=== PATIENT | male | born 1965 | race Caucasian/White ===

== ENCOUNTER 2020-03-22 02:24 | Inpatient (IN) | payer BC ==
[~2020-03-22] VITALS: Ht 177.8 cm; Wt 79.9 kg
[2020-03-22 03:08] LABS: BASO # 0.1 x10^3/uL (0.0-0.2); BASO % 1 % (0-3); EOS # 0.1 x10^3/uL (0.0-0.7); EOS % 1 % (0-3); HEMATOCRIT 46.3 % (39.0-53.0); HEMOGLOBIN 15.7 g/dL (13.0-17.5); LYMPH # 2.1 x10^3/uL (1.0-4.8); LYMPH % 20 % (24-48); MEAN CORPUSCULAR HEMOGLOBIN 28 pg (25-35); MEAN CORPUSCULAR HGB CONC 34 g/dL (31-37); MEAN CORPUSCULAR VOLUME 82 fL (79-100); MONO # 0.6 x10^3/uL (0.0-1.1); MONO % 6 % (0-9); NEUT # 7.3 x10^3/uL (1.8-7.7); NEUT % 71 % (31-73); PLATELET COUNT 269 x10^3/uL (140-400); RED BLOOD COUNT 5.65 x10^6/uL (4.30-5.70); RED CELL DISTRIBUTION WIDTH 14.9 % (11.5-14.5); WHITE BLOOD COUNT 10.3 x10^3/uL (4.0-11.0)
--- NOTE | 2020-03-22 03:13 | PHYS DOC ---
General Adult EDM: Chief Complaint: SHORTNESS OF BREATH HPI: HPI: Patient is a 54 year old male presenting to the ED with a chief complaint of cough and shortness of breath. Patient states that the symptoms have been going on for the last 5 days. Patient states that when he lays down he feels like he is having an anxiety attack. Patient does not use oxygen at home. Patient does admit to being an active smoker. Patient complains of subjective fevers at home but in the ER is afebrile. Patient denies being exposed to anyone having COVID. 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 Review of Systems: Review of Systems: Constitutional: Complains of subjective fever. [] Eyes: Denies change in visual acuity. [] HENT: Denies nasal congestion or sore throat. [] Respiratory: Complains of cough and shortness of breath [] Cardiovascular: Denies chest pain or edema. [] GI: Denies abdominal pain, nausea, vomiting, bloody stools or diarrhea. [] : Denies dysuria. [] Musculoskeletal: Denies back pain or joint pain. [] Integument: Denies rash. [] Neurologic: Denies headache, focal weakness or sensory changes. [] Heart Score: Risk Factors: Risk Factors: DM, Current or recent (<one month) smoker, HTN, HLP, family history of CAD, obesity. Risk Scores: Score 0 - 3: 2.5% MACE over next 6 weeks - Discharge Home Score 4 - 6: 20.3% MACE over next 6 weeks - Admit for Clinical Observation Score 7 - 10: 72.7% MACE over next 6 weeks - Early Invasive Strategies Physical Exam: PE: Constitutional: Well developed, well nourished, no acute distress, non-toxic appearance. [] HENT: Normocephalic, atraumatic Eyes: EOMI Neck: Normal range of motion, Supple Cardiovascular: Heart rate regular rhythm Lungs & Thorax: Bilateral breath sounds clear to auscultation [] Abdomen: Bowel sounds normal, soft, no tenderness Extremities: No tenderness, ROM intact Neurologic: Alert and oriented X 3, no focal neuro deficits on exam EKG: EKG: [EKG interpretation: 2: 45 AM on 03/22/2020 HR: 100 Sinus rhythm with PVCs Regular intervals Normal axis Nonspecific ST changes ] Radiology/Procedures: Radiology/Procedures: [] Course & Med Decision Making: Course & Med Decision Making Pertinent Labs and Imaging studies reviewed. (See chart for details) Ordered labs, chest x-ray, EKG, troponin EKG does not show STEMI. Troponin is negative. BNP is elevated to 3940 Labs otherwise within normal limits. Chest x-ray shows patchy bilateral infiltrates Patient is given IV Rocephin and Zithromax in the ER. Nurse informs me that patient's oxygenation has dropped to 86% on room air. Patient is now placed on 3 L oxygen by nasal cannula. COVID testing done Patient will be admitted for further evaluation and treatment. Discussed results and plan of care with patient. Will discuss with hospitalist service for admission. Dragon Disclaimer: Paktor Disclaimer: This electronic medical record was generated, in whole or in part, using a voice recognition dictation system. Departure Departure Impression: Primary Impression: Atypical pneumonia Additional Impressions: Suspected COVID-19 virus infection Frequent PVCs Disposition: ADMITTED INPATIENT Condition: GOOD Referrals: VLADIMIR CULVER (PCP) Justicifation of Admission Dx: Justifications for Admission: Justification of Admission Dx: Yes Comminuty Aquired Pneumonia: Hypoxemia FABIÁN LAWSON DO Mar 22, 2020 03:13
[2020-03-22 03:17] LABS: CALCIUM 9.1 mg/dL (8.5-10.1); GFR 78.2; POTASSIUM 3.5 mmol/L (3.5-5.1)
[2020-03-22 03:22] LABS: ALBUMIN 3.6 g/dL (3.4-5.0); ALBUMIN/GLOBULIN RATIO 1.2 (1.0-1.7); TOTAL BILIRUBIN 0.7 mg/dL (0.2-1.0); TOTAL PROTEIN 6.7 g/dL (6.4-8.2)
[2020-03-22] MEDS ORDERED: cefTRIAXone IV Push 1 GM VIAL. IVP ONE (04:30)
[2020-03-22] MEDS ORDERED: AZITHROMYCIN 250 MG TABLET. PO ONE (04:30)
[2020-03-22 06:10] VITALS: BP 116/69
--- NOTE | 2020-03-22 06:10 | RAD ---
INDICATION: Reason: SOB / Spl. Instructions: / History: COMPARISON: January 2010 FINDINGS: Single view of chest obtained. Cardiac silhouette is enlarged. Interstitial and groundglass opacities bilaterally. Hypoexpanded exam IMPRESSION: * Interstitial and groundglass opacities bilaterally which are moderate in severity. Can be from pulmonary edema or multifocal infiltrate. Electronically signed by: Vinicius Yung MD (03/22/2020 6:07 AM) [id number]
[2020-03-22] MEDS ORDERED: DEXTROSE 50% 25 GM / 50ML DISP.SYRIN. IV PRN (09:45)
[2020-03-22] MEDS ORDERED: POTASSIUM CHLORIDE 20 MEQ TABLET.ER. PO ONE (09:45)
[2020-03-22] MEDS: NICOTINE 21MG PATCH. TD PRN (10:15)
[2020-03-22] MEDS ORDERED: OMEP20TA8 PO (11:27)
[2020-03-22] MEDS ORDERED: ATOR40TA59 PO (11:27)
[2020-03-22] MEDS ORDERED: GLIM4TAB8 PO (11:27)
[2020-03-22] MEDS ORDERED: DAPA10TA PO (11:27)
[2020-03-22] MEDS ORDERED: AMLO10TA8 PO (11:27)
[2020-03-22] MEDS ORDERED: SIMV40TA18 PO (11:27)
[2020-03-22] MEDS ORDERED: METO-247 PO (11:27)
[2020-03-22] MEDS ORDERED: ICOS0.5C PO (11:27)
[2020-03-22 11:28] VITALS: BP 121/77
[2020-03-22] MEDS ORDERED: ALBUTEROL SULFATE 2.5 MG/3 ML NEBU. NEB PRN (11:30)
[2020-03-22] MEDS ORDERED: diphenhydrAMINE 50 MG/ML VIAL IVP PRN (11:30)
[2020-03-22] MEDS ORDERED: guaiFENesin ORAL 200 MG/10 ML LIQUID. PO PRN (11:30)
[2020-03-22] MEDS ORDERED: LORazepam 0.5 MG TABLET PO PRN (11:30)
[2020-03-22] MEDS ORDERED: ACETAMINOPHEN 325 MG TABLET. PO PRN (11:30)
[2020-03-22] MEDS ORDERED: ONDANSETRON PF 4 MG/2 ML VIAL. IV PRN (11:30)
[2020-03-22] MEDS ORDERED: ZOLPIDEM 5 MG TABLET. PO PRN (11:30)
--- NOTE | 2020-03-22 12:01 | PDOC ---
Infectious Disease Note Vital Signs: Vital Signs Vital Signs Date Time Temp Pulse Resp B/P (MAP) Pulse Ox O2 Delivery O2 Flow Rate FiO2 03/22/20 11:28 94.4 96 26 121/77 (92) 98 Nasal Cannula 2.0 94.4 Medications: Inpatient Meds: Current Medications Medications (Trade) Dose Ordered Sig/Gus Start Time Stop Time Status Last Admin Dose Admin Acetaminophen (Tylenol) 650 mg PRN Q4HRS PRN 03/22/20 11:30 Albuterol Sulfate (Ventolin Neb Soln) 2.5 mg PRN Q4HRS PRN 03/22/20 11:30 Albuterol/ Ipratropium (Duoneb) 3 ml Q4HRS W/A 03/22/20 14:00 Azithromycin (Zithromax) 500 mg 1X ONCE 03/22/20 04:30 03/22/20 04:31 DC 03/22/20 04:28 500 MG Ceftriaxone Sodium (Rocephin) 1 gm 1X ONCE 03/22/20 04:30 03/22/20 04:31 DC 03/22/20 04:28 1 GM Dextrose (Dextrose 50%-Water Syringe) 12.5 gm PRN Q15MIN PRN 03/22/20 09:45 Diphenhydramine HCl (Benadryl) 25 mg PRN Q4HRS PRN 03/22/20 11:30 Guaifenesin (Robitussin) 200 mg PRN Q4HRS PRN 03/22/20 11:30 Insulin Human Lispro (HumaLOG) 0-5 UNITS TIDWMEALS 03/22/20 12:00 Lorazepam (Ativan) 0.5 mg PRN Q4HRS PRN 03/22/20 11:30 Nicotine (Nicoderm Cq 21mg) 1 patch PRN DAILY PRN 03/22/20 09:45 03/22/20 10:15 1 PATCH Ondansetron HCl (Zofran) 4 mg PRN Q4HRS PRN 03/22/20 11:30 Potassium Chloride (Klor-Con) 20 meq 1X ONCE 03/22/20 09:45 03/22/20 09:46 DC 03/22/20 10:15 20 MEQ Zolpidem Tartrate (Ambien) 5 mg PRN QHS PRN 03/22/20 11:30 Labs: Lab Laboratory Tests Test 03/22/20 02:52 03/22/20 06:16 03/22/20 11:53 White Blood Count 10.3 x10^3/uL (4.0-11.0) Red Blood Count 5.65 x10^6/uL (4.30-5.70) Hemoglobin 15.7 g/dL (13.0-17.5) Hematocrit 46.3 % (39.0-53.0) Mean Corpuscular Volume 82 fL (79-100) Mean Corpuscular Hemoglobin 28 pg (25-35) Mean Corpuscular Hemoglobin Concent 34 g/dL (31-37) Red Cell Distribution Width 14.9 % (11.5-14.5) Platelet Count 269 x10^3/uL (140-400) Neutrophils (%) (Auto) 71 % (31-73) Lymphocytes (%) (Auto) 20 % (24-48) Monocytes (%) (Auto) 6 % (0-9) Eosinophils (%) (Auto) 1 % (0-3) Basophils (%) (Auto) 1 % (0-3) Neutrophils # (Auto) 7.3 x10^3/uL (1.8-7.7) Lymphocytes # (Auto) 2.1 x10^3/uL (1.0-4.8) Monocytes # (Auto) 0.6 x10^3/uL (0.0-1.1) Eosinophils # (Auto) 0.1 x10^3/uL (0.0-0.7) Basophils # (Auto) 0.1 x10^3/uL (0.0-0.2) Sodium Level 138 mmol/L (136-145) Potassium Level 3.5 mmol/L (3.5-5.1) Chloride Level 103 mmol/L (98-107) Carbon Dioxide Level 22 mmol/L (21-32) Anion Gap 13 (6-14) Blood Urea Nitrogen 14 mg/dL (8-26) Creatinine 1.0 mg/dL (0.7-1.3) Estimated GFR (Cockcroft-Gault) 78.2 BUN/Creatinine Ratio 14 (6-20) Glucose Level 214 mg/dL (70-99) Lactic Acid Level 1.5 mmol/L (0.4-2.0) Calcium Level 9.1 mg/dL (8.5-10.1) Magnesium Level 2.0 mg/dL (1.8-2.4) Total Bilirubin 0.7 mg/dL (0.2-1.0) Aspartate Amino Transf (AST/SGOT) 16 U/L (15-37) Alanine Aminotransferase (ALT/SGPT) 26 U/L (16-63) Alkaline Phosphatase 84 U/L (46-116) RQ-Thi-Y-Type Natriuretic Peptide 3490 pg/mL (0-124) Total Protein 6.7 g/dL (6.4-8.2) Albumin 3.6 g/dL (3.4-5.0) Albumin/Globulin Ratio 1.2 (1.0-1.7) Thyroid Stimulating Hormone (TSH) 2.367 uIU/mL (0.358-3.74) Glucose (Fingerstick) 174 mg/dL (70-99) 154 mg/dL (70-99) Objective: Assessment: Patient seen and examined Plan: Plan of Care ID consult dictated Thank you [id number] HELIO MALLORY MD Mar 22, 2020 12:01
[2020-03-22] MEDS: PIPERACILLIN/TAZOBACTAM 3.375 GM in IV NORMAL SALINE 50ML 50 ML IV SCH ×3 (13:01→23:33)
[2020-03-22] MEDS ORDERED: IPRATRPIUM/ALBUTEROL 0.5/2.5MG 3 ML NEBU. NEB PRN (14:00)
[2020-03-22] MEDS ORDERED: IPRATRPIUM/ALBUTEROL 0.5/2.5MG 3 ML NEBU. NEB SCH (14:00)
--- NOTE | 2020-03-22 14:43 | PDOC1 ---
History and Physical Date of Admission Date of Admission 03/22/2020 Identification/Chief Complaint Chief Complaint Coughing and shortness of breath Source Source: Chart review, Patient History of Present Illness History of Present Illness Patient is a 54-year-old gentleman with past medical history of hypertension and tobacco abuse who was in his usual state of health until approximately 3 to 5 days prior to his admission when he started complaining of cough with no sputum production sometimes he brings up some clear sputum. He denies any sick contacts no fever or chills but he reports feeling diaphoretic at some point over the last 24 hours. Patient denies any pleurisy no sick contacts have been reported. 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 Patient denies being in contact with anyone positive for coronavirus. He decided to come to the emergency department due to the shortness of breath. Patient is x-ray showed patchy bilateral infiltrates reason why she is being admitted to the hospital after presenting also an oxygenation level dropped into the 86% in the emergency department. Patient does not utilize oxygen at home, he has not been intubated. The patient denies any symptoms compatible with congestive heart failure like paroxysmal nocturnal dyspnea orthopnea no chest pain palpitations no headache and no generalized malaise no postnasal drip has been reported The patient denies abdominal pain no nausea vomiting no urinary symptoms and no lower extremity edema has been reported either. Plan of care has been explained in detail all of his concerns were addressed to the best of my abilities Past Medical History Cardiovascular: HTN Family History Family History: Other (Pertinent as per HPI otherwise 14 point review of system is negative) Social History Smoke: # pack years (30) ALCOHOL: rare Drugs: None Current Problem List Problem List Problems Medical Problems: (1) Atypical pneumonia Status: Acute (2) Frequent PVCs Status: Acute (3) Suspected COVID-19 virus infection Status: Acute Current Medications Current Medications Current Medications Medications (Trade) Dose Ordered Sig/Gus Start Time Stop Time Status Last Admin Dose Admin Acetaminophen (Tylenol) 650 mg PRN Q4HRS PRN 03/22/20 11:30 Albuterol Sulfate (Ventolin Neb Soln) 2.5 mg PRN Q4HRS PRN 03/22/20 11:30 Albuterol/ Ipratropium (Duoneb) 3 ml PRN Q4HRS PRN 03/22/20 14:00 Azithromycin (Zithromax) 500 mg 1X ONCE 03/22/20 04:30 03/22/20 04:31 DC 03/22/20 04:28 500 MG Ceftriaxone Sodium (Rocephin) 1 gm 1X ONCE 03/22/20 04:30 03/22/20 04:31 DC 03/22/20 04:28 1 GM Dextrose (Dextrose 50%-Water Syringe) 12.5 gm PRN Q15MIN PRN 03/22/20 09:45 Diphenhydramine HCl (Benadryl) 25 mg PRN Q4HRS PRN 03/22/20 11:30 Doxycycline Hyclate (Vibra-Tab) 100 mg BID 03/22/20 21:00 Guaifenesin (Robitussin) 200 mg PRN Q4HRS PRN 03/22/20 11:30 Insulin Human Lispro (HumaLOG) 0-5 UNITS TIDWMEALS 03/22/20 12:00 Lactobacillus Rhamnosus (Culturelle) 1 cap BID 03/22/20 21:00 Lorazepam (Ativan) 0.5 mg PRN Q4HRS PRN 03/22/20 11:30 Nicotine (Nicoderm Cq 21mg) 1 patch PRN DAILY PRN 03/22/20 09:45 03/22/20 10:15 1 PATCH Ondansetron HCl (Zofran) 4 mg PRN Q4HRS PRN 03/22/20 11:30 Piperacillin Sod/ Tazobactam Sod 3.375 gm/Sodium Chloride 50 ml @ 100 mls/hr Q6HRS 03/22/20 12:00 03/22/20 13:01 100 MLS/HR Potassium Chloride (Klor-Con) 20 meq 1X ONCE 03/22/20 09:45 03/22/20 09:46 DC 03/22/20 10:15 20 MEQ Zolpidem Tartrate (Ambien) 5 mg PRN QHS PRN 03/22/20 11:30 Allergies Allergies Allergies Coded Allergies Type Severity Reaction Last Updated Verified No Known Drug Allergies 03/22/20 No ROS Review of System CONSTITUTIONAL: No fever or chills EYES: No recent changes SKIN: No rash or itching CARDIOVASCULAR: No chest pain, syncope, palpitations, or edema RESPIRATORY: No SOB or cough GASTROINTESTINAL: No nausea, vomiting or abdominal pain NEUROLOGICAL: No headaches or weakness ENDOCRINE: No cold or heat intolerance GENITOURINARY: No urgency or frequency of urination MUSCULOSKELETAL: No back pain or joint pain LYMPHATICS: No enlarged lymph nodes PSYCHIATRIC: No anxiety or depression Physical Exam Physical Exam Gen.: well-developed well-nourished in no apparent distress Head: Normal shape atraumatic Eyes: Pupils equal reactive to light and accommodation, normal conjunctivae and lids Ears: Normal shape Nose: Normal shape no trauma Mouth: No exudates of the back of throat no thrush no lesions Neck: Supple no JVD no carotid bruit or lymphadenopathy no thyromegaly Chest: Lungs coarse to auscultation with good inspiratory effort no crackles rales no rhonchi, faint Rales bilaterally Cardiovascular: S1-S2 regular rhythm no murmurs gallops or rubs Abdomen: Bowel sounds present soft nontender no hepatosplenomegaly appreciated sign Extremities: No clubbing no cyanosis no edema peripheral pulses palpated bilaterally Neurological: Alert awake oriented in person time place and situation, cranial nerves II through XII intact, no motor or sensory deficits appreciated Psych: Appropriate mood, cooperative Vitals Vitals Vital Signs Date Time Temp Pulse Resp B/P (MAP) Pulse Ox O2 Delivery O2 Flow Rate FiO2 03/22/20 11:28 94.4 96 26 121/77 (92) 94 Nasal Cannula 2.0 94.4 Labs Labs Laboratory Tests Test 03/22/20 02:52 03/22/20 06:16 03/22/20 11:53 White Blood Count 10.3 x10^3/uL (4.0-11.0) Red Blood Count 5.65 x10^6/uL (4.30-5.70) Hemoglobin 15.7 g/dL (13.0-17.5) Hematocrit 46.3 % (39.0-53.0) Mean Corpuscular Volume 82 fL (79-100) Mean Corpuscular Hemoglobin 28 pg (25-35) Mean Corpuscular Hemoglobin Concent 34 g/dL (31-37) Red Cell Distribution Width 14.9 % (11.5-14.5) Platelet Count 269 x10^3/uL (140-400) Neutrophils (%) (Auto) 71 % (31-73) Lymphocytes (%) (Auto) 20 % (24-48) Monocytes (%) (Auto) 6 % (0-9) Eosinophils (%) (Auto) 1 % (0-3) Basophils (%) (Auto) 1 % (0-3) Neutrophils # (Auto) 7.3 x10^3/uL (1.8-7.7) Lymphocytes # (Auto) 2.1 x10^3/uL (1.0-4.8) Monocytes # (Auto) 0.6 x10^3/uL (0.0-1.1) Eosinophils # (Auto) 0.1 x10^3/uL (0.0-0.7) Basophils # (Auto) 0.1 x10^3/uL (0.0-0.2) Sodium Level 138 mmol/L (136-145) Potassium Level 3.5 mmol/L (3.5-5.1) Chloride Level 103 mmol/L (98-107) Carbon Dioxide Level 22 mmol/L (21-32) Anion Gap 13 (6-14) Blood Urea Nitrogen 14 mg/dL (8-26) Creatinine 1.0 mg/dL (0.7-1.3) Estimated GFR (Cockcroft-Gault) 78.2 BUN/Creatinine Ratio 14 (6-20) Glucose Level 214 mg/dL (70-99) Lactic Acid Level 1.5 mmol/L (0.4-2.0) Calcium Level 9.1 mg/dL (8.5-10.1) Magnesium Level 2.0 mg/dL (1.8-2.4) Total Bilirubin 0.7 mg/dL (0.2-1.0) Aspartate Amino Transf (AST/SGOT) 16 U/L (15-37) Alanine Aminotransferase (ALT/SGPT) 26 U/L (16-63) Alkaline Phosphatase 84 U/L (46-116) IV-Irc-E-Type Natriuretic Peptide 3490 pg/mL (0-124) Total Protein 6.7 g/dL (6.4-8.2) Albumin 3.6 g/dL (3.4-5.0) Albumin/Globulin Ratio 1.2 (1.0-1.7) Thyroid Stimulating Hormone (TSH) 2.367 uIU/mL (0.358-3.74) Glucose (Fingerstick) 174 mg/dL (70-99) 154 mg/dL (70-99) Laboratory Tests Test 03/22/20 02:52 03/22/20 06:16 03/22/20 11:53 White Blood Count 10.3 x10^3/uL (4.0-11.0) Red Blood Count 5.65 x10^6/uL (4.30-5.70) Hemoglobin 15.7 g/dL (13.0-17.5) Hematocrit 46.3 % (39.0-53.0) Mean Corpuscular Volume 82 fL (79-100) Mean Corpuscular Hemoglobin 28 pg (25-35) Mean Corpuscular Hemoglobin Concent 34 g/dL (31-37) Red Cell Distribution Width 14.9 % (11.5-14.5) Platelet Count 269 x10^3/uL (140-400) Neutrophils (%) (Auto) 71 % (31-73) Lymphocytes (%) (Auto) 20 % (24-48) Monocytes (%) (Auto) 6 % (0-9) Eosinophils (%) (Auto) 1 % (0-3) Basophils (%) (Auto) 1 % (0-3) Neutrophils # (Auto) 7.3 x10^3/uL (1.8-7.7) Lymphocytes # (Auto) 2.1 x10^3/uL (1.0-4.8) Monocytes # (Auto) 0.6 x10^3/uL (0.0-1.1) Eosinophils # (Auto) 0.1 x10^3/uL (0.0-0.7) Basophils # (Auto) 0.1 x10^3/uL (0.0-0.2) Sodium Level 138 mmol/L (136-145) Potassium Level 3.5 mmol/L (3.5-5.1) Chloride Level 103 mmol/L (98-107) Carbon Dioxide Level 22 mmol/L (21-32) Anion Gap 13 (6-14) Blood Urea Nitrogen 14 mg/dL (8-26) Creatinine 1.0 mg/dL (0.7-1.3) Estimated GFR (Cockcroft-Gault) 78.2 BUN/Creatinine Ratio 14 (6-20) Glucose Level 214 mg/dL (70-99) Lactic Acid Level 1.5 mmol/L (0.4-2.0) Calcium Level 9.1 mg/dL (8.5-10.1) Magnesium Level 2.0 mg/dL (1.8-2.4) Total Bilirubin 0.7 mg/dL (0.2-1.0) Aspartate Amino Transf (AST/SGOT) 16 U/L (15-37) Alanine Aminotransferase (ALT/SGPT) 26 U/L (16-63) Alkaline Phosphatase 84 U/L (46-116) FA-Xed-E-Type Natriuretic Peptide 3490 pg/mL (0-124) Total Protein 6.7 g/dL (6.4-8.2) Albumin 3.6 g/dL (3.4-5.0) Albumin/Globulin Ratio 1.2 (1.0-1.7) Thyroid Stimulating Hormone (TSH) 2.367 uIU/mL (0.358-3.74) Glucose (Fingerstick) 174 mg/dL (70-99) 154 mg/dL (70-99) VTE Prophylaxis Ordered VTE Prophylaxis Devices: No VTE Pharmacological Prophylaxi: Yes Assessment/Plan Assessment/Plan Atypical pneumonia Suspected COVID 19 virus Acute hypoxemic respiratory failure currently on 3 L nasal cannula History of hypertension Diabetes mellitus type 2 insulin requiring History of dyslipidemia Plan Continue antibiotics initiated in the emergency department Requested coronavirus testing ID apprenticeship consultant recommendations greatly appreciate Supportive measures Further recommendations based on clinical DVT prophylaxis Lovenox Justicifation of Admission Dx: Justifications for Admission: Justification of Admission Dx: Yes Respiratory Failure: Severe Resp Distress YENY MENDOZA MD Mar 22, 2020 14:43
[2020-03-22] MEDS: INSULIN LISPRO 300 UNITS/3 ML VIAL. SQ SCH ×2 (15:25→16:59)
[2020-03-22] MEDS: ENOXAPARIN 40 MG/0.4 ML SYRINGE. SQ SCH (15:44)
[2020-03-22 15:49] VITALS: BP 115/86
[2020-03-22] MEDS ORDERED: chlordiazePOXIDE HCL 25 MG CAPSULE PO PRN (16:00)
--- NOTE | 2020-03-22 17:03 | NUR ---
SW following for discharge planning. SW spoke with RN and reviewed chart. Pt from home. Pt works for [employer]. Pt on 2l 02. COVID test pending. Pt on IV abx. SW to continue following.
[2020-03-22 19:00] VITALS: BP 139/90
[2020-03-22] MEDS ORDERED: SIMVASTATIN 40 MG TABLET. PO SCH (21:00)
[2020-03-22] MEDS: ICOSAPENT ETHYL PO SCH (21:00)
[2020-03-22] MEDS ORDERED: ATORVASTATIN CALCIUM 40 MG TABLET. PO SCH (21:00)
[2020-03-22] MEDS: NON FORMULARY ITEM (Dapagliflozin Propanediol (Farxiga) 10 MG) PO SCH (21:00)
[2020-03-22] MEDS: LACTOBACILLUS RHAMNOSUS GG 1 CAPSULE. PO SCH (21:13)
[2020-03-22] MEDS: DOXYCYCLINE HYCLATE 100 MG TABLET PO SCH (21:13)
[2020-03-22 23:00] VITALS: BP 130/95
--- NOTE | 2020-03-23 00:38 | CONS ---
DATE OF CONSULTATION: 03/22/2020 REFERRING PHYSICIAN: Otto Wolf MD REASON FOR CONSULTATION: Ground-glass pulmonary opacities on chest x-ray. HISTORY OF PRESENT ILLNESS: A 54-year-old male presented to the ER with complaints of cough and shortness of breath, which started couple of days prior to admission. 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 He is an active smoker, did have cough with clear to white sputum, no blood, had subjective fevers at home. Denies any headache, sore throat, nausea, vomiting, diarrhea, abdominal pain, symptoms, rash, sick contact, recent procedure. PAST MEDICAL HISTORY: Smoking, diabetes, hypertension, hyperlipidemia. ALLERGIES: There are no known drug allergies. REVIEW OF SYSTEMS: Negative except for above in HPI. CURRENT MEDICATIONS: One-time dose of azithromycin and ceftriaxone, acetaminophen, albuterol, diphenhydramine, guaifenesin, insulin, lorazepam, nicotine, Zofran, potassium, Ambien. REVIEW OF SYSTEMS: Negative except for above in HPI. PHYSICAL EXAMINATION: VITAL SIGNS: Temperature 94.4, pulse 96, respiratory rate 26, blood pressure 121/77, oxygen saturation 98% on 2 liters by nasal cannula. T-max 97.7. GENERAL: Alert and oriented x 3 male, in no acute distress, lying comfortably in bed, says feels better, nontoxic appearing. HEENT: Normocephalic, atraumatic. Anicteric. No thrush. NECK: Supple, no JVD. LUNGS: Clear bilaterally. No wheezing. HEART: S1, S2. No gallops, murmurs, or rubs. ABDOMEN: Soft, nontender, nondistended. No rebound, no guarding. EXTREMITIES: No edema, no cyanosis, no clubbing. DERMATOLOGIC: Warm and dry. No generalized rash. NEUROLOGIC: Alert and oriented x 3, grossly nonfocal. PSYCHIATRIC: Cooperative, appropriate mood and affect. MUSCULOSKELETAL: No joint swelling. LABORATORY DATA: WBC 10.3, hemoglobin 15.7, hematocrit 46.3, platelets 269, lymphocytes 20. Sodium 138, potassium 3.5, chloride 103, bicarbonate 22, BUN 14, creatinine 1.0, glucose 214. BNP 3490. Lactate 1.5. TSH 2.35. Magnesium 2.0. IMAGING: Chest x-ray shows interstitial and ground-glass opacities bilaterally, which are moderate in severity, could be pulmonary edema or multifocal infiltrate. IMPRESSION: 1. Febrile illness. Likely viral 2. COVID-19 patient under investigation. 3. Hypothermia. 4. Acute hypoxic respiratory failure. 5. Tobaccoism. 6. Diabetes. 7. Hypertension. 8. Hyperlipidemia. 9. High BNP. RECOMMENDATIONS: 1. Status post 1 dose of ceftriaxone and azithromycin. 2. Start empiric Zosyn and doxycycline for now due to hypothermia. De-escalate soon 3. Follow-up COVID-19 4. Follow up labs and cultures. 5. Continue supportive care. 6. Maintain droplet precaution until COVID-19 results. 7. Maintain aspiration precaution. 8. Discussed with nursing staff. Thank you, Dr. Wolf, for consulting Infectious Disease to participate in this patient's care. If you have any questions, do not hesitate to contact me. HELIO MALLORY MD DR: SHEEBA/gianluca JOB#: [id number] / [id number] MERLIN
[2020-03-23 03:00] VITALS: BP 134/94
[2020-03-23] MEDS: PIPERACILLIN/TAZOBACTAM 3.375 GM in IV NORMAL SALINE 50ML 50 ML IV SCH (04:49)
[2020-03-23 07:00] VITALS: BP 125/90
[2020-03-23] MEDS ORDERED: PANTOPRAZOLE 40 MG TABLET.DR. PO SCH (07:30)
--- NOTE | 2020-03-23 07:34 | EKG ---
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
[2020-03-23] MEDS: INSULIN LISPRO 300 UNITS/3 ML VIAL. SQ SCH ×2 (08:00→12:51)
[2020-03-23] MEDS: DOXYCYCLINE HYCLATE 100 MG TABLET PO SCH (08:27)
[2020-03-23] MEDS: LACTOBACILLUS RHAMNOSUS GG 1 CAPSULE. PO SCH (08:27)
[2020-03-23 08:30] VITALS: BP 125/90
[2020-03-23] MEDS: NICOTINE 21MG PATCH. TD PRN (08:37)
[2020-03-23] MEDS ORDERED: METOPROLOL SUCC 24HR ER 100 MG TAB.ER.24H. PO SCH (09:00)
[2020-03-23] MEDS ORDERED: amLODIPine BESYLATE 10 MG TABLET PO SCH (09:00)
[2020-03-23] MEDS ORDERED: GLIMEPIRIDE 2 MG TABLET. PO SCH (09:00)
[2020-03-23] MEDS: NON FORMULARY ITEM (Dapagliflozin Propanediol (Farxiga) 10 MG) PO SCH (09:00)
[2020-03-23] MEDS: ICOSAPENT ETHYL PO SCH (09:00)
--- NOTE | 2020-03-23 09:33 | PDOC ---
Infectious Disease Note Subjective: Subjective Patient feels better this a.m. Still complains of shortness of breath and cough On 2 L O2 by nasal cannula Denies fever, nausea, vomiting, diarrhea, abdominal pain, rash Otherwise as above Vital Signs: Vital Signs Vital Signs Date Time Temp Pulse Resp B/P (MAP) Pulse Ox O2 Delivery O2 Flow Rate FiO2 03/23/20 08:30 96.0 95 22 125/90 (102) Room Air 96.0 03/23/20 07:00 99 03/23/20 03:00 2.0 Physical Exam: PHYSICAL EXAM GENERAL: Alert and oriented x 3 male, in no acute distress, lying comfortably in bed, says feels better, nontoxic appearing. HEENT: Normocephalic, atraumatic. Anicteric. No thrush. NECK: Supple, no JVD. LUNGS: Clear bilaterally. No wheezing. HEART: S1, S2. No gallops, murmurs, or rubs. ABDOMEN: Soft, nontender, nondistended. No rebound, no guarding. EXTREMITIES: No edema, no cyanosis, no clubbing. DERMATOLOGIC: Warm and dry. No generalized rash. NEUROLOGIC: Alert and oriented x 3, grossly nonfocal. PSYCHIATRIC: Cooperative, appropriate mood and affect. MUSCULOSKELETAL: No joint swelling. Medications: Inpatient Meds: Current Medications Medications (Trade) Dose Ordered Sig/Gus Start Time Stop Time Status Last Admin Dose Admin Acetaminophen (Tylenol) 650 mg PRN Q4HRS PRN 03/22/20 11:30 Albuterol Sulfate (Ventolin Neb Soln) 2.5 mg PRN Q4HRS PRN 03/22/20 11:30 Albuterol/ Ipratropium (Duoneb) 3 ml PRN Q4HRS PRN 03/22/20 14:00 Amlodipine Besylate (Norvasc) 10 mg DAILY 03/23/20 09:00 03/23/20 08:28 10 MG Atorvastatin Calcium (Lipitor) 40 mg QHS 03/22/20 21:00 03/22/20 21:13 40 MG Azithromycin (Zithromax) 500 mg 1X ONCE 03/22/20 04:30 03/22/20 04:31 DC 03/22/20 04:28 500 MG Ceftriaxone Sodium (Rocephin) 1 gm 1X ONCE 03/22/20 04:30 03/22/20 04:31 DC 03/22/20 04:28 1 GM Chlordiazepoxide (Librium) 25 mg PRN Q6HRS PRN 03/22/20 16:00 Dextrose (Dextrose 50%-Water Syringe) 12.5 gm PRN Q15MIN PRN 03/22/20 09:45 Diphenhydramine HCl (Benadryl) 25 mg PRN Q4HRS PRN 03/22/20 11:30 Doxycycline Hyclate (Vibra-Tab) 100 mg BID 03/22/20 21:00 03/23/20 08:27 100 MG Enoxaparin Sodium (Lovenox 40mg Syringe) 40 mg Q24H 03/22/20 16:00 03/22/20 15:44 40 MG Glimepiride (Amaryl) 4 mg DAILY 03/23/20 09:00 03/23/20 08:27 4 MG Guaifenesin (Robitussin) 200 mg PRN Q4HRS PRN 03/22/20 11:30 03/22/20 15:23 200 MG Insulin Human Lispro (HumaLOG) 0-5 UNITS TIDWMEALS 03/22/20 12:00 03/22/20 15:25 2 UNITS Lactobacillus Rhamnosus (Culturelle) 1 cap BID 03/22/20 21:00 03/23/20 08:27 1 CAP Lorazepam (Ativan) 0.5 mg PRN Q4HRS PRN 03/22/20 11:30 03/22/20 15:23 0.5 MG Metoprolol Succinate (Toprol Xl) 100 mg DAILY 03/23/20 09:00 03/23/20 08:28 100 MG Nicotine (Nicoderm Cq 21mg) 1 patch PRN DAILY PRN 03/22/20 09:45 03/23/20 08:37 1 PATCH Non-Formulary Medication (Dapagliflozin Propanediol (Farxiga)) 10 mg BID 03/22/20 21:00 UNV Non-Formulary Medication (Icosapent Ethyl (Vascepa)) 1 cap BID 03/22/20 21:00 UNV Ondansetron HCl (Zofran) 4 mg PRN Q4HRS PRN 03/22/20 11:30 Pantoprazole Sodium (Protonix) 40 mg DAILYAC 03/23/20 07:30 03/23/20 08:29 40 MG Piperacillin Sod/ Tazobactam Sod 3.375 gm/Sodium Chloride 50 ml @ 100 mls/hr Q6HRS 03/22/20 12:00 03/23/20 04:49 100 MLS/HR Potassium Chloride (Klor-Con) 20 meq 1X ONCE 03/22/20 09:45 03/22/20 09:46 DC 03/22/20 10:15 20 MEQ Simvastatin (Zocor) 40 mg QHS 03/22/20 21:00 UNV Zolpidem Tartrate (Ambien) 5 mg PRN QHS PRN 03/22/20 11:30 03/23/20 00:24 5 MG Labs: Lab Laboratory Tests Test 03/22/20 11:53 03/22/20 16:52 03/23/20 08:14 Glucose (Fingerstick) 154 mg/dL (70-99) 147 mg/dL (70-99) 162 mg/dL (70-99) Objective: Assessment: 1. Febrile illness prior to admission 2. COVID-19 patient under investigation. 3. Hypothermia. Improving 4. Acute hypoxic respiratory failure. 5. Tobaccoism. 6. Diabetes. 7. Hypertension. 8. Hyperlipidemia. 9. High BNP. Plan: Plan of Care DC Zosyn and doxycycline Restart azithromycin COVID-19 negative Follow up labs and cultures. Continue supportive care. Maintain aspiration precaution. Discussed with nursing staff. HELIO MALLORY MD Mar 23, 2020 09:33
[2020-03-23 11:00] VITALS: BP 126/88
[2020-03-23] MEDS ORDERED: AZITHROMYCIN 250 MG TABLET. PO SCH (12:00)
--- NOTE | 2020-03-23 12:12 | NUR ---
SW following for discharge planning. SW reviewed chart and spoke with RN. Pt on 2l 02. Pt on IV Azithromycin. Pt's COVID test results were negative. SW to continue following. Addendum: 03/23/20 at 1646 by FLORINDA LAM RN notified CAROLE that pt does not require 02 per RT and that pt placed on oral abx. No further SW needs at this time.
[2020-03-23 15:00] VITALS: BP 125/89
[2020-03-23] MEDS: ENOXAPARIN 40 MG/0.4 ML SYRINGE. SQ SCH (15:05)
--- NOTE | 2020-03-23 15:24 | NUR ---
Patient completed the six-minute walk with RT. Stable vitals and non-labored respirations. Patient was placed on oral antibiotics (Azithromycin). Awaiting discharge instructions.
[2020-03-23] MEDS ORDERED: ALBU2.5V8 NEB (15:34)
[2020-03-23] MEDS ORDERED: AZIT250T6 PO (15:34)
--- NOTE | 2020-03-23 15:50 | NUR ---
Discharge Note: EVER MCCRACKEN [facility] Discharge instructions and discharge home medications reviewed with Patient and a copy given. All questions have been answered and understanding verbalized. The following instructions and handouts were given: discharge instructions given. Discontinued lines and drains: catheter tip intact. Patient tolerated well. Patient discharged to home with self care via personal vehicle. Patient completed six minute walk without the need for oxygen.
--- NOTE | 2020-03-23 21:57 | PDOC3 ---
Discharge Summary Visit Information Date of Admission: Mar 22, 2020 Date of Discharge: Mar 23, 2020 Admitting Diagnosis Comment: Atypical pneumonia Suspected COVID 19 virus Acute hypoxemic respiratory failure currently on 3 L nasal cannula History of hypertension Diabetes mellitus type 2 insulin requiring History of dyslipidemia Final Diagnosis Problems Medical Problems: (1) Atypical pneumonia Status: Acute (2) Atypical pneumonia Suspected COVID 19 virus Acute hypoxemic respiratory failure resolved History of hypertension Diabetes mellitus type 2 insulin requiring History of dyslipidemia Status: Acute (3) ruled out COVID-19 virus infection Status: Acute Brief Hospital Course Allergies Allergies Coded Allergies Type Severity Reaction Last Updated Verified No Known Drug Allergies 03/22/20 No Vital Signs Vital Signs Date Time Temp Pulse Resp B/P (MAP) Pulse Ox O2 Delivery O2 Flow Rate FiO2 03/23/20 15:00 92.9 104 20 125/89 (101) 92 Room Air 92.9 03/23/20 11:00 2.0 Lab Results Laboratory Tests Test 03/22/20 02:52 03/22/20 03:10 03/22/20 06:16 03/22/20 11:53 White Blood Count 10.3 x10^3/uL (4.0-11.0) Red Blood Count 5.65 x10^6/uL (4.30-5.70) Hemoglobin 15.7 g/dL (13.0-17.5) Hematocrit 46.3 % (39.0-53.0) Mean Corpuscular Volume 82 fL (79-100) Mean Corpuscular Hemoglobin 28 pg (25-35) Mean Corpuscular Hemoglobin Concent 34 g/dL (31-37) Red Cell Distribution Width 14.9 % (11.5-14.5) Platelet Count 269 x10^3/uL (140-400) Neutrophils (%) (Auto) 71 % (31-73) Lymphocytes (%) (Auto) 20 % (24-48) Monocytes (%) (Auto) 6 % (0-9) Eosinophils (%) (Auto) 1 % (0-3) Basophils (%) (Auto) 1 % (0-3) Neutrophils # (Auto) 7.3 x10^3/uL (1.8-7.7) Lymphocytes # (Auto) 2.1 x10^3/uL (1.0-4.8) Monocytes # (Auto) 0.6 x10^3/uL (0.0-1.1) Eosinophils # (Auto) 0.1 x10^3/uL (0.0-0.7) Basophils # (Auto) 0.1 x10^3/uL (0.0-0.2) Sodium Level 138 mmol/L (136-145) Potassium Level 3.5 mmol/L (3.5-5.1) Chloride Level 103 mmol/L (98-107) Carbon Dioxide Level 22 mmol/L (21-32) Anion Gap 13 (6-14) Blood Urea Nitrogen 14 mg/dL (8-26) Creatinine 1.0 mg/dL (0.7-1.3) Estimated GFR (Cockcroft-Gault) 78.2 BUN/Creatinine Ratio 14 (6-20) Glucose Level 214 mg/dL (70-99) Lactic Acid Level 1.5 mmol/L (0.4-2.0) Calcium Level 9.1 mg/dL (8.5-10.1) Magnesium Level 2.0 mg/dL (1.8-2.4) Total Bilirubin 0.7 mg/dL (0.2-1.0) Aspartate Amino Transf (AST/SGOT) 16 U/L (15-37) Alanine Aminotransferase (ALT/SGPT) 26 U/L (16-63) Alkaline Phosphatase 84 U/L (46-116) HU-Ebn-V-Type Natriuretic Peptide 3490 pg/mL (0-124) Total Protein 6.7 g/dL (6.4-8.2) Albumin 3.6 g/dL (3.4-5.0) Albumin/Globulin Ratio 1.2 (1.0-1.7) Thyroid Stimulating Hormone (TSH) 2.367 uIU/mL (0.358-3.74) Coronavirus (COVID-19)(PCR) Not detected (NOT DETECT.) Glucose (Fingerstick) 174 mg/dL (70-99) 154 mg/dL (70-99) Test 03/22/20 16:52 03/23/20 08:14 03/23/20 11:20 Glucose (Fingerstick) 147 mg/dL (70-99) 162 mg/dL (70-99) 192 mg/dL (70-99) Laboratory Tests Test 03/23/20 08:14 03/23/20 11:20 Glucose (Fingerstick) 162 mg/dL (70-99) 192 mg/dL (70-99) Brief Hospital Course Mr. Mccracken is a 54 old male who presented with the above mentioned atypical pneumonia, he was tested for COVID 19 and hsi results were negative He was transitioned to Azythromycin once his results were available. ID helped with antibiotic therapy and the patient was given recommendations and counseling regarding the improtance of quitting smoking. He was n good spirits to be going home signs and symptoms f alarm were discussed prior to discharge. physical exam lung clear to auscltation no increased work of breathimg cvs s1s2 rr no murmurs Assessment Assessment [facility] [address] [place] [address] IMAGING REPORT Signed PATIENT: GYU MCCRACKEN ACCOUNT: [id number] : 1965 LOCATION: [address] [place] [address] AGE: 54 SEX: M EXAM STATUS: ADM IN ORD. PHYSICIAN: FABIÁN LAWSON DO REASON: SOB PROCEDURE: CHEST AP ONLY INDICATION: Reason: SOB / Spl. Instructions: / History: COMPARISON: January 2010 FINDINGS: Single view of chest obtained. Cardiac silhouette is enlarged. Interstitial and groundglass opacities bilaterally. Hypoexpanded exam IMPRESSION: * Interstitial and groundglass opacities bilaterally which are moderate in severity. Can be from pulmonary edema or multifocal infiltrate. Discharge Information Condition at Discharge: Improved Follow Up: Weeks Disposition/Orders: D/C to Home Scheduled Amlodipine Besylate (Amlodipine Besylate) 10 Mg Tablet, 10 MG PO DAILY for HTN, (Reported) Entered as Reported by: ALAYNA GOODMAN RN on 03/22/201126 Last Taken: UNKNOWN on Unknown Date & Time Last Action: Continued on 03/22/201441 by YENY MENDOZA MD Atorvastatin Calcium (Atorvastatin Calcium) 40 Mg Tablet, 1 TAB PO QHS for HLD, #90 Ref 3 (Reported) Entered as Reported by: ALAYNA GOODMAN RN on 03/22/201126 Last Taken: UNKNOWN on Unknown Date & Time Last Action: Continued on 03/22/201441 by YENY MENDOZA MD Azithromycin (Azithromycin Tablet) 250 Mg Tablet, 500 MG PO DAILY for pneumonia for 3 Days, #6 Prescribed by: YENY MENDOZA MD on 03/23/201533 Dapagliflozin Propanediol (Farxiga) 10 Mg Tablet, 10 MG PO BID for unknown, (Reported) Entered as Reported by: ALAYNA GOODMAN RN on 03/22/201126 Last Taken: UNKNOWN on Unknown Date & Time Last Action: Converted on 03/22/201441 by YENY MENDOZA MD Glimepiride (Glimepiride) 4 Mg Tablet, 1 TAB PO DAILY for DM, #30 Ref 5 (Reported) Entered as Reported by: ALAYNA GOODMAN RN on 03/22/201126 Last Taken: UNKNOWN on Unknown Date & Time Last Action: Converted on 03/22/201441 by YENY MENDOZA MD Icosapent Ethyl (Vascepa) 0.5 Gm Capsule, 1 CAP PO BID for unknown for 30 Days, #60 Ref 0 (Reported) Entered as Reported by: ALAYNA GOODMAN RN on 03/22/201126 Last Taken: UNKNOWN on Unknown Date & Time Last Action: Converted on 03/22/201441 by YENY MENDOZA MD Metoprolol Succinate (Metoprolol Succinate ( Xl )) 100 Mg Tab.er.24h, 1 TAB PO DAILY for HTN, #30 Ref 5 (Reported) Entered as Reported by: ALAYNA GOODMAN RN on 03/22/201126 Last Taken: UNKNOWN on Unknown Date & Time Last Action: Continued on 03/22/201441 by YENY MENDOZA MD Omeprazole (Omeprazole) 20 Mg Tablet.dr, 1 TAB PO DAILY for stomach, #90 Ref 1 (Reported) Entered as Reported by: ALAYNA GOODMAN RN on 03/22/201126 Last Taken: UNKNOWN on Unknown Date & Time Last Action: Converted on 03/22/201441 by YENY MENDOZA MD Scheduled PRN Albuterol Sulfate (Proair Hfa) 8.5 Gm Hfa.aer.ad, 2.5 MG NEB PRN Q4HRS PRN for SHORTNESS OF BREATH for 30 Days, #1 Ref 1 Prescribed by: YENY MENDOZA MD on 03/23/201533 Discontinued Medications Simvastatin (Simvastatin) 40 Mg Tablet, 1 TAB PO QHS for HLD, #30 Ref 5 (Reported) Entered as Reported by: ALAYNA GOODMAN, RN on 03/22/20 1127 Last Taken: UNKNOWN on Unknown Date & Time Last Action: Continued on 03/22/20 1442 by YENY MENDOZA MD Justicifation of Admission Dx: Justifications for Admission: Justification of Admission Dx: Yes Respiratory Failure: Severe Resp Distress YENY MENDOZA MD Mar 23, 2020 21:57
== END 2020-03-23 16:18 | disposition home or self-care (01) | DRG 193 ==
LOC: ER 02:24 → 6 SOUTH 05:20
PROVIDERS: ADMIT Family Medicine; ATTEND Family Medicine
DX: J18.9 Pneumonia, unspecified organism (principal); J96.01 Acute respiratory failure with hypoxia; E11.9 Type 2 diabetes mellitus without complications; E78.5 Hyperlipidemia, unspecified; Z20.828 Contact with and (suspected) exposure to other viral communicable diseases; F17.200 Nicotine dependence, unspecified, uncomplicated; I10 Essential (primary) hypertension; I49.3 Ventricular premature depolarization; Z79.4 Long term (current) use of insulin
CPT/HCPCS: 36415; 71045; 80053; 82962; 83605; 83735; 83880; 84443; 85025; 87040; 93005; 94618; 96374; 99285; 99406; J0696; J1650; J1815; J2543; G0378; U0003-CS

== ENCOUNTER 2020-04-12 05:26 | Emergency (ER) | payer BC ==
[~2020-04-12] VITALS: Ht 177.8 cm; Wt 79.5 kg
[~2020-04-12 05:26] MED LIST: ALBU2.5V8 NEB; AMLO10TA8 PO; ATOR40TA59 PO; AZIT250T6 PO; DAPA10TA PO; GLIM4TAB8 PO; ICOS0.5C PO; METO-247 PO; OMEP20TA8 PO; SIMV40TA18 PO
--- NOTE | 2020-04-12 06:02 | PHYS DOC ---
Past Medical History Past Medical History: COPD, Diabetes-Type II, High Cholesterol, Hypertension (FRANDY MULTANI DO) Past Surgical History: Tonsillectomy (FRANDY MULTANI DO) Smoking Status: Current Every Day Smoker Alcohol Use: Occasionally (FRANDY MULTANI DO) General Adult EDM: Chief Complaint: LOWER EXTREMITY SWELLING HPI: HPI: [age]-year-old male past medical history of hyperlipidemia COPD current smoker presents with a chief complaint of shortness of breath. Patient states shortness of breath is been ongoing for 3 weeks. Patient states he has had associated cough without sputum production he denies any fevers. Patient states over the weekend he noticed swelling in the bilateral lower extremities. Patient states he has shortness of breath with exertion. Patient denies any chest pain. Tested negative for covid March 22. (FRANDY MULTANI DO) Review of Systems: Review of Systems: Constitutional: Denies fever or chills. [] Eyes: Denies change in visual acuity. [] HENT: Denies nasal congestion or sore throat. [] Respiratory: Onset of cough positive shortness of breath Cardiovascular: Denies chest pain positive edema GI: Denies abdominal pain, nausea, vomiting, bloody stools or diarrhea. [] : Denies dysuria. [] Musculoskeletal: Denies back pain or joint pain. [] Integument: Denies rash. [] Neurologic: Denies headache, focal weakness or sensory changes. [] Endocrine: Denies polyuria or polydipsia. [] Lymphatic: Denies swollen glands. [] Psychiatric: Denies depression or anxiety. [] (FRANDY MULTANI DO) Heart Score: Risk Factors: Risk Factors: DM, Current or recent (<one month) smoker, HTN, HLP, family history of CAD, obesity. Risk Scores: Score 0 - 3: 2.5% MACE over next 6 weeks - Discharge Home Score 4 - 6: 20.3% MACE over next 6 weeks - Admit for Clinical Observation Score 7 - 10: 72.7% MACE over next 6 weeks - Early Invasive Strategies (FRANDY MULTANI DO) Allergies: Allergies: Allergies Coded Allergies Type Severity Reaction Last Updated Verified No Known Drug Allergies 03/22/20 No (FRANDY MULTANI DO) Physical Exam: PE: Constitutional: Well developed, well nourished, no acute distress, non-toxic appearance. [] HENT: Normocephalic, atraumatic, bilateral external ears normal, oropharynx moist, no oral exudates, nose normal. [] Eyes:, EOMI, conjunctiva normal, no discharge. [] Neck: Normal range of motion, no tenderness, supple, no stridor. [] Cardiovascular:Heart rate regular rhythm, no murmur [] Lungs & Thorax: Diffuse rhonchi Abdomen: Bowel sounds normal, soft, no tenderness, no masses, no pulsatile masses. [] Skin: Warm, dry, no erythema, no rash. [] Back: No tenderness, no CVA tenderness. [] Extremities: No tenderness, no cyanosis, no clubbing, ROM intact, bilateral lower extremity pitting edema Neurologic: Alert and oriented X 3, normal motor function, normal sensory function, no focal deficits noted. [] Psychologic: Affect normal, judgement normal, mood normal. [] (FRANDY MULTANI DO) Current Patient Data: Vital Signs: Vital Signs Date Time Temp Pulse Resp B/P (MAP) Pulse Ox O2 Delivery O2 Flow Rate FiO2 04/12/20 05:46 97.5 115 28 121/85 (97) 98 Room Air 97.5 (FRANDY MULTANI DO) EKG: EKG: EKG at 0556 heart rate [address] elevation no ST depression no acute DE [] (FRANDY MULTANI DO) EKG: EKG interpretation: 6: 13 AM on 04/12/2020 HR: 111 Sinus tachycardia Regular normals Normal axis Nonspecific ST changes (FABIÁN LAWSON DO) Radiology/Procedures: Radiology/Procedures: [] (FRANDY MULTANI DO) Impression: CXR IMPRESSION: 1. Mild peribronchial thickening and interstitial changes with interval improvement compared to the study from March 22. 2. Small left effusion. (FABIÁN LAWSON DO) Course & Med Decision Making: Course & Med Decision Making Pertinent Labs and Imaging studies reviewed. (See chart for details) [] (FRANDY MULTANI DO) Course & Med Decision Making Patient CARE turned over to me by Dr. Luevano at shift change. Chest x-ray does not show any acute disease. Chest x-ray compared to the one when patient was recently admitted is better today. BNP level is also similar to the one from previous visit to the hospital. Patient's oxygenation is 95 to 96% on room air. Patient states that when he sitting down he is not short of breath. Only mildly short of breath when he lays down. 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 Patient does not have any criteria for hospital admission. Discussed results and plan of care with patient. Patient is instructed to follow up with PCP in one to 2 days. Appropriate discharge instructions given to patient to return to the ED or to seek immediate medical evaluation. Patient is instructed to return to the ED if symptoms worsen or if any concerns. (FABIÁN LAWSON DO) Dragon Disclaimer: Dragon Disclaimer: This electronic medical record was generated, in whole or in part, using a voice recognition dictation system. (FRANDY MULTANI DO) Departure Departure Impression: Primary Impression: Dyspnea Additional Impression: Lower extremity edema Disposition: HOME, SELF-CARE Condition: IMPROVED Referrals: VLADIMIR CULVER (PCP) Patient Instructions: Heart Failure, Shortness of Breath Additional Instructions: Discussed results and plan of care with patient. Patient is instructed to follow up with PCP in one to 2 days. Appropriate discharge instructions given to patient to return to the ED or to seek immediate medical evaluation. Patient is instructed to return to the ED if symptoms worsen or if any concerns. Please follow-up with your acrobatic dancer as soon as possible. Justicifation of Admission Dx: Justifications for Admission: Justification of Admission Dx: Yes Respiratory Failure: Severe Resp Distress (FRANDY MULTANI DO) Justification of Admission Dx: No (FABIÁN LAWSON DO) FRANDY MULTANI DO Apr 12, 2020 06:02 FABIÁN LAWSON DO Apr 12, 2020 07:04
[2020-04-12 06:15] LABS: BASO # 0.1 x10^3/uL (0.0-0.2); BASO % 1 % (0-3); EOS # 0.1 x10^3/uL (0.0-0.7); EOS % 1 % (0-3); HEMATOCRIT 44.6 % (39.0-53.0); HEMOGLOBIN 15.2 g/dL (13.0-17.5); LYMPH # 2.2 x10^3/uL (1.0-4.8); LYMPH % 25 % (24-48); MEAN CORPUSCULAR HEMOGLOBIN 28 pg (25-35); MEAN CORPUSCULAR HGB CONC 34 g/dL (31-37); MEAN CORPUSCULAR VOLUME 81 fL (79-100); MONO # 0.6 x10^3/uL (0.0-1.1); MONO % 7 % (0-9); NEUT # 5.8 x10^3/uL (1.8-7.7); NEUT % 66 % (31-73); PLATELET COUNT 241 x10^3/uL (140-400); RED BLOOD COUNT 5.52 x10^6/uL (4.30-5.70); RED CELL DISTRIBUTION WIDTH 15.7 % (11.5-14.5); WHITE BLOOD COUNT 8.8 x10^3/uL (4.0-11.0)
[2020-04-12 06:29] LABS: CALCIUM 8.9 mg/dL (8.5-10.1); CREATININE 1.1 mg/dL (0.7-1.3); POTASSIUM 3.6 mmol/L (3.5-5.1)
[2020-04-12 06:35] LABS: ALBUMIN 3.8 g/dL (3.4-5.0); ALBUMIN/GLOBULIN RATIO 1.4 (1.0-1.7); TOTAL BILIRUBIN 1.3 mg/dL (0.2-1.0); TOTAL PROTEIN 6.6 g/dL (6.4-8.2)
--- NOTE | 2020-04-12 06:59 | RAD ---
AP chest. HISTORY: Short of breath, cough AP view was taken of the chest. Comparison is made with a study from March 22. There is a small left pleural effusion. Heart is upper normal in size. There is peribronchial thickening and mild interstitial lung disease. The pattern has mildly improved compared to the prior study. IMPRESSION: 1. Mild peribronchial thickening and interstitial changes with interval improvement compared to the study from March 22. 2. Small left effusion. Electronically signed by: Ciro Jiang MD (04/12/2020 6:57 AM) [facility]
[2020-04-12 08:42] VITALS: BP 104/69
--- NOTE | 2020-04-12 12:12 | EKG ---
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
== END 2020-04-12 08:45 | disposition home or self-care (01) ==
LOC: ER 05:26
DX: R06.00 Dyspnea, unspecified (principal); Z20.828 Contact with and (suspected) exposure to other viral communicable diseases; R06.02 Shortness of breath; R05 Cough; R60.0 Localized edema; J44.9 Chronic obstructive pulmonary disease, unspecified; E11.9 Type 2 diabetes mellitus without complications; E78.00 Pure hypercholesterolemia, unspecified; I10 Essential (primary) hypertension; F17.200 Nicotine dependence, unspecified, uncomplicated; Z90.89 Acquired absence of other organs
CPT/HCPCS: 36415; 71045; 80053; 83605; 83880; 84484; 85025; 87040; 93005; 99285; C9803; U0003

== ENCOUNTER 2020-10-11 11:07 | Inpatient (IN) | payer BC ==
[~2020-10-11] VITALS: Ht 177.8 cm; Wt 84.8 kg
[~2020-10-11 11:07] MED LIST changes: +AMLO-187 PO; -AMLO10TA8 PO
[2020-10-11] MEDS ORDERED: IV NORMAL SALINE 1000ML BAG 1,000 ML IV ONE ×2 (11:45)
[2020-10-11] MEDS ORDERED: cefTRIAXone IV Push 1 GM VIAL. IVP ONE (11:45)
[2020-10-11] MEDS ORDERED: AZITHRMYCN 500MG IVPB FOR OMNI 250 ML IV ONE (11:45)
--- NOTE | 2020-10-11 11:47 | PHYS DOC ---
Past Medical History Past Medical History: COPD, Diabetes-Type II, High Cholesterol, Hypertension Past Surgical History: Tonsillectomy Smoking Status: Current Every Day Smoker Alcohol Use: Occasionally General Adult EDM: Chief Complaint: SHORTNESS OF BREATH HPI: HPI: 55-year-old male past medical history significant for diabetes, hypertension, hyperlipidemia and tobacco dependence, presents to the ED with complaints of worsening exertional shortness of breath and orthopnea for the past 2 weeks, stating he swollen from his waist down. Also reports associated tiredness and fatigue. 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 No history of ACS, CVA, DVT or PEs. Denies any daily alcohol, IV drug use or illicit drug use. States his leg swelling has progressively gotten worse. Review of Systems: Review of Systems: Constitutional: Denies fever or chills. [] Eyes: Denies change in visual acuity. [] HENT: Denies nasal congestion or sore throat. [] Respiratory: Denies cough or hemoptysis Cardiovascular: Denies chest pain or edema. [] GI: Denies abdominal pain, nausea, vomiting, bloody stools or diarrhea. [] : Denies dysuria or hematuria (urine is dark in color) Musculoskeletal: Denies back pain or joint pain. [] Integument: Denies rash or diaphoresis Neurologic: Denies headache, focal weakness or sensory changes. [] Endocrine: Denies polyuria or polydipsia. [] Lymphatic: Denies swollen glands. [] Psychiatric: Denies depression or anxiety. [] Heart Score: Risk Factors: Risk Factors: DM, Current or recent (<one month) smoker, HTN, HLP, family history of CAD, obesity. Risk Scores: Score 0 - 3: 2.5% MACE over next 6 weeks - Discharge Home Score 4 - 6: 20.3% MACE over next 6 weeks - Admit for Clinical Observation Score 7 - 10: 72.7% MACE over next 6 weeks - Early Invasive Strategies Allergies: Allergies: Allergies Coded Allergies Type Severity Reaction Last Updated Verified No Known Drug Allergies 03/22/20 No Physical Exam: PE: Constitutional: Well developed, well nourished, no acute distress, non-toxic appearance. HENT: Normocephalic, atraumatic, Eyes: EOMI, conjunctiva normal, no discharge. Neck: Normal range of motion, supple, Cardiovascular: S1/2 present, tachycardic rhythm, Lungs & Thorax: Speaking in full sentences, bilateral equal chest rise, mild/moderate tachypnea with increased work of breathing Abdomen: soft, no tenderness, Skin: Warm, dry, no erythema, no rash. [] Back: No tenderness, no CVA tenderness. [] Extremities: No tenderness, no cyanosis, +2/4 bl pitting edema with bl anterior walls erythema Neurologic: Alert and oriented X 3, normal motor function, normal sensory function, no focal deficits noted. [] Psychologic: Affect normal, judgement normal, mood normal. [] EKG: EKG: Low voltage EKG with frequent PVCs/bigeminy, cannot appreciate a clear distinct P wave, QTC 515, no obvious ST elevations or ST depressions, considering atrial fibrillation w/rvr vs mat Repeat EKG is sinus tachycardia at 134 bpm, no axis deviation, normal intervals, PVCs present, T wave inversions V5 and V6, no ST elevations or ST depressions Radiology/Procedures: Radiology/Procedures: IMAGING REPORT Signed PATIENT: GUY MCCRACKEN ACCOUNT: [id number] : 1965 LOCATION: ER AGE: 55 SEX: M EXAM STATUS: REG ER ORD. PHYSICIAN: KEAGAN POTTER DO REASON: bl leg swelling PROCEDURE: VENOUS LOWER EXT BILATERAL US BILATERAL LOWEREXTREMITY VENOUS DOPPLER History: Reason: bl leg swelling / Spl. Instructions: / History: Comparison: None. Discussion: Multiple longitudinal and transverse high resolution real-time images of the venous system of bilateral lower extremity were obtained with color and Doppler sampling. The common femoral, superficial femoral, popliteal and proximal calf veins are all patent and demonstrate normal flow and compressibility. Normal respiratory phasicity and augmentation is present. Bilateral lower extremity subcutaneous edema. Impression: 1. No evidence of deep vein thrombosis. 2. Bilateral lower extremity subcutaneous edema. Electronically signed by: Iam Gaona DO (10/11/2020 12:43 PM) [id number] DICTATED and SIGNED BY: IAM GAONA DO DATE: 10/11/20 [id number] IMAGING REPORT Signed PATIENT: GUY MCCRACKEN ACCOUNT: [id number] : 1965 LOCATION: ER AGE: 55 SEX: M EXAM STATUS: REG ER ORD. PHYSICIAN: KEAGAN POTTER DO REASON: anasarca PROCEDURE: PORTABLE CHEST 1V Examination: XR CHEST 1V History: anasarca Comparison/Correlation: 03/31/2020 Findings: Portable upright frontal view chest was obtained. Heart size is within upper limits of normal. No pneumothorax. Small left pleural effusion is present. A smaller right pleural effusion is present. The pulmonary vasculature is congested. Deformity of the right glenoid contour is noted unchanged compared to prior exam. Impression: Pulmonary vasculature congestion and bilateral pleural effusions greater on the left. Findings are of greater severity than prior exam. Electronically signed by: Charles Cardoso MD (10/11/2020 11:55 AM) [id number] DICTATED and SIGNED BY: CHARLES CARDOSO MD DATE: 10/11/20 [id number] IMAGING REPORT Signed PATIENT: GUY MCCRACKEN ACCOUNT: [id number] : 1965 LOCATION: ER AGE: 55 SEX: M EXAM STATUS: REG ER ORD. PHYSICIAN: KEAGAN POTTER DO REASON: dyspnea, r/o pe PROCEDURE: CT ANGIOGRAPHY CHEST EXAM: CT Pulmonary Angiogram INDICATION: Reason: dyspnea, r/o pe / Spl. Instructions: OMNI 350 INJ 100 MLS / History: TECHNIQUE: Multi-detector row images were acquired from the thoracic inlet through the upper abdomen with the use of IV contrast. Sagittal and coronal images were acquired from the transaxial data. MIP images of the pulmonary arteries were obtained. All CT scans performed at this facility utilize dose optimization techniques as appropriate to the exam, including the following: Automated exposure control and adjustment of the mA and/or KV according to pa tient size (this includes techniques or standardized protocols for targeted exams where dose is indication/reason for exam). IV CONTRAST: Administered COMPARISON: None FINDINGS: PULMONARY ARTERIES: No pulmonary emboli are identified. There is suboptimal contrast bolus opacification of the pulmonary arterial vessels in the left lower lobe. CARDIOVASCULAR: Mild cardiac enlargement. Reflux of IV contrast into dilated hepatic veins and intrahepatic IVC is noted. Aorta is normal caliber. MEDIASTINUM & DELMI: Mediastinal adenopathy is present. Calcified right hilar, mediastinal interlobar lymph nodes. LUNGS: Interstitial thickening with interlobular septal prominence most conspicuous in the lower lobes is present. There is moderate bilateral lower lobe atelectasis, left greater than right. PLEURAL SPACE: Moderate bilateral pleural effusions. No pneumothorax. OSSEOUS & SOFT TISSUE: Unremarkable ABDOMEN: The visualized portions of the upper abdomen are unremarkable. IMPRESSION: 1. No evidence for acute pulmonary embolus. Suboptimal contrast bolus opacification of the pulmonary arterial vessels in the left lower lobe limits evaluation in this area. 2. Moderate bilateral pleural effusions with moderate bilateral lower lobe atelectasis, left greater than right. 3. Interstitial thickening with interlobular septal prominence most conspicuous in the lower lobes. Findings may represent pulmonary edema. 4. Mediastinal adenopathy, likely reactive. 5. Cardiomegaly with reflux of IV contrast into dilated hepatic veins and intrahepatic IVC. Electronically signed by: Keagan De Jesus MD (10/11/2020 3:10 PM) [id number] DICTATED and SIGNED BY: KEAGAN DE JESUS MD DATE: 10/11/20 [id number] 0 Course & Med Decision Making: Course & Med Decision Making Pertinent Labs and Imaging studies reviewed. (See chart for details) Concern for acute congestive heart failure exacerbation in the setting of bilateral pitting edema, sepsis w/le cellulitis. Antibiotics and Lasix started in ED. EMR reviewed-echo 2017 w/55-60% EF. D-dimer elevated. CTA chest with no evidence for PE, these are bl effusions, mediastinal adenopathy and cardiomegaly. Will admit for further medical management. Given pts' tachypnea, I do see pt benefitting in the near future from bipap to alleviate pulm edema (if does not improve with lasix). Patient stable at time of admission and agrees with this plan. I have spoken with the patient and/or caregivers. I have explained the patien t's condition, diagnosis and treatment plan based on the information available to me at this time. I have answered the patient's and/or caregivers questions and answered any concerns. The patient and/or caregivers have as good an understanding of the patient's diagnosis, condition and treatment plan as can be expected at this point. The patient has been stabilized within the capability of the emergency department. The patient will be transported for further care and management or will be moved to an observation or inpatient service. I have communicated with the staff or medical practitioner taking over this patient's care. Thomas Disclaimer: Dragon Disclaimer: This electronic medical record was generated, in whole or in part, using a voice recognition dictation system. Departure Departure Impression: Primary Impression: Acute CHF (congestive heart failure) Additional Impressions: Lower extremity edema Bilateral lower leg cellulitis Sepsis Disposition: 09 ADMITTED INPT THIS HOSP Admitting Physician: JOSE RAFAEL (Dr. Shah) Condition: STABLE Referrals: UNKNOWN PCP NAME (PCP) KEAGAN POTTER DO Oct 11, 2020 11:47
--- NOTE | 2020-10-11 11:58 | RAD ---
Examination: XR CHEST 1V History: anasarca Comparison/Correlation: 03/31/2020 Findings: Portable upright frontal view chest was obtained. Heart size is within upper limits of normal. No pneumothorax. Small left pleural effusion is present. A smaller right pleural effusion is present. The pulmonary vasculature is congested. Deformity of th e right glenoid contour is noted unchanged compared to prior exam. Impression: Pulmonary vasculature congestion and bilateral pleural effusions greater on the left. Findings are of greater severity than prior exam. Electronically signed by: Charles Faulkner MD (10/11/2020 11:55 AM) [id number]
[2020-10-11 12:24] LABS: BASO # 0.1 x10^3/uL (0.0-0.2); BASO % 1 % (0-3); EOS % 0 % (0-3); HEMATOCRIT 51.9 % (39.0-53.0); HEMOGLOBIN 16.7 g/dL (13.0-17.5); LYMPH % 8 % (24-48); MEAN CORPUSCULAR HEMOGLOBIN 27 pg (25-35); MEAN CORPUSCULAR HGB CONC 32 g/dL (31-37); MEAN CORPUSCULAR VOLUME 83 fL (79-100); MONO # 0.9 x10^3/uL (0.0-1.1); MONO % 7 % (0-9); NEUT # 11.2 x10^3/uL (1.8-7.7); NEUT % 85 % (31-73); PLATELET COUNT 306 x10^3/uL (140-400); RED BLOOD COUNT 6.24 x10^6/uL (4.30-5.70); RED CELL DISTRIBUTION WIDTH 17.9 % (11.5-14.5); WHITE BLOOD COUNT 13.3 x10^3/uL (4.0-11.0)
[2020-10-11 12:33] LABS: BILIRUBIN,URINE SMALL (NEG); CLARITY,URINE CLEAR; COLOR,URINE AMBER; NITRITE,URINE NEGATIVE (NEG); PROTEIN,URINE 100 mg/dL (NEG-TRACE)
[2020-10-11 12:41] LABS: CALCIUM 9.6 mg/dL (8.5-10.1); CREATININE 1.1 mg/dL (0.7-1.3); GFR 69.8; POTASSIUM 3.8 mmol/L (3.5-5.1)
[2020-10-11 12:43] LABS: BACTERIA,URINE 0 /HPF (0-FEW); RBC,URINE 0 /HPF (0-2); WBC,URINE 0 /HPF (0-4)
--- NOTE | 2020-10-11 12:46 | RAD ---
US BILATERAL LOWEREXTREMITY VENOUS DOPPLER History: Reason: bl leg swelling / Spl. Instructions: / History: Comparison: None. Discussion: Multiple longitudinal and transverse high resolution real-time images of the venous system of bilater al lower extremity were obtained with color and Doppler sampling. The common femoral, superficial fem oral, popliteal and proximal calf veins are all patent and demonstrate normal flow and compressibilit y. Normal respiratory phasicity and augmentation is present. Bilateral lower extremity subcutaneous edema. Impression: 1. No evidence of deep vein thrombosis. 2. Bilateral lower extremity subcutaneous edema. Electronically signed by: Iam Gaona DO (10/11/2020 12:43 PM) [id number]
[2020-10-11 12:48] LABS: ALBUMIN 3.5 g/dL (3.4-5.0); ALBUMIN/GLOBULIN RATIO 0.9 (1.0-1.7); TOTAL BILIRUBIN 2.6 mg/dL (0.2-1.0); TOTAL PROTEIN 7.4 g/dL (6.4-8.2)
[2020-10-11 12:53] LABS: INFLUENZA A PATIENT NEGATIVE (NEGATIVE)
[2020-10-11 12:54] LABS: INFLUENZA B PATIENT NEGATIVE (NEGATIVE)
[2020-10-11] MEDS ORDERED: FUROSEMIDE 40 MG/4 ML VIAL. IVP ONE (13:15)
[2020-10-11] MEDS ORDERED: IOHEXOL 350 MG/ML 100 ML VIAL. IV ONE (14:45)
[2020-10-11] MEDS ORDERED: CONTRAST GIVEN. MC PRN (14:45)
--- NOTE | 2020-10-11 15:12 | RAD ---
EXAM: CT Pulmonary Angiogram INDICATION: Reason: dyspnea, r/o pe / Spl. Instructions: OMNI 350 INJ 100 MLS / History: TECHNIQUE: Multi-detector row images were acquired from the thoracic inlet through the upper abdomen with the use of IV contrast. Sagittal and coronal images were acquired from the transaxial data. ID P images of the pulmonary arteries were obtained. All CT scans performed at this facility utilize dos e optimization techniques as appropriate to the exam, including the following: Automated exposure con trol and adjustment of the mA and/or KV according to patient size (this includes techniques or standa rdized protocols for targeted exams where dose is indication/reason for exam). IV CONTRAST: Administered COMPARISON: None FINDINGS: PULMONARY ARTERIES: No pulmonary emboli are identified. There is suboptimal contrast bolus opacifica tion of the pulmonary arterial vessels in the left lower lobe. CARDIOVASCULAR: Mild cardiac enlargement. Reflux of IV contrast into dilated hepatic veins and intra hepatic IVC is noted. Aorta is normal caliber. MEDIASTINUM & DELMI: Mediastinal adenopathy is present. Calcified right hilar, mediastinal interlobar lymph nodes. LUNGS: Interstitial thickening with interlobular septal prominence most conspicuous in the lower lobe s is present. There is moderate bilateral lower lobe atelectasis, left greater than right. PLEURAL SPACE: Moderate bilateral pleural effusions. No pneumothorax. OSSEOUS & SOFT TISSUE: Unremarkable ABDOMEN: The visualized portions of the upper abdomen are unremarkable. IMPRESSION: 1. No evidence for acute pulmonary embolus. Suboptimal contrast bolus opacification of the pulmonary arterial vessels in the left lower lobe limits evaluation in this area. 2. Moderate bilateral pleural effusions with moderate bilateral lower lobe atelectasis, left greater than right. 3. Interstitial thickening with interlobular septal prominence most conspicuous in the lower lobes. Findings may represent pulmonary edema. 4. Mediastinal adenopathy, likely reactive. 5. Cardiomegaly with reflux of IV contrast into dilated hepatic veins and intrahepatic IVC. Electronically signed by: Ashok De Jesus MD (10/11/2020 3:10 PM) [id number]
[2020-10-11 18:37] VITALS: BP 97/77
--- NOTE | 2020-10-11 18:40 | NUR ---
Pt arrived on unit at approx 1625 via bed. Orders reviewed, tele monitor applied. Call light placed within reach, fresh water given. Pt's cardiac rhythm sinus tachycardia with PVC's on the monitor. Upon admission, pt states he is missing glasses that he had in the ED. This RN called the ED and they stated they will go look for them. Will pass along to night RN. Addendum: 10/11/20 at 1920 by LESLYE YAO RN Glasses brought up from ED and given to magen Tam RN.
--- NOTE | 2020-10-11 19:16 | HP ---
ADMIT DATE: 10/11/2020 CHIEF COMPLAINT: Shortness of breath. HISTORY OF PRESENT ILLNESS: The patient is a pleasant 55-year-old male who has COPD, but has never had heart failure that I am aware of, basically, today presents with shortness of breath and has 3+ edema. His troponin is slightly high. His BNP is greater than 10,000. He also has effusions on his chest x-ray. He is orthopneic, tachycardic at 120 beats per minute. I discussed the case with ER physician. We are going to admit the patient for evaluation and treatment of acute on chronic heart failure. We are going to be consulting Cardiology. PAST MEDICAL HISTORY: Tobacco abuse, COPD, diabetes, hypertension, hyperlipidemia, tonsillectomy, noncompliance. ALLERGIES: None. FAMILY HISTORY: Diabetes. 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 No drink or drugs. MEDICATIONS: Reviewed, please refer to the MRAD. REVIEW OF SYSTEMS: GENERAL: No history of weight change, weakness or fevers. SKIN: No bruising, hair changes or rashes. EYES: No blurred, double or loss of vision. NOSE AND THROAT: No history of nosebleeds, hoarseness or sore throat. HEART: No history of palpitations, chest pain or shortness of breath on exertion. LUNGS: He complains of shortness of breath. GASTROINTESTINAL: Denies changes in appetite, nausea, vomiting, diarrhea or constipation. GENITOURINARY: No history of frequency, urgency, hesitancy or nocturia. NEUROLOGIC: Denies history of numbness, tingling, tremor or weakness. PSYCHIATRIC: No history of panic, anxiety or depression. ENDOCRINE: No history of heat or cold intolerance, polyuria or polydipsia. EXTREMITIES: Denies muscle weakness, joint pain, pain on walking or stiffness. PHYSICAL EXAMINATION: VITALS: Within normal limits and are stable. GENERAL: No apparent distress. Alert and oriented. HEENT: Normal cephalic atraumatic, external auditory canals are patent EYES: Extraocular muscles are intact, pupils are equally round and reactive to light and accommodation MUSCULOSKELETAL: Well developed, well nourished, good range of motion ENDOCRINE: No thyromegaly was palpated LYMPHATICS: No cervical chain or axillary nodes were noted HEMATOPOIETIC: No bruising NECK: Supple, no JVD, no thyromegaly was noted. LUNGS: He has bibasilar crackles. HEART: RRR, S1, S2 present. Peripheral pulses intact, no obvious murmurs were noted. ABDOMEN: Soft, nontender. Positive bowel sounds no organomegaly, normal bowel sounds. EXTREMITIES: Without any cyanosis, clubbing, or edema. Pedal pulses intact, Homans sign is negative. NEUROLOGIC: Normal speech, normal tone. A & O x3, moves all extremities, no obvious focal deficits. PSYCHIATRIC: Normal affect, normal mood. Stable. SKIN: No ulcerations or rashes, good skin turgor, no jaundice. VASCULAR: Good capillary refill, neurovascular bundle appears to be intact. LABORATORY DATA: Troponin is 0.03. BNP 11,235. White count is 13. Chest x-ray shows vascular congestion with pleural effusion. ASSESSMENT AND PLAN: Acute on chronic systolic and diastolic heart failure. The patient will be admitted. We will start IV Lasix. Consult Cardiology, cardiac monitoring, home meds, deep venous thrombosis prophylaxis. Full code. Serial enzymes, serial EKGs, swab him for COVID-19. Respiratory isolation. TANYA LLOYD DO DR: RALPH/gianluca JOB#: [id number] / [id number]
[2020-10-11 23:00] VITALS: BP 124/91
[2020-10-12 03:00] VITALS: BP 118/81
[2020-10-12] MEDS ORDERED: MORPHINE SULFATE 4 MG/ML VIAL. IV PRN (04:00)
[2020-10-12 07:14] VITALS: BP 117/88
--- NOTE | 2020-10-12 10:36 | NUR ---
This RN notified [facility], ICU charge operator of positive sepsis screening at [address] Tejeda at 0920.
[2020-10-12] MEDS: NICOTINE 21MG PATCH. TD SCH (10:51)
[2020-10-12 11:07] VITALS: BP 120/91
[2020-10-12] MEDS ORDERED: DOCUSATE SODIUM 100 MG CAPSULE. PO PRN (12:30)
[2020-10-12] MEDS ORDERED: SENNOSIDES 8.6 MG TABLET PO PRN (12:30)
[2020-10-12] MEDS ORDERED: ONDANSETRON PF 4 MG/2 ML VIAL. IVP PRN (12:30)
[2020-10-12] MEDS ORDERED: ACETAMINOPHEN 325 MG TABLET. PO PRN (12:30)
[2020-10-12] MEDS ORDERED: DEXTROSE 50% 25 GM / 50ML DISP.SYRIN. IV PRN ×2 (12:30→12:45)
--- NOTE | 2020-10-12 12:40 | PDOC ---
[facility] PROGRESS NOTE Date of Service DOS: DATE: 10/12/20 TIME: 12:31 Chief Complaint Chief Complaint Acute hypoxic respiratory distress due to acute CHF versus COPD exacerbation Last echocardiogram done 2018 shows EF of 55 to 60% Bilateral lower extremity edema Elevated BNP concerning for volume overload Investigation for Covid Admit to medicine for further management Lasix x1 today Pending echocardiogram Pending Covid test Pending cardiology evaluation Lovenox for DVT prophylaxis Protonix GI prophylaxis Cardiac/ADA diet Full code Discussed with RN and SW Disposition inpatient management as above Surrogate decision maker is undesignated History of Present Illness History of Present Illness 10/12/2020 No acute events overnight. Patient states that his lower extremity edema has improved with his Lasix dose. Will attempt to give another Lasix dose today. Pending cardiology evaluation. Nicotine patch administered. Patient's chart, labs, images were reviewed and discussed with RN. 55-year-old male who has COPD, but has never had heart failure that I am aware of, basically, today presents with shortness of breath and has 3+ edema. His troponin is slightly high. His BNP is greater than 10,000. He also has effusions on his chest x-ray. He is orthopneic, tachycardic at 120 beats per minute. I discussed the case with ER physician. We are going to admit the patient for evaluation and treatment of acute on chronic heart failure. We are going to be consulting Cardiology. Vitals/I&O Vitals/I&O: Vital Signs Date Time Temp Pulse Resp B/P (MAP) Pulse Ox O2 Delivery O2 Flow Rate FiO2 10/12/20 11:07 97.3 114 18 120/91 (101) 94 Room Air 97.3 10/11/20 23:35 4.0 I & O 10/11/20 10/11/20 10/12/20 15:00 23:00 07:00 Intake Total 250 ml 800 ml Output Total 1125 ml Balance -875 ml 800 ml Labs Labs: Laboratory Tests Test 10/11/20 15:57 10/12/20 11:58 Lactic Acid Level 2.0 mmol/L (0.4-2.0) Glucose (Fingerstick) 160 mg/dL (70-99) Assessment and Plan Assessmemt and Plan Problems Medical Problems: (1) Acute CHF (congestive heart failure) Status: Acute (2) Bilateral lower leg cellulitis Status: Acute (3) Lower extremity edema Status: Acute (4) Sepsis Status: Acute Comment Review of Relevant I have reviewed the following items gorge (where applicable) has been applied. Medications: Current Medications Medications (Trade) Dose Ordered Sig/Gus Route PRN Reason Start Time Stop Time Status Last Admin Dose Admin Furosemide (Lasix) 40 mg 1X ONCE IVP 10/11/20 13:15 10/11/20 13:16 DC 10/11/20 13:50 Iohexol (Omnipaque 350 Mg/ml) 100 ml 1X ONCE IV 10/11/20 14:45 10/11/20 14:46 DC 10/11/20 14:44 Nicotine (Nicoderm Cq 21mg) 1 patch DAILY TD 10/12/20 11:00 10/12/20 10:51 Justifications for Admission Other Justification CHF exacerbation ASTER PACHECO MD Oct 12, 2020 12:40
[2020-10-12] MEDS ORDERED: FUROSEMIDE 40 MG/4 ML VIAL. IVP ONE (13:00)
--- NOTE | 2020-10-12 13:23 | PDOC2 ---
K[employer]H L[employer]NE [employer] 10/12/20 1323: CARDIAC CONSULT DATE OF CONSULT Date of Consult DATE: 10/12/20 TIME: 13:19 REASON FOR CONSULT Reason for Consult: CHF REFERRING PHYSICIAN Referring Physician: Dr. Win SOURCE Source: Chart review, Patient HISTORY OF PRESENT ILLNESS HISTORY OF PRESENT ILLNESS This is a 55 yo male who presented secondary to progressive shortness of breath over the last couple of weeks and bilateral LE edema. Patient reports bilateral LE edema began about 2 weeks ago as well. Has progressively worsened. No chest pain, dizziness, diaphoresis, palpitations, or nausea/vomiting. Reports stress test about 2 years ago that was "normal". No recent cardiac workup. PAST MEDICAL HISTORY Cardiovascular: HTN, Hyperlipidemia Pulmonary: COPD Endocrine: Diabetes PAST SURGICAL HISTORY Past Surgical History: No pertinent history FAMILY HISTORY Family History: Heart Disease (father from [place] at age 57 ) SOCIAL HISTORY Smoke: 2 packs per day ALCOHOL: none Drugs: None Lives: Alone CURRENT MEDICATIONS CURRENT MEDICATIONS Current Medications Medications (Trade) Dose Ordered Sig/Gus Route PRN Reason Start Time Stop Time Status Last Admin Dose Admin Iohexol (Omnipaque 350 Mg/ml) 100 ml 1X ONCE IV 10/11/20 14:45 10/11/20 14:46 DC 10/11/20 14:44 Nicotine (Nicoderm Cq 21mg) 1 patch DAILY TD 10/12/20 11:00 10/12/20 10:51 ALLERGIES ALLERGIES: Coded Allergies: No Known Drug Allergies (Unverified , 03/22/20) ROS Review of System 14 point ROS conducted with pertinent positives noted above in hPI PHYSICAL EXAM General: Alert, Oriented X3, Cooperative, No acute distress HEENT: Atraumatic Lungs: Other (crackles ) Heart: Regular rate Abdomen: Soft, No hepatosplenomegaly Extremities: Normal pulses, Other (2-3+ bilateral LE edema ) Skin: No significant lesion Neuro: Normal speech, Sensation intact Psych/Mental Status: Mental status NL, Mood NL MUSCULOSKELETAL: No deformity VITALS/I&O VITALS/I&O: Vital Signs Date Time Temp Pulse Resp B/P (MAP) Pulse Ox O2 Delivery O2 Flow Rate FiO2 10/12/20 11:07 97.3 114 18 120/91 (101) 94 Room Air 97.3 10/11/20 23:35 4.0 I & O 10/11/20 10/11/2010/12/20 15:00 23:00 07:00 Intake Total 250 ml 800 ml Output Total 1125 ml Balance -875 ml 800 ml LABS Lab: Laboratory Tests Test 10/11/20 15:57 10/12/20 11:58 Lactic Acid Level 2.0 mmol/L (0.4-2.0) Glucose (Fingerstick) 160 mg/dL (70-99) H ECHOCARDIOGRAM ECHOCARDIOGRAM <Conclusion> Left ventricle systolic function is normal. The Ejection Fraction is 55-60%. There is normal LV segmental wall motion. Doppler and Color Flow revealed trace tricuspid regurgitation. The PA pressure was estimated at 19 mmHg. There is no evidence of significant pericardial effusion. DATE: 08/24/17 1433 STRESS TEST STRESS TEST Stress echo <Conclusion> The left ventricle is normal in size and wall thickness in both the rest and stress images. EF 55% at rest, > 70% with stress. Normal exercise capacity with 10.1 Mets on a Luis protocol No significant EKG changes Low risk study DATE: 08/24/17 1552 ASSESSMENT/PLAN ASSESSMENT/PLAN 1. Acute respiratory secondary to CHF 2. Acute on chronic CHF with possible diastolic/systolic dysfunction 3. Hypertension; controlled 4. Hyperlipidemia; statin 5. Diabetes, II; as per IM 6. COPD with continued tobaccoism; discussed/encouraged cessation 7. PUI; suspicion low Recommendations Diuresis with monitoring of labs ASA Lipids Echo to assess LV systolic function if COVID negative Given risk factors, will need further ischemic evaluation Further pending above MINO MELVIN MD 10/12/20 1603: CARDIAC CONSULT ASSESSMENT/PLAN ASSESSMENT/PLAN Patient seen and examined. Agree with CREDIT COLLECTOR's assessment and plan. Continue diuresis for acute on chronic diastolic heart failure. Plan for 2D echo if Covid test comes back negative. We will consider ischemic evaluation as an outpatient. Thank you for your consultation KALPESH LAYNE APRN Oct 12, 2020 13:23 MINO MELVIN MD Oct 12, 2020 16:03
[2020-10-12] MEDS: ENOXAPARIN 40 MG/0.4 ML SYRINGE. SQ SCH (13:27)
--- NOTE | 2020-10-12 13:35 | NUR ---
Unable to complete med rec at this time as pt is unable to recall home medications. Addendum: 10/12/20 at 1353 by LESLYE YAO RN Dr. Tejeda notified. Will review home medications.
[2020-10-12] MEDS: amLODIPine BESYLATE 10 MG TABLET PO SCH (14:42)
[2020-10-12 15:20] VITALS: BP 117/91
[2020-10-12] MEDS: METOPROLOL SUCC 24HR ER 100 MG TAB.ER.24H. PO SCH (15:38)
[2020-10-12] MEDS: PANTOPRAZOLE 40 MG TABLET.DR. PO SCH (15:38)
[2020-10-12] MEDS: INSULIN LISPRO 300 UNITS/3 ML VIAL. SQ SCH (17:00)
--- NOTE | 2020-10-12 17:15 | NUR ---
SW following for discharge planning. Spoke with RN and reviewed chart. Pt from home. Pt COVID pending, room air, cardiac diet, IV pain medications. SW called into pt's room, no answer. Discharge plan is home, self-care. SW following.
[2020-10-12] MEDS: ASPIRIN ENTERIC COATED 81 MG TABLET.DR. PO SCH (17:17)
[2020-10-12 19:00] VITALS: BP 115/87
[2020-10-12] MEDS: ATORVASTATIN CALCIUM 40 MG TABLET. PO SCH (21:44)
--- NOTE | 2020-10-12 22:56 | EKG ---
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
--- NOTE | 2020-10-12 22:57 | EKG ---
[facility] [address] [place] [address] Test Date: 2020-10-11 Test Time: 13:14:57 Pat Name: GUY MCCRACKEN Department: Room: Gender: M [employer]: : 1965 Requested By: KEAGAN POTTER Order Number: [id number] Reading MD: Measurements Intervals [place] Rate: 134 P: AR: QRS: 66 QRSD: 80 T: 4 QT: 276 QTc: 418 Interpretive Statements SUPRAVENTRICULAR TACHYCARDIA LOW LIMB LEAD VOLTAGE ST & T ABNORMALITY, CONSIDER RECENT HIGH LATERAL MYOCARDIAL OR PERICARDIAL DAMAGE ABNORMAL ECG RI6.01 Compared to ECG 10/11/2020 11:38:58 T-wave abnormality now present
[2020-10-12 23:00] VITALS: BP 104/78
[2020-10-13] VITALS (7 sets, daily range): BP systolic 95–120; BP diastolic 71–88
[2020-10-13] MEDS: PANTOPRAZOLE 40 MG TABLET.DR. PO SCH (07:36)
[2020-10-13] MEDS: ASPIRIN ENTERIC COATED 81 MG TABLET.DR. PO SCH (07:36)
[2020-10-13] MEDS: INSULIN LISPRO 300 UNITS/3 ML VIAL. SQ SCH ×3 (08:00→18:16)
[2020-10-13] MEDS: AZITHROMYCIN 250 MG TABLET. PO SCH (09:11)
[2020-10-13] MEDS: NICOTINE 21MG PATCH. TD SCH (09:12)
[2020-10-13] MEDS: LOSARTAN POTASSIUM 50 MG TABLET. PO SCH (09:41)
[2020-10-13] MEDS: amLODIPine BESYLATE 10 MG TABLET PO SCH (09:42)
[2020-10-13] MEDS: METOPROLOL SUCC 24HR ER 100 MG TAB.ER.24H. PO SCH (09:42)
[2020-10-13] MEDS ORDERED: FUROSEMIDE 40 MG/4 ML VIAL. IVP ONE ×2 (10:00→14:00)
--- NOTE | 2020-10-13 10:10 | PDOC ---
KALPESH LAYNE ACCOUNT SERVICES SPECIALIST 10/13/20 1010: CARDIO Progress Notes Date and Time Date of Service 10/13/20 Time of Evaluation 1000 Subjective Subjective: No Chest Pain, No Palpitations, Other (SOA better ) Vitals Vitals Vital Signs Date Time Temp Pulse Resp B/P (MAP) Pulse Ox O2 Delivery O2 Flow Rate FiO2 10/13/20 09:42 98 115/85 10/13/20 07:47 Room Air 10/13/20 07:00 95.6 20 91 95.6 10/12/20 20:20 4.0 Weight Weight [ ] Input and Output Intake and Output Intake and Output 10/13/20 07:00 Intake Total 240 ml Output Total 1200 ml Balance -960 ml Intake Oral 240 ml Output Urine Total 1200 ml Laboratory Labs Laboratory Tests Test 10/12/20 11:58 10/12/20 17:02 10/12/20 19:39 10/13/20 08:02 Glucose (Fingerstick) 160 mg/dL (70-99) 139 mg/dL (70-99) 172 mg/dL (70-99) 141 mg/dL (70-99) Microbiology Micro Microbiology 10/11/20 Blood Culture - Preliminary, Resulted NO GROWTH AFTER 1 DAY Physical Exam HEENT: Neck Supple W Full Motion Chest: Symmetric LUNGS: Other (crackles ) Heart: RRR (SR/ST) Abdomen: Soft N/T Extremities: Other (2+ bilateral LE edema ) Neurology: alert, oriented, follow commands Assessment Assessment 1. Acute respiratory secondary to CHF 2. Acute on chronic CHF with possible diastolic/systolic dysfunction 3. Hypertension; controlled 4. Hyperlipidemia; statin. LDL 91 5. Diabetes, II; as per IM 6. COPD with continued tobaccoism; discussed/encouraged cessation 7. PUI; COVID negative Recommendations Diuresis with monitoring of labs. Will give additional dose of IV Lasix this afternoon Echo to assess LV systolic function Continue ASA, BB, statin, ARB Given risk factors, will need further ischemic evaluation. Probable on an outpatient basis Further pending echo Follow up in our office with Dr. Esteves has been arranged. Justicifation of Admission Dx: Justifications for Admission: Justification of Admission Dx: No Respiratory Failure: Severe Resp Distress MINO ESTEVES MD 10/13/20 1646: CARDIO Progress Notes Assessment Assessment Patient seen and examined. Agree with BAGGAGE SMASHER's assessment and plan. 2D echo showed LVEF 15%, significantly diminished from prior 2D echo from 2017 that showed normal LVEF. Continue diuresis for acute on chronic systolic heart failure. Covid test negative. Patient will benefit from cardiac catheterization to rule out significant CAD as a cause of diminished LVEF. We will consider this once he is better compensated, possibly as an outpatient. We will optimize medical therapy. Continue metoprolol. Will consider changing losartan to Entresto as an outpatient. Start spironolactone. KALPESH LAYNE APRN Oct 13, 2020 10:10 MINO ESTEVES MD Oct 13, 2020 16:46
[2020-10-13 11:18] LABS: BASO # 0.1 x10^3/uL (0.0-0.2); BASO % 1 % (0-3); EOS % 1 % (0-3); HEMATOCRIT 49.7 % (39.0-53.0); HEMOGLOBIN 16.1 g/dL (13.0-17.5); LYMPH # 1.3 x10^3/uL (1.0-4.8); LYMPH % 13 % (24-48); MEAN CORPUSCULAR HEMOGLOBIN 27 pg (25-35); MEAN CORPUSCULAR HGB CONC 32 g/dL (31-37); MEAN CORPUSCULAR VOLUME 83 fL (79-100); MONO # 0.8 x10^3/uL (0.0-1.1); MONO % 7 % (0-9); NEUT # 8.1 x10^3/uL (1.8-7.7); NEUT % 79 % (31-73); PLATELET COUNT 260 x10^3/uL (140-400); RED BLOOD COUNT 6.03 x10^6/uL (4.30-5.70); RED CELL DISTRIBUTION WIDTH 17.8 % (11.5-14.5); WHITE BLOOD COUNT 10.4 x10^3/uL (4.0-11.0)
[2020-10-13 11:47] LABS: CALCIUM 9.1 mg/dL (8.5-10.1); GFR 77.9; MAGNESIUM 2.2 mg/dL (1.8-2.4); PHOSPHORUS 3.7 mg/dL (2.6-4.7); POTASSIUM 4.1 mmol/L (3.5-5.1)
[2020-10-13 11:53] LABS: CHOLESTEROL/HDL RATIO 6.9
[2020-10-13] MEDS ORDERED: POTASSIUM CHLORIDE 20 MEQ TABLET.ER. PO ONE (13:00)
--- NOTE | 2020-10-13 13:38 | PDOC ---
[facility] PROGRESS NOTE Date of Service DOS: DATE: 10/13/20 TIME: 13:37 Chief Complaint Chief Complaint Acute hypoxic respiratory distress due to acute CHF versus COPD exacerbation Last echocardiogram done 2018 shows EF of 55 to 60% Bilateral lower extremity edema Elevated BNP concerning for volume overload Investigation for Covid Admit to medicine for further management Lasix x1 today Pending echocardiogram Pending Covid test Pending cardiology evaluation Lovenox for DVT prophylaxis Protonix GI prophylaxis Cardiac/ADA diet Full code Discussed with RN and SW Disposition inpatient management as above Surrogate decision maker is undesignated History of Present Illness History of Present Illness 10/13/2020 No acute events overnight. Patient with almost a liter of urine output negative fluid balance during his stay. Currently 95% on room air with no shortness of breath. Follow-up with cardiology in clinic has been arranged. Will probably need 1 more IV Lasix dose today before going home. Patient's chart, labs, images were reviewed and discussed with RN 10/12/2020 No acute events overnight. Patient states that his lower extremity edema has im proved with his Lasix dose. Will attempt to give another Lasix dose today. Pending cardiology evaluation. Nicotine patch administered. Patient's chart, labs, images were reviewed and discussed with RN. 55-year-old male who has COPD, but has never had heart failure that I am aware of, basically, today presents with shortness of breath and has 3+ edema. His troponin is slightly high. His BNP is greater than 10,000. He also has effusions on his chest x-ray. He is orthopneic, tachycardic at 120 beats per minute. I discussed the case with ER physician. We are going to admit the patient for evaluation and treatment of acute on chronic heart failure. We are going to be consulting Cardiology. Vitals/I&O Vitals/I&O: Vital Signs Date Time Temp Pulse Resp B/P (MAP) Pulse Ox O2 Delivery O2 Flow Rate FiO2 10/13/20 11:00 95.7 111 20 120/87 (98) 97 Room Air 95.7 10/12/20 20:20 4.0 I & O 10/12/20 10/12/20 10/13/20 15:00 23:00 07:00 Intake Total 240 ml Output Total 450 ml 500 ml 250 ml Balance -450 ml -260 ml -250 ml Physical Exam General: Alert, Oriented X3, Cooperative, No acute distress Heart: Regular rate Abdomen: Soft, No hepatosplenomegaly Extremities: Normal pulses, Other (2-3+ bilateral LE edema ) Skin: No significant lesion Labs Labs: Laboratory Tests Test 10/12/20 17:02 10/12/20 19:39 10/13/20 08:02 10/13/20 10:54 Glucose (Fingerstick) 139 mg/dL (70-99) 172 mg/dL (70-99) 141 mg/dL (70-99) White Blood Count 10.4 x10^3/uL (4.0-11.0) Red Blood Count 6.03 x10^6/uL (4.30-5.70) Hemoglobin 16.1 g/dL (13.0-17.5) Hematocrit 49.7 % (39.0-53.0) Mean Corpuscular Volume 83 fL (79-100) Mean Corpuscular Hemoglobin 27 pg (25-35) Mean Corpuscular Hemoglobin Concent 32 g/dL (31-37) Red Cell Distribution Width 17.8 % (11.5-14.5) Platelet Count 260 x10^3/uL (140-400) Neutrophils (%) (Auto) 79 % (31-73) Lymphocytes (%) (Auto) 13 % (24-48) Monocytes (%) (Auto) 7 % (0-9) Eosinophils (%) (Auto) 1 % (0-3) Basophils (%) (Auto) 1 % (0-3) Neutrophils # (Auto) 8.1 x10^3/uL (1.8-7.7) Lymphocytes # (Auto) 1.3 x10^3/uL (1.0-4.8) Monocytes # (Auto) 0.8 x10^3/uL (0.0-1.1) Eosinophils # (Auto) 0.0 x10^3/uL (0.0-0.7) Basophils # (Auto) 0.1 x10^3/uL (0.0-0.2) Sodium Level 133 mmol/L (136-145) Potassium Level 4.1 mmol/L (3.5-5.1) Chloride Level 99 mmol/L (98-107) Carbon Dioxide Level 27 mmol/L (21-32) Anion Gap 7 (6-14) Blood Urea Nitrogen 18 mg/dL (8-26) Creatinine 1.0 mg/dL (0.7-1.3) Estimated GFR (Cockcroft-Gault) 77.9 Glucose Level 179 mg/dL (70-99) Calcium Level 9.1 mg/dL (8.5-10.1) Phosphorus Level 3.7 mg/dL (2.6-4.7) Magnesium Level 2.2 mg/dL (1.8-2.4) Triglycerides Level 73 mg/dL (0-150) Cholesterol Level 124 mg/dL (0-200) LDL Cholesterol, Calculated 91 mg/dL (0-100) VLDL Cholesterol, Calculated 15 mg/dL (0-40) Non-HDL Cholesterol Calculated 106 mg/dL (0-129) HDL Cholesterol 18 mg/dL (40-60) Cholesterol/HDL Ratio 6.9 Test 10/13/20 11:51 Glucose (Fingerstick) 179 mg/dL (70-99) Assessment and Plan Assessmemt and Plan Problems Medical Problems: (1) Acute CHF (congestive heart failure) Status: Acute (2) Bilateral lower leg cellulitis Status: Acute (3) Lower extremity edema Status: Acute (4) Sepsis Status: Acute Comment Review of Relevant I have reviewed the following items gorge (where applicable) has been applied. Medications: Current Medications Medications (Trade) Dose Ordered Sig/Gus Route PRN Reason Start Time Stop Time Status Last Admin Dose Admin Enoxaparin Sodium (Lovenox 40mg Syringe) 40 mg Q24H SQ 10/12/20 14:00 10/12/20 13:27 Insulin Human Lispro (HumaLOG) 0-7 UNITS TIDWMEALS SQ 10/12/20 17:00 10/13/20 12:06 Amlodipine Besylate (Norvasc) 10 mg DAILY PO 10/12/20 14:00 10/13/20 09:42 Atorvastatin Calcium (Lipitor) 40 mg QHS PO 10/12/20 21:00 10/12/20 21:44 Azithromycin (Zithromax) 500 mg DAILY PO 10/13/20 09:00 10/13/20 09:11 Metoprolol Succinate (Toprol Xl) 100 mg DAILY PO 10/12/20 15:15 10/13/20 09:42 Pantoprazole Sodium (Protonix) 40 mg DAILYAC PO 10/12/20 16:30 10/13/20 07:36 Losartan Potassium (Cozaar) 50 mg DAILY PO 10/13/20 09:00 10/13/20 09:41 Aspirin (Ecotrin) 81 mg DAILYWBKFT PO 10/12/20 17:00 10/13/20 07:36 Furosemide (Lasix) 40 mg 1X ONCE IVP 10/13/20 10:00 10/13/20 10:01 DC 10/13/20 10:13 Potassium Chloride (Klor-Con) 20 meq 1X ONCE PO 10/13/20 13:00 10/13/20 13:01 DC 10/13/20 13:24 Justifications for Admission Other Justification CHF exacerbation ASTER PACHECO MD Oct 13, 2020 13:37
[2020-10-13] MEDS: ENOXAPARIN 40 MG/0.4 ML SYRINGE. SQ SCH (14:50)
--- NOTE | 2020-10-13 16:08 | CARD ---
MR#: [id number] Date of Study: 10/13/2020 Ordering Physician: KALPESH LAYNE, Referring Physician: KALPESH LAYNE, Tech: Hannah Bliss APPROVED REPORT EXAM: Two-dimensional and M-mode echocardiogram with Doppler and color Doppler. Other Information Quality : GoodHR: 100bpm INDICATION Congestive Heart Failure RISK FACTORS Hypertension Hyperlipidemia Diabetes 2D DIMENSIONS RVDd3.6 (2.9-3.5cm)Left Atrium(2D)4.1 (1.6-4.0cm) IVSd0.9 (0.7-1.1cm)Aortic Root(2D)3.4 (2.0-3.7cm) LVDd5.8 (3.9-5.9cm)LVOT Diameter2.1 (1.8-2.4cm) PWd1.0 (0.7-1.1cm)LVDs5.3 (2.5-4.0cm) FS (%) 7.9 %SV28.6 ml LVEF(%)17.2 (>50%) Aortic Valve AoV Peak Agusto.92.1cm/sAoV VTI14.4cm AO Peak GR.3.4mmHgLVOT Peak Agusto.68.4cm/s LVOT VTI 8.90cmAO Mean GR.2mmHg ROXY (VMAX)1.46by1ZNT (VTI)2.12cm2 Mitral Valve MV E Ldvrzcuk50.1cm/sMV DECEL QGRW013id MV A Lwuajdpo42.5cm/sMV E Mean Gr.2mmHg MV WZW21obK/A Ratio2.7 MVA (PHT)6.09cm2 TDI E/Lateral E'7.9E/Medial E'22.9 Pulmonary Valve PV Peak Dlxeqsrz76.8cm/sPV Peak Grad.2mmHg Tricuspid Valve TR P. Pqkbyano899ou/sRAP KNCUAQCL5zjPl TR Peak Gr.82ejFaWJCV07krTs LEFT VENTRICLE The left ventricle is normal size. There is normal left ventricular wall thickness. The left ventricu lar systolic function is severely impaired. The Ejection Fraction is 15%. There is severe global hypo kinesis of the left ventricle. Tissue Doppler imaging reveals moderate left ventricular diastolic dys function. RIGHT VENTRICLE The right ventricle is borderline dilated. There is normal right ventricular wall thickness. Systolic function is mildly reduced. ATRIA The left atrium size is normal. The right atrium is mildly dilated. The interatrial septum is intact with no evidence for an atrial septal defect or patent foramen ovale as noted on 2-D or Doppler imagi ng. AORTIC VALVE The aortic valve is normal in structure and function. Doppler and Color Flow revealed no significant aortic regurgitation. There is no significant aortic valvular stenosis. MITRAL VALVE The mitral valve is thickened but opens well. There is no evidence of mitral valve prolapse. There is no mitral valve stenosis. Doppler and Color-flow revealed trace mitral regurgitation. TRICUSPID VALVE The tricuspid valve is normal in structure and function. Doppler and Color Flow revealed moderate tri cuspid regurgitation with an estimated PAP of 44 mmHg. There is no tricuspid valve stenosis. PULMONIC VALVE The pulmonary valve is normal in structure and function. Doppler and Color Flow revealed trace pulmon ic valvular regurgitation. GREAT VESSELS The aortic root is normal in size. The IVC is dilated and collapses <50% with inspiration. PERICARDIAL EFFUSION There is small left pleural effusion. There is no evidence of significant pericardial effusion. Critical Notification Critical Value: No <Conclusion> The left ventricular systolic function is severely impaired. The Ejection Fraction is 15%. Trace mitral regurgitation. Moderate tricuspid regurgitation with an estimated PAP of 44 mmHg. There is no evidence of significant pericardial effusion. Signed by : Mendez Esteves, Electronically Approved : 10/13/2020 16:07:48
--- NOTE | 2020-10-13 16:30 | NUR ---
Pt transferred from room 670 to room 208 by wheelchair. Belongings sent with pt at time of transfer. Addendum: 10/13/20 at 1641 by LESLYE YAO RN US Andra on 2N called 6S and notified jude Patterson RN that pt would be moving to room 209 instead of 208.
--- NOTE | 2020-10-13 16:36 | NUR ---
SW following for discharge planning. Spoke with RN and reviewed chart. Coordinated care with Dr. Tejeda. Pt COVID result negative. Pt to transfer to . Pt will likely discharge tomorrow, 10/14. Pt remains on room air and discharge plan is home, self-care. manju Dinero to follow.
[2020-10-13] MEDS: ATORVASTATIN CALCIUM 40 MG TABLET. PO SCH (21:15)
[2020-10-14 03:03] VITALS: BP 89/63
[2020-10-14 07:00] VITALS: BP 107/79
--- NOTE | 2020-10-14 08:18 | PDOC ---
PROGRESS NOTES Date of Service: DATE: 10/14/20 TIME: 08:18 Chief Complaint Chief Complaint discharge dx Acute hypoxic respiratory distress due to acute CHF versus COPD exacerbation Last echocardiogram done 2018 shows EF of 55 to 60% Bilateral lower extremity edema Elevated BNP concerning for volume overload Investigation for Covid NEG PLAN Admit to medicine CVC BED Lasix PRN REVIEWED echocardiogram NEG Covid test cardiology evaluation Lovenox for DVT prophylaxis Protonix GI prophylaxis Cardiac/ADA diet Full code 2D echo showed LVEF 15%, significantly diminished from prior 2D echo from 2017 that showed normal LVEF. Continue diuresis for acute on chronic systolic heart failure. Covid test negative. Patient will benefit from cardiac catheterization to rule out significant CAD as a cause of diminished LVEF. Discussed with RN and CAROLE po lasix Disposition inpatient management as above Surrogate decision maker is undesignated \ ON RA SINCE 10-13 History of Present Illness History of Present Illness 10/13/2020 No acute events overnight. Patient with almost a liter of urine output negative fluid balance during his stay. Currently 95% on room air with no shortness of breath. Follow-up with cardiology in clinic has been arranged. Will probably need 1 more IV Lasix dose today before going home. Patient's chart, labs, images were reviewed and discussed with RN 10/12/2020 No acute events overnight. Patient states that his lower extremity edema has improved with his Lasix dose. Will attempt to give another Lasix dose today. Pending cardiology evaluation. Nicotine patch administered. Patient's chart, labs, images were reviewed and discussed with RN. 55-year-old male who has COPD, but has never had heart failure that I am aware of, basically, today presents with shortness of breath and has 3+ edema. His troponin is slightly high. His BNP is greater than 10,000. He also has effusions on his chest x-ray. He is orthopneic, tachycardic at 120 beats per minute. I discussed the case with ER physician. We are going to admit the patient for evaluation and treatment of acute on chronic heart failure. We are going to be consulting Cardiology. Vitals Vitals Vital Signs Date Time Temp Pulse Resp B/P (MAP) Pulse Ox O2 Delivery O2 Flow Rate FiO2 10/14/20 07:00 97.5 93 19 107/79 (88) 98 Room Air 97.5 Physical Exam General: Alert, Oriented X3, Cooperative, No acute distress Heart: Regular rate, Normal S1 Lungs: Clear Abdomen: Soft, No hepatosplenomegaly Extremities: Normal pulses, Other (2-3+ bilateral LE edema ) Skin: No significant lesion Labs LABS EXAM: CT Pulmonary Angiogram INDICATION: Reason: dyspnea, r/o pe / Spl. Instructions: OMNI 350 INJ 100 MLS / History: TECHNIQUE: Multi-detector row images were acquired from the thoracic inlet through the upper abdomen with the use of IV contrast. Sagittal and coronal images were acquired from the transaxial data. MIP images of the pulmonary arteries were obtained. All CT scans performed at this facility utilize dose optimization techniques as appropriate to the exam, including the following: Automated exposure control and adjustment of the mA and/or KV according to patient size (this includes techniques or standardized protocols for targeted exams where dose is indication/reason for exam). IV CONTRAST: Administered COMPARISON: None FINDINGS: PULMONARY ARTERIES: No pulmonary emboli are identified. There is suboptimal contrast bolus opacification of the pulmonary arterial vessels in the left lower lobe. CARDIOVASCULAR: Mild cardiac enlargement. Reflux of IV contrast into dilated hepatic veins and intrahepatic IVC is noted. Aorta is normal caliber. MEDIASTINUM & DELMI: Mediastinal adenopathy is present. Calcified right hilar, mediastinal interlobar lymph nodes. LUNGS: Interstitial thickening with interlobular septal prominence most conspicuous in the lower lobes is present. There is moderate bilateral lower lobe atelectasis, left greater than right. PLEURAL SPACE: Moderate bilateral pleural effusions. No pneumothorax. OSSEOUS & SOFT TISSUE: Unremarkable ABDOMEN: The visualized portions of the upper abdomen are unremarkable. IMPRESSION: 1. No evidence for acute pulmonary embolus. Suboptimal contrast bolus opacification of the pulmonary arterial vessels in the left lower lobe limits evaluation in this area. 2. Moderate bilateral pleural effusions with moderate bilateral lower lobe atelectasis, left greater than right. 3. Interstitial thickening with interlobular septal prominence most conspicuous in the lower lobes. Findings may represent pulmonary edema. 4. Mediastinal adenopathy, likely reactive. 5. Cardiomegaly with reflux of IV contrast into dilated hepatic veins and intrahepatic IVC. Electronically signed by: Keagan De Jesus MD (10/11/2020 3:10 PM) [id number] DICTATED and SIGNED BY: KEAGAN DE JESUS MD DATE: 10/11/20 [id number] Laboratory Tests Test 10/13/20 10:54 10/13/20 11:51 10/13/20 17:10 10/13/20 20:16 White Blood Count 10.4 x10^3/uL (4.0-11.0) Red Blood Count 6.03 x10^6/uL (4.30-5.70) Hemoglobin 16.1 g/dL (13.0-17.5) Hematocrit 49.7 % (39.0-53.0) Mean Corpuscular Volume 83 fL (79-100) Mean Corpuscular Hemoglobin 27 pg (25-35) Mean Corpuscular Hemoglobin Concent 32 g/dL (31-37) Red Cell Distribution Width 17.8 % (11.5-14.5) Platelet Count 260 x10^3/uL (140-400) Neutrophils (%) (Auto) 79 % (31-73) Lymphocytes (%) (Auto) 13 % (24-48) Monocytes (%) (Auto) 7 % (0-9) Eosinophils (%) (Auto) 1 % (0-3) Basophils (%) (Auto) 1 % (0-3) Neutrophils # (Auto) 8.1 x10^3/uL (1.8-7.7) Lymphocytes # (Auto) 1.3 x10^3/uL (1.0-4.8) Monocytes # (Auto) 0.8 x10^3/uL (0.0-1.1) Eosinophils # (Auto) 0.0 x10^3/uL (0.0-0.7) Basophils # (Auto) 0.1 x10^3/uL (0.0-0.2) Sodium Level 133 mmol/L (136-145) Potassium Level 4.1 mmol/L (3.5-5.1) Chloride Level 99 mmol/L (98-107) Carbon Dioxide Level 27 mmol/L (21-32) Anion Gap 7 (6-14) Blood Urea Nitrogen 18 mg/dL (8-26) Creatinine 1.0 mg/dL (0.7-1.3) Estimated GFR (Cockcroft-Gault) 77.9 Glucose Level 179 mg/dL (70-99) Calcium Level 9.1 mg/dL (8.5-10.1) Phosphorus Level 3.7 mg/dL (2.6-4.7) Magnesium Level 2.2 mg/dL (1.8-2.4) Triglycerides Level 73 mg/dL (0-150) Cholesterol Level 124 mg/dL (0-200) LDL Cholesterol, Calculated 91 mg/dL (0-100) VLDL Cholesterol, Calculated 15 mg/dL (0-40) Non-HDL Cholesterol Calculated 106 mg/dL (0-129) HDL Cholesterol 18 mg/dL (40-60) Cholesterol/HDL Ratio 6.9 Glucose (Fingerstick) 179 mg/dL (70-99) 165 mg/dL (70-99) 124 mg/dL (70-99) Assessment and Plan Assessmemt and Plan Problems Medical Problems: (1) Acute CHF (congestive heart failure) Status: Acute (2) Bilateral lower leg cellulitis Status: Acute (3) Lower extremity edema Status: Acute (4) Sepsis Status: Acute Comment Review of Relevant I have reviewed the following items gorge (where applicable) has been applied. Labs Laboratory Tests Test 10/12/20 11:58 10/12/20 17:02 10/12/20 19:39 10/13/20 08:02 Glucose (Fingerstick) 160 mg/dL (70-99) 139 mg/dL (70-99) 172 mg/dL (70-99) 141 mg/dL (70-99) Test 10/13/20 10:54 10/13/20 11:51 10/13/20 17:10 10/13/20 20:16 White Blood Count 10.4 x10^3/uL (4.0-11.0) Red Blood Count 6.03 x10^6/uL (4.30-5.70) Hemoglobin 16.1 g/dL (13.0-17.5) Hematocrit 49.7 % (39.0-53.0) Mean Corpuscular Volume 83 fL (79-100) Mean Corpuscular Hemoglobin 27 pg (25-35) Mean Corpuscular Hemoglobin Concent 32 g/dL (31-37) Red Cell Distribution Width 17.8 % (11.5-14.5) Platelet Count 260 x10^3/uL (140-400) Neutrophils (%) (Auto) 79 % (31-73) Lymphocytes (%) (Auto) 13 % (24-48) Monocytes (%) (Auto) 7 % (0-9) Eosinophils (%) (Auto) 1 % (0-3) Basophils (%) (Auto) 1 % (0-3) Neutrophils # (Auto) 8.1 x10^3/uL (1.8-7.7) Lymphocytes # (Auto) 1.3 x10^3/uL (1.0-4.8) Monocytes # (Auto) 0.8 x10^3/uL (0.0-1.1) Eosinophils # (Auto) 0.0 x10^3/uL (0.0-0.7) Basophils # (Auto) 0.1 x10^3/uL (0.0-0.2) Sodium Level 133 mmol/L (136-145) Potassium Level 4.1 mmol/L (3.5-5.1) Chloride Level 99 mmol/L (98-107) Carbon Dioxide Level 27 mmol/L (21-32) Anion Gap 7 (6-14) Blood Urea Nitrogen 18 mg/dL (8-26) Creatinine 1.0 mg/dL (0.7-1.3) Estimated GFR (Cockcroft-Gault) 77.9 Glucose Level 179 mg/dL (70-99) Calcium Level 9.1 mg/dL (8.5-10.1) Phosphorus Level 3.7 mg/dL (2.6-4.7) Magnesium Level 2.2 mg/dL (1.8-2.4) Triglycerides Level 73 mg/dL (0-150) Cholesterol Level 124 mg/dL (0-200) LDL Cholesterol, Calculated 91 mg/dL (0-100) VLDL Cholesterol, Calculated 15 mg/dL (0-40) Non-HDL Cholesterol Calculated 106 mg/dL (0-129) HDL Cholesterol 18 mg/dL (40-60) Cholesterol/HDL Ratio 6.9 Glucose (Fingerstick) 179 mg/dL (70-99) 165 mg/dL (70-99) 124 mg/dL (70-99) Laboratory Tests Test 10/13/20 10:54 10/13/20 11:51 10/13/20 17:10 10/13/20 20:16 White Blood Count 10.4 x10^3/uL (4.0-11.0) Red Blood Count 6.03 x10^6/uL (4.30-5.70) Hemoglobin 16.1 g/dL (13.0-17.5) Hematocrit 49.7 % (39.0-53.0) Mean Corpuscular Volume 83 fL (79-100) Mean Corpuscular Hemoglobin 27 pg (25-35) Mean Corpuscular Hemoglobin Concent 32 g/dL (31-37) Red Cell Distribution Width 17.8 % (11.5-14.5) Platelet Count 260 x10^3/uL (140-400) Neutrophils (%) (Auto) 79 % (31-73) Lymphocytes (%) (Auto) 13 % (24-48) Monocytes (%) (Auto) 7 % (0-9) Eosinophils (%) (Auto) 1 % (0-3) Basophils (%) (Auto) 1 % (0-3) Neutrophils # (Auto) 8.1 x10^3/uL (1.8-7.7) Lymphocytes # (Auto) 1.3 x10^3/uL (1.0-4.8) Monocytes # (Auto) 0.8 x10^3/uL (0.0-1.1) Eosinophils # (Auto) 0.0 x10^3/uL (0.0-0.7) Basophils # (Auto) 0.1 x10^3/uL (0.0-0.2) Sodium Level 133 mmol/L (136-145) Potassium Level 4.1 mmol/L (3.5-5.1) Chloride Level 99 mmol/L (98-107) Carbon Dioxide Level 27 mmol/L (21-32) Anion Gap 7 (6-14) Blood Urea Nitrogen 18 mg/dL (8-26) Creatinine 1.0 mg/dL (0.7-1.3) Estimated GFR (Cockcroft-Gault) 77.9 Glucose Level 179 mg/dL (70-99) Calcium Level 9.1 mg/dL (8.5-10.1) Phosphorus Level 3.7 mg/dL (2.6-4.7) Magnesium Level 2.2 mg/dL (1.8-2.4) Triglycerides Level 73 mg/dL (0-150) Cholesterol Level 124 mg/dL (0-200) LDL Cholesterol, Calculated 91 mg/dL (0-100) VLDL Cholesterol, Calculated 15 mg/dL (0-40) Non-HDL Cholesterol Calculated 106 mg/dL (0-129) HDL Cholesterol 18 mg/dL (40-60) Cholesterol/HDL Ratio 6.9 Glucose (Fingerstick) 179 mg/dL (70-99) 165 mg/dL (70-99) 124 mg/dL (70-99) Microbiology 10/11/20 Blood Culture - Preliminary, Resulted NO GROWTH AFTER 2 DAYS Medications Current Medications Ceftriaxone Sodium (Rocephin) 1 gm 1X ONCE IVP Last administered on 10/11/20at 12:30; Start 10/11/20 at 11:45; Stop 10/11/20 at 11:47; Status DC Azithromycin 250 ml @ 250 mls/hr 1X ONCE IV Last administered on 10/11/20at 12:30; Start 10/11/20 at 11:45; Stop 10/11/20 at 12:44; Status DC Sodium Chloride 1,000 ml @ 1,000 mls/hr 1X ONCE IV ; Start 10/11/20 at 11:45; Stop 10/11/20 at 13:07; Status DC Sodium Chloride 1,000 ml @ 1,000 mls/hr 1X ONCE IV ; Start 10/11/20 at 11:45; Stop 10/11/20 at 13:07; Status DC Furosemide (Lasix) 40 mg 1X ONCE IVP Last administered on 10/11/20at 13:50; Start 10/11/20 at 13:15; Stop 10/11/20 at 13:16; Status DC Iohexol (Omnipaque 350 Mg/ml) 100 ml 1X ONCE IV Last administered on 10/11/20at 14:44; Start 10/11/20 at 14:45; Stop 10/11/20 at 14:46; Status DC Info (CONTRAST GIVEN -- Rx MONITORING) 1 each PRN DAILY PRN MC SEE COMMENTS; Start 10/11/20 at 14:45; Stop 10/13/20 at 14:44; Status DC Nicotine (Nicoderm Cq 21mg) 1 patch DAILY TD Last administered on 10/13/20at 09:12; Start 10/12/20 at 11:00 Sennosides (Senna) 17.2 mg PRN BID PRN PO CONSTIPATION; Start 10/12/20 at 12:30 Docusate Sodium (Colace) 100 mg PRN DAILY PRN PO HARD STOOLS; Start 10/12/20 at 12:30 Ondansetron HCl (Zofran) 4 mg PRN Q6HRS PRN IVP NAUSEA/VOMITING; Start 10/12/20 at 12:30 Dextrose (Dextrose 50%-Water Syringe) 12.5 gm PRN Q15MIN PRN IV SEE COMMENTS; Start 10/12/20 at 12:30; Stop 10/12/20 at 14:01; Status DC Acetaminophen (Tylenol) 650 mg PRN Q4HRS PRN PO TEMP OVER 100.4F OR MILD PAIN; Start 10/12/20 at 12:30 Enoxaparin Sodium (Lovenox 40mg Syringe) 40 mg Q24H SQ Last administered on 10/13/20at 14:50; Start 10/12/20 at 14:00 Morphine Sulfate (Morphine Sulfate) 2 mg PRN Q2HR PRN IV SEVERE PAIN 7-10; Start 10/12/20 at 04:00; Stop 10/13/20 at 03:59; Status DC Furosemide (Lasix) 40 mg 1X ONCE IVP Last administered on 10/12/20at 13:27; Start 10/12/20 at 13:00; Stop 10/12/20 at 13:01; Status DC Insulin Human Lispro (HumaLOG) 0-7 UNITS TIDWMEALS SQ Last administered on 10/13/20at 18:16; Start 10/12/20 at 17:00 Dextrose (Dextrose 50%-Water Syringe) 12.5 gm PRN Q15MIN PRN IV SEE COMMENTS; Start 10/12/20 at 12:45 Amlodipine Besylate (Norvasc) 10 mg DAILY PO Last administered on 10/13/20at 09:42; Start 10/12/20 at 14:00 Atorvastatin Calcium (Lipitor) 40 mg QHS PO Last administered on 10/13/20at 21:15; Start 10/12/20 at 21:00 Azithromycin (Zithromax) 500 mg DAILY PO Last administered on 10/13/20at 09:11; Start 10/13/20 at 09:00 Metoprolol Succinate (Toprol Xl) 100 mg DAILY PO Last administered on 10/13/20at 09:42; Start 10/12/20 at 15:15 Pantoprazole Sodium (Protonix) 40 mg DAILYAC PO Last administered on 10/13/20at 07:36; Start 10/12/20 at 16:30 Losartan Potassium (Cozaar) 50 mg DAILY PO Last administered on 10/13/20at 09:41; Start 10/13/20 at 09:00 Aspirin (Ecotrin) 81 mg DAILYWBKFT PO Last administered on 10/13/20at 07:36; Start 10/12/20 at 17:00 Furosemide (Lasix) 40 mg 1X ONCE IVP Last administered on 10/13/20at 10:13; Start 10/13/20 at 10:00; Stop 10/13/20 at 10:01; Status DC Furosemide (Lasix) 40 mg 1X ONCE IVP Last administered on 10/13/20at 14:50; Start 10/13/20 at 14:00; Stop 10/13/20 at 14:01; Status DC Potassium Chloride (Klor-Con) 20 meq 1X ONCE PO Last administered on 10/13/20at 13:24; Start 10/13/20 at 13:00; Stop 10/13/20 at 13:01; Status DC Furosemide (Lasix) 40 mg 1X ONCE IVP ; Start 10/14/20 at 09:00; Stop 10/14/20 at 09:01 Spironolactone (Aldactone) 25 mg DAILY PO ; Start 10/14/20 at 09:00 Active Scripts Active Proair Hfa (Albuterol Sulfate) 8.5 Gm Hfa.aer.ad 2.5 Mg NEB PRN Q4HRS PRN 30 Days Azithromycin Tablet (Azithromycin) 250 Mg Tablet 500 Mg PO DAILY 3 Days Reported Vascepa (Icosapent Ethyl) 0.5 Gm Capsule 1 Cap PO BID 30 Days Farxiga (Dapagliflozin Propanediol) 10 Mg Tablet 10 Mg PO BID Omeprazole 20 Mg Tablet.dr 1 Tab PO DAILY Amlodipine Besylate 10 Mg Tablet 10 Mg PO DAILY Metoprolol Succinate ( Xl ) (Metoprolol Succinate) 100 Mg Tab.er.24h 1 Tab PO DAILY Atorvastatin Calcium 40 Mg Tablet 1 Tab PO QHS Glimepiride 4 Mg Tablet 1 Tab PO DAILY Vitals/I & O Vital Sign - Last 24 Hours 10/13/20 10/13/20 10/13/20 10/13/20 09:41 09:42 09:42 11:00 Temp 95.7 95.7 Pulse 98 98 98 111 Resp 20 B/P (MAP) 115/85 115/85 115/85 120/87 (98) Pulse Ox 97 O2 Delivery Room Air 10/13/20 10/13/20 10/13/20 10/13/20 15:00 16:39 19:00 20:00 Temp 96.3 97.7 97.5 96.3 97.7 97.5 Pulse 98 103 104 Resp 20 18 23 B/P (MAP) 97/75 (82) 95/71 (79) 98/76 (83) Pulse Ox 96 98 94 O2 Delivery Room Air Room Air Room Air Room Air 10/13/20 10/14/20 10/14/20 23:00 03:03 07:00 Temp 97.7 98.0 97.5 97.7 98.0 97.5 Pulse 94 74 93 Resp 22 19 19 B/P (MAP) 101/76 (84) 89/63 (72) 107/79 (88) Pulse Ox 94 96 98 O2 Delivery Room Air Room Air Room Air Intake and Output 10/13/20 10/13/20 10/14/20 15:00 23:00 07:00 Intake Total 120 ml 0 ml 450 ml Output Total 450 ml Balance -330 ml 0 ml 450 ml Justicifation of Admission Dx: Justifications for Admission: Justification of Admission Dx: No Respiratory Failure: Severe Resp Distress TRACY WATERMAN MD Oct 14, 2020 08:18
[2020-10-14] MEDS ORDERED: FUROSEMIDE 40 MG/4 ML VIAL. IVP ONE (09:00)
[2020-10-14] MEDS ORDERED: SPIRONOLACTONE 25 MG TABLET PO SCH (09:00)
[2020-10-14] MEDS: AZITHROMYCIN 250 MG TABLET. PO SCH (09:08)
[2020-10-14] MEDS: ASPIRIN ENTERIC COATED 81 MG TABLET.DR. PO SCH (09:08)
[2020-10-14 09:09] VITALS: BP 107/79
[2020-10-14] MEDS: PANTOPRAZOLE 40 MG TABLET.DR. PO SCH (09:09)
[2020-10-14] MEDS: METOPROLOL SUCC 24HR ER 100 MG TAB.ER.24H. PO SCH (09:09)
[2020-10-14] MEDS: LOSARTAN POTASSIUM 50 MG TABLET. PO SCH (09:09)
[2020-10-14] MEDS: amLODIPine BESYLATE 10 MG TABLET PO SCH (09:09)
[2020-10-14] MEDS: NICOTINE 21MG PATCH. TD SCH (09:10)
[2020-10-14] MEDS: INSULIN LISPRO 300 UNITS/3 ML VIAL. SQ SCH (09:16)
--- NOTE | 2020-10-14 09:48 | PDOC3 ---
Discharge Summary Date of Admission: Oct 11, 2020 Date of Discharge: Oct 14, 2020 Follow-Up: 3-5 days Admitting Diagnosis comment: discharge dx Acute hypoxic respiratory distress due to acute CHF with COPD exacerbation Last echocardiogram done 2018 shows EF of 55 to 60% LVEF 15%, significantly diminished from prior 2D echo from 2017 Bilateral lower extremity edema Elevated BNP concerning for volume overload Investigation for Covid NEG PLAN Admit to medicine CVC BED Lasix PRN REVIEWED echocardiogram NEG Covid test cardiology evaluation Lovenox for DVT prophylaxis Protonix GI prophylaxis Cardiac/ADA diet Full code 2D echo showed LVEF 15%, significantly diminished from prior 2D echo from 2017 that showed normal LVEF. Continue diuresis for acute on chronic systolic heart failure. Covid test negative. Patient will benefit from cardiac catheterization to rule out significant CAD as a cause of diminished LVEF. Discussed with RN and CAROLE po lasix Disposition inpatient management as above Surrogate decision maker is undesignated \ ON RA SINCE 10-13 d/c planning 34 min History of Present Illness History of Present Illness 10/13/2020 No acute events overnight. Patient with almost a liter of urine output negative fluid balance during his stay. Currently 95% on room air with no shortness of breath. Follow-up with cardiology in clinic has been arranged. Will probably need 1 more IV Lasix dose today before going home. Patient's chart, labs, images were reviewed and discussed with RN 10/12/2020 No acute events overnight. Patient states that his lower extremity edema has improved with his Lasix dose. Will attempt to give another Lasix dose today. Pending cardiology evaluation. Nicotine patch administered. Patient's chart, labs, images were reviewed and discussed with RN. 55-year-old male who has COPD, but has never had heart failure that I am aware of, basically, presents with shortness of breath and has 2+ edema. His troponin is slightly high. His BNP is greater than 10,000. He also has effusions on his chest x-ray. He is orthopneic, tachycardic at 120 beats per minute. I discussed the case with ER physician. We are going to admit the patient for evaluation and treatment of acute on chronic heart failure. We are going to be consulting Cardiology. Vitals Vitals Vital Signs Date Time Temp Pulse Resp B/P (MAP) Pulse Ox O2 Delivery O2 Flow Rate FiO2 10/14/20 07:00 97.5 93 19 107/79 (88) 98 Room Air 97.5 Physical Exam General: Alert, Oriented X3, Cooperative, No acute distress Heart: Regular rate, Normal S1 Lungs: Clear Abdomen: Soft, No hepatosplenomegaly Extremities: Normal pulses, Other (2-3+ bilateral LE edema ) Skin: No significant lesion Labs LABS EXAM: CT Pulmonary Angiogram INDICATION: Reason: dyspnea, r/o pe / Spl. Instructions: OMNI 350 INJ 100 MLS / History: TECHNIQUE: Multi-detector row images were acquired from the thoracic inlet through the upper abdomen with the use of IV contrast. Sagittal and coronal images were acquired from the transaxial data. MIP images of the pulmonary arteries were obtained. All CT scans performed at this facility utilize dose optimization techniques as appropriate to the exam, including the following: Automated exposure control and adjustment of the mA and/or KV according to patient size (this includes techniques or standardized protocols for targeted exams where dose is indication/reason for exam). IV CONTRAST: Administered COMPARISON: None FINDINGS: PULMONARY ARTERIES: No pulmonary emboli are identified. There is suboptimal contrast bolus opacification of the pulmonary arterial vessels in the left lower lobe. CARDIOVASCULAR: Mild cardiac enlargement. Reflux of IV contrast into dilated hepatic veins and intrahepatic IVC is noted. Aorta is normal caliber. MEDIASTINUM & DELMI: Mediastinal adenopathy is present. Calcified right hilar, mediastinal interlobar lymph nodes. LUNGS: Interstitial thickening with interlobular septal prominence most conspicuous in the lower lobes is present. There is moderate bilateral lower lobe atelectasis, left greater than right. PLEURAL SPACE: Moderate bilateral pleural effusions. No pneumothorax. OSSEOUS & SOFT TISSUE: Unremarkable ABDOMEN: The visualized portions of the upper abdomen are unremarkable. IMPRESSION: 1. No evidence for acute pulmonary embolus. Suboptimal contrast bolus opacification of the pulmonary arterial vessels in the left lower lobe limits evaluation in this area. 2. Moderate bilateral pleural effusions with moderate bilateral lower lobe atelectasis, left greater than right. 3. Interstitial thickening with interlobular septal prominence most conspicuous in the lower lobes. Findings may represent pulmonary edema. 4. Mediastinal adenopathy, likely reactive. 5. Cardiomegaly with reflux of IV contrast into dilated hepatic veins and intrahepatic IVC. FINAL DIAGNOSIS Problems Medical Problems: (1) Acute CHF (congestive heart failure) Status: Acute (2) Bilateral lower leg cellulitis Status: Acute (3) Lower extremity edema Status: Acute (4) Sepsis Status: Acute Brief Hospital Course Mr. Glass is a 55 old [sex] who presented with [ ] CONDITION AT DISCHARGE: Improved Discharge Medications Current Medications Ceftriaxone Sodium (Rocephin) 1 gm 1X ONCE IVP Last administered on 10/11/20at 12:30; Start 10/11/20 at 11:45; Stop 10/11/20 at 11:47; Status DC Azithromycin 250 ml @ 250 mls/hr 1X ONCE IV Last administered on 10/11/20at 12:30; Start 10/11/20 at 11:45; Stop 10/11/20 at 12:44; Status DC Sodium Chloride 1,000 ml @ 1,000 mls/hr 1X ONCE IV ; Start 10/11/20 at 11:45; Stop 10/11/20 at 13:07; Status DC Sodium Chloride 1,000 ml @ 1,000 mls/hr 1X ONCE IV ; Start 10/11/20 at 11:45; Stop 10/11/20 at 13:07; Status DC Furosemide (Lasix) 40 mg 1X ONCE IVP Last administered on 10/11/20at 13:50; Start 10/11/20 at 13:15; Stop 10/11/20 at 13:16; Status DC Iohexol (Omnipaque 350 Mg/ml) 100 ml 1X ONCE IV Last administered on 10/11/20at 14:44; Start 10/11/20 at 14:45; Stop 10/11/20 at 14:46; Status DC Info (CONTRAST GIVEN -- Rx MONITORING) 1 each PRN DAILY PRN MC SEE COMMENTS; Start 10/11/20 at 14:45; Stop 10/13/20 at 14:44; Status DC Nicotine (Nicoderm Cq 21mg) 1 patch DAILY TD Last administered on 10/14/20at 09:10; Start 10/12/20 at 11:00 Sennosides (Senna) 17.2 mg PRN BID PRN PO CONSTIPATION; Start 10/12/20 at 12:30 Docusate Sodium (Colace) 100 mg PRN DAILY PRN PO HARD STOOLS; Start 10/12/20 at 12:30 Ondansetron HCl (Zofran) 4 mg PRN Q6HRS PRN IVP NAUSEA/VOMITING; Start 10/12/20 at 12:30 Dextrose (Dextrose 50%-Water Syringe) 12.5 gm PRN Q15MIN PRN IV SEE COMMENTS; Start 10/12/20 at 12:30; Stop 10/12/20 at 14:01; Status DC Acetaminophen (Tylenol) 650 mg PRN Q4HRS PRN PO TEMP OVER 100.4F OR MILD PAIN; Start 10/12/20 at 12:30 Enoxaparin Sodium (Lovenox 40mg Syringe) 40 mg Q24H SQ Last administered on 10/13/20at 14:50; Start 10/12/20 at 14:00 Morphine Sulfate (Morphine Sulfate) 2 mg PRN Q2HR PRN IV SEVERE PAIN 7-10; Start 10/12/20 at 04:00; Stop 10/13/20 at 03:59; Status DC Furosemide (Lasix) 40 mg 1X ONCE IVP Last administered on 10/12/20at 13:27; Start 10/12/20 at 13:00; Stop 10/12/20 at 13:01; Status DC Insulin Human Lispro (HumaLOG) 0-7 UNITS TIDWMEALS SQ Last administered on 10/14/20at 09:16; Start 10/12/20 at 17:00 Dextrose (Dextrose 50%-Water Syringe) 12.5 gm PRN Q15MIN PRN IV SEE COMMENTS; Start 10/12/20 at 12:45 Amlodipine Besylate (Norvasc) 10 mg DAILY PO Last administered on 10/14/20at 09:09; Start 10/12/20 at 14:00 Atorvastatin Calcium (Lipitor) 40 mg QHS PO Last administered on 10/13/20at 21:15; Start 10/12/20 at 21:00 Azithromycin (Zithromax) 500 mg DAILY PO Last administered on 10/14/20at 09:08; Start 10/13/20 at 09:00 Metoprolol Succinate (Toprol Xl) 100 mg DAILY PO Last administered on 10/14/20at 09:09; Start 10/12/20 at 15:15 Pantoprazole Sodium (Protonix) 40 mg DAILYAC PO Last administered on 10/14/20at 09:09; Start 10/12/20 at 16:30 Losartan Potassium (Cozaar) 50 mg DAILY PO Last administered on 10/14/20at 09:09; Start 10/13/20 at 09:00 Aspirin (Ecotrin) 81 mg DAILYWBKFT PO Last administered on 10/14/20at 09:08; Start 10/12/20 at 17:00 Furosemide (Lasix) 40 mg 1X ONCE IVP Last administered on 10/13/20at 10:13; Start 10/13/20 at 10:00; Stop 10/13/20 at 10:01; Status DC Furosemide (Lasix) 40 mg 1X ONCE IVP Last administered on 10/13/20at 14:50; Start 10/13/20 at 14:00; Stop 10/13/20 at 14:01; Status DC Potassium Chloride (Klor-Con) 20 meq 1X ONCE PO Last administered on 10/13/20at 13:24; Start 10/13/20 at 13:00; Stop 10/13/20 at 13:01; Status DC Furosemide (Lasix) 40 mg 1X ONCE IVP Last administered on 10/14/20at 09:10; Start 10/14/20 at 09:00; Stop 10/14/20 at 09:01; Status DC Spironolactone (Aldactone) 25 mg DAILY PO Last administered on 10/14/20at 0 9:09; Start 10/14/20 at 09:00 Active Scripts Active Proair Hfa (Albuterol Sulfate) 8.5 Gm Hfa.aer.ad 2.5 Mg NEB PRN Q4HRS PRN 30 Days Azithromycin Tablet (Azithromycin) 250 Mg Tablet 500 Mg PO DAILY 3 Days Reported Vascepa (Icosapent Ethyl) 0.5 Gm Capsule 1 Cap PO BID 30 Days Farxiga (Dapagliflozin Propanediol) 10 Mg Tablet 10 Mg PO BID Omeprazole 20 Mg Tablet.dr 1 Tab PO DAILY Amlodipine Besylate 10 Mg Tablet 10 Mg PO DAILY Metoprolol Succinate ( Xl ) (Metoprolol Succinate) 100 Mg Tab.er.24h 1 Tab PO DAILY Atorvastatin Calcium 40 Mg Tablet 1 Tab PO QHS Glimepiride 4 Mg Tablet 1 Tab PO DAILY Vital Signs Vital Signs Date Time Temp Pulse Resp B/P (MAP) Pulse Ox O2 Delivery O2 Flow Rate FiO2 10/14/20 09:09 93 107/79 10/14/20 08:00 Room Air 10/14/20 07:00 97.5 19 98 97.5 Labs Laboratory Tests Test 10/12/20 11:58 10/12/20 17:02 10/12/20 19:39 10/13/20 08:02 Glucose (Fingerstick) 160 mg/dL (70-99) 139 mg/dL (70-99) 172 mg/dL (70-99) 141 mg/dL (70-99) Test 10/13/20 10:54 10/13/20 11:51 10/13/20 17:10 10/13/20 20:16 White Blood Count 10.4 x10^3/uL (4.0-11.0) Red Blood Count 6.03 x10^6/uL (4.30-5.70) Hemoglobin 16.1 g/dL (13.0-17.5) Hematocrit 49.7 % (39.0-53.0) Mean Corpuscular Volume 83 fL (79-100) Mean Corpuscular Hemoglobin 27 pg (25-35) Mean Corpuscular Hemoglobin Concent 32 g/dL (31-37) Red Cell Distribution Width 17.8 % (11.5-14.5) Platelet Count 260 x10^3/uL (140-400) Neutrophils (%) (Auto) 79 % (31-73) Lymphocytes (%) (Auto) 13 % (24-48) Monocytes (%) (Auto) 7 % (0-9) Eosinophils (%) (Auto) 1 % (0-3) Basophils (%) (Auto) 1 % (0-3) Neutrophils # (Auto) 8.1 x10^3/uL (1.8-7.7) Lymphocytes # (Auto) 1.3 x10^3/uL (1.0-4.8) Monocytes # (Auto) 0.8 x10^3/uL (0.0-1.1) Eosinophils # (Auto) 0.0 x10^3/uL (0.0-0.7) Basophils # (Auto) 0.1 x10^3/uL (0.0-0.2) Sodium Level 133 mmol/L (136-145) Potassium Level 4.1 mmol/L (3.5-5.1) Chloride Level 99 mmol/L (98-107) Carbon Dioxide Level 27 mmol/L (21-32) Anion Gap 7 (6-14) Blood Urea Nitrogen 18 mg/dL (8-26) Creatinine 1.0 mg/dL (0.7-1.3) Estimated GFR (Cockcroft-Gault) 77.9 Glucose Level 179 mg/dL (70-99) Calcium Level 9.1 mg/dL (8.5-10.1) Phosphorus Level 3.7 mg/dL (2.6-4.7) Magnesium Level 2.2 mg/dL (1.8-2.4) Triglycerides Level 73 mg/dL (0-150) Cholesterol Level 124 mg/dL (0-200) LDL Cholesterol, Calculated 91 mg/dL (0-100) VLDL Cholesterol, Calculated 15 mg/dL (0-40) Non-HDL Cholesterol Calculated 106 mg/dL (0-129) HDL Cholesterol 18 mg/dL (40-60) Cholesterol/HDL Ratio 6.9 Glucose (Fingerstick) 179 mg/dL (70-99) 165 mg/dL (70-99) 124 mg/dL (70-99) Test 10/14/20 07:17 Glucose (Fingerstick) 162 mg/dL (70-99) Laboratory Tests Test 10/13/20 10:54 10/13/20 11:51 10/13/20 17:10 10/13/20 20:16 White Blood Count 10.4 x10^3/uL (4.0-11.0) Red Blood Count 6.03 x10^6/uL (4.30-5.70) Hemoglobin 16.1 g/dL (13.0-17.5) Hematocrit 49.7 % (39.0-53.0) Mean Corpuscular Volume 83 fL (79-100) Mean Corpuscular Hemoglobin 27 pg (25-35) Mean Corpuscular Hemoglobin Concent 32 g/dL (31-37) Red Cell Distribution Width 17.8 % (11.5-14.5) Platelet Count 260 x10^3/uL (140-400) Neutrophils (%) (Auto) 79 % (31-73) Lymphocytes (%) (Auto) 13 % (24-48) Monocytes (%) (Auto) 7 % (0-9) Eosinophils (%) (Auto) 1 % (0-3) Basophils (%) (Auto) 1 % (0-3) Neutrophils # (Auto) 8.1 x10^3/uL (1.8-7.7) Lymphocytes # (Auto) 1.3 x10^3/uL (1.0-4.8) Monocytes # (Auto) 0.8 x10^3/uL (0.0-1.1) Eosinophils # (Auto) 0.0 x10^3/uL (0.0-0.7) Basophils # (Auto) 0.1 x10^3/uL (0.0-0.2) Sodium Level 133 mmol/L (136-145) Potassium Level 4.1 mmol/L (3.5-5.1) Chloride Level 99 mmol/L (98-107) Carbon Dioxide Level 27 mmol/L (21-32) Anion Gap 7 (6-14) Blood Urea Nitrogen 18 mg/dL (8-26) Creatinine 1.0 mg/dL (0.7-1.3) Estimated GFR (Cockcroft-Gault) 77.9 Glucose Level 179 mg/dL (70-99) Calcium Level 9.1 mg/dL (8.5-10.1) Phosphorus Level 3.7 mg/dL (2.6-4.7) Magnesium Level 2.2 mg/dL (1.8-2.4) Triglycerides Level 73 mg/dL (0-150) Cholesterol Level 124 mg/dL (0-200) LDL Cholesterol, Calculated 91 mg/dL (0-100) VLDL Cholesterol, Calculated 15 mg/dL (0-40) Non-HDL Cholesterol Calculated 106 mg/dL (0-129) HDL Cholesterol 18 mg/dL (40-60) Cholesterol/HDL Ratio 6.9 Glucose (Fingerstick) 179 mg/dL (70-99) 165 mg/dL (70-99) 124 mg/dL (70-99) Test 10/14/20 07:17 Glucose (Fingerstick) 162 mg/dL (70-99) Allergies Allergies Coded Allergies Type Severity Reaction Last Updated Verified No Known Drug Allergies 03/22/20 No Disposition/Orders: D/C to Home Justicifation of Admission Dx: Justifications for Admission: Justification of Admission Dx: No Respiratory Failure: Severe Resp Distress TRACY WATERMAN MD Oct 14, 2020 09:48
[2020-10-14] MEDS ORDERED: AZIT250T6 PO (09:53)
[2020-10-14] MEDS ORDERED: FURO-68 PO (09:53)
[2020-10-14] MEDS ORDERED: LOSA-73 PO (09:53)
[2020-10-14] MEDS ORDERED: ASPI-886 PO (09:53)
[2020-10-14] MEDS ORDERED: ACET325T9 PO (09:53)
[2020-10-14] MEDS ORDERED: DOCU-153 PO (09:53)
[2020-10-14] MEDS ORDERED: SPIR25TA PO (09:53)
== END 2020-10-14 10:34 | disposition home or self-care (01) | DRG 871 ==
LOC: ER 11:07 → ED HOLD 13:21 → 6 SOUTH 18:09 → 2 NORTH 10-13 16:29
PROVIDERS: ADMIT Internal Medicine; ATTEND Internal Medicine
DX: A41.9 Sepsis, unspecified organism (principal); I50.43 Acute on chronic combined systolic (congestive) and diastolic (congestive) heart failure; J96.00 Acute respiratory failure, unspecified whether with hypoxia or hypercapnia; J98.11 Atelectasis; L03.115 Cellulitis of right lower limb; L03.116 Cellulitis of left lower limb; J44.1 Chronic obstructive pulmonary disease with (acute) exacerbation; E11.9 Type 2 diabetes mellitus without complications; E78.00 Pure hypercholesterolemia, unspecified; E78.5 Hyperlipidemia, unspecified; F17.210 Nicotine dependence, cigarettes, uncomplicated; I11.0 Hypertensive heart disease with heart failure; J44.9 Chronic obstructive pulmonary disease, unspecified; K21.9 Gastro-esophageal reflux disease without esophagitis; Z20.828 Contact with and (suspected) exposure to other viral communicable diseases; Z82.49 Family history of ischemic heart disease and other diseases of the circulatory system; Z83.3 Family history of diabetes mellitus; Z91.19 Patient's noncompliance with other medical treatment and regimen
CPT/HCPCS: 36415; 71045; 71275; 80048; 80053; 80061; 81001; 82550; 82962; 83605; 83735; 83880; 84100; 84484; 85025; 85379; 87040; 87804; 93005; 93306; 93970; 96365; 96366; 96375; 99285; J0456; J0696; J1650; J1815; J1940; Q9967; U0003; G0378

== ENCOUNTER → 2020-10-22 | Outpatient (CLI) | payer BC ==
[2020-10-14 09:09] VITALS: BP 107/79
[~2020-10-22] MED LIST changes: +ACET325T9 PO; +ASPI-886 PO; +BUME1TAB3 PO; +DOCU-153 PO; +FURO-68 PO; +LOSA-73 PO; +PARO20TA3 PO; +POTA20TA4 PO; +SACU1TAB PO; +SPIR25TA PO
== END ==
LOC: LAB 11:52
PROVIDERS: ATTEND Internal Medicine Cardiovascular Disease
DX: Z01.812 Encounter for preprocedural laboratory examination (principal); R06.02 Shortness of breath; I42.9 Cardiomyopathy, unspecified; Z20.822 Contact with and (suspected) exposure to COVID-19
CPT/HCPCS: U0003

== ENCOUNTER 2020-10-25 08:28 | Outpatient (CLI) | payer BC ==
[2020-10-25] VITALS (10 sets, daily range): BP systolic 94–131; BP diastolic 71–93
[~2020-10-25] VITALS: Ht 177.8 cm; Wt 78.9 kg
[~2020-10-25 08:28] MED LIST changes: -BUME1TAB3 PO; -PARO20TA3 PO; -POTA20TA4 PO; -SACU1TAB PO
[2020-10-25 09:07] LABS: HEMATOCRIT 47.8 % (39.0-53.0); HEMOGLOBIN 15.8 g/dL (13.0-17.5); RED BLOOD COUNT 5.86 x10^6/uL (4.30-5.70); RED CELL DISTRIBUTION WIDTH 17.7 % (11.5-14.5); WHITE BLOOD COUNT 9.4 x10^3/uL (4.0-11.0)
[2020-10-25 09:17] LABS: PROTHROMBIN TIME PATIENT 14.1 SEC (11.7-14.0)
[2020-10-25 09:26] LABS: CALCIUM 9.3 mg/dL (8.5-10.1); GFR 77.9; POTASSIUM 3.5 mmol/L (3.5-5.1)
[2020-10-25] MEDS ORDERED: IOHEXOL 300 MG/ML 100ML VIAL. ONE (10:35)
[2020-10-25] MEDS ORDERED: LIDOCAINE 1% PF 2 ML VIAL. ONE (10:35)
[2020-10-25] MEDS ORDERED: NITROGLYCERIN 200 MCG/2 ML SYRINGE FOR CATH/VASC LAB. ONE (10:53)
[2020-10-25] MEDS ORDERED: VERAPAMIL 5 MG/2 ML VIAL. ONE (10:53)
[2020-10-25] MEDS ORDERED: fentaNYL PF VIAL 100 MCG/2 ML VIAL ONE (10:53)
[2020-10-25] MEDS ORDERED: MIDAZOLAM HCL/PF 5 MG/5 ML VIAL. ONE (10:53)
[2020-10-25] MEDS ORDERED: HEPARIN for IV BOLUS 10,000 UNIT/10 ML VIAL. ONE (10:53)
[2020-10-25] MEDS ORDERED: METOPROLOL IV PUSH 5 MG/5 ML VIAL. IVP ONE ×2 (11:10→11:15)
[2020-10-25] MEDS ORDERED: DIGOXIN IV 500 MCG/2 ML AMPUL. ONE (11:14)
[2020-10-25] MEDS ORDERED: MIDAZOLAM HCL/PF 5 MG/5 ML VIAL. IV ONE (11:15)
[2020-10-25] MEDS ORDERED: VERAPAMIL 5 MG/2 ML VIAL. IART ONE (11:15)
[2020-10-25] MEDS ORDERED: FUROSEMIDE 100 MG/10 ML VIAL. IVP ONE (11:15)
[2020-10-25] MEDS ORDERED: fentaNYL PF VIAL 100 MCG/2 ML VIAL IV ONE (11:15)
[2020-10-25] MEDS ORDERED: DIGOXIN IV 500 MCG/2 ML AMPUL. IV ONE (11:15)
[2020-10-25] MEDS ORDERED: LIDOCAINE 1% PF 2 ML VIAL. INJ ONE (11:15)
[2020-10-25] MEDS ORDERED: NITROGLYCERIN 200 MCG/2 ML SYRINGE FOR CATH/VASC LAB. IART ONE (11:15)
[2020-10-25] MEDS ORDERED: HEPARIN for IV BOLUS 10,000 UNIT/10 ML VIAL. IART ONE (11:15)
[2020-10-25] MEDS ORDERED: IOHEXOL 350 MG/ML 100 ML VIAL. IART ONE (11:15)
[2020-10-25] MEDS ORDERED: CONTRAST GIVEN. MC PRN (11:45)
--- NOTE | 2020-10-25 13:06 | PDOC4 ---
BRIEF OPERATIVE NOTE Pre-Op Diagnosis cardiomyopathy Post-Op Diagnosis non ischemic cardiomyopathy Procedure Performed Cardiac cath and coronary angiography Surgeon Dr. Esteves EBL 5 ml Anesthesia Type: Local, Conscious Sedation Specimens Obtained None Findings No lesions needing intervention Complications none MINO ESTEVES MD Oct 25, 2020 13:06
--- NOTE | 2020-10-25 13:07 | PDOC ---
MODERATE SEDATION ASSESSMENT RISKS/ALTERNATIVES Risks/Alternatives Risks and alternatives of this type of sedation and procedure discussed with: RISK/ALTERNATIVES: Patient H & P ON CHART H & P H & P on chart and reviewed for co-morbid conditions and appropriate labs. H&P ON CHART: Yes STATUS PREG STATUS ASSESSED: N/A MEDS/ALLERGIES REVIEWED Meds/Allergies Reviewed Medications and Allergies including time and route of recently administered narcotics and sedatives. MEDS/ALLERGIES REVIEWED: Yes ASA RATING ASA RATING: III AIRWAY ASSESSMENT Airway Assessment Airway patency, oral function limitations, presence of caps, crowns, dentures, partials, and ability to extend neck assessed. AIRWAY ASSESSMENT: Yes MALLAMPATI SCORE MALLAMPATI SCORE: II PRE-SEDATION ASSESSMENT PRE-SEDATION ASSESSMENT: Yes MINO MELVIN MD Oct 25, 2020 13:07
[2020-10-25] MEDS ORDERED: NITROGLYCERIN SUBLINGUAL 0.4 MG BOTTLE OF 25. SL PRN (13:15)
--- NOTE | 2020-10-25 13:30 | NUR ---
discharge instructions reviewed with pt and family. Pt stated understanding. Pt ambulated and tolerated PO. TR band dc'd. Armboard reapplied. PIV dc'd. Pt home with family
--- NOTE | 2020-10-25 17:18 | CARD ---
MR#: [id number] Date of Study: 10/25/2020 Ordering Physician: MINO MELVIN, Referring Physician: MINO MELVIN, Tech: JUAN SIMMS RTR APPROVED REPORT Technologist: JUAN SIMMS RTR Nurse: Clementina BAGLEY RN Procedure(s) performed: Left heart catheterization and selective coronary angiography via right trans radial approach MODERATE SEDATION TIME: 30 MINUTES FLUORO TIME: 2.4 MIN DOSE: 50.3 GYCM2 CONTRAST: 91CC OMNI 300 BLOOD LOSS: 5 ML INDICATION The indication(s) include : Cardiomyopathy, chronic systolic heart failure with LVEF 15%. [facility] Clinical Frailty Scale [facility] Clinical Frailty Scale: Mildly Frail Heart Failure Heart Failure: Yes If Yes, Newly Diagnosed: No If Yes, HF Type: Systolic If Yes, NYHA Class: Class II PROCEDURE NARRATIVE After explaining the risks, benefits and alternative options, informed consent was obtained from teo ent. Patient was brought to the cardiac Strategic Planning Director and right wrist was prepped and draped in the usual fashion after confirming a positive modified Semaj's test. Arterial access was obtained in the righ t radial artery and a 6 Croatian sheath was inserted. 6 Croatian Jorje catheter was used to perform romel ective angiography of the left and right coronary arteries. LVEDP and transaortic gradients were aissatou sured. Left ventriculography was not performed due to elevated EDP and availability of recent 2D ech o that showed EF 15%. Patient tolerated the procedure well. Hemostasis was achieved using TR band. There were no immediate complications. The following findings were noted. FINDINGS 1. Hemodynamics: Significantly elevated left ventricular end-diastolic pressure of 47 mmHg consisten t with acute on chronic systolic heart failure. No pullback gradient across the aortic valve. 2. Coronary angiography: a. The left main coronary artery arose from the left sinus of Valsalva, gave rise to the left anteri or descending and left circumflex arteries and did not show any significant stenosis. b. The left anterior descending artery showed 50% stenosis in the mid to distal segment. The diagon al branch is a small to medium caliber vessel showed 70% long stenosis involving the proximal to mid segment. c. The left circumflex artery showed 30% stenosis involving a large caliber obtuse marginal branch. d. The right coronary artery was a large and dominant vessel arising from the right sinus of Valsalv a that showed 40% stenosis involving the distal segment. Conclusion 1. 70% long stenosis involving the proximal to mid segment of a small to medium caliber diagonal bra nc. No significant lesions needing intervention were noted. 2. Acute on chronic systolic heart failure as evidenced by elevated LVEDP of 47 mmHg. Recommendations Optimization of medical therapy for nonischemic cardiomyopathy and repeat 2D echo in 3 months to eval uate the need for AICD implantation. Signed by : Mino Melvin, Electronically Approved : 10/25/2020 17:18:05
== END 2020-10-25 13:44 | disposition home or self-care (01) ==
LOC: CCL 08:28
PROVIDERS: ATTEND Internal Medicine Cardiovascular Disease
DX: I42.8 Other cardiomyopathies (principal); I11.0 Hypertensive heart disease with heart failure; I50.22 Chronic systolic (congestive) heart failure; I25.10 Atherosclerotic heart disease of native coronary artery without angina pectoris; E78.00 Pure hypercholesterolemia, unspecified; J44.9 Chronic obstructive pulmonary disease, unspecified; E11.9 Type 2 diabetes mellitus without complications; F17.210 Nicotine dependence, cigarettes, uncomplicated; Z79.82 Long term (current) use of aspirin; Z79.84 Long term (current) use of oral hypoglycemic drugs; Z79.899 Other long term (current) drug therapy; Z98.890 Other specified postprocedural states; Z72.89 Other problems related to lifestyle
CPT/HCPCS: 36415; 80048; 85027; 85610; 93458; 99152; 99153; C1769; C1892; J1160; J1644; J1940; J2250; J3010; J3490; Q9967

== ENCOUNTER 2020-12-01 02:51 | Inpatient (IN) | payer BC ==
[~2020-12-01] VITALS: Ht 177.8 cm; Wt 80.9 kg
[2020-12-01] MEDS ORDERED: VANCOMYCIN PER PHARMACY MC PRN (03:00)
--- NOTE | 2020-12-01 03:08 | PHYS DOC ---
Past Medical History Past Medical History: COPD, Diabetes-Type II, High Cholesterol, Hypertension Past Surgical History: Tonsillectomy Smoking Status: Current Every Day Smoker Alcohol Use: Occasionally Adult General Chief Complaint Chief Complaint: TESTICULAR PAIN OR INJURY HPI HPI Patient is a 55 year old male with no past medical history of hypertension, hyperlipidemia and diabetes presents emergency department for new onset of scrotal pain is on. Patient states that over the last 4 to 5 days has noted increased in size and swelling of the area around the scrotum. Over the last 24 hours states this is severely increased in severity and also notes new onset of pain and erythema in the area. Denies any injury to the area. Denies any fever, chills, nausea, vomiting, dizziness or lightheadedness. Review of Systems Review of Systems Constitutional: Denies fever or chills [] Eyes: Denies change in visual acuity, redness, or eye pain [] HENT: Denies nasal congestion or sore throat [] Respiratory: Denies cough or shortness of breath [] Cardiovascular: No additional information not addressed in HPI [] GI: Denies abdominal pain, nausea, vomiting, bloody stools or diarrhea [] : Denies dysuria or hematuria [] Musculoskeletal: Denies back pain or joint pain [] Integument: Denies rash or skin lesions [] Neurologic: Denies headache, focal weakness or sensory changes [] Endocrine: Denies polyuria or polydipsia [] All other systems were reviewed and found to be within normal limits, except as documented in this note. Current Medications Current Medications Current Medications Medications (Trade) Dose Ordered Sig/Gus Start Time Stop Time Status Last Admin Dose Admin Furosemide (Lasix) 40 mg 1X ONCE 12/01/20 05:30 12/01/20 05:31 Info (CONTRAST GIVEN -- Rx MONITORING) 1 each PRN DAILY PRN 12/01/20 04:15 12/03/20 04:14 Iohexol (Omnipaque 300 Mg/ml) 75 ml 1X ONCE 12/01/20 04:30 12/01/20 04:31 DC 12/01/20 04:13 75 ML Piperacillin Sod/ Tazobactam Sod 4.5 gm/Sodium Chloride 100 ml @ 200 mls/hr 1X ONCE 12/01/20 03:30 12/01/20 03:59 DC 12/01/20 04:37 200 MLS/HR Sodium Chloride 1,000 ml @ 1,000 mls/hr 1X ONCE 12/01/20 04:00 12/01/20 04:59 DC 12/01/20 04:36 1,000 MLS/HR Vancomycin HCl (Vanco Per Pharmacy) 1 each PRN DAILY PRN 12/01/20 03:00 Vancomycin HCl 2 gm/Sodium Chloride 500 ml @ 250 mls/hr 1X ONCE 12/01/20 04:30 12/01/20 06:29 Allergies Allergies Allergies Coded Allergies Type Severity Reaction Last Updated Verified No Known Drug Allergies 03/22/20 No Physical Exam Physical Exam Constitutional: Well developed, well nourished, no acute distress, non-toxic appearance. [] HENT: Normocephalic, atraumatic, bilateral external ears normal, oropharynx moist, no oral exudates, nose normal. [] Eyes: PERRLA, EOMI, conjunctiva normal, no discharge. [] Neck: Normal range of motion, no tenderness, supple, no stridor. [] Cardiovascular:Heart rate regular rhythm, no murmur [] Lungs & Thorax: Bilateral breath sounds clear to auscultation [] Abdomen: Bowel sounds normal, soft, no tenderness, no masses, no pulsatile masses. [] : Severe scrotal edema as well as marked erythema in the left groin region evaluated irritated and tender rash Skin: Warm, dry, no erythema, no rash. [] Back: No tenderness, no CVA tenderness. [] Extremities: No tenderness, no cyanosis, no clubbing, ROM intact, no edema. [] Neurologic: Alert and oriented X 3, normal motor function, normal sensory function, no focal deficits noted. [] Psychologic: Affect normal, judgement normal, mood normal. [] Current Patient Data Vital Signs Vital Signs Date Time Temp Pulse Resp B/P (MAP) Pulse Ox O2 Delivery O2 Flow Rate FiO2 12/01/20 03:20 99.2 109 20 124/90 (101) 96 Room Air 99.2 Lab Values Laboratory Tests Test 12/01/20 03:25 12/01/20 03:58 12/01/20 04:00 12/01/20 04:05 White Blood Count 8.3 x10^3/uL (4.0-11.0) Red Blood Count 5.70 x10^6/uL (4.30-5.70) Hemoglobin 15.5 g/dL (13.0-17.5) Hematocrit 47.1 % (39.0-53.0) Mean Corpuscular Volume 83 fL (79-100) Mean Corpuscular Hemoglobin 27 pg (25-35) Mean Corpuscular Hemoglobin Concent 33 g/dL (31-37) Red Cell Distribution Width 18.8 % (11.5-14.5) H Platelet Count 283 x10^3/uL (140-400) Neutrophils (%) (Auto) 75 % (31-73) H Lymphocytes (%) (Auto) 16 % (24-48) L Monocytes (%) (Auto) 8 % (0-9) Eosinophils (%) (Auto) 1 % (0-3) Basophils (%) (Auto) 1 % (0-3) Neutrophils # (Auto) 6.2 x10^3/uL (1.8-7.7) Lymphocytes # (Auto) 1.3 x10^3/uL (1.0-4.8) Monocytes # (Auto) 0.7 x10^3/uL (0.0-1.1) Eosinophils # (Auto) 0.1 x10^3/uL (0.0-0.7) Basophils # (Auto) 0.1 x10^3/uL (0.0-0.2) Prothrombin Time 14.6 SEC (11.7-14.0) H Prothrombin Time INR 1.2 (0.8-1.1) H Activated Partial Thromboplast Time 34 SEC (24-38) Fibrinogen 408 mg/dL (200-440) Sodium Level 137 mmol/L (136-145) Potassium Level 3.1 mmol/L (3.5-5.1) L Chloride Level 100 mmol/L (98-107) Carbon Dioxide Level 28 mmol/L (21-32) Anion Gap 9 (6-14) Blood Urea Nitrogen 12 mg/dL (8-26) Creatinine 1.0 mg/dL (0.7-1.3) Estimated GFR (Cockcroft-Gault) 77.9 BUN/Creatinine Ratio 12 (6-20) Glucose Level 170 mg/dL (70-99) H Lactic Acid Level 2.6 mmol/L (0.4-2.0) H Calcium Level 9.1 mg/dL (8.5-10.1) Total Bilirubin 1.6 mg/dL (0.2-1.0) H Aspartate Amino Transferase (AST) 18 U/L (15-37) Alanine Aminotransferase (ALT) 23 U/L (16-63) Alkaline Phosphatase 151 U/L (46-116) H Ammonia 32 mcmol/L (11-34) Creatine Kinase 50 U/L (39-308) Total Protein 6.6 g/dL (6.4-8.2) Albumin 2.8 g/dL (3.4-5.0) L Albumin/Globulin Ratio 0.7 (1.0-1.7) L Amylase Level 23 U/L (25-115) L Lipase 47 U/L (73-393) L Procalcitonin < 0.10 ng/mL (0.00-0.10) POC Venous pH 7.41 (7.32-7.42) POC Venous pCO2 44 mmHg (41-51) POC Venous pO2 49 mmHg (20-40) H Venous Blood HCO3 28 mmol/L (24-28) POC Venous O2 Saturation (Anastasia) 84 % POC FiO2 21.0 Influenza Type A Antigen Negative (NEGATIVE) Influenza Type B Antigen Negative (NEGATIVE) SARS-CoV-2 Antigen (Rapid) Negative (NEGATIVE) Urine Collection Type Unknown Urine Color Emma Urine Clarity Clear Urine pH 6.0 (<5.0-8.0) Urine Specific [place] 1.015 (1.000-1.030) Urine Protein 100 mg/dL (NEG-TRACE) Urine Glucose (UA) Negative mg/dL (NEG) Urine Ketones (Stick) Negative mg/dL (NEG) Urine Blood Negative (NEG) Urine Nitrite Negative (NEG) Urine Bilirubin Small (NEG) Urine Urobilinogen Dipstick 1.0 mg/dL (0.2 mg/dL) Urine Leukocyte Esterase Negative (NEG) Urine RBC 1-2 /HPF (0-2) Urine WBC 1-4 /HPF (0-4) Urine Bacteria Mod /HPF (0-FEW) Urine Hyaline Casts Occasional /HPF Laboratory Tests 12/01/20 03:25 Laboratory Tests 12/01/20 03:25 EKG EKG [] Radiology/Procedures Radiology/Procedures [] Course & Med Decision Making Course & Med Decision Making Pertinent Labs and Imaging studies reviewed. (See chart for details) 55-year-old male now presenting with new onset of severe scrotal edema. Patient states he has no history of this nursing concerned that this is development of 40s gangrene. At this time will obtain a full sepsis work-up and will obtain a CT scan of the pelvis to evaluate for any subcu emphysema. Patient initial work-up remarkable only for significantly exacerbated and severe congestive heart failure demonstrated on CT scan with significant pulmonary edema and scrotal edema. Patient given 40 of IV Lasix will plan to admit the patient Dragon Disclaimer Dragon Disclaimer This electronic medical record was generated, in whole or in part, using a voice recognition dictation system. Departure Departure Impression: Primary Impression: Acute CHF Disposition: ADMITTED INPT THIS HOSP Condition: GUARDED Referrals: BRITNEY MERINO MD (PCP) PAULY BOSCH MD Dec 01, 2020 03:08
[2020-12-01] MEDS ORDERED: PIPERACILLIN/TAZOBACTAM 4.5 GM in IV NORMAL SALINE 100ML 100 ML IV ONE (03:30)
[2020-12-01 03:42] LABS: BASO # 0.1 x10^3/uL (0.0-0.2); BASO % 1 % (0-3); EOS # 0.1 x10^3/uL (0.0-0.7); EOS % 1 % (0-3); HEMATOCRIT 47.1 % (39.0-53.0); HEMOGLOBIN 15.5 g/dL (13.0-17.5); LYMPH # 1.3 x10^3/uL (1.0-4.8); LYMPH % 16 % (24-48); MEAN CORPUSCULAR HEMOGLOBIN 27 pg (25-35); MEAN CORPUSCULAR HGB CONC 33 g/dL (31-37); MEAN CORPUSCULAR VOLUME 83 fL (79-100); MONO # 0.7 x10^3/uL (0.0-1.1); MONO % 8 % (0-9); NEUT # 6.2 x10^3/uL (1.8-7.7); NEUT % 75 % (31-73); PLATELET COUNT 283 x10^3/uL (140-400); RED CELL DISTRIBUTION WIDTH 18.8 % (11.5-14.5); WHITE BLOOD COUNT 8.3 x10^3/uL (4.0-11.0)
[2020-12-01 03:46] LABS: CALCIUM 9.1 mg/dL (8.5-10.1); GFR 77.9; POTASSIUM 3.1 mmol/L (3.5-5.1)
[2020-12-01 03:52] LABS: ALBUMIN 2.8 g/dL (3.4-5.0); ALBUMIN/GLOBULIN RATIO 0.7 (1.0-1.7); TOTAL BILIRUBIN 1.6 mg/dL (0.2-1.0); TOTAL PROTEIN 6.6 g/dL (6.4-8.2)
[2020-12-01 03:53] LABS: PROTHROMBIN TIME PATIENT 14.6 SEC (11.7-14.0)
--- NOTE | 2020-12-01 03:54 | RAD ---
AP portable chest radiograph 12/01/2020 Clinical History: Cough. An AP erect portable digital radiograph of the chest was obtained. Comparison study is dated 10/11/2020. The cardiac silhouette is mildly enlarged. The thoracic aorta is mildly tortuous. There are small rosie ateral pleural effusions. Perihilar infiltrates are seen involving both lungs which likely reflect pu lmonary edema from CHF. No pneumothorax is noted. The osseous structures are unchanged. Impression: Bilateral perihilar infiltrates are seen which likely reflect pulmonary edema from CHF. T here are small bilateral pleural effusions. Electronically signed by: Leonides Mckinney MD (12/01/2020 3:52 AM) [id number]
[2020-12-01] MEDS ORDERED: IV NORMAL SALINE 1000ML BAG 1,000 ML IV ONE ×2 (04:00)
[2020-12-01 04:01] LABS: ISTAT BE VENOUS 3 mmol/L (0-3); ISTAT HCO3 VEN 28 mmol/L (24-28); ISTAT PCO2 VEN 44 mmHg (41-51); ISTAT PH VEN 7.41 (7.32-7.42); ISTAT PO2 VEN 49 mmHg (20-40); ISTAT SAT O2 VEN 84 %; ISTAT TCO2 VEN 29 mmol/L (21-32)
[2020-12-01] MEDS ORDERED: CONTRAST GIVEN. MC PRN (04:15)
[2020-12-01 04:24] LABS: BILIRUBIN,URINE SMALL (NEG); CLARITY,URINE CLEAR; COLOR,URINE AMBER; NITRITE,URINE NEGATIVE (NEG); PROTEIN,URINE 100 mg/dL (NEG-TRACE)
[2020-12-01] MEDS ORDERED: IOHEXOL 300 MG/ML 100ML VIAL. IV ONE (04:30)
[2020-12-01] MEDS ORDERED: VANCOMYCIN 2 GM in IV NORMAL SALINE 500ML BAG 500 ML IV ONE (04:30)
--- NOTE | 2020-12-01 04:38 | RAD ---
CT scan of the chest without contrast . CT scan of the abdomen and pelvis with contrast 12/01/2020 CLINICAL HISTORY: Cough. Abdominal and pelvic pain. TECHNIQUE: Unenhanced, contiguous, 5 mm axial sections were obtained through the chest. After the int ravenous administration 75 cc of Omnipaque 300, contiguous, 5 mm axial sections were obtained through the abdomen and pelvis. One or more of the following individualized dose reduction techniques were utilized for this study: 1. Automated exposure control. 2. Adjustment of the mA and/or kV according to patient size. 3. Use of iterative reconstruction technique. FINDINGS: Atherosclerotic calcification of the thoracic aorta and its branches is noted. There is mil d cardiomegaly. The thoracic aorta tapers normally. Scattered coronary artery calcifications are seen . Enlarged mediastinal lymph nodes are seen which measure 1 to 2.3 cm in size. There are moderate to large sized bilateral pleural effusions. Perihilar infiltrates are seen involvi ng both lungs which likely reflect pulmonary edema from CHF. No pneumothorax is noted. The liver is mildly enlarged measuring 21 cm in length. Decreased attenuation of the liver parenchyma is seen consistent with fatty infiltration. Calcified granulomas are seen scattered throughout the s pleen, the pancreas, adrenal glands and kidneys are within normal limits. Moderate to severe atheromatous/atherosclerotic plaque formation is seen involving the abdominal aort a and its branches. The abdominal aorta tapers normally. Small amount of ascites surrounds the liver. The gallbladder is contracted. There is no evidence of bowel obstruction. No free air is seen. Images through the pelvis demonstrate a Viramontes catheter within urinary bladder. A moderate amount of a scites is seen within the pelvis. Edema is seen throughout the subcutaneous fat of the abdominal wall throughout the abdomen and pelvis. Large bilateral hydroceles are noted. Minimal S-shaped curvature of the thoracic lumbar spine is seen. Degenerative changes are seen involving thoracic and throughout the lumbar spine along with both hips. IMPRESSION: 1. Cardiomegaly. Moderate to large sized bilateral pleural effusions. Perihilar infiltrates are seen involving both lungs which likely reflect pulmonary edema from CHF. 2. Small to moderate amount of ascites is seen involving the abdomen/pelvis. 3. Large bilateral hydroceles. Electronically signed by: Leonides Mckinney MD (12/01/2020 4:36 AM) [id number]
[2020-12-01 04:39] LABS: INFLUENZA A PATIENT NEGATIVE (NEGATIVE); INFLUENZA B PATIENT NEGATIVE (NEGATIVE)
[2020-12-01 05:06] LABS: BACTERIA,URINE MOD /HPF (0-FEW); HYALINE CASTS, URINE OCCASIONAL /HPF
[2020-12-01] MEDS ORDERED: FUROSEMIDE 40 MG TABLET. PO ONE (05:30)
[2020-12-01] MEDS ORDERED: MORPHINE SULFATE 4 MG/ML VIAL. IV PRN (05:30)
[2020-12-01] MEDS ORDERED: ONDANSETRON PF 4 MG/2 ML VIAL. IV PRN (05:30)
--- NOTE | 2020-12-01 06:20 | NUR ---
Pharmacy Vancomycin Dosing Note S:Consulted to monitor and dose vancomycin started 12/01/20. O:GUY MCCRACKEN is a 55 year old M with Sepsis . Height: 5 feet, 10 inches Weight: 80.0 kg [place] Body Weight: 73.00 Adjusted Body Weight: 75.80 Dosing Weight: Actual Other Antibiotics: LABS: Last BUN: 12 Last Creatinine: 1 Creatinine Clearance: 90 mL/min Last WBC: 8.3 Last Procalcitonin: <0.1 Tmax (past 24 hours): Microbiology: I/O: Drug Levels: Last level: on at Last dose given 12/01/20 at 0600 Vancomycin Dosing: Loading Dose: 2000 mg x1 Dosing Weight: Actual Target Trough: 15-20 A: Based on: WT AND CRCL P: 1. Begin Vancomycin 1250 mg IV q12h 2. Follow up Trough level on 12/02/20 at 1730 3. Pharmacy will continue to monitor, follow and adjust therapy as needed. SABRINA BRITO RPH, [id number] Signed: 12/01/20 at 0620 by SABRINA BRITO RPH PHA
[2020-12-01] MEDS ORDERED: ALBUTEROL SULFATE 2.5 MG/3 ML NEBU. NEB PRN (07:00)
[2020-12-01] MEDS ORDERED: ACETAMINOPHEN 325 MG TABLET. PO PRN ×2 (07:00→07:30)
--- NOTE | 2020-12-01 07:01 | PDOC1 ---
History and Physical Date of Admission Date of Admission DATE: 12/01/20 TIME: 06:38 Identification/Chief Complaint Chief Complaint Scrotal swelling Source Source: Chart review, Patient History of Present Illness History of Present Illness Patient is a 55-year-old male past medical history hypertension and diabetes, who presents to the ER with complaint of worsening scrotal swelling and pain over the past 5 days. Symptoms acutely worsened over the past 24 hours, with associated erythema. He describes his pain as throbbing. Denies any injury or history of similar symptoms. Labs on admission showed WBC 8.3, lactic acid 2.6, BNP 799, potassium 3.1, procalcitonin <0.10. Chest x-ray shows bilateral pulmonary edema and CT abdomen/pelvis shows small abdominal ascites with bilateral hydroceles. He does report medication compliance but is a poor historian and cannot verify many of his medications. Broad-spectrum antibiotics and fluid bolus received in ED, and patient notes shortness of breath and "wheezing"after receiving fluids. Will admit patient for further medical management. Past Medical History Cardiovascular: HTN, Hyperlipidemia Pulmonary: COPD Endocrine: Diabetes Past Surgical History Past Surgical History: No pertinent history Family History Family History: Heart Disease Social History Smoke: 1 pack per day ALCOHOL: none Drugs: None Current Problem List Problem List Problems Medical Problems: (1) Acute CHF Status: Acute Current Medications Current Medications Current Medications Piperacillin Sod/ Tazobactam Sod 4.5 gm/Sodium Chloride 100 ml @ 200 mls/hr 1X ONCE IV Last administered on 12/01/20at 04:37; Start 12/01/20 at 03:30; Stop 12/01/20 at 03:59; Status DC Vancomycin HCl (Vanco Per Pharmacy) 1 each PRN DAILY PRN MC SEE COMMENTS Last administered on 12/01/20at 06:20; Start 12/01/20 at 03:00 Vancomycin HCl 2 gm/Sodium Chloride 500 ml @ 250 mls/hr 1X ONCE IV Last administered on 12/01/20at 06:06; Start 12/01/20 at 04:30; Stop 12/01/20 at 06:29; Status DC Sodium Chloride 1,000 ml @ 1,000 mls/hr 1X ONCE IV Last administered on 12/01/20at 04:36; Start 12/01/20 at 04:00; Stop 12/01/20 at 04:59; Status DC Sodium Chloride 1,000 ml @ 1,000 mls/hr 1X ONCE IV Last administered on 12/01/20at 04:36; Start 12/01/20 at 04:00; Stop 12/01/20 at 04:59; Status DC Iohexol (Omnipaque 300 Mg/ml) 75 ml 1X ONCE IV Last administered on 12/01/20at 04:13; Start 12/01/20 at 04:30; Stop 12/01/20 at 04:31; Status DC Info (CONTRAST GIVEN -- Rx MONITORING) 1 each PRN DAILY PRN MC SEE COMMENTS; Start 12/01/20 at 04:15; Stop 12/03/20 at 04:14 Furosemide (Lasix) 40 mg 1X ONCE PO ; Start 12/01/20 at 05:30; Stop 12/01/20 at 05:31; Status DC Ondansetron HCl (Zofran) 4 mg PRN Q8HRS PRN IV NAUSEA/VOMITING 1ST CHOICE; Start 12/01/20 at 05:30; Stop 12/02/20 at 05:29 Morphine Sulfate (Morphine Sulfate) 4 mg PRN Q2HR PRN IV SEVERE PAIN 7-10; Start 12/01/20 at 05:30; Stop 12/02/20 at 05:29 Vancomycin HCl 1.25 gm/Sodium Chloride 250 ml @ 167 mls/hr Q12H IV ; Start 12/01/20 at 18:00 Vancomycin HCl (Vancomycin Trough Level) 1 each 1X ONCE MC ; Start 12/02/20 at 17:30; Stop 12/02/20 at 17:31 Active Scripts Active Lasix (Furosemide) 40 Mg Tablet 1 Tab PO DAILY 30 Days Dok (Docusate Sodium) 100 Mg Capsule 100 Mg PO PRN DAILY PRN 30 Days Tylenol (Acetaminophen) 325 Mg Tablet 650 Mg PO PRN Q4HRS PRN 30 Days Aspirin Ec (Aspirin) 81 Mg Tablet.dr 81 Mg PO DAILYWBKFT 30 Days Aldactone (Spironolactone) 25 Mg Tablet 25 Mg PO DAILY 30 Days Cozaar (Losartan Potassium) 50 Mg Tablet 50 Mg PO DAILY 30 Days Azithromycin Tablet (Azithromycin) 250 Mg Tablet 500 Mg PO DAILY 7 Days Proair Hfa (Albuterol Sulfate) 8.5 Gm Hfa.aer.ad 2.5 Mg NEB PRN Q4HRS PRN 30 Days Reported Vascepa (Icosapent Ethyl) 0.5 Gm Capsule 1 Cap PO BID 30 Days Farxiga (Dapagliflozin Propanediol) 10 Mg Tablet 10 Mg PO BID Omeprazole 20 Mg Tablet.dr 1 Tab PO DAILY Amlodipine Besylate 10 Mg Tablet 10 Mg PO DAILY Metoprolol Succinate ( Xl ) (Metoprolol Succinate) 100 Mg Tab.er.24h 1 Tab PO DAILY Atorvastatin Calcium 40 Mg Tablet 1 Tab PO QHS Glimepiride 4 Mg Tablet 1 Tab PO DAILY Allergies Allergies: Coded Allergies: No Known Drug Allergies (Unverified , 03/22/20) ROS Review of System General: Alert, Oriented X3, Cooperative, mild distress HEENT: PERRLA, EOMI Lungs: Clear to auscultation, Normal air movement Heart: RRR, no murmurs Cardiovascular: S1, S2 Abdomen: Scrotal edema. Normal bowel sounds, Soft, No tenderness Extremities: No clubbing, No cyanosis Skin: No rashes, No significant lesion Neuro: Normal speech, Normal tone, Sensation intact Psych/Mental Status: Mental status NL, Mood NL Physical Exam Physical Exam General: Alert, Oriented X3, Cooperative, mild distress HEENT: Atraumatic, EOMI Lungs: Lung sounds congested, bibasilar rales Heart: RRR, no rubs Cardiovascular: S1, S2 Abdomen: Severe scrotal edema with marked erythema in the left groin region with tender rash. Normal bowel sounds, Soft, No abdominal tenderness Extremities: +3 Bilateral leg edema Skin: No breakdown, No significant lesion Neuro: Normal speech, Sensation intact Psych/Mental Status: Mental status NL, Mood NL Vitals Vitals Vital Signs Date Time Temp Pulse Resp B/P (MAP) Pulse Ox O2 Delivery O2 Flow Rate FiO2 12/01/20 03:20 99.2 109 20 124/90 (101) 96 Room Air 99.2 Labs Labs Laboratory Tests Test 12/01/20 03:25 12/01/20 03:58 12/01/20 04:00 12/01/20 04:05 White Blood Count 8.3 x10^3/uL (4.0-11.0) Red Blood Count 5.70 x10^6/uL (4.30-5.70) Hemoglobin 15.5 g/dL (13.0-17.5) Hematocrit 47.1 % (39.0-53.0) Mean Corpuscular Volume 83 fL (79-100) Mean Corpuscular Hemoglobin 27 pg (25-35) Mean Corpuscular Hemoglobin Concent 33 g/dL (31-37) Red Cell Distribution Width 18.8 % (11.5-14.5) Platelet Count 283 x10^3/uL (140-400) Neutrophils (%) (Auto) 75 % (31-73) Lymphocytes (%) (Auto) 16 % (24-48) Monocytes (%) (Auto) 8 % (0-9) Eosinophils (%) (Auto) 1 % (0-3) Basophils (%) (Auto) 1 % (0-3) Neutrophils # (Auto) 6.2 x10^3/uL (1.8-7.7) Lymphocytes # (Auto) 1.3 x10^3/uL (1.0-4.8) Monocytes # (Auto) 0.7 x10^3/uL (0.0-1.1) Eosinophils # (Auto) 0.1 x10^3/uL (0.0-0.7) Basophils # (Auto) 0.1 x10^3/uL (0.0-0.2) Prothrombin Time 14.6 SEC (11.7-14.0) Prothromb Time International Ratio 1.2 (0.8-1.1) Activated Partial Thromboplast Time 34 SEC (24-38) Fibrinogen 408 mg/dL (200-440) Sodium Level 137 mmol/L (136-145) Potassium Level 3.1 mmol/L (3.5-5.1) Chloride Level 100 mmol/L (98-107) Carbon Dioxide Level 28 mmol/L (21-32) Anion Gap 9 (6-14) Blood Urea Nitrogen 12 mg/dL (8-26) Creatinine 1.0 mg/dL (0.7-1.3) Estimated GFR (Cockcroft-Gault) 77.9 BUN/Creatinine Ratio 12 (6-20) Glucose Level 170 mg/dL (70-99) Lactic Acid Level 2.6 mmol/L (0.4-2.0) Calcium Level 9.1 mg/dL (8.5-10.1) Total Bilirubin 1.6 mg/dL (0.2-1.0) Aspartate Amino Transf (AST/SGOT) 18 U/L (15-37) Alanine Aminotransferase (ALT/SGPT) 23 U/L (16-63) Alkaline Phosphatase 151 U/L (46-116) Ammonia 32 mcmol/L (11-34) Creatine Kinase 50 U/L (39-308) GN-Otf-Z-Type Natriuretic Peptide 7989 pg/mL (0-124) Total Protein 6.6 g/dL (6.4-8.2) Albumin 2.8 g/dL (3.4-5.0) Albumin/Globulin Ratio 0.7 (1.0-1.7) Amylase Level 23 U/L (25-115) Lipase 47 U/L (73-393) Procalcitonin < 0.10 ng/mL (0.00-0.10) Bedside Venous pH 7.41 (7.32-7.42) Bedside Venous pCO2 44 mmHg (41-51) Bedside Venous pO2 49 mmHg (20-40) Venous Blood HCO3 28 mmol/L (24-28) POC Venous O2 Saturation (Anastasia) 84 % Bedside FiO2 21.0 Influenza Type A Antigen Negative (NEGATIVE) Influenza Type B Antigen Negative (NEGATIVE) SARS-CoV-2 Antigen (Rapid) Negative (NEGATIVE) Urine Collection Type Unknown Urine Color Emma Urine Clarity Clear Urine pH 6.0 (<5.0-8.0) Urine Specific Lohn 1.015 (1.000-1.030) Urine Protein 100 mg/dL (NEG-TRACE) Urine Glucose (UA) Negative mg/dL (NEG) Urine Ketones (Stick) Negative mg/dL (NEG) Urine Blood Negative (NEG) Urine Nitrite Negative (NEG) Urine Bilirubin Small (NEG) Urine Urobilinogen Dipstick 1.0 mg/dL (0.2 mg/dL) Urine Leukocyte Esterase Negative (NEG) Urine RBC 1-2 /HPF (0-2) Urine WBC 1-4 /HPF (0-4) Urine Bacteria Mod /HPF (0-FEW) Urine Hyaline Casts Occasional /HPF Laboratory Tests Test 12/01/20 03:25 12/01/20 03:58 12/01/20 04:00 12/01/20 04:05 White Blood Count 8.3 x10^3/uL (4.0-11.0) Red Blood Count 5.70 x10^6/uL (4.30-5.70) Hemoglobin 15.5 g/dL (13.0-17.5) Hematocrit 47.1 % (39.0-53.0) Mean Corpuscular Volume 83 fL (79-100) Mean Corpuscular Hemoglobin 27 pg (25-35) Mean Corpuscular Hemoglobin Concent 33 g/dL (31-37) Red Cell Distribution Width 18.8 % (11.5-14.5) Platelet Count 283 x10^3/uL (140-400) Neutrophils (%) (Auto) 75 % (31-73) Lymphocytes (%) (Auto) 16 % (24-48) Monocytes (%) (Auto) 8 % (0-9) Eosinophils (%) (Auto) 1 % (0-3) Basophils (%) (Auto) 1 % (0-3) Neutrophils # (Auto) 6.2 x10^3/uL (1.8-7.7) Lymphocytes # (Auto) 1.3 x10^3/uL (1.0-4.8) Monocytes # (Auto) 0.7 x10^3/uL (0.0-1.1) Eosinophils # (Auto) 0.1 x10^3/uL (0.0-0.7) Basophils # (Auto) 0.1 x10^3/uL (0.0-0.2) Prothrombin Time 14.6 SEC (11.7-14.0) Prothromb Time International Ratio 1.2 (0.8-1.1) Activated Partial Thromboplast Time 34 SEC (24-38) Fibrinogen 408 mg/dL (200-440) Sodium Level 137 mmol/L (136-145) Potassium Level 3.1 mmol/L (3.5-5.1) Chloride Level 100 mmol/L (98-107) Carbon Dioxide Level 28 mmol/L (21-32) Anion Gap 9 (6-14) Blood Urea Nitrogen 12 mg/dL (8-26) Creatinine 1.0 mg/dL (0.7-1.3) Estimated GFR (Cockcroft-Gault) 77.9 BUN/Creatinine Ratio 12 (6-20) Glucose Level 170 mg/dL (70-99) Lactic Acid Level 2.6 mmol/L (0.4-2.0) Calcium Level 9.1 mg/dL (8.5-10.1) Total Bilirubin 1.6 mg/dL (0.2-1.0) Aspartate Amino Transf (AST/SGOT) 18 U/L (15-37) Alanine Aminotransferase (ALT/SGPT) 23 U/L (16-63) Alkaline Phosphatase 151 U/L (46-116) Ammonia 32 mcmol/L (11-34) Creatine Kinase 50 U/L (39-308) AU-Tsz-O-Type Natriuretic Peptide 7989 pg/mL (0-124) Total Protein 6.6 g/dL (6.4-8.2) Albumin 2.8 g/dL (3.4-5.0) Albumin/Globulin Ratio 0.7 (1.0-1.7) Amylase Level 23 U/L (25-115) Lipase 47 U/L (73-393) Procalcitonin < 0.10 ng/mL (0.00-0.10) Bedside Venous pH 7.41 (7.32-7.42) Bedside Venous pCO2 44 mmHg (41-51) Bedside Venous pO2 49 mmHg (20-40) Venous Blood HCO3 28 mmol/L (24-28) POC Venous O2 Saturation (Anastasia) 84 % Bedside FiO2 21.0 Influenza Type A Antigen Negative (NEGATIVE) Influenza Type B Antigen Negative (NEGATIVE) SARS-CoV-2 Antigen (Rapid) Negative (NEGATIVE) Urine Collection Type Unknown Urine Color Emma Urine Clarity Clear Urine pH 6.0 (<5.0-8.0) Urine Specific Lohn 1.015 (1.000-1.030) Urine Protein 100 mg/dL (NEG-TRACE) Urine Glucose (UA) Negative mg/dL (NEG) Urine Ketones (Stick) Negative mg/dL (NEG) Urine Blood Negative (NEG) Urine Nitrite Negative (NEG) Urine Bilirubin Small (NEG) Urine Urobilinogen Dipstick 1.0 mg/dL (0.2 mg/dL) Urine Leukocyte Esterase Negative (NEG) Urine RBC 1-2 /HPF (0-2) Urine WBC 1-4 /HPF (0-4) Urine Bacteria Mod /HPF (0-FEW) Urine Hyaline Casts Occasional /HPF Images Images AP portable chest radiograph 12/01/2020 Clinical History: Cough. An AP erect portable digital radiograph of the chest was obtained. Comparison study is dated 10/11/2020. The cardiac silhouette is mildly enlarged. The thoracic aorta is mildly tortuous. There are small bilateral pleural effusions. Perihilar infiltrates are seen involving both lungs which likely reflect pulmonary edema from CHF. No pneumothorax is noted. The osseous structures are unchanged. Impression: Bilateral perihilar infiltrates are seen which likely reflect pulmonary edema from CHF. There are small bilateral pleural effusions. CT scan of the chest without contrast . CT scan of the abdomen and pelvis with contrast 12/01/2020 CLINICAL HISTORY: Cough. Abdominal and pelvic pain. TECHNIQUE: Unenhanced, contiguous, 5 mm axial sections were obtained through the chest. After the intravenous administration 75 cc of Omnipaque 300, contiguous, 5 mm axial sections were obtained through the abdomen and pelvis. One or more of the following individualized dose reduction techniques were ut ilized for this study: 1. Automated exposure control. 2. Adjustment of the mA and/or kV according to patient size. 3. Use of iterative reconstruction technique. FINDINGS: Atherosclerotic calcification of the thoracic aorta and its branches is noted. There is mild cardiomegaly. The thoracic aorta tapers normally. Scattered coronary artery calcifications are seen. Enlarged mediastinal lymph nodes are seen which measure 1 to 2.3 cm in size. There are moderate to large sized bilateral pleural effusions. Perihilar infiltrates are seen involving both lungs which likely reflect pulmonary edema from CHF. No pneumothorax is noted. The liver is mildly enlarged measuring 21 cm in length. Decreased attenuation of the liver parenchyma is seen consistent with fatty infiltration. Calcified granulomas are seen scattered throughout the spleen, the pancreas, adrenal glands and kidneys are within normal limits. Moderate to severe atheromatous/atherosclerotic plaque formation is seen involving the abdominal aorta and its branches. The abdominal aorta tapers normally. Small amount of ascites surrounds the liver. The gallbladder is contracted. There is no evidence of bowel obstruction. No free air is seen. Images through the pelvis demonstrate a Viramontes catheter within urinary bladder. A moderate amount of ascites is seen within the pelvis. Edema is seen throughout the subcutaneous fat of the abdominal wall throughout the abdomen and pelvis. Large bilateral hydroceles are noted. Minimal S-shaped curvature of the thoracic lumbar spine is seen. Degenerative changes are seen involving thoracic and throughout the lumbar spine along with both hips. IMPRESSION: 1. Cardiomegaly. Moderate to large sized bilateral pleural effusions. Perihilar infiltrates are seen involving both lungs which likely reflect pulmonary edema from CHF. 2. Small to moderate amount of ascites is seen involving the abdomen/pelvis. 3. Large bilateral hydroceles. VTE Prophylaxis Ordered VTE Prophylaxis Devices: No VTE Pharmacological Prophylaxi: Yes Assessment/Plan Assessment/Plan Sepsis Acute on chronic systolic heart failure Pleural effusions Scrotal edema with bilateral hydrocele Lactic acidosis DM2 Malnutrition Plan: Consultation placed to Cardiology Echocardiogram on 10/13/2020 showed EF 15% with PAP 44 mmHg Left heart cath 10/25/2020 showed 70% long stenosis involving the proximal to mid segment of a small to medium caliber diagonal branch, no significant lesions. He was recommended optimization of medical therapy for nonischemic cardiomyopathy, repeat 2D echo in 3 months to evaluate need for AICD i mplantation. Treated with broad-spectrum antibiotics and sepsis fluid bolus with resolution of lactic acidosis. I do believe sepsis criteria was largely met due to acute systolic heart failure. Will continue diuresis with IV Lasix; discussed smoking cessation Due to concern of scrotal cellulitis with sepsis he was given vancomycin and Zosyn in the ED and fluid bolus. He is on Farxiga for history of diabetes, but low suspicion for Sara's gangrene at this time due to CT abdomen/pelvis findings and low WBC and negative procalcitonin. Will continue empiric antibiotic treatment. Resume home medications Basal/prandial insulin FEN - ADA diet PPX - Lovenox FULL CODE Dispo - inpatient for above Justifications for Admission Other Justification CHF exacerbation SERG HURST MD Dec 01, 2020 07:01
[2020-12-01] MEDS ORDERED: CALCIUM CARBONATE 500 MG TAB.CHEW PO PRN (07:30)
[2020-12-01] MEDS ORDERED: MAGNESIUM HYDROXIDE 2,400 MG/30 ML ORAL.SUSP. PO PRN (07:30)
[2020-12-01] MEDS ORDERED: HYDROcodone/APAP 5/325MG 1 TAB TABLET PO PRN ×2 (07:30)
[2020-12-01] MEDS ORDERED: ONDANSETRON PF 4 MG/2 ML VIAL. IVP PRN (07:30)
[2020-12-01] MEDS ORDERED: oxyCODONE/APAP 5/325 1 TAB TABLET PO PRN ×2 (07:30)
[2020-12-01] MEDS ORDERED: PIP/TAZO PER PHARMACY MC PRN (07:30)
[2020-12-01] MEDS ORDERED: DEXTROSE 50% 25 GM / 50ML DISP.SYRIN. IV PRN (07:30)
[2020-12-01] MEDS ORDERED: ZOLPIDEM 5 MG TABLET. PO PRN (07:30)
[2020-12-01] MEDS ORDERED: BISACODYL 10 MG SUPP.RECT. PR PRN (07:30)
[2020-12-01] MEDS ORDERED: MAG HYDROX/ALUMINUM HYD/SIMETH 30 ML ORAL.SUSP PO PRN (07:30)
[2020-12-01] MEDS: INSULIN LISPRO 300 UNITS/3 ML VIAL. SQ SCH ×3 (08:00→17:00)
[2020-12-01] MEDS: POTASSIUM CHLORIDE 20 MEQ TABLET.ER. PO SCH (08:00)
[2020-12-01 08:14] VITALS: BP 137/99
[2020-12-01] MEDS ORDERED: FUROSEMIDE 40 MG TABLET. PO SCH (09:00)
[2020-12-01] MEDS ORDERED: FUROSEMIDE 40 MG/4 ML VIAL. IVP SCH (09:00)
[2020-12-01] MEDS ORDERED: LOSARTAN POTASSIUM 50 MG TABLET. PO SCH (09:00)
[2020-12-01] MEDS ORDERED: POTASSIUM CHLORIDE 20 MEQ TABLET.ER. PO ONE (09:30)
[2020-12-01] MEDS ORDERED: BUME1TAB3 PO ×2 (09:39→10:49)
[2020-12-01] MEDS ORDERED: PARO20TA3 PO (09:39)
[2020-12-01] MEDS: PANTOPRAZOLE 40 MG TABLET.DR. PO SCH (09:42)
[2020-12-01] MEDS: ASPIRIN ENTERIC COATED 81 MG TABLET.DR. PO SCH (09:42)
[2020-12-01] MEDS: amLODIPine BESYLATE 10 MG TABLET PO SCH (09:43)
[2020-12-01] MEDS: METOPROLOL SUCC 24HR ER 100 MG TAB.ER.24H. PO SCH (09:44)
[2020-12-01 10:35] VITALS: BP 136/95
[2020-12-01] MEDS: SPIRONOLACTONE 25 MG TABLET PO SCH (10:55)
--- NOTE | 2020-12-01 11:55 | NUR ---
SS following for discharge planning. SS reviewed pt chart and discussed with pt RN. Pt is from home and is currently on room air. Pt on IV Vancomycin and IV Zosyn. COVID19 negative. Milrinone drip. Cardiology following. SS will continue to follow for discharge planning.
[2020-12-01] MEDS: PIPERACILLIN/TAZOBACTAM 3.375 GM in IV NORMAL SALINE 50ML 50 ML IV SCH ×3 (11:57→23:19)
[2020-12-01] MEDS: MILRINONE 20MG/100ML PREMIX 100 ML IV PRN ×2 (12:06→18:28)
[2020-12-01] MEDS: NICOTINE 21MG PATCH. TD SCH (12:54)
[2020-12-01] MEDS ORDERED: BUMETANIDE 1 MG/4 ML VIAL. IV ONE (13:00)
--- NOTE | 2020-12-01 13:16 | PDOC2 ---
DAKOTA PERAZA CUTTING MACHINE TENDER HELPER 12/01/20 1316: CARDIAC CONSULT DATE OF CONSULT Date of Consult DATE: 12/01/20 TIME: 1045 REASON FOR CONSULT Reason for Consult: CHF REFERRING PHYSICIAN Referring Physician: Rodrigo SOURCE Source: Chart review, Patient HISTORY OF PRESENT ILLNESS HISTORY OF PRESENT ILLNESS This is a pleasant 55 yo male admitted for complains of shortness of breath. Reports of increasing swelling to legs, decreased UOP and difficulty laying flat in bet with shortness of breath,. No chest pain or palpitations. His SOA has been increasing in the last week worse in the last 3 days. He has been taking his medications regularly. No prior covid-19 exposure. No anosmia,m ageusia. No fever or chills. His diuretic was actually changed to bumex from lasix when he was seen recently in our office but has not made any difference on his symptoms. He drinks about 3L of fluids a day and does eat some processed food but watches his salt intake. He still smoke tobacco. No hypoglycemic episodes at home but he does not check his BP at home. PAST MEDICAL HISTORY Cardiovascular: CAD, CHF, HTN, Hyperlipidemia, Other (nicm) Pulmonary: COPD CENTRAL NERVOUS SYSTEM: Other (no pertinent history) GI: GERD Heme/Onc: No pertinent hx Hepatobiliary: No pertinent hx Psych: No pertinent hx Musculoskeletal: Osteoarthritis Rheumatologic: No pertinent hx Infectious disease: No pertinent hx ENT: No pertinent hx Renal/: No pertinent hx Endocrine: Diabetes (2) PAST SURGICAL HISTORY Past Surgical History: Other ([facility]) FAMILY HISTORY Family History: Coronary Artery Disease (father) SOCIAL HISTORY Smoke: 1 pack per day ALCOHOL: none Drugs: None Lives: with Family CURRENT MEDICATIONS CURRENT MEDICATIONS Current Medications Medications (Trade) Dose Ordered Sig/Gus Route PRN Reason Start Time Stop Time Status Last Admin Dose Admin Piperacillin Sod/ Tazobactam Sod 4.5 gm/Sodium Chloride 100 ml @ 200 mls/hr 1X ONCE IV 12/01/20 03:30 12/01/20 03:59 DC 12/01/20 04:37 Vancomycin HCl (Vanco Per Pharmacy) 1 each PRN DAILY PRN MC SEE COMMENTS 12/01/20 03:00 12/01/20 06:20 Vancomycin HCl 2 gm/Sodium Chloride 500 ml @ 250 mls/hr 1X ONCE IV 12/01/20 04:30 12/01/20 06:29 DC 12/01/20 06:06 Sodium Chloride 1,000 ml @ 1,000 mls/hr 1X ONCE IV 12/01/20 04:00 12/01/20 04:59 DC 12/01/20 04:36 Sodium Chloride 1,000 ml @ 1,000 mls/hr 1X ONCE IV 12/01/20 04:00 12/01/20 04:59 DC 12/01/20 04:36 Iohexol (Omnipaque 300 Mg/ml) 75 ml 1X ONCE IV 12/01/20 04:30 12/01/20 04:31 DC 12/01/20 04:13 Furosemide (Lasix) 40 mg 1X ONCE PO 12/01/20 05:30 12/01/20 05:31 DC 12/01/20 07:44 Amlodipine Besylate (Norvasc) 10 mg DAILY PO 12/01/20 09:00 12/01/20 09:43 Aspirin (Ecotrin) 81 mg DAILYWBKFT PO 12/01/20 08:00 12/01/20 09:42 Metoprolol Succinate (Toprol Xl) 100 mg DAILY PO 12/01/20 09:00 12/01/20 09:44 Spironolactone (Aldactone) 25 mg DAILY PO 12/01/20 09:00 12/01/20 10:55 Pantoprazole Sodium (Protonix) 40 mg DAILYAC PO 12/01/20 07:30 12/01/20 09:42 Insulin Human Lispro (HumaLOG) 5 units TIDWMEALS SQ 12/01/20 08:00 12/01/20 12:14 Piperacillin Sod/ Tazobactam Sod 3.375 gm/Sodium Chloride 50 ml @ 100 mls/hr Q6HRS IV 12/01/20 12:00 12/01/20 11:57 Potassium Chloride (Klor-Con) 40 meq 1X ONCE PO 12/01/20 09:30 12/01/20 09:31 DC 12/01/20 09:46 Milrinone Lactate/ Dextrose 100 ml @ 3.435 mls/ hr CONT PRN IV SEE I/O RECORD 12/01/20 11:15 12/01/20 12:06 ALLERGIES ALLERGIES: Coded Allergies: No Known Drug Allergies (Unverified , 6/8/20) ROS Review of System 14 point ROS evaluated with pertinent positives noted per HPI PHYSICAL EXAM General: Alert, Oriented X3, Cooperative, mild distress HEENT: Atraumatic, Mucous membr. moist/pink Lungs: Other (diminished) Heart: Regular rate (Sinus tachycardia), Normal S1, Normal S2, Other (distant heart sounds) Abdomen: Soft, No tenderness Extremities: No cyanosis, Other (2+ bilateral LE pitting edema) Neuro: Normal speech, Sensation intact Psych/Mental Status: Mental status NL, Mood NL MUSCULOSKELETAL: Osteoarthritic changes both hands VITALS/I&O VITALS/I&O: Vital Signs Date Time Temp Pulse Resp B/P (MAP) Pulse Ox O2 Delivery O2 Flow Rate FiO2 12/01/20 10:35 97.5 111 18 136/95 (109) 97 Room Air 97.5 I & O 11/30/20 11/30/20 12/01/20 15:00 23:00 07:00 Intake Total 100 ml Balance 100 ml LABS Lab: Laboratory Tests Test 12/01/20 03:25 12/01/20 03:58 12/01/20 04:00 12/01/20 04:05 White Blood Count 8.3 x10^3/uL (4.0-11.0) Red Blood Count 5.70 x10^6/uL (4.30-5.70) Hemoglobin 15.5 g/dL (13.0-17.5) Hematocrit 47.1 % (39.0-53.0) Mean Corpuscular Volume 83 fL (79-100) Mean Corpuscular Hemoglobin 27 pg (25-35) Mean Corpuscular Hemoglobin Concent 33 g/dL (31-37) Red Cell Distribution Width 18.8 % (11.5-14.5) H Platelet Count 283 x10^3/uL (140-400) Neutrophils (%) (Auto) 75 % (31-73) H Lymphocytes (%) (Auto) 16 % (24-48) L Monocytes (%) (Auto) 8 % (0-9) Eosinophils (%) (Auto) 1 % (0-3) Basophils (%) (Auto) 1 % (0-3) Neutrophils # (Auto) 6.2 x10^3/uL (1.8-7.7) Lymphocytes # (Auto) 1.3 x10^3/uL (1.0-4.8) Monocytes # (Auto) 0.7 x10^3/uL (0.0-1.1) Eosinophils # (Auto) 0.1 x10^3/uL (0.0-0.7) Basophils # (Auto) 0.1 x10^3/uL (0.0-0.2) Prothrombin Time 14.6 SEC (11.7-14.0) H Prothrombin Time INR 1.2 (0.8-1.1) H Activated Partial Thromboplast Time 34 SEC (24-38) Fibrinogen 408 mg/dL (200-440) Sodium Level 137 mmol/L (136-145) Potassium Level 3.1 mmol/L (3.5-5.1) L Chloride Level 100 mmol/L (98-107) Carbon Dioxide Level 28 mmol/L (21-32) Anion Gap 9 (6-14) Blood Urea Nitrogen 12 mg/dL (8-26) Creatinine 1.0 mg/dL (0.7-1.3) Estimated GFR (Cockcroft-Gault) 77.9 BUN/Creatinine Ratio 12 (6-20) Glucose Level 170 mg/dL (70-99) H Lactic Acid Level 2.6 mmol/L (0.4-2.0) H Calcium Level 9.1 mg/dL (8.5-10.1) Magnesium Level 2.3 mg/dL (1.8-2.4) Total Bilirubin 1.6 mg/dL (0.2-1.0) H Aspartate Amino Transferase (AST) 18 U/L (15-37) Alanine Aminotransferase (ALT) 23 U/L (16-63) Alkaline Phosphatase 151 U/L (46-116) H Ammonia 32 mcmol/L (11-34) Creatine Kinase 50 U/L (39-308) IE-Tfv-[id number]-Type Natriuretic Peptide 7989 pg/mL (0-124) H Total Protein 6.6 g/dL (6.4-8.2) Albumin 2.8 g/dL (3.4-5.0) L Albumin/Globulin Ratio 0.7 (1.0-1.7) L Amylase Level 23 U/L (25-115) L Lipase 47 U/L (73-393) L Procalcitonin < 0.10 ng/mL (0.00-0.10) POC Venous pH 7.41 (7.32-7.42) POC Venous pCO2 44 mmHg (41-51) POC Venous pO2 49 mmHg (20-40) H Venous Blood HCO3 28 mmol/L (24-28) POC Venous O2 Saturation (Anastasia) 84 % POC FiO2 21.0 Influenza Type A Antigen Negative (NEGATIVE) Influenza Type B Antigen Negative (NEGATIVE) SARS-CoV-2 Antigen (Rapid) Negative (NEGATIVE) Urine Collection Type Unknown Urine Color Emma Urine Clarity Clear Urine pH 6.0 (<5.0-8.0) Urine Specific Show Low 1.015 (1.000-1.030) Urine Protein 100 mg/dL (NEG-TRACE) Urine Glucose (UA) Negative mg/dL (NEG) Urine Ketones (Stick) Negative mg/dL (NEG) Urine Blood Negative (NEG) Urine Nitrite Negative (NEG) Urine Bilirubin Small (NEG) Urine Urobilinogen Dipstick 1.0 mg/dL (0.2 mg/dL) Urine Leukocyte Esterase Negative (NEG) Urine RBC 1-2 /HPF (0-2) Urine WBC 1-4 /HPF (0-4) Urine Bacteria Mod /HPF (0-FEW) Urine Hyaline Casts Occasional /HPF Test 12/01/20 08:36 12/01/20 08:37 12/01/20 11:23 Lactic Acid Level 1.7 mmol/L (0.4-2.0) Glucose (Fingerstick) 141 mg/dL (70-99) H 170 mg/dL (70-99) H Laboratory Tests 12/01/20 03:25 Laboratory Tests 12/01/20 03:25 ECHOCARDIOGRAM ECHOCARDIOGRAM <Conclusion> The left ventricular systolic function is severely impaired. The Ejection Fraction is 15%. Trace mitral regurgitation. Moderate tricuspid regurgitation with an estimated PAP of 44 mmHg. There is no evidence of significant pericardial effusion. DATE: 10/13/20 [id number] 0 HEART CATH HEART CATH FINDINGS 1. Hemodynamics: Significantly elevated left ventricular end-diastolic pressure of 47 mmHg consistent with acute on chronic systolic heart failure. No pullback gradient across the aortic valve. 2. Coronary angiography: a. The left main coronary artery arose from the left sinus of Valsalva, gave rise to the left anterior descending and left circumflex arteries and did not show any significant stenosis. b. The left anterior descending artery showed 50% stenosis in the mid to distal segment. The diagonal branch is a small to medium caliber vessel showed 70% long stenosis involving the proximal to mid segment. c. The left circumflex artery showed 30% stenosis involving a large caliber obtuse marginal branch. d. The right coronary artery was a large and dominant vessel arising from the right sinus of Valsalva that showed 40% stenosis involving the distal segment. Conclusion 1. 70% long stenosis involving the proximal to mid segment of a small to medium caliber diagonal branch. No significant lesions needing intervention were noted. 2. Acute on chronic systolic heart failure as evidenced by elevated LVEDP of 47 mmHg. Recommendations Optimization of medical therapy for nonischemic cardiomyopathy and repeat 2D echo in 3 months to evaluate the need for AICD implantation. DATE: 10/25/20 [id number] ASSESSMENT/PLAN ASSESSMENT/PLAN 1. Acute on chronic diastolic/systolic CHF 2. Severe NICM: EF at 15% 3. CAD: small vessel disease on diagonal branch recent LHC otherwise no intervenable lesion treated medically. CP free. 4. COPD with continued tobaccoism 5. HTN: controlled 6. Reactive sinus tachycardia 7. DM2 Recommendations 1. Continue diuretic optimization. Start on milrinone 2. Continue GDMT, including MRA, ASA, statin. Will consider starting on entresto prior to DC 3. Continue toprol. Once optimized and if remains tachycardic then will consider corlanor. 4. Smoking cessation 5. Discussed miniimizing use of processed food and decreasing fluid intake to 2L daily. 6. Consider lifevest. AICD consideration in 3 months after optimization. MINO MELVIN MD 12/01/201924: CARDIAC CONSULT ASSESSMENT/PLAN ASSESSMENT/PLAN Patient seen and examined. Agree with CHILI POWDER MIXER's assessment and plan. Continue diuresis for ac on chronic systolic HF Sinus tachy physiologic Plan repeat echo after optimal medical therapy for NICMP for 3 months to evaluate need for ICD implantation Thank you for your consultation DAKOTA PERAZA APRN Dec 01, 2020 13:16 MINO MELVIN MD Dec 01, 2020 19:25
[2020-12-01 14:46] VITALS: BP 96/65
[2020-12-01] MEDS: HEPARIN for SUB-Q USE 5,000 UNIT/ML VIAL. SQ SCH ×2 (15:58→22:08)
[2020-12-01] MEDS: VANCOMYCIN 1.25 GM in IV NORMAL SALINE 250ML 250 ML IV SCH (18:26)
[2020-12-01] MEDS: BUMETANIDE 1 MG/4 ML VIAL. IV SCH (18:27)
[2020-12-01 19:58] VITALS: BP 107/70
[2020-12-01] MEDS: INSULIN GLARGINE SYRINGE. SQ SCH (20:34)
[2020-12-01] MEDS: ATORVASTATIN CALCIUM 40 MG TABLET. PO SCH (20:34)
[2020-12-01] MEDS ORDERED: DIGOXIN IV 500 MCG/2 ML AMPUL. IV ONE (20:45)
--- NOTE | 2020-12-01 22:24 | NUR ---
Pt in SVT at 2034, had patient attempt Valsalva maneuver with no success. call placed to Dr. Esteves, Orders recieved. Stat EKG obtained, confirmed SVT-placed in chart. Pt in no distress at this time. Will continue to monitor.
[2020-12-01 22:36] VITALS: BP 111/67
[2020-12-02] VITALS (9 sets, daily range): BP systolic 92–117; BP diastolic 59–80
[2020-12-02] MEDS: MILRINONE 20MG/100ML PREMIX 100 ML IV PRN ×2 (03:37→14:35)
[2020-12-02] MEDS: PIPERACILLIN/TAZOBACTAM 3.375 GM in IV NORMAL SALINE 50ML 50 ML IV SCH (05:21)
[2020-12-02] MEDS: HEPARIN for SUB-Q USE 5,000 UNIT/ML VIAL. SQ SCH ×3 (05:59→20:53)
[2020-12-02] MEDS: VANCOMYCIN 1.25 GM in IV NORMAL SALINE 250ML 250 ML IV SCH (05:59)
[2020-12-02 07:41] LABS: BASO # 0.1 x10^3/uL (0.0-0.2); BASO % 1 % (0-3); EOS # 0.1 x10^3/uL (0.0-0.7); EOS % 1 % (0-3); HEMATOCRIT 44.5 % (39.0-53.0); HEMOGLOBIN 14.1 g/dL (13.0-17.5); LYMPH # 1.1 x10^3/uL (1.0-4.8); LYMPH % 15 % (24-48); MEAN CORPUSCULAR HEMOGLOBIN 26 pg (25-35); MEAN CORPUSCULAR HGB CONC 32 g/dL (31-37); MEAN CORPUSCULAR VOLUME 82 fL (79-100); MONO # 0.7 x10^3/uL (0.0-1.1); MONO % 10 % (0-9); NEUT # 5.4 x10^3/uL (1.8-7.7); NEUT % 73 % (31-73); PLATELET COUNT 248 x10^3/uL (140-400); RED BLOOD COUNT 5.41 x10^6/uL (4.30-5.70); RED CELL DISTRIBUTION WIDTH 18.6 % (11.5-14.5); WHITE BLOOD COUNT 7.4 x10^3/uL (4.0-11.0)
--- NOTE | 2020-12-02 07:41 | NUR ---
Approximately 0730 patient monitor alarmed with heart rate at 156 and appeared to be SVT. There was also a 5 beat run of VTACH. Entered patients room to assess and found patient asleep and asymptomatic. Instructed patient on vasalva manuevers with no change. Pgd and spoke to cardiology and received orders to administer morning dose of Toprol early and give a dose of IV digoxin. Prior to giving medication, patients heart rate decreased with no intervention. Will hold digoxin dose for now
[2020-12-02] MEDS ORDERED: DIGOXIN IV 500 MCG/2 ML AMPUL. IV ONE (07:45)
[2020-12-02] MEDS: INSULIN LISPRO 300 UNITS/3 ML VIAL. SQ SCH ×3 (08:00→17:00)
[2020-12-02] MEDS: POTASSIUM CHLORIDE 20 MEQ TABLET.ER. PO SCH ×2 (08:00→08:46)
[2020-12-02] MEDS ORDERED: POTASSIUM CHLORIDE 20 MEQ TABLET.ER. PO SCH (08:00)
[2020-12-02 08:16] LABS: ALBUMIN 2.4 g/dL (3.4-5.0); ALBUMIN/GLOBULIN RATIO 0.8 (1.0-1.7); CALCIUM 8.2 mg/dL (8.5-10.1); CREATININE 0.9 mg/dL (0.7-1.3); GFR 87.9; TOTAL BILIRUBIN 1.9 mg/dL (0.2-1.0); TOTAL PROTEIN 5.6 g/dL (6.4-8.2)
[2020-12-02 08:20] LABS: POTASSIUM 2.9 mmol/L (3.5-5.1)
[2020-12-02] MEDS ORDERED: POTASSIUM BICARB 20 MEQ EFFERVESCENT TABLET. PO ONE (08:30)
[2020-12-02] MEDS: ASPIRIN ENTERIC COATED 81 MG TABLET.DR. PO SCH (08:45)
[2020-12-02] MEDS: METOPROLOL SUCC 24HR ER 100 MG TAB.ER.24H. PO SCH (08:46)
[2020-12-02] MEDS: PANTOPRAZOLE 40 MG TABLET.DR. PO SCH (08:48)
[2020-12-02] MEDS: NICOTINE 21MG PATCH. TD SCH (08:49)
[2020-12-02] MEDS: SPIRONOLACTONE 25 MG TABLET PO SCH (08:52)
[2020-12-02] MEDS: amLODIPine BESYLATE 10 MG TABLET PO SCH (08:52)
[2020-12-02] MEDS ORDERED: FUROSEMIDE 40 MG/4 ML VIAL. IVP SCH (09:00)
--- NOTE | 2020-12-02 11:30 | PDOC ---
[employer] PROGRESS NOTE Date of Service DOS: DATE: 12/02/20 TIME: 11:16 Chief Complaint Chief Complaint Sepsis Acute on chronic systolic heart failure Pleural effusions Scrotal edema with bilateral hydrocele Lactic acidosis DM2 Malnutrition Plan: Consultation placed to Cardiology Echocardiogram on 10/13/2020 showed EF 15% with PAP 44 mmHg Left heart cath 10/25/2020 showed 70% long stenosis involving the proximal to mid segment of a small to medium caliber diagonal branch, no significant lesions. He was recommended optimization of medical therapy for nonischemic cardiomyopathy, repeat 2D echo in 3 months to evaluate need for AICD implantation. Treated with broad-spectrum antibiotics and sepsis fluid bolus with resolution of lactic acidosis. I do believe sepsis criteria was largely met due to acute systolic heart failure. Will continue diuresis with IV Lasix; discussed smoking cessation Due to concern of scrotal cellulitis with sepsis he was given vancomycin and Zosyn in the ED and fluid bolus. He is on Farxiga for history of diabetes, but low suspicion for Sara's gangrene at this time due to CT abdomen/pelvis findings and low WBC and negative procalcitonin. Will continue empiric antibiotic treatment. Resume home medications Basal/prandial insulin FEN - ADA diet PPX - Lovenox FULL CODE Dispo - inpatient for above History of Present Illness History of Present Illness Patient is a 55-year-old male past medical history hypertension and diabetes, who presents to the ER with complaint of worsening scrotal swelling and pain over the past 5 days. Symptoms acutely worsened over the past 24 hours, with associated erythema. He describes his pain as throbbing. Denies any injury or history of similar symptoms. Labs on admission showed WBC 8.3, lactic acid 2.6, BNP 799, potassium 3.1, procalcitonin <0.10. Chest x-ray shows bilateral pulmonary edema and CT abdomen/pelvis shows small abdominal ascites with bilateral hydroceles. He does report medication compliance but is a poor historian and cannot verify many of his medications. Broad-spectrum antibiotics and fluid bolus received in ED, and patient notes shortness of breath and "wheezing"after receiving fluids. Will admit patient for further medical management. 12/02/2020: 3,265 mL urine output overnight. Continue diuresis with IV Bumex and milrinone drip. Potassium 2.9 today, will increase scheduled potassium chloride. Scrotal edema mildly improved. Procalcitonin <0.10, d/c Vanco and Zosyn. Per Cardiology, plan repeat echo after optimal medical therapy of nonischemic cardiomyopathy for 3 months to evaluate need for ICD implantation Vitals/I&O Vitals/I&O: Vital Signs Date Time Temp Pulse Resp B/P (MAP) Pulse Ox O2 Delivery O2 Flow Rate FiO2 12/02/20 10:33 97.6 93 18 111/75 (87) 96 Nasal Cannula 2.0 97.6 I & O 12/01/20 12/01/20 12/02/20 15:00 23:00 07:00 Intake Total 2000 ml 960 ml 460 ml Output Total 5635 ml 1050 ml Balance 2000 ml -4675 ml -590 ml Physical Exam General: Alert, Oriented X3, Cooperative, No acute distress Heart: Regular rate (Sinus tachycardia), Normal S1, Normal S2, Other (distant heart sounds) Lungs: Clear Abdomen: Soft, No tenderness Extremities: No cyanosis, Other (2+ bilateral LE pitting edema) Labs Labs: Laboratory Tests Test 12/01/20 11:23 12/01/20 16:12 12/01/20 20:30 12/02/20 07:00 Glucose (Fingerstick) 170 mg/dL (70-99) 124 mg/dL (70-99) 154 mg/dL (70-99) White Blood Count 7.4 x10^3/uL (4.0-11.0) Red Blood Count 5.41 x10^6/uL (4.30-5.70) Hemoglobin 14.1 g/dL (13.0-17.5) Hematocrit 44.5 % (39.0-53.0) Mean Corpuscular Volume 82 fL (79-100) Mean Corpuscular Hemoglobin 26 pg (25-35) Mean Corpuscular Hemoglobin Concent 32 g/dL (31-37) Red Cell Distribution Width 18.6 % (11.5-14.5) Platelet Count 248 x10^3/uL (140-400) Neutrophils (%) (Auto) 73 % (31-73) Lymphocytes (%) (Auto) 15 % (24-48) Monocytes (%) (Auto) 10 % (0-9) Eosinophils (%) (Auto) 1 % (0-3) Basophils (%) (Auto) 1 % (0-3) Neutrophils # (Auto) 5.4 x10^3/uL (1.8-7.7) Lymphocytes # (Auto) 1.1 x10^3/uL (1.0-4.8) Monocytes # (Auto) 0.7 x10^3/uL (0.0-1.1) Eosinophils # (Auto) 0.1 x10^3/uL (0.0-0.7) Basophils # (Auto) 0.1 x10^3/uL (0.0-0.2) Sodium Level 139 mmol/L (136-145) Potassium Level 2.9 mmol/L (3.5-5.1) Chloride Level 104 mmol/L (98-107) Carbon Dioxide Level 29 mmol/L (21-32) Anion Gap 6 (6-14) Blood Urea Nitrogen 9 mg/dL (8-26) Creatinine 0.9 mg/dL (0.7-1.3) Estimated GFR (Cockcroft-Gault) 87.9 BUN/Creatinine Ratio 10 (6-20) Glucose Level 92 mg/dL (70-99) Calcium Level 8.2 mg/dL (8.5-10.1) Total Bilirubin 1.9 mg/dL (0.2-1.0) Aspartate Amino Transf (AST/SGOT) 16 U/L (15-37) Alanine Aminotransferase (ALT/SGPT) 18 U/L (16-63) Alkaline Phosphatase 116 U/L (46-116) C-Reactive Protein, Quantitative 24.1 mg/L (0-3.3) Total Protein 5.6 g/dL (6.4-8.2) Albumin 2.4 g/dL (3.4-5.0) Albumin/Globulin Ratio 0.8 (1.0-1.7) Test 12/02/20 07:24 Glucose (Fingerstick) 110 mg/dL (70-99) Assessment and Plan Assessmemt and Plan Problems Medical Problems: (1) Acute CHF Status: Acute Comment Review of Relevant I have reviewed the following items gorge (where applicable) has been applied. Medications: Current Medications Medications (Trade) Dose Ordered Sig/Gus Route PRN Reason Start Time Stop Time Status Last Admin Dose Admin Vancomycin HCl 1.25 gm/Sodium Chloride 250 ml @ 167 mls/hr Q12H IV 12/01/20 18:00 12/02/20 05:59 Atorvastatin Calcium (Lipitor) 40 mg QHS PO 12/01/20 21:00 12/01/20 20:34 Insulin Glargine (Lantus Syringe) 15 unit QHS SQ 12/01/20 21:00 12/01/20 20:34 Heparin Sodium (Porcine) (Heparin Sodium) 5,000 unit Q8HRS SQ 12/01/20 14:00 12/02/20 05:59 Piperacillin Sod/ Tazobactam Sod 3.375 gm/Sodium Chloride 50 ml @ 100 mls/hr Q6HRS IV 12/01/20 12:00 12/02/20 05:21 Nicotine (Nicoderm Cq 21mg) 1 patch DAILY TD 12/01/20 12:00 12/02/20 08:49 Bumetanide (Bumex) 2 mg 1X ONCE IV 12/01/20 13:00 12/01/20 13:01 DC 12/01/20 12:55 Bumetanide (Bumex) 1 mg [id number] IV 12/01/20 18:00 12/01/20 18:27 Digoxin (Lanoxin) 500 mcg 1X ONCE IV 12/01/20 20:45 12/01/20 20:46 DC 12/01/20 20:50 Potassium Bicarbonate (Potassium Effervescent Tablet) 40 meq 1X ONCE PO 12/02/20 08:30 12/02/20 08:31 DC 12/02/20 08:45 Potassium Chloride (Klor-Con) 40 meq DAILYWBKFT PO 12/02/20 08:30 12/02/20 08:46 Justifications for Admission Other Justification Acute CHF exacerbation, scrotal edema SERG HURST MD Dec 02, 2020 11:30
[2020-12-02] MEDS: BUMETANIDE 1 MG/4 ML VIAL. IV SCH ×2 (11:57→17:46)
--- NOTE | 2020-12-02 13:54 | NUR ---
SS following up with discharge planning. SS reviewed pt chart and discussed with pt RN. Pt is currently on room air. Low potassium. Pt received replacement potassium today. COVID19 negative. Pt on IV Bumex and IV Zosyn. Milrinone drip. Pt getting blood transfusion today. EF of 15%. SS will continue to follow for discharge planning.
--- NOTE | 2020-12-02 15:36 | PDOC ---
DAKOTA PERAZA POWER MACHINE OPERATOR 12/02/20 1536: CARDIO Progress Notes Date and Time Date of Service 12/02/2020 Time of Evaluation 1515 Subjective Subjective: No Chest Pain, No shortness of breath, No Palpitations Vitals Vitals Vital Signs Date Time Temp Pulse Resp B/P (MAP) Pulse Ox O2 Delivery O2 Flow Rate FiO2 12/02/20 14:43 97.8 94 18 108/73 (85) 96 Nasal Cannula 2.0 97.8 Weight Weight [ ] Input and Output Intake and Output Intake and Output 12/02/20 07:00 Intake Total 3420 ml Output Total 6685 ml Balance -3265 ml Intake Oral 970 ml IV Total 2450 ml Output Urine Total 6685 ml # Bowel Movements 1 Laboratory Labs Laboratory Tests Test 12/01/20 16:12 12/01/20 20:30 12/02/20 07:00 12/02/20 07:24 Glucose (Fingerstick) 124 mg/dL (70-99) 154 mg/dL (70-99) 110 mg/dL (70-99) White Blood Count 7.4 x10^3/uL (4.0-11.0) Red Blood Count 5.41 x10^6/uL (4.30-5.70) Hemoglobin 14.1 g/dL (13.0-17.5) Hematocrit 44.5 % (39.0-53.0) Mean Corpuscular Volume 82 fL (79-100) Mean Corpuscular Hemoglobin 26 pg (25-35) Mean Corpuscular Hemoglobin Concent 32 g/dL (31-37) Red Cell Distribution Width 18.6 % (11.5-14.5) Platelet Count 248 x10^3/uL (140-400) Neutrophils (%) (Auto) 73 % (31-73) Lymphocytes (%) (Auto) 15 % (24-48) Monocytes (%) (Auto) 10 % (0-9) Eosinophils (%) (Auto) 1 % (0-3) Basophils (%) (Auto) 1 % (0-3) Neutrophils # (Auto) 5.4 x10^3/uL (1.8-7.7) Lymphocytes # (Auto) 1.1 x10^3/uL (1.0-4.8) Monocytes # (Auto) 0.7 x10^3/uL (0.0-1.1) Eosinophils # (Auto) 0.1 x10^3/uL (0.0-0.7) Basophils # (Auto) 0.1 x10^3/uL (0.0-0.2) Sodium Level 139 mmol/L (136-145) Potassium Level 2.9 mmol/L (3.5-5.1) Chloride Level 104 mmol/L (98-107) Carbon Dioxide Level 29 mmol/L (21-32) Anion Gap 6 (6-14) Blood Urea Nitrogen 9 mg/dL (8-26) Creatinine 0.9 mg/dL (0.7-1.3) Estimated GFR (Cockcroft-Gault) 87.9 BUN/Creatinine Ratio 10 (6-20) Glucose Level 92 mg/dL (70-99) Calcium Level 8.2 mg/dL (8.5-10.1) Magnesium Level 2.1 mg/dL (1.8-2.4) Total Bilirubin 1.9 mg/dL (0.2-1.0) Aspartate Amino Transf (AST/SGOT) 16 U/L (15-37) Alanine Aminotransferase (ALT/SGPT) 18 U/L (16-63) Alkaline Phosphatase 116 U/L (46-116) C-Reactive Protein, Quantitative 24.1 mg/L (0-3.3) Total Protein 5.6 g/dL (6.4-8.2) Albumin 2.4 g/dL (3.4-5.0) Albumin/Globulin Ratio 0.8 (1.0-1.7) Test 12/02/20 11:28 Glucose (Fingerstick) 161 mg/dL (70-99) Microbiology Micro Microbiology 12/01/20 Blood Culture - Preliminary, Resulted NO GROWTH AFTER 1 DAY Physical Exam HEENT: Neck Supple W Full Motion Chest: Symmetric LUNGS: Other (diminished bases) Heart: RRR (SR) Abdomen: Soft N/T Neurology: alert, oriented, follow commands Assessment Assessment 1. Acute on chronic diastolic/systolic CHF 2. Severe NICM: EF at 15% NYHA 3 3. CAD: small vessel disease on diagonal branch recent LHC otherwise no intervenable lesion treated medically. CP free. 4. COPD with continued tobaccoism 5. HTN: controlled 6. Arrhythmia: PAT, NSVT with associated hypokalemia 7. DM2 Recommendations 1. Excellent UOP Continue bumex and milrinone. 2. Continue GDMT, including MRA, ASA, statin. Start on low dose entresto tonight 3. Continue toprol 4. Smoking cessation 5. Discussed miniimizing use of processed food and decreasing fluid intake to 2L daily. 6. Arrange for lifevest. AICD consideration in 3 months after optimization. 7. HH for CHF. Will obtain 6 min walk tomorrow. Justicifation of Admission Dx: Justifications for Admission: Justification of Admission Dx: No Respiratory Failure: Severe Resp Distress MINO MELVIN MD 12/02/201920: CARDIO Progress Notes Assessment Assessment Patient seen and examined. Agree with HEALTH SERVICES RN's assessment and plan. Ac on chronic systolic HF improving with diuresis Tele with narrow complex tachy possibly svt vs atrial flutter noted, back in SR. Consider lifevest, plan repeat echo after optimal medical therapy for NICMP for 3 months to evaluate need for ICD implantation DAKOTA PERAZA APRN Dec 02, 2020 15:36 MINO MELVIN MD Dec 02, 2020 19:21
--- NOTE | 2020-12-02 15:56 | NUR ---
SS following up with discharge planning. Order for Life Vest received. SS phoned and faxed order for Life Vest and clinical to [facility], ; fax [phone]. SS will continue to follow for discharge planning.
[2020-12-02] MEDS: ATORVASTATIN CALCIUM 40 MG TABLET. PO SCH (20:49)
[2020-12-02] MEDS: SACUBITRIL/VALSARTAN 24/26MG TABLET. PO SCH (20:51)
[2020-12-02] MEDS: INSULIN GLARGINE SYRINGE. SQ SCH (20:51)
[2020-12-03] VITALS (9 sets, daily range): BP systolic 99–114; BP diastolic 67–78
[2020-12-03] MEDS: HEPARIN for SUB-Q USE 5,000 UNIT/ML VIAL. SQ SCH ×2 (05:59→15:24)
[2020-12-03] MEDS: PANTOPRAZOLE 40 MG TABLET.DR. PO SCH (06:00)
[2020-12-03] MEDS: INSULIN LISPRO 300 UNITS/3 ML VIAL. SQ SCH ×3 (08:00→17:00)
[2020-12-03 08:03] LABS: BASO # 0.1 x10^3/uL (0.0-0.2); BASO % 1 % (0-3); EOS # 0.1 x10^3/uL (0.0-0.7); EOS % 1 % (0-3); HEMATOCRIT 46.7 % (39.0-53.0); HEMOGLOBIN 14.8 g/dL (13.0-17.5); LYMPH % 17 % (24-48); MEAN CORPUSCULAR HEMOGLOBIN 26 pg (25-35); MEAN CORPUSCULAR HGB CONC 32 g/dL (31-37); MEAN CORPUSCULAR VOLUME 83 fL (79-100); MONO # 0.6 x10^3/uL (0.0-1.1); MONO % 10 % (0-9); NEUT # 4.3 x10^3/uL (1.8-7.7); NEUT % 71 % (31-73); PLATELET COUNT 230 x10^3/uL (140-400); RED BLOOD COUNT 5.62 x10^6/uL (4.30-5.70); RED CELL DISTRIBUTION WIDTH 19.2 % (11.5-14.5); WHITE BLOOD COUNT 6.1 x10^3/uL (4.0-11.0)
[2020-12-03 08:14] LABS: CALCIUM 8.9 mg/dL (8.5-10.1); CREATININE 0.8 mg/dL (0.7-1.3); GFR 100.7; POTASSIUM 3.9 mmol/L (3.5-5.1)
[2020-12-03] MEDS: METOPROLOL SUCC 24HR ER 100 MG TAB.ER.24H. PO SCH (08:23)
[2020-12-03] MEDS: NICOTINE 21MG PATCH. TD SCH (08:23)
[2020-12-03] MEDS: BUMETANIDE 1 MG/4 ML VIAL. IV SCH ×2 (08:23→15:18)
[2020-12-03] MEDS: ASPIRIN ENTERIC COATED 81 MG TABLET.DR. PO SCH (08:24)
[2020-12-03] MEDS: POTASSIUM CHLORIDE 20 MEQ TABLET.ER. PO SCH (08:24)
[2020-12-03] MEDS: SACUBITRIL/VALSARTAN 24/26MG TABLET. PO SCH (08:24)
[2020-12-03] MEDS: SPIRONOLACTONE 25 MG TABLET PO SCH (08:25)
[2020-12-03] MEDS: amLODIPine BESYLATE 10 MG TABLET PO SCH (08:25)
--- NOTE | 2020-12-03 11:41 | PDOC ---
[employer] PROGRESS NOTE Date of Service DOS: DATE: 12/03/20 TIME: 11:36 Chief Complaint Chief Complaint Sepsis Acute on chronic systolic heart failure Pleural effusions Scrotal edema with bilateral hydrocele Lactic acidosis DM2 Malnutrition Plan: Consultation placed to Cardiology Echocardiogram on 10/13/2020 showed EF 15% with PAP 44 mmHg Left heart cath 10/25/2020 showed 70% long stenosis involving the proximal to mid segment of a small to medium caliber diagonal branch, no significant lesions. He was recommended optimization of medical therapy for nonischemic cardiomyopathy, repeat 2D echo in 3 months to evaluate need for AICD implantation. Treated with broad-spectrum antibiotics and sepsis fluid bolus with resolution of lactic acidosis. I do believe sepsis criteria was largely met due to acute systolic heart failure. Will continue diuresis with IV Lasix; discussed smoking cessation Due to concern of scrotal cellulitis with sepsis he was given vancomycin and Zosyn in the ED and fluid bolus. He is on Farxiga for history of diabetes, but low suspicion for Sara's gangrene at this time due to CT abdomen/pelvis findings and low WBC and negative procalcitonin. Will continue empiric antibiotic treatment. Resume home medications Basal/prandial insulin FEN - ADA diet PPX - Lovenox FULL CODE Dispo - inpatient for above History of Present Illness History of Present Illness Patient is a 55-year-old male past medical history hypertension and diabetes, who presents to the ER with complaint of worsening scrotal swelling and pain over the past 5 days. Symptoms acutely worsened over the past 24 hours, with associated erythema. He describes his pain as throbbing. Denies any injury or history of similar symptoms. Labs on admission showed WBC 8.3, lactic acid 2.6, BNP 799, potassium 3.1, procalcitonin <0.10. Chest x-ray shows bilateral pulmonary edema and CT abdomen/pelvis shows small abdominal ascites with bilateral hydroceles. He does report medication compliance but is a poor historian and cannot verify many of his medications. Broad-spectrum antibiotics and fluid bolus received in ED, and patient notes shortness of breath and "wheezing"after receiving fluids. Will admit patient for further medical management. 12/02/2020: 3,265 mL urine output overnight. Continue diuresis with IV Bumex and milrinone drip. Potassium 2.9 today, will increase scheduled potassium chloride. Scrotal edema mildly improved. Procalcitonin <0.10, d/c Vanco and Zosyn. Per Cardiology, plan repeat echo after optimal medical therapy of nonischemic cardiomyopathy for 3 months to evaluate need for ICD implantation. 12/03: Patient seen and evaluated. Afebrile. Significantly improved. 4649 mL urine output overnight, 1 kg weight loss. LifeVest arrived today. Discussed hydroceles, scrotal elevation, and even Trendelenburg position if he can tolerate at home. Stable for discharge. Greater than 30 minutes was spent managing the discharge of this patient. Vitals/I&O Vitals/I&O: Vital Signs Date Time Temp Pulse Resp B/P (MAP) Pulse Ox O2 Delivery O2 Flow Rate FiO2 12/03/20 08:25 93 114/76 12/03/20 08:00 Nasal Cannula 2.0 12/03/20 07:18 91 12/03/20 07:00 97.4 19 97.4 I & O 12/02/20 12/02/20 12/03/20 15:00 23:00 07:00 Intake Total 536 ml 240 ml Output Total 4975 ml 450 ml Balance -4439 ml -210 ml Physical Exam General: Alert, Oriented X3, Cooperative, No acute distress Heart: Regular rate (Sinus tachycardia), Normal S1, Normal S2, Other (distant heart sounds) Lungs: Clear Abdomen: Soft, No tenderness Extremities: No cyanosis, Other (1+ bilateral LE pitting edema) Labs Labs: Laboratory Tests Test 12/02/20 16:17 12/02/20 20:24 12/03/20 07:39 12/03/20 08:16 Glucose (Fingerstick) 112 mg/dL (70-99) 188 mg/dL (70-99) 78 mg/dL (70-99) White Blood Count 6.1 x10^3/uL (4.0-11.0) Red Blood Count 5.62 x10^6/uL (4.30-5.70) Hemoglobin 14.8 g/dL (13.0-17.5) Hematocrit 46.7 % (39.0-53.0) Mean Corpuscular Volume 83 fL (79-100) Mean Corpuscular Hemoglobin 26 pg (25-35) Mean Corpuscular Hemoglobin Concent 32 g/dL (31-37) Red Cell Distribution Width 19.2 % (11.5-14.5) Platelet Count 230 x10^3/uL (140-400) Neutrophils (%) (Auto) 71 % (31-73) Lymphocytes (%) (Auto) 17 % (24-48) Monocytes (%) (Auto) 10 % (0-9) Eosinophils (%) (Auto) 1 % (0-3) Basophils (%) (Auto) 1 % (0-3) Neutrophils # (Auto) 4.3 x10^3/uL (1.8-7.7) Lymphocytes # (Auto) 1.0 x10^3/uL (1.0-4.8) Monocytes # (Auto) 0.6 x10^3/uL (0.0-1.1) Eosinophils # (Auto) 0.1 x10^3/uL (0.0-0.7) Basophils # (Auto) 0.1 x10^3/uL (0.0-0.2) Sodium Level 140 mmol/L (136-145) Potassium Level 3.9 mmol/L (3.5-5.1) Chloride Level 103 mmol/L (98-107) Carbon Dioxide Level 29 mmol/L (21-32) Anion Gap 8 (6-14) Blood Urea Nitrogen 13 mg/dL (8-26) Creatinine 0.8 mg/dL (0.7-1.3) Estimated GFR (Cockcroft-Gault) 100.7 Glucose Level 77 mg/dL (70-99) Calcium Level 8.9 mg/dL (8.5-10.1) Magnesium Level 2.2 mg/dL (1.8-2.4) Assessment and Plan Assessmemt and Plan Problems Medical Problems: (1) Acute CHF Status: Acute Comment Review of Relevant I have reviewed the following items gorge (where applicable) has been applied. Medications: Current Medications Medications (Trade) Dose Ordered Sig/Gus Route PRN Reason Start Time Stop Time Status Last Admin Dose Admin Sacubitril/ Valsartan (Entresto 24 Mg-26 Mg) 1 tab BID PO 12/02/20 21:00 12/03/20 08:24 Justifications for Admission Other Justification Acute CHF exacerbation, scrotal edema SERG HURST MD Dec 03, 2020 11:41
[2020-12-03] MEDS ORDERED: cefTRIAXone IV Push 1 GM VIAL. IVP SCH (12:00)
--- NOTE | 2020-12-03 12:10 | PDOC ---
DAKOTA PERAZA IT SENIOR SOFTWARE ENGINEER JAVA 12/03/20 1210: CARDIO Progress Notes Date and Time Date of Service 12/03/2020 Time of Evaluation 1130 Subjective Subjective: No Chest Pain, No shortness of breath, No Palpitations, Other (feels much better) Vitals Vitals Vital Signs Date Time Temp Pulse Resp B/P (MAP) Pulse Ox O2 Delivery O2 Flow Rate FiO2 12/03/20 08:25 93 114/76 12/03/20 08:00 Nasal Cannula 2.0 12/03/20 07:18 91 12/03/20 07:00 97.4 19 97.4 Weight Weight [ ] Input and Output Intake and Output Intake and Output 12/03/20 07:00 Intake Total 776 ml Output Total 5425 ml Balance -4649 ml Intake Oral 776 ml Output Urine Total 5425 ml # Bowel Movements 1 Laboratory Labs Laboratory Tests Test 12/02/20 16:17 12/02/20 20:24 12/03/20 07:39 12/03/20 08:16 Glucose (Fingerstick) 112 mg/dL (70-99) 188 mg/dL (70-99) 78 mg/dL (70-99) White Blood Count 6.1 x10^3/uL (4.0-11.0) Red Blood Count 5.62 x10^6/uL (4.30-5.70) Hemoglobin 14.8 g/dL (13.0-17.5) Hematocrit 46.7 % (39.0-53.0) Mean Corpuscular Volume 83 fL (79-100) Mean Corpuscular Hemoglobin 26 pg (25-35) Mean Corpuscular Hemoglobin Concent 32 g/dL (31-37) Red Cell Distribution Width 19.2 % (11.5-14.5) Platelet Count 230 x10^3/uL (140-400) Neutrophils (%) (Auto) 71 % (31-73) Lymphocytes (%) (Auto) 17 % (24-48) Monocytes (%) (Auto) 10 % (0-9) Eosinophils (%) (Auto) 1 % (0-3) Basophils (%) (Auto) 1 % (0-3) Neutrophils # (Auto) 4.3 x10^3/uL (1.8-7.7) Lymphocytes # (Auto) 1.0 x10^3/uL (1.0-4.8) Monocytes # (Auto) 0.6 x10^3/uL (0.0-1.1) Eosinophils # (Auto) 0.1 x10^3/uL (0.0-0.7) Basophils # (Auto) 0.1 x10^3/uL (0.0-0.2) Sodium Level 140 mmol/L (136-145) Potassium Level 3.9 mmol/L (3.5-5.1) Chloride Level 103 mmol/L (98-107) Carbon Dioxide Level 29 mmol/L (21-32) Anion Gap 8 (6-14) Blood Urea Nitrogen 13 mg/dL (8-26) Creatinine 0.8 mg/dL (0.7-1.3) Estimated GFR (Cockcroft-Gault) 100.7 Glucose Level 77 mg/dL (70-99) Calcium Level 8.9 mg/dL (8.5-10.1) Magnesium Level 2.2 mg/dL (1.8-2.4) Test 12/03/20 11:51 Glucose (Fingerstick) 100 mg/dL (70-99) Microbiology Micro Microbiology 12/01/20 Blood Culture - Preliminary, Resulted NO GROWTH AFTER 2 DAYS Physical Exam HEENT: Neck Supple W Full Motion Chest: Symmetric LUNGS: Other (diminished bases) Heart: RRR (SR) Abdomen: Soft N/T Extremities: Other (1+ bilateral Le pitting edema) Neurology: alert, oriented, follow commands Assessment Assessment 1. Acute on chronic diastolic/systolic CHF: compensated 2. Severe NICM: EF at 15% NYHA 3 3. CAD: small vessel disease on diagonal branch recent C otherwise no intervenable lesion treated medically. CP free. 4. COPD with continued tobaccoism 5. HTN: controlled 6. Arrhythmia: PAT, NSVT with associated hypokalemia (resolved). No further episodes 7. DM2 Recommendations 1. Excellent UOP. PCXR. Stop milrinone. Home with Bumex 1 mg bid. Potential DC this afternoon from cardiac perspective 2. Continue GDMT, including MRA, ASA, statin, entresto 3. Continue toprol 4. Smoking cessation 5. Discussed minimizing use of processed food and decreasing fluid intake to 2L daily. 6. Lifevest. AICD consideration in 3 months after optimization. 7. HH for CHF. Will obtain 6 min walk today 8. will need outpt urology referral in regards to hydrocele, will defer to PCP Justicifation of Admission Dx: Justifications for Admission: Justification of Admission Dx: No Respiratory Failure: Severe Resp Distress HAKAN GOLDMAN MD 12/03/20 1557: CARDIO Progress Notes Assessment Assessment Patient seen and evaluated. I agree with our nurse practitioners assessment and plan. Acute on chronic diastolic/systolic CHF: compensated Severe NICM: EF at 15% NYHA 3 CAD: small vessel disease on diagonal branch recent LHC otherwise no repairable lesion treated medically. CP free. COPD with continued tobaccoism HTN: controlled Arrhythmia: PAT, NSVT with associated hypokalemia (resolved). No further episodes Excellent UOP. PCXR. Stop milrinone. Home with Bumex 1 mg bid. Potential DC this afternoon from cardiac perspective Continue GDMT, including MRA, ASA, statin, entresto Lifevest. AICD consideration in 3 months after optimization. DAKOTA PERAZA APRN Dec 03, 2020 12:10 HAKAN GOLDMAN MD Dec 03, 2020 15:57
--- NOTE | 2020-12-03 13:18 | NUR ---
SS following up with discharge planning. SS reviewed pt chart and discussed with pt RN. Pt is currently requiring oxygen at two liters nasal canula. COVID19 negative. Pt still swollen. Pt started on IV Rocephin, IV Bumex, and Milrinone drip. Life Vest approved through insurance. SS will continue to follow for discharge planning.
--- NOTE | 2020-12-03 13:31 | NUR ---
SS following up with discharge planning. Pt needing home healthcare at discharge per Cardiology. SS met with pt and discussed discharge planning and home healthcare. Pt agreeable to home healthcare with no preference of company. Referral phoned and faxed to [facility], ; fax [phone]. SS will continue to follow for discharge planning.
--- NOTE | 2020-12-03 14:44 | RAD ---
Portable chest x-ray compared to similar exam dated December 01, 2020 for congestive heart failure. FINDINGS: Overall stable appearance of extensive bilateral perihilar interstitial and alveolar infilt rates likely representing pulmonary edema. Stable bilateral pleural effusions. No new lung parenchyma l abnormalities. IMPRESSION: 1. Stable chest x-ray with appearance of diffuse bilateral pulmonary edema. Electronically signed by: Jose Carlos Oviedo MD (12/03/2020 2:42 PM) [id number]
--- NOTE | 2020-12-03 16:40 | NUR ---
Have reviewed documentation completed by technical internship and made changes as needed
--- NOTE | 2020-12-03 16:51 | PDOC3 ---
Discharge Summary Visit Information Date of Admission: Dec 01, 2020 Date of Discharge: Dec 03, 2020 Final Diagnosis Problems Medical Problems: (1) Acute CHF Status: Acute Brief Hospital Course Allergies Allergies Coded Allergies Type Severity Reaction Last Updated Verified No Known Drug Allergies 03/22/20 No Vital Signs Vital Signs Date Time Temp Pulse Resp B/P (MAP) Pulse Ox O2 Delivery O2 Flow Rate FiO2 12/03/20 15:00 97.3 92 19 105/75 (85) 97 Nasal Cannula 2.0 97.3 Lab Results Laboratory Tests Test 12/01/20 20:30 12/02/20 07:00 12/02/20 07:24 12/02/20 11:28 Glucose (Fingerstick) 154 mg/dL (70-99) 110 mg/dL (70-99) 161 mg/dL (70-99) White Blood Count 7.4 x10^3/uL (4.0-11.0) Red Blood Count 5.41 x10^6/uL (4.30-5.70) Hemoglobin 14.1 g/dL (13.0-17.5) Hematocrit 44.5 % (39.0-53.0) Mean Corpuscular Volume 82 fL (79-100) Mean Corpuscular Hemoglobin 26 pg (25-35) Mean Corpuscular Hemoglobin Concent 32 g/dL (31-37) Red Cell Distribution Width 18.6 % (11.5-14.5) Platelet Count 248 x10^3/uL (140-400) Neutrophils (%) (Auto) 73 % (31-73) Lymphocytes (%) (Auto) 15 % (24-48) Monocytes (%) (Auto) 10 % (0-9) Eosinophils (%) (Auto) 1 % (0-3) Basophils (%) (Auto) 1 % (0-3) Neutrophils # (Auto) 5.4 x10^3/uL (1.8-7.7) Lymphocytes # (Auto) 1.1 x10^3/uL (1.0-4.8) Monocytes # (Auto) 0.7 x10^3/uL (0.0-1.1) Eosinophils # (Auto) 0.1 x10^3/uL (0.0-0.7) Basophils # (Auto) 0.1 x10^3/uL (0.0-0.2) Sodium Level 139 mmol/L (136-145) Potassium Level 2.9 mmol/L (3.5-5.1) Chloride Level 104 mmol/L (98-107) Carbon Dioxide Level 29 mmol/L (21-32) Anion Gap 6 (6-14) Blood Urea Nitrogen 9 mg/dL (8-26) Creatinine 0.9 mg/dL (0.7-1.3) Estimated GFR (Cockcroft-Gault) 87.9 BUN/Creatinine Ratio 10 (6-20) Glucose Level 92 mg/dL (70-99) Calcium Level 8.2 mg/dL (8.5-10.1) Magnesium Level 2.1 mg/dL (1.8-2.4) Total Bilirubin 1.9 mg/dL (0.2-1.0) Aspartate Amino Transf (AST/SGOT) 16 U/L (15-37) Alanine Aminotransferase (ALT/SGPT) 18 U/L (16-63) Alkaline Phosphatase 116 U/L (46-116) C-Reactive Protein, Quantitative 24.1 mg/L (0-3.3) Total Protein 5.6 g/dL (6.4-8.2) Albumin 2.4 g/dL (3.4-5.0) Albumin/Globulin Ratio 0.8 (1.0-1.7) Test 12/02/20 16:17 12/02/20 20:24 12/03/20 07:39 12/03/20 08:16 Glucose (Fingerstick) 112 mg/dL (70-99) 188 mg/dL (70-99) 78 mg/dL (70-99) White Blood Count 6.1 x10^3/uL (4.0-11.0) Red Blood Count 5.62 x10^6/uL (4.30-5.70) Hemoglobin 14.8 g/dL (13.0-17.5) Hematocrit 46.7 % (39.0-53.0) Mean Corpuscular Volume 83 fL (79-100) Mean Corpuscular Hemoglobin 26 pg (25-35) Mean Corpuscular Hemoglobin Concent 32 g/dL (31-37) Red Cell Distribution Width 19.2 % (11.5-14.5) Platelet Count 230 x10^3/uL (140-400) Neutrophils (%) (Auto) 71 % (31-73) Lymphocytes (%) (Auto) 17 % (24-48) Monocytes (%) (Auto) 10 % (0-9) Eosinophils (%) (Auto) 1 % (0-3) Basophils (%) (Auto) 1 % (0-3) Neutrophils # (Auto) 4.3 x10^3/uL (1.8-7.7) Lymphocytes # (Auto) 1.0 x10^3/uL (1.0-4.8) Monocytes # (Auto) 0.6 x10^3/uL (0.0-1.1) Eosinophils # (Auto) 0.1 x10^3/uL (0.0-0.7) Basophils # (Auto) 0.1 x10^3/uL (0.0-0.2) Sodium Level 140 mmol/L (136-145) Potassium Level 3.9 mmol/L (3.5-5.1) Chloride Level 103 mmol/L (98-107) Carbon Dioxide Level 29 mmol/L (21-32) Anion Gap 8 (6-14) Blood Urea Nitrogen 13 mg/dL (8-26) Creatinine 0.8 mg/dL (0.7-1.3) Estimated GFR (Cockcroft-Gault) 100.7 Glucose Level 77 mg/dL (70-99) Calcium Level 8.9 mg/dL (8.5-10.1) Magnesium Level 2.2 mg/dL (1.8-2.4) Test 12/03/20 11:51 Glucose (Fingerstick) 100 mg/dL (70-99) Laboratory Tests Test 12/02/20 20:24 12/03/20 07:39 12/03/20 08:16 12/03/20 11:51 Glucose (Fingerstick) 188 mg/dL (70-99) 78 mg/dL (70-99) 100 mg/dL (70-99) White Blood Count 6.1 x10^3/uL (4.0-11.0) Red Blood Count 5.62 x10^6/uL (4.30-5.70) Hemoglobin 14.8 g/dL (13.0-17.5) Hematocrit 46.7 % (39.0-53.0) Mean Corpuscular Volume 83 fL (79-100) Mean Corpuscular Hemoglobin 26 pg (25-35) Mean Corpuscular Hemoglobin Concent 32 g/dL (31-37) Red Cell Distribution Width 19.2 % (11.5-14.5) Platelet Count 230 x10^3/uL (140-400) Neutrophils (%) (Auto) 71 % (31-73) Lymphocytes (%) (Auto) 17 % (24-48) Monocytes (%) (Auto) 10 % (0-9) Eosinophils (%) (Auto) 1 % (0-3) Basophils (%) (Auto) 1 % (0-3) Neutrophils # (Auto) 4.3 x10^3/uL (1.8-7.7) Lymphocytes # (Auto) 1.0 x10^3/uL (1.0-4.8) Monocytes # (Auto) 0.6 x10^3/uL (0.0-1.1) Eosinophils # (Auto) 0.1 x10^3/uL (0.0-0.7) Basophils # (Auto) 0.1 x10^3/uL (0.0-0.2) Sodium Level 140 mmol/L (136-145) Potassium Level 3.9 mmol/L (3.5-5.1) Chloride Level 103 mmol/L (98-107) Carbon Dioxide Level 29 mmol/L (21-32) Anion Gap 8 (6-14) Blood Urea Nitrogen 13 mg/dL (8-26) Creatinine 0.8 mg/dL (0.7-1.3) Estimated GFR (Cockcroft-Gault) 100.7 Glucose Level 77 mg/dL (70-99) Calcium Level 8.9 mg/dL (8.5-10.1) Magnesium Level 2.2 mg/dL (1.8-2.4) Brief Hospital Course Mr. Glass is a 55 old male who presented with acute on chronic diastolic/systolic CHF with scrotal edema, and severe NICM - EF at 15%. Consult was placed to cardiology. He was placed on milrinone infusion and aggressively diuresed with noted improvement in scrotal edema. He was recommended optimal medical therapy for NICMP for 3 months to evaluate need for ICD implantation. LifeVest was ordered and arrived on the day of discharge. Stable for discharge home with home health. Discharge Information Condition at Discharge: Improved Disposition/Orders: D/C to Home w/ HH Scheduled Amlodipine Besylate (Amlodipine Besylate) 10 Mg Tablet, 10 MG PO DAILY for HTN, (Reported) Entered as Reported by: ALAYNA GOODMAN RN on 03/22/201126 Last Action: Reviewed on 12/01/201048 by Maycol Toney Aspirin (Aspirin Ec) 81 Mg Tablet., [facility] for 30 Days, #30 Prescribed by: TRACY WATERMAN MD on 10/14/20 0953 Last Action: Reviewed on 12/01/201048 by Maycol Toney Atorvastatin Calcium (Atorvastatin Calcium) 40 Mg Tablet, 1 TAB PO QHS for HLD, #90 Ref 3 (Reported) Entered as Reported by: ALAYNA GOODMAN RN on 03/22/201126 Last Action: Reviewed on 12/01/201048 by Maycol Toney Bumetanide (Bumetanide) 1 Mg Tablet, 1 TAB PO DAILY for , (Reported) Entered as Reported by: Maycol Toney on 12/01/20938 Last Taken: 1 on 11/30/20 Last Action: New Order on 12/01/20938 by Maycol Toney Dapagliflozin Propanediol (Farxiga) 10 Mg Tablet, 10 MG PO BID for unknown, (Reported) Entered as Reported by: ALAYNA GOODMAN RN on 03/22/201126 Last Action: Reviewed on 12/01/201048 by Maycol Toney Glimepiride (Glimepiride) 4 Mg Tablet, 1 TAB PO DAILY for DM, #30 Ref 5 (Reported) Entered as Reported by: ALAYNA GOODMAN RN on 03/22/201126 Last Action: Reviewed on 12/01/201048 by Maycol Toney Icosapent Ethyl (Vascepa) 0.5 Gm Capsule, 1 CAP PO BID for unknown for 30 Days, #60 Ref 0 (Reported) Entered as Reported by: ALAYNA GOODMAN RN on 6/8/20 1127 Last Action: Reviewed on 12/01/201048 by Maycol Toney Losartan Potassium (Cozaar ) 50 Mg Tablet, 50 MG PO DAILY for hypertension for 30 Days, #30 Prescribed by: TRACY WATERMAN MD on 10/14/20952 Last Action: Reviewed on 12/01/201048 by Maycol Toney Metoprolol Succinate (Metoprolol Succinate ( Xl )) 100 Mg Tab.er.24h, 1 TAB PO DAILY for HTN, #30 Ref 5 (Reported) Entered as Reported by: ALAYNA GOODMAN RN on 03/22/201126 Last Action: Reviewed on 12/01/201048 by Maycol Toney Omeprazole (Omeprazole) 20 Mg Tablet.dr, 1 TAB PO DAILY for stomach, #90 Ref 1 (Reported) Entered as Reported by: ALAYNA GOODMAN RN on 03/22/201126 Last Action: Reviewed on 12/01/201048 by Maycol Toney Spironolactone (Aldactone) 25 Mg Tablet, 25 MG PO DAILY for heart for 30 Days, #30 Prescribed by: TRACY WATERMAN MD on 10/14/20952 Last Action: Reviewed on 12/01/201048 by Maycol Toney Scheduled PRN Acetaminophen (Tylenol) 325 Mg Tablet, 650 MG PO PRN Q4HRS PRN for TEMP OVER 100.4F OR MILD PAIN for 30 Days, #60 Prescribed by: TRACY WATERMAN MD on 10/14/20952 Last Action: Continued on 12/01/20705 by SERG HURST MD Albuterol Sulfate (Proair Hfa) 8.5 Gm Hfa.aer.ad, 2.5 MG NEB PRN Q4HRS PRN for SHORTNESS OF BREATH for 30 Days, #1 Ref 1 Prescribed by: YENY MENDOZA MD on 03/23/20 153 Last Action: Reviewed on 12/01/201048 by Maycol Toney Docusate Sodium (Dok) 100 Mg Capsule, 100 MG PO PRN DAILY PRN for HARD STOOLS for 30 Days, #60 Prescribed by: TRACY WATERMAN MD on 12/31/20 0953 Last Action: HELD on 12/01/20 07 by SERG HURST MD Discontinued Medications Paroxetine Hcl (Paroxetine Hcl) 20 Mg Tablet, 1 TAB PO DAILY for , (Reported) Entered as Reported by: Maycol Toney on 12/01/20 0939 Last Taken: 20 on Unknown Date & Time Last Action: Discontinued on 12/01/20 1049 by Maycol Toney Justicifation of Admission Dx: Justifications for Admission: Justification of Admission Dx: No Respiratory Failure: Severe Resp Distress SERG HURST MD Dec 03, 2020 16:51
--- NOTE | 2020-12-03 16:54 | SNU/HH DC ---
DISCHARGE WITH HOME HEALTH DISCHARGE INFORMATION: Discharge Date: Dec 03, 2020 Final Diagnosis: Problems Medical Problems: (1) Acute CHF Status: Acute Condition on Discharge: Stable CODE STATUS: Code Status: Full HOME HEALTH: Face to Face: I certify this patient is under my care and that I, or a nurse practitioner or physician's podiatry assistant working with me, had a face to face encounter that meets the physician face to face encounter requirements with this patient on 12/03/2020. Medical Complications: CHF RN For Eval/Treatment: Yes Pt Meets Homebound Status: Fatigue w/ amb., Limited distance walking POST DISCHARGE ORDERS: Activity Instructions for Disc: Activity as tolerated Weight Bearing Status after Di: As tolerated DIET AFTER DISCHARGE: Cardiac CHECKS AFTER DISCHARGE: Checks after discharge: Check blood press - daily, Check blood sugar, ac/hs, Check your Temp as needed, Weigh Yourself Daily CERTIFICATION STATEMENT: Certification Statement: Certification Statement: Based on the above finding, I certify that this patient is confined to the home and needs intermittent [place] [facility] care, physical therapy and/or speech therapy, or continues to need occupational therapy.~ This patient is under my care, and I have initiated the establishment of the plan of care.~ This patient will be followed by myself or a community physician who will periodically review the plan of care. Home Meds Active Scripts Docusate Sodium (DOK) 100 Mg Capsule, 100 MG PO PRN DAILY PRN for HARD STOOLS for 30 Days, #60 CAP Prov:TRACY WATERMAN MD 10/14/20 Acetaminophen (TYLENOL) 325 Mg Tablet, 650 MG PO PRN Q4HRS PRN for TEMP OVER 100.4F OR MILD PAIN for 30 Days, #60 TAB Prov:TRACY WATERMAN MD 10/14/20 Aspirin (ASPIRIN EC) 81 Mg Tablet.dr, 81 MG PO DAILYWBKFT for heart health for 30 Days, #30 TAB.SR Prov:TRACY WATERMAN MD 10/14/20 Spironolactone (ALDACTONE) 25 Mg Tablet, 25 MG PO DAILY for heart for 30 Days, #30 TAB Prov:TRACY WATERMAN MD 10/14/20 Losartan Potassium (COZAAR ) 50 Mg Tablet, 50 MG PO DAILY for hypertension for 30 Days, #30 TAB Prov:TRACY WATERMAN MD 10/14/20 Albuterol Sulfate (Proair Hfa) 8.5 Gm Hfa.aer.ad, 2.5 MG NEB PRN Q4HRS PRN for SHORTNESS OF BREATH for 30 Days, #1 INHALER 1 Refill Prov:YENY MENDOZA MD 03/23/20 Reported Medications Bumetanide (BUMETANIDE) 1 Mg Tablet, 1 TAB PO DAILY for 12/01/20 Icosapent Ethyl (Vascepa) 0.5 Gm Capsule, 1 CAP PO BID for unknown for 30 Days, #60 CAP 0 Refills 03/22/20 Dapagliflozin Propanediol (FARXIGA) 10 Mg Tablet, 10 MG PO BID for unknown, TAB 03/22/20 Omeprazole (OMEPRAZOLE) 20 Mg Tablet.dr, 1 TAB PO DAILY for stomach, #90 TAB 1 Refill 03/22/20 Amlodipine Besylate (AMLODIPINE BESYLATE) 10 Mg Tablet, 10 MG PO DAILY for HTN, TAB 03/22/20 Metoprolol Succinate (METOPROLOL SUCCINATE ( XL )) 100 Mg Tab.er.24h, 1 TAB PO DAILY for HTN, #30 TAB 5 Refills 03/22/20 Atorvastatin Calcium (ATORVASTATIN CALCIUM) 40 Mg Tablet, 1 TAB PO QHS for HLD, #90 TAB 3 Refills 03/22/20 Glimepiride (GLIMEPIRIDE) 4 Mg Tablet, 1 TAB PO DAILY for DM, #30 TAB 5 Refills 03/22/20 Discontinued Reported Medications Paroxetine Hcl (PAROXETINE HCL) 20 Mg Tablet, 1 TAB PO DAILY for 12/01/20 SERG HURST MD Dec 03, 2020 16:54
[2020-12-03] MEDS ORDERED: BUME1TAB3 PO (16:59)
[2020-12-03] MEDS ORDERED: POTA20TA4 PO (16:59)
[2020-12-03] MEDS ORDERED: SACU1TAB PO (16:59)
--- NOTE | 2020-12-03 18:30 | NUR ---
Discharge Note: GUY MCCRACKEN Discharge instructions and discharge home medications reviewed with Patient and a copy given. All questions have been answered and understanding verbalized. The following instructions and handouts were given: HF, fluid restriction, life vest Discontinued lines and drains: Peripheral IV intact. Patient discharged to Home w/services with Self via Wheelchair
== END 2020-12-03 18:32 | disposition home health service (06) | DRG 871 ==
LOC: ER 02:51 → 2 NORTH 05:19 → OBSVTOIN 07:19
PROVIDERS: ADMIT Internal Medicine; ATTEND Internal Medicine
DX: A41.9 Sepsis, unspecified organism (principal); I50.43 Acute on chronic combined systolic (congestive) and diastolic (congestive) heart failure; E46 Unspecified protein-calorie malnutrition; I42.8 Other cardiomyopathies; I47.2 Ventricular tachycardia; R18.8 Other ascites; E11.51 Type 2 diabetes mellitus with diabetic peripheral angiopathy without gangrene; E78.00 Pure hypercholesterolemia, unspecified; E78.5 Hyperlipidemia, unspecified; E87.6 Hypokalemia; F17.210 Nicotine dependence, cigarettes, uncomplicated; I11.0 Hypertensive heart disease with heart failure; I25.10 Atherosclerotic heart disease of native coronary artery without angina pectoris; I70.0 Atherosclerosis of aorta; J44.9 Chronic obstructive pulmonary disease, unspecified; K76.0 Fatty (change of) liver, not elsewhere classified; N43.3 Hydrocele, unspecified; Z79.84 Long term (current) use of oral hypoglycemic drugs; Z79.899 Other long term (current) drug therapy; Z82.49 Family history of ischemic heart disease and other diseases of the circulatory system; K21.9 Gastro-esophageal reflux disease without esophagitis; M19.90 Unspecified osteoarthritis, unspecified site; Z20.822 Contact with and (suspected) exposure to COVID-19; Z90.49 Acquired absence of other specified parts of digestive tract; Z68.25 Body mass index [BMI] 25.0-25.9, adult; Z71.6 Tobacco abuse counseling; N49.2 Inflammatory disorders of scrotum
CPT/HCPCS: 36415; 51702; 71045; 71250; 74177; 80048; 80053; 81001; 82140; 82150; 82550; 82803; 82962; 83605; 83690; 83735; 83880; 84145; 85025; 85384; 85610; 85730; 86140; 87040; 87426; 87804; 94618; 94760; 96365; 96367; 99285; G0378; G0379; J0696; J1160; J1644; J1815; J2260; J2543; J3370; J3490; J7030; J7040; J7050; Q9967; U0003

== ENCOUNTER → 2021-01-19 | Outpatient (CLI) | payer BC ==
[2020-12-03 15:00] VITALS: BP 105/75
[~2021-01-19] MED LIST changes: +BUME1TAB3 PO; +PARO20TA3 PO; +POTA20TA4 PO; +SACU1TAB PO
--- NOTE | 2021-01-20 09:21 | CARD ---
MR#: [id number] Date of Study: 01/19/2021 Ordering Physician: MINO MELVIN, Referring Physician: MINO MELVIN, Tech: Hannah Bliss, [facility] APPROVED REPORT EXAM: Two-dimensional and M-mode echocardiogram with Doppler and color Doppler. Other Information Quality : Good INDICATION Cardiomyopathy RISK FACTORS Hypertension Diabetes Smoking 2D DIMENSIONS RVDd3.5 (2.9-3.5cm)Left Atrium(2D)4.5 (1.6-4.0cm) IVSd1.0 (0.7-1.1cm)Aortic Root(2D)3.4 (2.0-3.7cm) LVDd6.0 (3.9-5.9cm)LVOT Diameter2.1 (1.8-2.4cm) PWd1.0 (0.7-1.1cm)LVDs5.2 (2.5-4.0cm) FS (%) 12.8 %SV48.5 ml Aortic Valve AoV Peak Agusto.91.9cm/sAoV VTI14.9cm AO Peak GR.3.4mmHgLVOT Peak Agusto.71.1cm/s LVOT VTI 11.02cmAO Mean GR.3mmHg ROXY (VMAX)1.74qp3BIF (VTI)2.49cm2 Mitral Valve MV E Dwcuzkbm267.8cm/sMV DECEL VYPT243if MV A Lvinusft71.0cm/sMV WZN30md E/A Ratio3.2MVA (PHT)6.07cm2 TDI E/Lateral E'13.5E/Medial E'19.9 Pulmonary Valve PV Peak Wxrohnws68.2cm/sPV Peak Grad.2mmHg Tricuspid Valve TR P. Wjdabpkf871by/sRAP ZVIRZMTL6yoMo TR Peak Gr.00itIoFWLQ43gqEs LEFT VENTRICLE The Left Ventricle is mildly dilated. There is normal left ventricular wall thickness. The ejection f raction is severely impaired. The Ejection Fraction is estimated at 15%. There is severe global hypok inesis of the left ventricle. Tissue Doppler imaging reveals severe left ventricular diastolic dysfun ction. RIGHT VENTRICLE The right ventricle is borderline dilated. There is normal right ventricular wall thickness. Systolic function is mildly to moderately reduced. ATRIA The left atrium is borderline dilated. The right atrium is mildly dilated. The interatrial septum is intact with no evidence for an atrial septal defect or patent foramen ovale as noted on 2-D or Dopple r imaging. AORTIC VALVE The aortic valve is normal in structure and function. Doppler and Color Flow revealed trace aortic re gurgitation. Calculated aortic valve area is 2.42 cm2 with maximum pressure gradient of 4 mmHg and me an pressure gradient of 3 mmHg. There is no significant aortic valvular stenosis. MITRAL VALVE The mitral valve is normal in structure and function. There is no evidence of mitral valve prolapse. There is no mitral valve stenosis. Doppler and Color-flow revealed trace mitral regurgitation. TRICUSPID VALVE The tricuspid valve is normal in structure and function. Doppler and Color Flow revealed mild to mode rate tricuspid regurgitation with an estimated PAP of 58 mmHg. There is no tricuspid valve stenosis. PULMONIC VALVE The pulmonary valve is normal in structure and function. Doppler and Color Flow revealed mild pulmoni c valvular regurgitation. GREAT VESSELS The aortic root is normal in size. The IVC is dilated. PERICARDIAL EFFUSION There is no evidence of significant pericardial effusion. Critical Notification Critical Value: No <Conclusion> The Left Ventricle is mildly dilated. The ejection fraction is severely impaired. The Ejection Fraction is estimated at 15%. There is severe global hypokinesis of the left ventricle. Tissue Doppler imaging reveals severe left ventricular diastolic dysfunction. Doppler and Color Flow revealed trace aortic regurgitation. Calculated aortic valve area is 2.42 cm2 with maximum pressure gradient of 4 mmHg and mean pressure g radient of 3 mmHg. There is no significant aortic valvular stenosis. Doppler and Color-flow revealed trace mitral regurgitation. Doppler and Color Flow revealed mild to moderate tricuspid regurgitation with an estimated PAP of 58 mmHg. Signed by : Adolfo Yung MD Electronically Approved : 01/20/2021 09:20:52
== END ==
LOC: ECHO 14:45
PROVIDERS: ATTEND Internal Medicine Cardiovascular Disease
DX: I08.8 Other rheumatic multiple valve diseases (principal); I42.9 Cardiomyopathy, unspecified
CPT/HCPCS: 93306

== ENCOUNTER 2021-03-15 07:03 | Observation (INO) | payer BC ==
[2021-03-15] VITALS (18 sets, daily range): BP systolic 92–126; BP diastolic 60–85
[~2021-03-15] VITALS: Ht 177.8 cm; Wt 74.1 kg
[~2021-03-15 07:03] MED LIST changes: +IV RINGERS,LACTATED 1000ML 1,000 ML IV SCH
[2021-03-15] MEDS ORDERED: MIDAZOLAM HCL/PF 2 MG/2 ML VIAL. ONE (07:42)
[2021-03-15] MEDS ORDERED: PROPOFOL 10 MG/ML (20ML) VIAL. IV ONE (07:43)
[2021-03-15] MEDS ORDERED: PROPOFOL 50 ML IV ONE ×2 (07:43→09:16)
[2021-03-15 07:58] LABS: HEMATOCRIT 50.1 % (39.0-53.0); HEMOGLOBIN 16.7 g/dL (13.0-17.5); RED BLOOD COUNT 5.9 x10^6/uL (4.30-5.70); RED CELL DISTRIBUTION WIDTH 17.3 % (11.5-14.5); WHITE BLOOD COUNT 7.7 x10^3/uL (4.0-11.0)
[2021-03-15 08:07] LABS: PROTHROMBIN TIME PATIENT 13.4 SEC (11.7-14.0)
[2021-03-15 08:10] LABS: CALCIUM 9.7 mg/dL (8.5-10.1); CREATININE 0.9 mg/dL (0.7-1.3); GFR 87.9; POTASSIUM 3.9 mmol/L (3.5-5.1)
[2021-03-15] MEDS ORDERED: LIDOCAINE 2%/EPI 1:100,000 20 ML VIAL. ONE (08:17)
--- NOTE | 2021-03-15 08:25 | EKG ---
[facility] [address] [place] [address] Test Date: 2021-03-15 Test Time: 08:21:29 Pat Name: GUY MCCRACKEN Department: Room: Gender: M Genetics Physician: KRISTINA : 1965 Requested By: MINO ESTEVES Order Number: [id number] Reading MD: Mino Esteves Measurements Intervals [place] Rate: 95 P: 54 NE: 146 QRS: 59 QRSD: 100 T: 73 QT: 374 QTc: 473 Interpretive Statements SINUS RHYTHM VENTRICULAR PREMATURE COMPLEX(ES) LEFT ATRIAL ABNORMALITY LOW LIMB LEAD VOLTAGE PROLONGED QT ABNORMAL ECG Electronically Signed On 03-15-2021 14:54:23 CDT by Mino Esteves
[2021-03-15] MEDS ORDERED: ceFAZolin SODIUM IV Push 1 GM VIAL. IVP ONE ×3 (08:30→10:00)
[2021-03-15] MEDS ORDERED: LIDOCAINE 2%/EPI 1:100,000 20 ML VIAL. INJ ONE (09:00)
--- NOTE | 2021-03-15 09:54 | CARD ---
MR#: [id number] Date of Study: 03/15/2021 Ordering Physician: MINO ESTEVES, Referring Physician: MINO ESTEVES, Tech: APPROVED REPORT EXAM Implantation of Biotronik automatic implantable cardioverter defibrillator Defibrillation thresholds measurement at the time of implantation fl time: 0.8 mins dose: 3.5 gycm2 INDICATIONS Primary prevention of sudden cardiac in a patient with severe nonischemic cardiomyopathy, chron ic systolic heart failure with LVEF 15%. PROCEDURE After explaining the risks, benefits, and alternative options, informed consent was obtained from the patient. The patient was brought to the cardiac catheterization lab and the left chest and shoulder were prepp ed and draped in the usual fashion. During this case, Fluoroscopy were used for imaging. Specimen(s) Removed: No Estimated Blood loss: 15 cc's. 30 cc of 2% lidocaine was infiltrated into the skin and subcutaneous tissues for local anesthesia. A n incision was made over the left infraclavicular fossa and using blunt dissection and cautery a pock et was created. Venous access was obtained in the left subclavian vein and 8 Khmer sheath was inser mo. A Biotronik bipolar active fixation right ventricular lead with atrial dipole, model Plexa Pro MRI S DX, serial #[id number] was advanced under fluoroscopy guidance and the tip was positioned in the right ventricular apex. This was secured in place and was attached to Biotronik AICD generator model Actic or 7 VR-T DX, serial #[id number]. This was placed in the pocket that was subsequently closed in 3 laye rs. Hemostasis was secured. Ventricular fibrillation was then induced to check the defibrillation threshold. Patient successfull y converted to sinus rhythm with a 25 J shock therapy with a shock impedance of 64 ohms. The right v entricular lead showed a sensing amplitude of 17 mV, impedance of 590 ohms and a threshold of 0.6 V. The atrial dipole showed sensing amplitude for P waves of 6 mV. Patient tolerated the procedure wel l. There were no immediate complications. CONCLUSION Successful implantation of Biotronik automated implantable cardioverter defibrillator for primary pre vention of sudden cardiac in a patient with severe nonischemic cardiomyopathy, chronic systolic heart failure with LVEF 15% despite optimal medical therapy. Defibrillation thresholds were measure d at the time of implantation. Signed by : Mino Esteves, Electronically Approved : 03/15/2021 09:53:27
--- NOTE | 2021-03-15 10:18 | RAD ---
XR CHEST 1V 03/15/2021 10:01 AM INDICATION: Postop pacemaker COMPARISON: 12/03/2020 TECHNIQUE: Portable frontal view of the chest is provided. FINDINGS: The cardiomediastinal silhouette is similar in appearance. Left chest wall cardiac device is identifi ed with leads projecting over the right ventricle. Small left pleural effusion with adjacent compressive atelectasis versus infiltrate, similar to the p rior examination. There is improving pulmonary vascular congestion. Resolved right pleural effusion. No suspicious osseous abnormality. IMPRESSION: Left chest wall cardiac device is identified with lead projecting over the right ventricle. There is improving aeration of the lungs with residual left pleural effusion with adjacent compressive atelect asis versus infiltrate. No definite pneumothorax is visualized. Electronically signed by: Jihan Cantu MD (03/15/2021 10:15 AM) [id number]
[2021-03-15] MEDS ORDERED: DOCUSATE SODIUM 100 MG CAPSULE. PO PRN (13:00)
[2021-03-15] MEDS ORDERED: ALBUTEROL SULFATE 2.5 MG/3 ML NEBU. NEB PRN (13:00)
[2021-03-15] MEDS: SACUBITRIL/VALSARTAN 24/26MG TABLET. PO SCH ×2 (16:18→23:11)
[2021-03-15] MEDS: oxyCODONE/APAP 5/325 1 TAB TABLET PO PRN ×2 (16:18→23:15)
[2021-03-15] MEDS: SPIRONOLACTONE 25 MG TABLET PO SCH (16:18)
[2021-03-15] MEDS: BUMETANIDE 1 MG TABLET. PO SCH ×2 (16:18→21:00)
[2021-03-15] MEDS: GLIMEPIRIDE 2 MG TABLET. PO SCH (16:19)
[2021-03-15] MEDS: METOPROLOL SUCC 24HR ER 100 MG TAB.ER.24H. PO SCH (16:19)
[2021-03-15] MEDS: POTASSIUM CHLORIDE 20 MEQ TABLET.ER. PO SCH (16:19)
[2021-03-15] MEDS: amLODIPine BESYLATE 10 MG TABLET PO SCH (16:20)
[2021-03-15] MEDS: PANTOPRAZOLE 40 MG TABLET.DR. PO SCH (16:20)
[2021-03-15] MEDS: ASPIRIN ENTERIC COATED 81 MG TABLET.DR. PO SCH (16:20)
[2021-03-15] MEDS: NON FORMULARY ITEM (Dapagliflozin Propanediol (Farxiga) 10 MG) PO SCH (21:00)
[2021-03-15] MEDS ORDERED: ATORVASTATIN CALCIUM 40 MG TABLET. PO SCH (21:00)
[2021-03-15] MEDS: ICOSAPENT ETHYL PO SCH (21:00)
[2021-03-16 03:45] VITALS: BP 97/62
[2021-03-16 07:00] VITALS: BP 106/76
[2021-03-16] MEDS: POTASSIUM CHLORIDE 20 MEQ TABLET.ER. PO SCH (08:13)
[2021-03-16] MEDS: oxyCODONE/APAP 5/325 1 TAB TABLET PO PRN (08:14)
[2021-03-16] MEDS: ASPIRIN ENTERIC COATED 81 MG TABLET.DR. PO SCH (08:14)
[2021-03-16] MEDS: GLIMEPIRIDE 2 MG TABLET. PO SCH (08:14)
[2021-03-16] MEDS: PANTOPRAZOLE 40 MG TABLET.DR. PO SCH (08:15)
[2021-03-16] MEDS: SACUBITRIL/VALSARTAN 24/26MG TABLET. PO SCH (08:15)
[2021-03-16] MEDS: SPIRONOLACTONE 25 MG TABLET PO SCH (08:15)
--- NOTE | 2021-03-16 08:56 | RAD ---
XR CHEST 2V History: Reason: Post ICD Placement / Spl. Instructions: / History: Comparison: March 15, 2021 Findings: Small left pleural effusion with adjacent opacity, unchanged. Stable left-sided ICD. No pneumothorax. Patchy mid and bibasilar opacities, unchanged. Normal heart size. Impression: 1. Stable appearance the chest compared to prior. Electronically signed by: Iam Gaona DO (03/16/2021 8:53 AM) [facility]
[2021-03-16] MEDS: NON FORMULARY ITEM (Dapagliflozin Propanediol (Farxiga) 10 MG) PO SCH (09:00)
[2021-03-16] MEDS: ICOSAPENT ETHYL PO SCH (09:00)
[2021-03-16] MEDS: BUMETANIDE 1 MG TABLET. PO SCH (10:55)
[2021-03-16] MEDS: amLODIPine BESYLATE 10 MG TABLET PO SCH (10:56)
[2021-03-16] MEDS: METOPROLOL SUCC 24HR ER 100 MG TAB.ER.24H. PO SCH ×2 (10:56→13:25)
[2021-03-16 11:00] VITALS: BP 100/62
--- NOTE | 2021-03-16 11:56 | DISCH ---
DISCHARGE INSTRUCTIONS Condition on Discharge Condition on Discharge: Stable Activity After Discharge Activity Instructions for Disc: Activity as tolerated Lifting Instructions after Dis: No heavy lifting, No pulling or pushing Exercise Instruction after Dis: Progress as tolerated Weight Bearing Status after Di: Full weight bearing, As tolerated, Other, see below (see diagnosis specific handout ) Diet after Discharge Diet after Discharge: Cardiac, Low Sodium 2 gm Diet Texture: Regular Liquid Texture: Thin Liquid Swallowing Supervision: None needed Wound Incision Care Wound/Incision Care: Keep wound/cast CDI Checks after Discharge Checks after discharge: Check blood press - daily, Check blood sugar, ac/hs, Check your Temp as needed, Weigh Yourself Daily Contacting the DR. after DC Call your doctor for: If your condition worsens Follow-Up Follow up with: cardiology clinic nurse in 2 weeks for wound check KALPESH LAYNE APRN Mar 16, 2021 11:56
--- NOTE | 2021-03-16 11:58 | PDOC3 ---
Discharge Summary Visit Information Date of Admission: Mar 15, 2021 Date of Discharge: Mar 16, 2021 Admitting Diagnosis: Cardiomyopathy, chronic systolic CHF Final Diagnosis Cardiomyopathy Chronic systolic CHF Brief Hospital Course Allergies Allergies Coded Allergies Type Severity Reaction Last Updated Verified No Known Drug Allergies 03/22/20 No Vital Signs Vital Signs Date Time Temp Pulse Resp B/P (MAP) Pulse Ox O2 Delivery O2 Flow Rate FiO2 03/16/21 11:00 97.5 80 16 100/62 (75) 98 Room Air 97.5 03/15/21 09:42 3.0 Lab Results Laboratory Tests Test 03/15/21 07:15 03/15/21 07:25 03/15/21 10:29 03/15/21 12:08 SARS-CoV-2 Antigen (Rapid) Negative (NEGATIVE) White Blood Count 7.7 x10^3/uL (4.0-11.0) Red Blood Count 5.90 x10^6/uL (4.30-5.70) Hemoglobin 16.7 g/dL (13.0-17.5) Hematocrit 50.1 % (39.0-53.0) Mean Corpuscular Volume 85 fL (79-100) Mean Corpuscular Hemoglobin 28 pg (25-35) Mean Corpuscular Hemoglobin Concent 33 g/dL (31-37) Red Cell Distribution Width 17.3 % (11.5-14.5) Platelet Count 264 x10^3/uL (140-400) Prothrombin Time 13.4 SEC (11.7-14.0) Prothromb Time International Ratio 1.1 (0.8-1.1) Sodium Level 138 mmol/L (136-145) Potassium Level 3.9 mmol/L (3.5-5.1) Chloride Level 101 mmol/L (98-107) Carbon Dioxide Level 26 mmol/L (21-32) Anion Gap 11 (6-14) Blood Urea Nitrogen 8 mg/dL (8-26) Creatinine 0.9 mg/dL (0.7-1.3) Estimated GFR (Cockcroft-Gault) 87.9 Glucose Level 113 mg/dL (70-99) Calcium Level 9.7 mg/dL (8.5-10.1) Glucose (Fingerstick) 132 mg/dL (70-99) 160 mg/dL (70-99) Test 03/15/21 17:34 03/15/21 20:57 03/16/21 07:30 Glucose (Fingerstick) 148 mg/dL (70-99) 150 mg/dL (70-99) 164 mg/dL (70-99) Laboratory Tests Test 03/15/21 12:08 03/15/21 17:34 03/15/21 20:57 03/16/21 07:30 Glucose (Fingerstick) 160 mg/dL (70-99) 148 mg/dL (70-99) 150 mg/dL (70-99) 164 mg/dL (70-99) Brief Hospital Course Mr. Glass is a 55 old male, with a history of NICM on LifeVest and chronic systolic heart failure with LVEF 15% despite optimal medical therapy, who presented electively for AICD implantation for primary prevention of sudden cardiac . Patient underwent successful implantation of Biotronik automated implantable cardioverter defibrillator. Defibrillation thresholds were measured at the time of implantation. Patient tolerated procedure well and was monitoring overnight without complications. Post operative device and chest xray within normal limited. Left chest pectoral implantation site soft and dry. No hematoma present. Steri-strips intact. Incision well-approximated. Lungs CTA. Heart tones regular. Discharge instructions were review. Norvasc was discontinued upon discharge due to low end blood pressure. Patient is scheduled for 2 week wound check in clinic. Patient seen and examined. Agree with [employer]DER's assessment and plan. Severe non ischemic cardiomyopathy with EF 15% despite optimal medical therapy He underwent successful AICD implantation CXR without pneumothorax and device check showed normal LVF Follow up with our office in 2 wks for wound check Discharge Information Condition at Discharge: Stable Follow Up: Weeks (2) Disposition/Orders: D/C to Home Scheduled Aspirin (Aspirin Ec) 81 Mg Tablet., 81 MG PO DAILYWBK for heart health for 30 Days, #30 Prescribed by: TRACY WATERMAN MD on 10/14/20 8753 Last Action: Continued on 03/15/21 1249 by JOSE G HERNANDEZ Atorvastatin Calcium (Atorvastatin Calcium) 40 Mg Tablet, 1 TAB PO QHS for HLD, #90 Ref 3 (Reported) Entered as Reported by: ALAYNA GOODMAN RN on 03/22/20 1127 Last Action: Continued on 03/15/21 1249 by JOSE G HERNANDEZ Bumetanide (Bumetanide) 1 Mg Tablet, 1 TAB PO BID for , #60 Ref 1 Prescribed by: SERG HURST MD on 12/03/201658 Last Action: Continued on 03/15/211248 by JOSE G HERNANDEZ Dapagliflozin Propanediol (Farxiga) 10 Mg Tablet, 10 MG PO BID for unknown, (Reported) Entered as Reported by: ALAYNA GOODMAN RN on 03/22/201126 Last Action: Converted on 03/15/211248 by JOSE G HERNANDEZ Glimepiride (Glimepiride) 4 Mg Tablet, 1 TAB PO DAILY for DM, #30 Ref 5 (Reported) Entered as Reported by: ALAYNA GOODMAN RN on 03/22/201126 Last Action: Converted on 03/15/211248 by JOSE G HERNANDEZ Icosapent Ethyl (Vascepa) 0.5 Gm Capsule, 1 CAP PO BID for unknown for 30 Days, #60 Ref 0 (Reported) Entered as Reported by: ALAYNA GOODMAN RN on 03/22/201126 Last Action: Converted on 03/15/211248 by JOSE G HERNANDEZ Metoprolol Succinate (Metoprolol Succinate ( Xl )) 100 Mg Tab.er.24h, 1 TAB PO DAILY for HTN, #30 Ref 5 (Reported) Entered as Reported by: ALAYNA GOODMAN RN on 03/22/201126 Last Action: Continued on 03/15/211248 by JOSE G HERNANDEZ Omeprazole (Omeprazole) 20 Mg Tablet.dr, 1 TAB PO DAILY for stomach, #90 Ref 1 (Reported) Entered as Reported by: ALAYNA GOODMAN RN on 03/22/201126 Last Action: Converted on 03/15/211248 by JOSE G HERNANDEZ Potassium Chloride (Klor-Con M20) 20 Meq Tab.er.prt, 40 MEQ PO DAILYWBKFT for Hypokalemia, #30 Ref 1 Prescribed by: SERG HURST MD on 12/03/201658 Last Action: Continued on 03/15/211248 by JOSE G HERNANDEZ Sacubitril/Valsartan (Entresto 24 mg-26 mg Tablet) 1 Each Tablet, 1 TAB PO BID for CHF, #60 Ref 1 Prescribed by: SERG HURST MD on 12/03/20 1659 Last Action: Continued on 03/15/211248 by JOSE G HERNANDEZ Spironolactone (Aldactone) 25 Mg Tablet, 25 MG PO DAILY for heart for 30 Days, #30 Prescribed by: TRACY WATERMAN MD on 10/14/20952 Last Action: Continued on 03/15/211248 by JOSE G HERNANDEZ Scheduled PRN Acetaminophen (Tylenol) 325 Mg Tablet, 650 MG PO PRN Q4HRS PRN for TEMP OVER 100.4F OR MILD PAIN for 30 Days, #60 Prescribed by: TRACY WATERMAN MD on 10/14/20952 Last Action: Reviewed on 03/15/211225 by JOSE G HERNANDEZ Albuterol Sulfate (Proair Hfa) 8.5 Gm Hfa.aer.ad, 2.5 MG NEB PRN Q4HRS PRN for SHORTNESS OF BREATH for 30 Days, #1 Ref 1 Prescribed by: YENY MENDOZA MD on 03/23/20 1534 Last Action: Continued on 03/15/211248 by JOSE G HERNANDEZ Docusate Sodium (Dok) 100 Mg Capsule, 100 MG PO PRN DAILY PRN for HARD STOOLS for 30 Days, #60 Prescribed by: TRACY WATERMAN MD on 10/14/20952 Last Action: Continued on 03/15/211248 by JOSE G HERNANDEZ Discontinued Medications Amlodipine Besylate (Amlodipine Besylate) 10 Mg Tablet, 10 MG PO DAILY for HTN, (Reported) Entered as Reported by: ALAYNA GOODMAN RN on 03/22/20 1127 Last Action: Continued on 03/15/211248 by JOSE G HERNANDEZ Patient Instructions Patient Instructions Must know & what to expect after device implant: 1. Your surgical dressing should be removed prior to discharge from the hospital, but allow the steri- strips to fall off naturally. 2. Activity restrictions: DO NOT raise arm above shoulder level, lift anything heavier than a gallon of milk, and no push or pull motions such as vacuuming/lawn mowing, no swinging motions (golf), etc for 4 weeks. 3. It is OK to use a cell phone or other electronic devices just be sure you do not store it in a breast pocket on the side where the device was placed. 4. Device will be interrogated prior to your discharge from the hospital and then every 3 months for defibrillators and every 6 months for pacemakers. You may be asked to have your device checked remotely from home as well, but this will depend on your particular physicians preference. 5. You may remove the arm immobilizer the day after device placement. Wear the arm immobilizer/splint at night (during sleep times) for 2 week to prevent unintended arm movement that can cause lead dislodgement. 6. Do not drive for one week as the task of driving may lead to unintended arm motion that may cause lead dislodgement. The seatbelt will also rub against the incision site & cause irritation. 7. It is our recommendation that you utilize Tylenol at home for pain control. You need to call our office if you are having uncontrollable pain at the incision site. 8. Keep your incision clean and dry. It is OK to shower. DO NOT submerge in bath, pool, or hot tub, until cleared by your doctor, as this could lead to increase risk of infection.. It is OK to use regular soap just do not scrub the incision site. Water spray from shower should not directly hit the incision. Be sure to blot dry not rub. 9. Inspect your incision daily. If you notice any increased redness, swelling, or drainage, or if you start running a fever, call the office immediately. The number is [phone]. 10. For women, if you need to protect against irritation from the bra straps, you can place a piece of gauze over the incision site for cushion. Please be sure to tape it loosely to allow air to the site & remove the gauze when you remove the bra. 11. Be sure to carry your device identification information card in your wallet/purse at all times. 12. It is OK to go through security at the airport with your device, but be sure to let the TSA know prior to proceeding as the security settings change depending on varying factors. Please do whatever is requested by security at that time. 13. Some of the newer devices may be MRI compatible but, currently, the use of these devices is not widespread, so you likely will not be able to have an MRI. Please clarify this with your physician. Special instructions for defibrillator patients: If your device recognizes a rhythm that requires treatment with a shock, you will most likely feel the shock. This is usually not a subtle feeling and it is uncomfortable. Please follow these steps if you receive a shock: Call the office if you receive one shock. Go to the emergency room if you receive two consecutive shocks- please have someone drive you & call 911 if nobody is available- DO NOT drive yourself. Call 911 if you receive more than 2 consecutive shocks. If at any time, you feel lightheaded or dizzy/faint, stop what you are doing & lie down immediately. If you are driving, get to the side of the road quickly, turn your car off & call 911 on your cell phone. DO NOT continue to drive as th is may cause an accident that seriously injures yourself &/or others. Call the office at [phone] for any questions or concerns. Justicifation of Admission Dx: Justifications for Admission: Justification of Admission Dx: No Respiratory Failure: Severe Resp Distress KALPESH LAYNE APRN Mar 16, 2021 11:58 MINO MELVIN MD Mar 16, 2021 19:42
[2021-03-16 13:25] VITALS: BP 103/80
== END 2021-03-16 13:55 | disposition home or self-care (01) ==
LOC: SURG 07:03 → INTOOBSV 10:24 → 2 NORTH 10:24
PROVIDERS: ADMIT Internal Medicine Cardiovascular Disease; ATTEND Internal Medicine Cardiovascular Disease
DX: I42.8 Other cardiomyopathies (principal); Z20.822 Contact with and (suspected) exposure to COVID-19; I50.22 Chronic systolic (congestive) heart failure; Z51.81 Encounter for therapeutic drug level monitoring; Z79.82 Long term (current) use of aspirin
CPT/HCPCS: 33249; 36415; 71045; 71046; 80048; 82962; 85027; 85610; 87426; 93005; 93641; 96365; 96366; 96376; C1721; G0378; G0379; J0690; J2250; J2704; J3490; J7040

== ENCOUNTER 2021-08-10 22:36 | Inpatient (IN) | payer BC ==
[~2021-08-10] VITALS: Ht 177.8 cm; Wt 78.0 kg
[~2021-08-10 22:36] MED LIST changes: +DOCU-148 PO; -DOCU-153 PO; -IV RINGERS,LACTATED 1000ML 1,000 ML IV SCH; +POTA-121 PO; -POTA20TA4 PO
[2021-08-10 23:37] LABS: BASO # 0.1 x10^3/uL (0.0-0.2); BASO % 1 % (0-3); EOS # 0.1 x10^3/uL (0.0-0.7); EOS % 1 % (0-3); HEMATOCRIT 46.5 % (39.0-53.0); HEMOGLOBIN 15.7 g/dL (13.0-17.5); LYMPH # 1.3 x10^3/uL (1.0-4.8); LYMPH % 16 % (24-48); MEAN CORPUSCULAR HEMOGLOBIN 29 pg (25-35); MEAN CORPUSCULAR HGB CONC 34 g/dL (31-37); MEAN CORPUSCULAR VOLUME 85 fL (79-100); MONO # 0.8 x10^3/uL (0.0-1.1); MONO % 9 % (0-9); NEUT # 6.1 x10^3/uL (1.8-7.7); NEUT % 73 % (31-73); PLATELET COUNT 272 x10^3/uL (140-400); RED BLOOD COUNT 5.49 x10^6/uL (4.30-5.70); RED CELL DISTRIBUTION WIDTH 17.8 % (11.5-14.5); WHITE BLOOD COUNT 8.4 x10^3/uL (4.0-11.0)
[2021-08-10 23:45] LABS: CALCIUM 9.1 mg/dL (8.5-10.1); CREATININE 0.9 mg/dL (0.7-1.3); GFR 87.9; POTASSIUM 3.3 mmol/L (3.5-5.1)
[2021-08-10 23:51] LABS: ALBUMIN 3.6 g/dL (3.4-5.0); TOTAL BILIRUBIN 1.6 mg/dL (0.2-1.0); TOTAL PROTEIN 7.3 g/dL (6.4-8.2)
[2021-08-11] VITALS (8 sets, daily range): BP systolic 100–134; BP diastolic 66–95
[2021-08-11] MEDS ORDERED: POTASSIUM CHLORIDE 20 MEQ TABLET.ER. PO ONE
--- NOTE | 2021-08-11 00:07 | PHYS DOC ---
Past Medical History Past Medical History: COPD, Diabetes-Type II, High Cholesterol, Hypertension Past Surgical History: Tonsillectomy, Other Additional Past Surgical Histo: defib placed, bilat ear tubes Smoking Status: Current Every Day Smoker Additional Information: 1.0ppd Alcohol Use: None General Adult EDM: Chief Complaint: SHORTNESS OF BREATH HPI: HPI: Patient is a 55 year old male with history of nonischemic cardiomyopathy with an EF of 15%, AICD in place who presents with shortness of breath and lower extremity edema. States lower extremity edema has been worsening since Sunday of this week. At this time he is becoming increasingly orthopneic and having exertional dyspnea that is limiting his ability to do his job. He has been taking all of his medications including his diuretic as prescribed. He denies any chest pain. Denies any fever/chills. No sick contacts. He has had a cough productive of some mild white sputum, not far from his baseline. He has been vaccinated for Covid. Lower extremity edema has been symmetric bilaterally Review of Systems: Review of Systems: Constitutional: Denies fever or chills. [] Eyes: Denies change in visual acuity. [] HENT: Denies nasal congestion or sore throat. [] Respiratory: Reports cough and shortness of breath. [] Cardiovascular: Denies chest pain. Reports lower extremity edema. [] GI: Denies abdominal pain, nausea, vomiting, bloody stools or diarrhea. [] : Denies dysuria. [] Musculoskeletal: Denies back pain or joint pain. [] Integument: Denies rash. [] Neurologic: Denies headache, focal weakness or sensory changes. [] Endocrine: Denies polyuria or polydipsia. [] Lymphatic: Denies swollen glands. [] Psychiatric: Denies depression or anxiety. [] Heart Score: C/O Chest Pain: No Allergies: Allergies: Allergies Coded Allergies Type Severity Reaction Last Updated Verified No Known Drug Allergies 03/22/20 No Physical Exam: PE: Constitutional: Speaking in diffuse words at a time, pausing to take deep breaths. Mildly tachypneic. Not in respiratory distress HENT: Normocephalic, atraumatic, Eyes: conjunctiva normal, no discharge. [] Neck: Normal range of motion, no tenderness, supple, no stridor. [] Cardiovascular:Heart rate regular rhythm, no murmur [] Lungs & Thorax: Diminished breath sounds on the left. Crackles in both lung alvarez. Mild expiratory wheezes. Abdomen: Bowel sounds normal, soft, no tenderness, no masses, no pulsatile masses. [] Skin: Warm, dry, no erythema, no rash. [] Back: No tenderness, no CVA tenderness. [] Extremities: Tense lower extremity edema to the knee. Neurologic: Alert and oriented X 3, normal motor function, normal sensory function, no focal deficits noted. [] Psychologic: Affect normal, judgement normal, mood normal. [] Current Patient Data: Labs: Laboratory Tests Test 08/10/21 23:15 08/10/21 23:23 SARS-CoV-2 Antigen (Rapid) Negative (NEGATIVE) White Blood Count 8.4 x10^3/uL (4.0-11.0) Red Blood Count 5.49 x10^6/uL (4.30-5.70) Hemoglobin 15.7 g/dL (13.0-17.5) Hematocrit 46.5 % (39.0-53.0) Mean Corpuscular Volume 85 fL (79-100) Mean Corpuscular Hemoglobin 29 pg (25-35) Mean Corpuscular Hemoglobin Concent 34 g/dL (31-37) Red Cell Distribution Width 17.8 % (11.5-14.5) H Platelet Count 272 x10^3/uL (140-400) Neutrophils (%) (Auto) 73 % (31-73) Lymphocytes (%) (Auto) 16 % (24-48) L Monocytes (%) (Auto) 9 % (0-9) Eosinophils (%) (Auto) 1 % (0-3) Basophils (%) (Auto) 1 % (0-3) Neutrophils # (Auto) 6.1 x10^3/uL (1.8-7.7) Lymphocytes # (Auto) 1.3 x10^3/uL (1.0-4.8) Monocytes # (Auto) 0.8 x10^3/uL (0.0-1.1) Eosinophils # (Auto) 0.1 x10^3/uL (0.0-0.7) Basophils # (Auto) 0.1 x10^3/uL (0.0-0.2) Sodium Level 140 mmol/L (136-145) Potassium Level 3.3 mmol/L (3.5-5.1) L Chloride Level 103 mmol/L (98-107) Carbon Dioxide Level 23 mmol/L (21-32) Anion Gap 14 (6-14) Blood Urea Nitrogen 14 mg/dL (8-26) Creatinine 0.9 mg/dL (0.7-1.3) Estimated GFR (Cockcroft-Gault) 87.9 BUN/Creatinine Ratio 16 (6-20) Glucose Level 116 mg/dL (70-99) H Calcium Level 9.1 mg/dL (8.5-10.1) Total Bilirubin 1.6 mg/dL (0.2-1.0) H Aspartate Amino Transferase (AST) 15 U/L (15-37) Alanine Aminotransferase (ALT) 20 U/L (16-63) Alkaline Phosphatase 125 U/L (46-116) H Troponin I Quantitative < 0.017 ng/mL (0.000-0.055) GR-Zyj-T-Type Natriuretic Peptide 6174 pg/mL (0-124) H Total Protein 7.3 g/dL (6.4-8.2) Albumin 3.6 g/dL (3.4-5.0) Albumin/Globulin Ratio 1.0 (1.0-1.7) Laboratory Tests 08/10/21 23:23 Laboratory Tests 08/10/21 23:23 Vital Signs: Vital Signs Date Time Temp Pulse Resp B/P (MAP) Pulse Ox O2 Delivery O2 Flow Rate FiO2 08/10/21 22:51 97.9 101 30 133/90 (104) 95 97.9 EKG: EKG: [] Sinus rhythm. Normal axis. QTc 474. Low voltage throughout. No acute ischemic changes. Radiology/Procedures: Radiology/Procedures: [] Impression: Wet read: Pulmonary edema with a large left-sided pleural effusion. Compared to 03/2021 x-ray the effusion is new. Course & Med Decision Making: Course & Med Decision Making Pertinent Labs and Imaging studies reviewed. (See chart for details) Patient a 55-year-old male with history of nonischemic cardiomyopathy with an EF of 15% s/p AICD placement who presents with orthopnea, exertional dyspnea, and lower extremity edema. Appears grossly volume overloaded on examination and has some mild increased work of breathing. O2 sats dropped to 88% on room air, placed on 2 L/min nasal cannula. Chest x-ray shows new left-sided pleural effusion, and pulmonary edema. He is on Bumex 1 mg at home, will give 2 mg Bumex IV here. Potassium 3.3 repletion ordered. Patient will be admitted to telemetry for further monitoring and diuresis. 0006 Dragon Disclaimer: Dragon Disclaimer: This electronic medical record was generated, in whole or in part, using a voice recognition dictation system. Departure Departure Impression: Primary Impression: Cardiomyopathy Additional Impressions: CHF exacerbation Respiratory failure with hypoxia Disposition: ADMITTED INPATIENT Admitting Physician: JOSE RAFAEL (arana) Condition: STABLE Referrals: BRITNEY MERINO MD (PCP) ANDIE DIAS MD Aug 11, 2021 00:07
[2021-08-11] MEDS ORDERED: POTASSIUM CHLORIDE 20MEQ 100 ML IV ONE (00:15)
--- NOTE | 2021-08-11 00:41 | RAD ---
EXAM: XR CHEST 1V 08/10/2021 11:14 PM CLINICAL INDICATION: Shortness of breath, edema, CHF COMPARISON: Chest radiograph 06/17/2021 TECHNIQUE: AP upright view the chest FINDINGS: A single lead AICD is unchanged. There is cardiomegaly. Increased, moderate left pleural e ffusion. Diffuse interstitial opacities are unchanged. Trace right pleural effusion. No pneumothorax. IMPRESSION: Increased, moderate left pleural effusion. Unchanged cardiomegaly and diffuse interstiti al opacities, likely due to pulmonary edema although pneumonia could have a similar appearance. Electronically signed by: Katiuska Overton MD (08/11/2021 12:38 AM) [facility]
--- NOTE | 2021-08-11 00:54 | EKG ---
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
[2021-08-11] MEDS: BUMETANIDE 1 MG/4 ML VIAL. IV SCH ×3 (02:34→15:34)
--- NOTE | 2021-08-11 03:56 | NUR ---
Patient admitted to room 108 from ED via cart accompanied by ED nurse at 2044. Patient walked from cart to ICU bed with steady gait. Monitor applied and SR/ST noted. RA. Assessment completed, see chart. VSS. SOA on exertion. Dry cough noted. RR 20-28. 2LNC placed on patient per patient request at 0330. Urinal at bedside. Patient denies pain or discomfort at this time. call light within reach. Will monitor.
--- NOTE | 2021-08-11 06:28 | PDOC1 ---
History and Physical Date of Admission Date of Admission DATE: 08/11/21 TIME: 06:13 Identification/Chief Complaint Chief Complaint Shortness of breath Source Source: Chart review, Patient History of Present Illness History of Present Illness Patient is a 55-year-old male with past medical history COPD, systolic CHF, presents to the ED with complaints of shortness of breath and worsening bilateral lower extremity edema over the past 4 days. He states his symptoms are worse with exertion. He reports associated orthopnea and cough productive of white sputum. States he has been taking all his medications as prescribed. His symptoms have been limiting his ability to perform activities of daily living. He denies any fever, chills, or sick contacts. He has been fully vaccinated against COVID-19. Upon arrival in the ED he was tachycardic and tachypneic. Labs on admission showed WBC 8.4, potassium 3.3, CBG 116, BNP 6174, troponin <0.017. Chest x-ray showed increased moderate left pleural effusion, and unchanged cardiomegaly and diffuse interstitial opacities, likely due to pulmonary edema. He was treated with IV Bumex and potassium replacement; placed on 2 L nasal cannula with some improvement. Will need patient further medical management. Past Medical History Cardiovascular: CAD, CHF, HTN, Hyperlipidemia, Other Pulmonary: COPD CENTRAL NERVOUS SYSTEM: Other GI: GERD Heme/Onc: No pertinent hx Hepatobiliary: No pertinent hx Psych: No pertinent hx Musculoskeletal: Osteoarthritis Rheumatologic: No pertinent hx Infectious disease: No pertinent hx Renal/: No pertinent hx Endocrine: Diabetes Past Surgical History Past Surgical History: Other Family History Family History: Coronary Artery Disease Social History ALCOHOL: none Drugs: None Current Problem List Problem List Problems Medical Problems: (1) CHF exacerbation Status: Acute (2) Respiratory failure with hypoxia Status: Acute Current Medications Current Medications Current Medications Potassium Chloride (Klor-Con) 40 meq 1X ONCE PO Last administered on 08/11/21at 02:25; Start 08/11/21 at 00:00; Stop 08/11/21 at 00:02; Status DC Potassium Chloride/Water 100 ml @ 50 mls/hr 1X ONCE IV Last administered on 08/11/21at 02:33; Start 08/11/21 at 00:15; Stop 08/11/21 at 02:14; Status DC Bumetanide (Bumex) 2 mg BID92 IV Last administered on 08/11/21at 02:34; Start 08/11/21 at 00:15 Metoprolol Succinate (Toprol Xl) 100 mg DAILY ONCE PO ; Start 08/11/21 at 09:00; Stop 08/11/21 at 09:01 Active Scripts Active Klor-Con M20 (Potassium Chloride) 20 Meq Tab.er.prt 40 Meq PO [id number] Entresto 24 mg-26 mg Tablet (Sacubitril/Valsartan) 1 Each Tablet 1 Tab PO BID Bumetanide 1 Mg Tablet 1 Tab PO BID Dok (Docusate Sodium) 100 Mg Capsule 100 Mg PO PRN DAILY PRN 30 Days Tylenol (Acetaminophen) 325 Mg Tablet 650 Mg PO PRN Q4HRS PRN 30 Days Aspirin Ec (Aspirin) 81 Mg Tablet.dr 81 Mg PO DAILYWBKFT 30 Days Aldactone (Spironolactone) 25 Mg Tablet 25 Mg PO DAILY 30 Days Proair Hfa (Albuterol Sulfate) 8.5 Gm Hfa.aer.ad 2.5 Mg NEB PRN Q4HRS PRN 30 Days Reported Vascepa (Icosapent Ethyl) 0.5 Gm Capsule 1 Cap PO BID 30 Days Farxiga (Dapagliflozin Propanediol) 10 Mg Tablet 10 Mg PO BID Omeprazole 20 Mg Tablet.dr 1 Tab PO DAILY Metoprolol Succinate ( Xl ) (Metoprolol Succinate) 100 Mg Tab.er.24h 1 Tab PO DAILY Atorvastatin Calcium 40 Mg Tablet 1 Tab PO QHS Glimepiride 4 Mg Tablet 1 Tab PO DAILY Allergies Allergies: Coded Allergies: No Known Drug Allergies (Unverified , 03/22/20) ROS Review of System GENERAL: No history of weight change, weakness or fevers. SKIN: No bruising, hair changes or rashes. EYES: No blurred, double or loss of vision. NOSE AND THROAT: No history of nosebleeds, hoarseness or sore throat. HEART: Denies chest pain, denies palpitations. LUNGS: Shortness of breath, cough. Denies hemoptysis or wheezing. GASTROINTESTINAL: Denies nausea, vomiting, abdominal pain. GENITOURINARY: Denies dysuria, frequency, urgency, hematuria. NEUROLOGIC: Denies history of numbness, tingling, tremor or weakness. PSYCHIATRIC: Denies anxiety, denies depression. ENDOCRINE: No history of heat or cold intolerance, polyuria or polydipsia. EXTREMITIES: Bilateral lower extremity swelling. Denies muscle weakness, joint pain, pain on walking or stiffness. Physical Exam Physical Exam General: Alert, Oriented X3, Cooperative, mild distress HEENT: Atraumatic, EOMI Lungs: Bibasilar rales Heart: RRR, no rubs Cardiovascular: S1, S2. AICD to left chest wall. Abdomen: Normal bowel sounds, Soft, No tenderness Extremities: Tense bilateral leg edema up to bilateral knees Skin: No breakdown, No significant lesion Neuro: Normal speech, Sensation intact Psych/Mental Status: Mental status NL, Mood NL Vitals Vitals Vital Signs Date Time Temp Pulse Resp B/P (MAP) Pulse Ox O2 Delivery O2 Flow Rate FiO2 08/11/21 03:30 100 34 134/95 (108) 94 Nasal Cannula 2.0 08/11/21 02:45 96.9 96.9 Labs Labs Laboratory Tests Test 08/10/21 23:15 08/10/21 23:23 SARS-CoV-2 Antigen (Rapid) Negative (NEGATIVE) White Blood Count 8.4 x10^3/uL (4.0-11.0) Red Blood Count 5.49 x10^6/uL (4.30-5.70) Hemoglobin 15.7 g/dL (13.0-17.5) Hematocrit 46.5 % (39.0-53.0) Mean Corpuscular Volume 85 fL (79-100) Mean Corpuscular Hemoglobin 29 pg (25-35) Mean Corpuscular Hemoglobin Concent 34 g/dL (31-37) Red Cell Distribution Width 17.8 % (11.5-14.5) Platelet Count 272 x10^3/uL (140-400) Neutrophils (%) (Auto) 73 % (31-73) Lymphocytes (%) (Auto) 16 % (24-48) Monocytes (%) (Auto) 9 % (0-9) Eosinophils (%) (Auto) 1 % (0-3) Basophils (%) (Auto) 1 % (0-3) Neutrophils # (Auto) 6.1 x10^3/uL (1.8-7.7) Lymphocytes # (Auto) 1.3 x10^3/uL (1.0-4.8) Monocytes # (Auto) 0.8 x10^3/uL (0.0-1.1) Eosinophils # (Auto) 0.1 x10^3/uL (0.0-0.7) Basophils # (Auto) 0.1 x10^3/uL (0.0-0.2) Sodium Level 140 mmol/L (136-145) Potassium Level 3.3 mmol/L (3.5-5.1) Chloride Level 103 mmol/L (98-107) Carbon Dioxide Level 23 mmol/L (21-32) Anion Gap 14 (6-14) Blood Urea Nitrogen 14 mg/dL (8-26) Creatinine 0.9 mg/dL (0.7-1.3) Estimated GFR (Cockcroft-Gault) 87.9 BUN/Creatinine Ratio 16 (6-20) Glucose Level 116 mg/dL (70-99) Calcium Level 9.1 mg/dL (8.5-10.1) Total Bilirubin 1.6 mg/dL (0.2-1.0) Aspartate Amino Transf (AST/SGOT) 15 U/L (15-37) Alanine Aminotransferase (ALT/SGPT) 20 U/L (16-63) Alkaline Phosphatase 125 U/L (46-116) Troponin I Quantitative < 0.017 ng/mL (0.000-0.055) UU-Zfm-Y-Type Natriuretic Peptide 6174 pg/mL (0-124) Total Protein 7.3 g/dL (6.4-8.2) Albumin 3.6 g/dL (3.4-5.0) Albumin/Globulin Ratio 1.0 (1.0-1.7) Laboratory Tests Test 08/10/21 23:15 08/10/21 23:23 SARS-CoV-2 Antigen (Rapid) Negative (NEGATIVE) White Blood Count 8.4 x10^3/uL (4.0-11.0) Red Blood Count 5.49 x10^6/uL (4.30-5.70) Hemoglobin 15.7 g/dL (13.0-17.5) Hematocrit 46.5 % (39.0-53.0) Mean Corpuscular Volume 85 fL (79-100) Mean Corpuscular Hemoglobin 29 pg (25-35) Mean Corpuscular Hemoglobin Concent 34 g/dL (31-37) Red Cell Distribution Width 17.8 % (11.5-14.5) Platelet Count 272 x10^3/uL (140-400) Neutrophils (%) (Auto) 73 % (31-73) Lymphocytes (%) (Auto) 16 % (24-48) Monocytes (%) (Auto) 9 % (0-9) Eosinophils (%) (Auto) 1 % (0-3) Basophils (%) (Auto) 1 % (0-3) Neutrophils # (Auto) 6.1 x10^3/uL (1.8-7.7) Lymphocytes # (Auto) 1.3 x10^3/uL (1.0-4.8) Monocytes # (Auto) 0.8 x10^3/uL (0.0-1.1) Eosinophils # (Auto) 0.1 x10^3/uL (0.0-0.7) Basophils # (Auto) 0.1 x10^3/uL (0.0-0.2) Sodium Level 140 mmol/L (136-145) Potassium Level 3.3 mmol/L (3.5-5.1) Chloride Level 103 mmol/L (98-107) Carbon Dioxide Level 23 mmol/L (21-32) Anion Gap 14 (6-14) Blood Urea Nitrogen 14 mg/dL (8-26) Creatinine 0.9 mg/dL (0.7-1.3) Estimated GFR (Cockcroft-Gault) 87.9 BUN/Creatinine Ratio 16 (6-20) Glucose Level 116 mg/dL (70-99) Calcium Level 9.1 mg/dL (8.5-10.1) Total Bilirubin 1.6 mg/dL (0.2-1.0) Aspartate Amino Transf (AST/SGOT) 15 U/L (15-37) Alanine Aminotransferase (ALT/SGPT) 20 U/L (16-63) Alkaline Phosphatase 125 U/L (46-116) Troponin I Quantitative < 0.017 ng/mL (0.000-0.055) KH-Khh-T-Type Natriuretic Peptide 6174 pg/mL (0-124) Total Protein 7.3 g/dL (6.4-8.2) Albumin 3.6 g/dL (3.4-5.0) Albumin/Globulin Ratio 1.0 (1.0-1.7) Images [facility] [address] [place] [address] IMAGING REPORT Signed PATIENT: GUY MCCRACKEN ACCOUNT: [id number] : 1965 LOCATION: ER AGE: 55 SEX: M EXAM STATUS: REG ER ORD. PHYSICIAN: ANDIE DIAS MD REASON: sob, edema, chf hx PROCEDURE: CHEST AP ONLY EXAM: XR CHEST 1V 08/10/2021 11:14 PM CLINICAL INDICATION: Shortness of breath, edema, CHF COMPARISON: Chest radiograph 06/17/2021 TECHNIQUE: AP upright view the chest FINDINGS: A single lead AICD is unchanged. There is cardiomegaly. Increased, moderate left pleural effusion. Diffuse interstitial opacities are unchanged. Trace right pleural effusion. No pneumothorax. IMPRESSION: Increased, moderate left pleural effusion. Unchanged cardiomegaly and diffuse interstitial opacities, likely due to pulmonary edema although pneumonia could have a similar appearance. VTE Prophylaxis Ordered VTE Prophylaxis Devices: No VTE Pharmacological Prophylaxi: Yes Assessment/Plan Assessment/Plan Acute respiratory failure with hypoxia Systolic CHF exacerbation Hypokalemia CAD COPD DM 2 Plan: We will continue diuresis with IV Bumex; stable will transition to oral Bumex. Closely monitor daily I's & O's, with 1 L fluid restriction daily Consultation placed to cardiology Supportive care with oxygen as needed Cardiogram from 01/19/2021 showed mildly dilated left ventricle with severely impaired EF at 15% We will obtain hemoglobin A1c; MDSS insulin. Resume home medications FEN - Cardiac diet PPX - Heparin FULL CODE Dispo - inpatient for above Justifications for Admission Other Justification Acute CHF exacerbation, scrotal edema SERG HURST MD Aug 11, 2021 06:28
[2021-08-11] MEDS ORDERED: DOCUSATE SODIUM 100 MG CAPSULE. PO PRN (06:30)
[2021-08-11] MEDS ORDERED: NICOTINE 21MG PATCH. TD PRN (06:30)
[2021-08-11] MEDS ORDERED: ALBUTEROL SULFATE 2.5 MG/3 ML NEBU. NEB PRN (06:30)
[2021-08-11] MEDS ORDERED: HYDROcodone/APAP 5/325MG 1 TAB TABLET PO PRN (06:45)
[2021-08-11] MEDS ORDERED: ONDANSETRON PF 4 MG/2 ML VIAL. IVP PRN (06:45)
[2021-08-11] MEDS ORDERED: DEXTROSE 50% 25 GM / 50ML DISP.SYRIN. IV PRN (06:45)
[2021-08-11] MEDS ORDERED: ZOLPIDEM 5 MG TABLET. PO PRN (06:45)
[2021-08-11] MEDS ORDERED: CALCIUM CARBONATE 500 MG TAB.CHEW PO PRN (06:45)
[2021-08-11] MEDS ORDERED: MAGNESIUM HYDROXIDE 2,400 MG/30 ML ORAL.SUSP. PO PRN (06:45)
[2021-08-11] MEDS ORDERED: ACETAMINOPHEN 325 MG TABLET. PO PRN (06:45)
[2021-08-11] MEDS ORDERED: MAG HYDROX/ALUMINUM HYD/SIMETH 30 ML ORAL.SUSP PO PRN (06:45)
[2021-08-11] MEDS: INSULIN LISPRO 300 UNITS/3 ML VIAL. SQ SCH ×3 (08:00→16:49)
[2021-08-11] MEDS: ICOSAPENT ETHYL PO SCH ×2 (09:00→21:00)
[2021-08-11] MEDS ORDERED: METOPROLOL SUCC 24HR ER 100 MG TAB.ER.24H. PO ONE (09:00)
[2021-08-11 09:08] LABS: CALCIUM 8.6 mg/dL (8.5-10.1); CREATININE 0.7 mg/dL (0.7-1.3); GFR 117.5
--- NOTE | 2021-08-11 10:16 | NUR ---
SS following for discharge planning. SS reviewed pt chart and discussed with pt RN. Pt is currently requiring oxygen at two to four liters nasal canula when sleeping. COVID19 negative. Pt has no home oxygen. Pt on IV Bumex. Probable need for nocturnal desat study to assess for nocturnal oxygen needs. Cardiology consulted. SS will continue to follow for discharge planning.
[2021-08-11] MEDS: PANTOPRAZOLE 40 MG TABLET.DR. PO SCH (11:20)
[2021-08-11] MEDS: ASPIRIN ENTERIC COATED 81 MG TABLET.DR. PO SCH (11:20)
[2021-08-11] MEDS: POTASSIUM CHLORIDE 20 MEQ TABLET.ER. PO SCH (11:21)
[2021-08-11] MEDS: SPIRONOLACTONE 25 MG TABLET PO SCH (11:21)
[2021-08-11] MEDS: GLIMEPIRIDE 2 MG TABLET. PO SCH (11:21)
[2021-08-11] MEDS: SACUBITRIL/VALSARTAN 24/26MG TABLET. PO SCH ×2 (11:40→21:06)
--- NOTE | 2021-08-11 13:59 | PDOC2 ---
KALPESH LAYNE RETAIL SALES CLERK 08/11/21 1359: CARDIAC CONSULT DATE OF CONSULT Date of Consult DATE: 08/11/21 TIME: 13:58 REASON FOR CONSULT Reason for Consult: Cardiomyopathy REFERRING PHYSICIAN Referring Physician: Dr. Lam SOURCE Source: Chart review, Patient HISTORY OF PRESENT ILLNESS HISTORY OF PRESENT ILLNESS This is a 55 yo male who presented secondary to LE edema and shortness of breath. Patient has a history of severe cardiomyopathy s/p AICD. reports compliance with medications, but does report consuming foods that are high in Na more than he should. He denies and chest pain, palpitations, or nausea/vomiting. Edema and shortness of breath has improved s/p IV diuresis. PAST MEDICAL HISTORY Past Medical History Cardiovascular: CAD, CHF, HTN, Hyperlipidemia, Other (nicm) Pulmonary: COPD CENTRAL NERVOUS SYSTEM: Other (no pertinent history) GI: GERD Heme/Onc: No pertinent hx Hepatobiliary: No pertinent hx Psych: No pertinent hx Musculoskeletal: Osteoarthritis Rheumatologic: No pertinent hx Infectious disease: No pertinent hx ENT: No pertinent hx Renal/: No pertinent hx Endocrine: Diabetes (2) PAST SURGICAL HISTORY Past Surgical History Other ([facility]) FAMILY HISTORY Family History: Heart Disease SOCIAL HISTORY Social History ALCOHOL: none Drugs: None Lives: with Family CURRENT MEDICATIONS CURRENT MEDICATIONS Current Medications Medications (Trade) Dose Ordered Sig/Gus Route PRN Reason Start Time Stop Time Status Last Admin Dose Admin Potassium Chloride (Klor-Con) 40 meq 1X ONCE PO 08/11/21 00:00 08/11/21 00:02 DC 08/11/21 02:25 Potassium Chloride/Water 100 ml @ 50 mls/hr 1X ONCE IV 08/11/21 00:15 08/11/21 02:14 DC 08/11/21 02:33 Bumetanide (Bumex) 2 mg [id number] IV 08/11/21 00:15 08/11/21 11:22 Aspirin (Ecotrin) 81 mg DAILYWBKFT PO 08/11/21 08:00 08/11/21 11:20 Potassium Chloride (Klor-Con) 40 meq DAILYWBKFT PO 08/11/21 08:00 08/11/21 11:21 Sacubitril/ Valsartan (Entresto 24 Mg-26 Mg) 1 tab BID PO 08/11/21 09:00 08/11/21 11:40 Spironolactone (Aldactone) 25 mg DAILY PO 08/11/21 09:00 08/11/21 11:21 Glimepiride (Amaryl) 4 mg DAILY08 PO 08/11/21 08:00 08/11/21 11:21 Pantoprazole Sodium (Protonix) 40 mg DAILYAC PO 08/11/21 07:30 08/11/21 11:20 Insulin Human Lispro (HumaLOG) 0-7 UNITS TIDWMEALS SQ 08/11/21 08:00 08/11/21 12:20 ALLERGIES ALLERGIES: Coded Allergies: No Known Drug Allergies (Unverified , 03/22/20) ROS Review of System 14 point ROS conducted with pertinent positives noted above in HPI PHYSICAL EXAM PHYSICAL EXAM General: Alert, Oriented X3, Cooperative, mild distress HEENT: Atraumatic, Mucous membr. moist/pink Lungs: Other (diminished) Heart: Regular rate (SR), Normal S1, Normal S2, Other (distant heart sounds) Abdomen: Soft, No tenderness Extremities: No cyanosis, Other (1+ bilateral LE edema) Neuro: Normal speech, Sensation intact Psych/Mental Status: Mental status NL, Mood NL MUSCULOSKELETAL: Osteoarthritic changes both hands VITALS/I&O VITALS/I&O: Vital Signs Date Time Temp Pulse Resp B/P (MAP) Pulse Ox O2 Delivery O2 Flow Rate FiO2 08/11/21 11:40 98 108/78 08/11/21 11:00 97.5 28 96 Nasal Cannula 4.0 97.5 I & O 08/10/21 08/10/21 08/11/21 15:00 23:00 07:00 Intake Total 600 ml Output Total 650 ml Balance -50 ml LABS Lab: Laboratory Tests Test 08/10/21 23:15 08/10/21 23:23 08/11/21 07:55 08/11/21 12:14 SARS-CoV-2 RNA (KIMO) Negative (Negative) SARS-CoV-2 Antigen (Rapid) Negative (NEGATIVE) White Blood Count 8.4 x10^3/uL (4.0-11.0) Red Blood Count 5.49 x10^6/uL (4.30-5.70) Hemoglobin 15.7 g/dL (13.0-17.5) Hematocrit 46.5 % (39.0-53.0) Mean Corpuscular Volume 85 fL (79-100) Mean Corpuscular Hemoglobin 29 pg (25-35) Mean Corpuscular Hemoglobin Concent 34 g/dL (31-37) Red Cell Distribution Width 17.8 % (11.5-14.5) H Platelet Count 272 x10^3/uL (140-400) Neutrophils (%) (Auto) 73 % (31-73) Lymphocytes (%) (Auto) 16 % (24-48) L Monocytes (%) (Auto) 9 % (0-9) Eosinophils (%) (Auto) 1 % (0-3) Basophils (%) (Auto) 1 % (0-3) Neutrophils # (Auto) 6.1 x10^3/uL (1.8-7.7) Lymphocytes # (Auto) 1.3 x10^3/uL (1.0-4.8) Monocytes # (Auto) 0.8 x10^3/uL (0.0-1.1) Eosinophils # (Auto) 0.1 x10^3/uL (0.0-0.7) Basophils # (Auto) 0.1 x10^3/uL (0.0-0.2) Sodium Level 140 mmol/L (136-145) 137 mmol/L (136-145) Potassium Level 3.3 mmol/L (3.5-5.1) L 4.0 mmol/L (3.5-5.1) Chloride Level 103 mmol/L (98-107) 104 mmol/L (98-107) Carbon Dioxide Level 23 mmol/L (21-32) 23 mmol/L (21-32) Anion Gap 14 (6-14) 10 (6-14) Blood Urea Nitrogen 14 mg/dL (8-26) 13 mg/dL (8-26) Creatinine 0.9 mg/dL (0.7-1.3) 0.7 mg/dL (0.7-1.3) Estimated GFR (Cockcroft-Gault) 87.9 117.5 BUN/Creatinine Ratio 16 (6-20) Glucose Level 116 mg/dL (70-99) H 118 mg/dL (70-99) H Calcium Level 9.1 mg/dL (8.5-10.1) 8.6 mg/dL (8.5-10.1) Total Bilirubin 1.6 mg/dL (0.2-1.0) H Aspartate Amino Transferase (AST) 15 U/L (15-37) Alanine Aminotransferase (ALT) 20 U/L (16-63) Alkaline Phosphatase 125 U/L (46-116) H Troponin I Quantitative < 0.017 ng/mL (0.000-0.055) BN-Jxv-T-Type Natriuretic Peptide 6174 pg/mL (0-124) H Total Protein 7.3 g/dL (6.4-8.2) Albumin 3.6 g/dL (3.4-5.0) Albumin/Globulin Ratio 1.0 (1.0-1.7) Glucose (Fingerstick) 158 mg/dL (70-99) H Laboratory Tests 08/10/21 23:23 Laboratory Tests 08/10/21 23:23 08/11/21 07:55 ECHOCARDIOGRAM ECHOCARDIOGRAM <Conclusion> The left ventricular systolic function is severely impaired. The Ejection Fraction is 15%. Trace mitral regurgitation. Moderate tricuspid regurgitation with an estimated PAP of 44 mmHg. There is no evidence of significant pericardial effusion. DATE: 10/13/20 [id number] 0 HEART CATH HEART CATH FINDINGS 1. Hemodynamics: Significantly elevated left ventricular end-diastolic pressure of 47 mmHg consistent with acute on chronic systolic heart failure. No pullback gradient across the aortic valve. 2. Coronary angiography: a. The left main coronary artery arose from the left sinus of Valsalva, gave rise to the left anterior descending and left circumflex arteries and did not show any significant stenosis. b. The left anterior descending artery showed 50% stenosis in the mid to distal segment. The diagonal branch is a small to medium caliber vessel showed 70% long stenosis involving the proximal to mid segment. c. The left circumflex artery showed 30% stenosis involving a large caliber obtuse marginal branch. d. The right coronary artery was a large and dominant vessel arising from the right sinus of Valsalva that showed 40% stenosis involving the distal segment. Conclusion 1. 70% long stenosis involving the proximal to mid segment of a small to medium caliber diagonal branch. No significant lesions needing intervention were not ed. 2. Acute on chronic systolic heart failure as evidenced by elevated LVEDP of 47 mmHg. Recommendations Optimization of medical therapy for nonischemic cardiomyopathy and repeat 2D echo in 3 months to evaluate the need for AICD implantation. DATE: 10/25/20 [id number] 0 ASSESSMENT/PLAN ASSESSMENT/PLAN 1. Acute on chronic diastolic/systolic CHF; improved s/o IV diuresis 2. Severe NICM; EF at 15%. s/p AICD (Biotronik). device interrogation 06/04 with normal function. No AFIB or VT/VF noted. Brief period of bradycardia on tele. appears to be v-paced 3. CAD; cath 11/04 with small vessel disease on diagonal branch, otherwise no intervenable lesions noted. CP free. 4. COPD; clinically stable 5. Hypertension; controlled 6. Diabetes, II 7. Hyperlipidemia; statin Recommendations Diuresis with monitoring of renal function HF optimization with Entresto, Toprol, Aldactone, Bumex. Will decrease Toprol with hypotension 2Gm Na diet. 2000cc FR Device interrogation Supportive care MINO MELVIN MD 08/11/215: CARDIAC CONSULT ASSESSMENT/PLAN ASSESSMENT/PLAN Patient seen and examined. Agree with CALL CENTER SPECIALIST's assessment and plan Ac on chr systolic HF better compensated Agree with cutting down on BB dose secondary to radha/hypotension Recent ICD interrogation normal CAD status clinically stable Thank you for your consultation. KALPESH LAYNE APRN Aug 11, 2021 13:59 MINO MELVIN MD Aug 11, 2021 21:05
[2021-08-11] MEDS: HEPARIN for SUB-Q USE 5,000 UNIT/ML VIAL. SQ SCH ×2 (15:39→21:54)
[2021-08-11] MEDS ORDERED: ATORVASTATIN CALCIUM 40 MG TABLET. PO SCH (21:00)
[2021-08-11 23:23] LABS: HEMOGLOBIN A1C 7.4 % (4.8-5.6)
[2021-08-12 03:00] VITALS: BP 98/73
[2021-08-12 05:44] LABS: CALCIUM 8.7 mg/dL (8.5-10.1); CREATININE 0.9 mg/dL (0.7-1.3); GFR 87.9; POTASSIUM 3.2 mmol/L (3.5-5.1)
[2021-08-12] MEDS: HEPARIN for SUB-Q USE 5,000 UNIT/ML VIAL. SQ SCH (05:54)
[2021-08-12] MEDS: PANTOPRAZOLE 40 MG TABLET.DR. PO SCH (05:54)
[2021-08-12 07:00] VITALS: BP 105/78
--- NOTE | 2021-08-12 07:45 | PDOC ---
[employer] PROGRESS NOTE Date of Service DOS: DATE: 08/12/21 TIME: 07:31 Chief Complaint Chief Complaint Acute respiratory failure with hypoxia Systolic CHF exacerbation Hypokalemia CAD COPD DM2 Plan: We will continue diuresis with IV Bumex; stable will transition to oral Bumex. Closely monitor daily I's & O's, with 1 L fluid restriction daily Consultation placed to cardiology Supportive care with oxygen as needed Cardiogram from 01/19/2021 showed mildly dilated left ventricle with severely impaired EF at 15% We will obtain hemoglobin A1c; MDSS insulin. Resume home medications FEN - Cardiac diet PPX - Heparin FULL CODE Dispo - inpatient for above History of Present Illness History of Present Illness Patient is a 55-year-old male with past medical history COPD, systolic CHF, presents to the ED with complaints of shortness of breath and worsening bilateral lower extremity edema over the past 4 days. He states his symptoms are worse with exertion. He reports associated orthopnea and cough productive of white sputum. States he has been taking all his medications as prescribed. His symptoms have been limiting his ability to perform activities of daily living. He denies any fever, chills, or sick contacts. He has been fully vaccinated against COVID-19. Upon arrival in the ED he was tachycardic and tachypneic. Labs on admission showed WBC 8.4, potassium 3.3, CBG 116, BNP 6174, troponin <0.017. Chest x-ray showed increased moderate left pleural effusion, and unchanged cardiomegaly and diffuse interstitial opacities, likely due to pulmonary edema. He was treated with IV Bumex and potassium replacement; placed on 2 L nasal cannula with some improvement. Will need patient further medical management. 08/12: Patient currently breathing comfortably on room air. -2985 mL fluid off overnight. Will follow cardiology recommendations; ICD interrogation. Metoprolol has been decreased due to some relative hypotension. Hemoglobin A1c 7.5. Patient feels he understands how he got some fluid overloaded; states he ate a bunch of beef jerky provided by one of his friends with high salt content. Will transition IV Bumex to oral Bumex. Possible discharge today after seen by cardiology. Discussed with RN. Vitals/I&O Vitals/I&O: Vital Signs Date Time Temp Pulse Resp B/P (MAP) Pulse Ox O2 Delivery O2 Flow Rate FiO2 08/12/21 03:00 97.5 84 22 98/73 (81) 97 Nasal Cannula 4.0 97.5 I & O 08/11/21 08/11/21 08/12/21 15:00 23:00 07:00 Intake Total 500 ml 420 ml 120 ml Output Total 1550 ml 2100 ml 375 ml Balance -1050 ml -1680 ml -255 ml Physical Exam General: Alert, Oriented X3, Cooperative Heart: Regular rate Lungs: Clear Abdomen: Soft Extremities: No clubbing, No cyanosis Skin: No rashes, No breakdown Labs Labs: Laboratory Tests Test 08/11/21 07:55 08/11/21 12:14 08/11/21 20:27 08/12/21 04:30 Sodium Level 137 mmol/L (136-145) 139 mmol/L (136-145) Potassium Level 4.0 mmol/L (3.5-5.1) 3.2 mmol/L (3.5-5.1) Chloride Level 104 mmol/L (98-107) 104 mmol/L (98-107) Carbon Dioxide Level 23 mmol/L (21-32) 25 mmol/L (21-32) Anion Gap 10 (6-14) 10 (6-14) Blood Urea Nitrogen 13 mg/dL (8-26) 15 mg/dL (8-26) Creatinine 0.7 mg/dL (0.7-1.3) 0.9 mg/dL (0.7-1.3) Estimated GFR (Cockcroft-Gault) 117.5 87.9 Glucose Level 118 mg/dL (70-99) 104 mg/dL (70-99) Hemoglobin A1c 7.4 % (4.8-5.6) Calcium Level 8.6 mg/dL (8.5-10.1) 8.7 mg/dL (8.5-10.1) Magnesium Level 2.1 mg/dL (1.8-2.4) Glucose (Fingerstick) 158 mg/dL (70-99) 136 mg/dL (70-99) Assessment and Plan Assessmemt and Plan Problems Medical Problems: (1) CHF exacerbation Status: Acute (2) Respiratory failure with hypoxia Status: Acute Comment Review of Relevant I have reviewed the following items gorge (where applicable) has been applied. Medications: Current Medications Medications (Trade) Dose Ordered Sig/Gus Route PRN Reason Start Time Stop Time Status Last Admin Dose Admin Aspirin (Ecotrin) 81 mg DAILYWBKFT PO 08/11/21 08:00 08/11/21 11:20 Atorvastatin Calcium (Lipitor) 40 mg QHS PO 08/11/21 21:00 08/11/21 21:05 Potassium Chloride (Klor-Con) 40 meq DAILYWBKFT PO 08/11/21 08:00 08/11/21 11:21 Sacubitril/ Valsartan (Entresto 24 Mg-26 Mg) 1 tab BID PO 08/11/21 09:00 08/11/21 21:06 Spironolactone (Aldactone) 25 mg DAILY PO 08/11/21 09:00 08/11/21 11:21 Glimepiride (Amaryl) 4 mg DAILY08 PO 08/11/21 08:00 08/11/21 11:21 Insulin Human Lispro (HumaLOG) 0-7 UNITS TIDWMEALS SQ 08/11/21 08:00 08/11/21 12:20 Heparin Sodium (Porcine) (Heparin Sodium) 5,000 unit Q8HRS SQ 08/11/21 14:00 08/12/21 05:54 Justifications for Admission General Conditions Other justification for admit: Acute respiratory failure, systolic CHF exacerbation Other Justification Acute CHF exacerbation, scrotal edema SERG HURST MD Aug 12, 2021 07:44
[2021-08-12] MEDS: INSULIN LISPRO 300 UNITS/3 ML VIAL. SQ SCH ×2 (08:00→12:00)
[2021-08-12] MEDS: ASPIRIN ENTERIC COATED 81 MG TABLET.DR. PO SCH (08:47)
[2021-08-12] MEDS: POTASSIUM CHLORIDE 20 MEQ TABLET.ER. PO SCH (08:48)
[2021-08-12] MEDS: GLIMEPIRIDE 2 MG TABLET. PO SCH (08:48)
[2021-08-12] MEDS: SACUBITRIL/VALSARTAN 24/26MG TABLET. PO SCH (08:48)
[2021-08-12] MEDS: BUMETANIDE 1 MG/4 ML VIAL. IV SCH (08:48)
[2021-08-12] MEDS: SPIRONOLACTONE 25 MG TABLET PO SCH (08:49)
[2021-08-12] MEDS ORDERED: OMEGA-3 FATTY ACIDS/FISH OIL 1,000 MG CAPSULE. PO SCH (09:00)
[2021-08-12] MEDS ORDERED: METOPROLOL SUCC 24HR ER 50 MG TAB.ER.24H. PO SCH (09:00)
[2021-08-12 11:00] VITALS: BP 132/65
[2021-08-12] MEDS ORDERED: POTASSIUM CHLORIDE 20 MEQ TABLET.ER. PO ONE (12:45)
[2021-08-12] MEDS ORDERED: BUMETANIDE 1 MG/4 ML VIAL. IV ONE (12:45)
--- NOTE | 2021-08-12 12:53 | PDOC ---
DAKOTA PERAZA RESPIRATORY MEDICINE PHYSICIAN 08/12/21 1253: CARDIO Progress Notes Date and Time Date of Service 08/12/2021 Time of Evaluation 1230 Subjective Subjective: No Chest Pain, No shortness of breath, No Palpitations Vitals Vitals Vital Signs Date Time Temp Pulse Resp B/P (MAP) Pulse Ox O2 Delivery O2 Flow Rate FiO2 08/12/21 11:00 98.3 7 20 132/65 (87) 98 Room Air 98.3 08/12/21 08:00 4.0 Weight Weight [ ] Input and Output Intake and Output Intake and Output 08/12/21 07:00 Intake Total 1040 ml Output Total 4025 ml Balance -2985 ml Intake Oral 1040 ml Output Urine Total 4025 ml # Voids 3 # Bowel Movements 1 Laboratory Labs Laboratory Tests Test 08/11/21 20:27 08/12/21 04:30 08/12/21 08:38 Glucose (Fingerstick) 136 mg/dL (70-99) 100 mg/dL (70-99) Sodium Level 139 mmol/L (136-145) Potassium Level 3.2 mmol/L (3.5-5.1) Chloride Level 104 mmol/L (98-107) Carbon Dioxide Level 25 mmol/L (21-32) Anion Gap 10 (6-14) Blood Urea Nitrogen 15 mg/dL (8-26) Creatinine 0.9 mg/dL (0.7-1.3) Estimated GFR (Cockcroft-Gault) 87.9 Glucose Level 104 mg/dL (70-99) Calcium Level 8.7 mg/dL (8.5-10.1) Physical Exam HEENT: Neck Supple W Full Motion Chest: Symmetric LUNGS: Other (diminished bases) Heart: RRR (SR) Abdomen: Soft N/T Extremities: No Calf Tenderness Neurology: alert, oriented, follow commands Assessment Assessment 1. Acute on chronic diastolic/systolic CHF; compensated, likely from high Na intake 2. Severe NICM; EF at 15%. s/p AICD (Biotronik). device interrogation revealed normal function with no significant arrhythmias. 3. CAD; cath 11/04 with small vessel disease on diagonal branch, otherwise no intervenable lesions noted. CP free. 4. COPD; clinically stable 5. Hypertension; controlled 6. Diabetes, II 7. Hyperlipidemia; statin Recommendations Bumex therapy. IV dose x1 this afternoon then home with PO bumex. HF optimization with Entresto, Toprol (50 mg), Aldactone 2Gm Na diet. 2000cc FR, daily wt Follow up in office Home health Justicifation of Admission Dx: Justifications for Admission: Justification of Admission Dx: No Respiratory Failure: Severe Resp Distress MINO MELVIN MD 08/12/21 1358: CARDIO Progress Notes Assessment Assessment Patient seen and examined. Agree with TECHNICAL RESEARCH SCIENTIST's assessment and plan Ac on chr systolic HF better compensated. Change Bumex to p.o. today. Recent ICD interrogation normal CAD status clinically stable Follow-up with our office as scheduled. DAKOTA PERAZA APRN Aug 12, 2021 12:53 MINO MELVIN MD Aug 12, 2021 13:58
--- NOTE | 2021-08-12 13:55 | PDOC3 ---
Discharge Summary Visit Information Date of Admission: Aug 11, 2021 Date of Discharge: Aug 12, 2021 Final Diagnosis Problems Medical Problems: (1) CHF exacerbation Status: Acute (2) Respiratory failure with hypoxia Status: Acute Brief Hospital Course Allergies Allergies Coded Allergies Type Severity Reaction Last Updated Verified No Known Drug Allergies 03/22/20 No Vital Signs Vital Signs Date Time Temp Pulse Resp B/P (MAP) Pulse Ox O2 Delivery O2 Flow Rate FiO2 08/12/21 11:00 98.3 7 20 132/65 (87) 98 Room Air 98.3 08/12/21 08:00 4.0 Lab Results Laboratory Tests Test 08/10/21 23:15 08/10/21 23:23 08/11/21 07:55 08/11/21 12:14 SARS-CoV-2 RNA (KIMO) Negative (Negative) SARS-CoV-2 Antigen (Rapid) Negative (NEGATIVE) White Blood Count 8.4 x10^3/uL (4.0-11.0) Red Blood Count 5.49 x10^6/uL (4.30-5.70) Hemoglobin 15.7 g/dL (13.0-17.5) Hematocrit 46.5 % (39.0-53.0) Mean Corpuscular Volume 85 fL (79-100) Mean Corpuscular Hemoglobin 29 pg (25-35) Mean Corpuscular Hemoglobin Concent 34 g/dL (31-37) Red Cell Distribution Width 17.8 % (11.5-14.5) Platelet Count 272 x10^3/uL (140-400) Neutrophils (%) (Auto) 73 % (31-73) Lymphocytes (%) (Auto) 16 % (24-48) Monocytes (%) (Auto) 9 % (0-9) Eosinophils (%) (Auto) 1 % (0-3) Basophils (%) (Auto) 1 % (0-3) Neutrophils # (Auto) 6.1 x10^3/uL (1.8-7.7) Lymphocytes # (Auto) 1.3 x10^3/uL (1.0-4.8) Monocytes # (Auto) 0.8 x10^3/uL (0.0-1.1) Eosinophils # (Auto) 0.1 x10^3/uL (0.0-0.7) Basophils # (Auto) 0.1 x10^3/uL (0.0-0.2) Sodium Level 140 mmol/L (136-145) 137 mmol/L (136-145) Potassium Level 3.3 mmol/L (3.5-5.1) 4.0 mmol/L (3.5-5.1) Chloride Level 103 mmol/L (98-107) 104 mmol/L (98-107) Carbon Dioxide Level 23 mmol/L (21-32) 23 mmol/L (21-32) Anion Gap 14 (6-14) 10 (6-14) Blood Urea Nitrogen 14 mg/dL (8-26) 13 mg/dL (8-26) Creatinine 0.9 mg/dL (0.7-1.3) 0.7 mg/dL (0.7-1.3) Estimated GFR (Cockcroft-Gault) 87.9 117.5 BUN/Creatinine Ratio 16 (6-20) Glucose Level 116 mg/dL (70-99) 118 mg/dL (70-99) Calcium Level 9.1 mg/dL (8.5-10.1) 8.6 mg/dL (8.5-10.1) Total Bilirubin 1.6 mg/dL (0.2-1.0) Aspartate Amino Transf (AST/SGOT) 15 U/L (15-37) Alanine Aminotransferase (ALT/SGPT) 20 U/L (16-63) Alkaline Phosphatase 125 U/L (46-116) Troponin I Quantitative < 0.017 ng/mL (0.000-0.055) ZC-Iox-D-Type Natriuretic Peptide 6174 pg/mL (0-124) Total Protein 7.3 g/dL (6.4-8.2) Albumin 3.6 g/dL (3.4-5.0) Albumin/Globulin Ratio 1.0 (1.0-1.7) Hemoglobin A1c 7.4 % (4.8-5.6) Magnesium Level 2.1 mg/dL (1.8-2.4) Glucose (Fingerstick) 158 mg/dL (70-99) Test 08/11/21 20:27 08/12/21 04:30 08/12/21 08:38 Glucose (Fingerstick) 136 mg/dL (70-99) 100 mg/dL (70-99) Sodium Level 139 mmol/L (136-145) Potassium Level 3.2 mmol/L (3.5-5.1) Chloride Level 104 mmol/L (98-107) Carbon Dioxide Level 25 mmol/L (21-32) Anion Gap 10 (6-14) Blood Urea Nitrogen 15 mg/dL (8-26) Creatinine 0.9 mg/dL (0.7-1.3) Estimated GFR (Cockcroft-Gault) 87.9 Glucose Level 104 mg/dL (70-99) Calcium Level 8.7 mg/dL (8.5-10.1) Laboratory Tests Test 08/11/21 20:27 08/12/21 04:30 08/12/21 08:38 Glucose (Fingerstick) 136 mg/dL (70-99) 100 mg/dL (70-99) Sodium Level 139 mmol/L (136-145) Potassium Level 3.2 mmol/L (3.5-5.1) Chloride Level 104 mmol/L (98-107) Carbon Dioxide Level 25 mmol/L (21-32) Anion Gap 10 (6-14) Blood Urea Nitrogen 15 mg/dL (8-26) Creatinine 0.9 mg/dL (0.7-1.3) Estimated GFR (Cockcroft-Gault) 87.9 Glucose Level 104 mg/dL (70-99) Calcium Level 8.7 mg/dL (8.5-10.1) Brief Hospital Course Mr. Glass is a 55 old male who presented with acute respiratory failure with hypoxia, acute CHF exacerbation. Consultation was placed to cardiology. He received aggressive diuresis with IV Bumex, and fluid restriction. It was deemed his CHF exacerbation was secondary to excessive sodium intake, as patient has been compliant with his home medications. Echocardiogram from 01/19/2021 showed mildly dilated left ventricle with severely impaired EF at 15%. He has Toprol-XL was decreased due to relative bradycardia and hypotension. After IV diuresis he was stable to discharge back on his home medications and follow-up with cardiology outpatient. Recommended 2 g sodium diet, 2 L fluid restriction. Discharge Information Condition at Discharge: Improved Disposition/Orders: D/C to Home Scheduled Aspirin (Aspirin Ec) 81 Mg Tablet., [facility], #30 Prescribed by: TRACY WATERMAN MD on 10/14/20952 Last Action: Continued on 08/11/21630 by SERG HURST MD Atorvastatin Calcium (Atorvastatin Calcium) 40 Mg Tablet, 1 TAB PO QHS for HLD, #90 Ref 3 (Reported) Entered as Reported by: ALAYNA GOODMAN RN on 03/22/201126 Last Action: Continued on 08/11/21630 by SERG HURST MD Bumetanide (Bumetanide) 1 Mg Tablet, 1 TAB PO BID for , #60 Ref 1 Prescribed by: SERG HURST MD on 12/03/201658 Dapagliflozin Propanediol (Farxiga) 10 Mg Tablet, 10 MG PO BID for unknown, (Reported) Entered as Reported by: ALAYNA GOODMAN RN on 03/22/201126 Glimepiride (Glimepiride) 4 Mg Tablet, 1 TAB PO DAILY for DM, #30 Ref 5 (Reported) Entered as Reported by: ALAYNA GOODMAN RN on 03/22/201126 Last Action: Converted on 08/11/21630 by SERG HURST MD Icosapent Ethyl (Vascepa) 0.5 Gm Capsule, 1 CAP PO BID for unknown for 30 Days, #60 Ref 0 (Reported) Entered as Reported by: ALAYNA GOODMAN RN on 03/22/201126 Last Action: Converted on 08/11/21630 by SERG HURST MD Metoprolol Succinate (Metoprolol Succinate ( Xl )) 100 Mg Tab.er.24h, 1 TAB PO DAILY for HTN, #30 Ref 5 (Reported) Entered as Reported by: ALAYNA GOODMAN RN on 03/22/201126 Omeprazole (Omeprazole) 20 Mg Tablet.dr, 1 TAB PO DAILY for stomach, #90 Ref 1 (Reported) Entered as Reported by: ALAYNA GOODMAN RN on 03/22/201126 Last Action: Converted on 08/11/21630 by SERG HURST MD Potassium Chloride (Klor-Con M20) 20 Meq Tab.er.prt, 40 MEQ PO DAILYWBKFT for Hypokalemia, #30 Ref 1 Prescribed by: SERG HURST MD on 12/03/201658 Last Action: Continued on 08/11/21630 by SERG HURST MD Sacubitril/Valsartan (Entresto 24 mg-26 mg Tablet) 1 Each Tablet, 1 TAB PO BID for CHF, #60 Ref 1 Prescribed by: SERG HURST MD on 12/03/20 2689 Last Action: Continued on 08/11/21630 by SERG HURST MD Spironolactone (Aldactone) 25 Mg Tablet, 25 MG PO DAILY for heart for 30 Days, #30 Prescribed by: TRACY WATERMAN MD on 10/14/20952 Last Action: Continued on 08/11/21630 by SERG HURST MD Scheduled PRN Acetaminophen (Tylenol) 325 Mg Tablet, 650 MG PO PRN Q4HRS PRN for TEMP OVER 100.4F OR MILD PAIN for 30 Days, #60 Prescribed by: TRACY WATERMAN MD on 10/14/20952 Albuterol Sulfate (Proair Hfa) 8.5 Gm Hfa.aer.ad, 2.5 MG NEB PRN Q4HRS PRN for SHORTNESS OF BREATH for 30 Days, #1 Ref 1 Prescribed by: YENY MENDOZA MD on 03/23/20 1534 Last Action: Continued on 08/11/21630 by SERG HURST MD Docusate Sodium (Dok) 100 Mg Capsule, 100 MG PO PRN DAILY PRN for HARD STOOLS for 30 Days, #60 Prescribed by: TRACY WATERMAN MD on 10/14/20952 Last Action: Continued on 08/11/21630 by SERG HURST MD Justicifation of Admission Dx: Justifications for Admission: Justification of Admission Dx: No Respiratory Failure: Severe Resp Distress SERG HURST MD Aug 12, 2021 13:55
[2021-08-12] MEDS ORDERED: METO50TA4 PO (13:58)
[2021-08-12] MEDS ORDERED: BUMETANIDE 1 MG TABLET. PO SCH (14:00)
== END 2021-08-12 14:20 | disposition home or self-care (01) | DRG 291 ==
LOC: ER 22:36 → 1 WEST ICU 08-11 00:22
PROVIDERS: ADMIT Family Medicine; ATTEND Family Medicine
DX: I11.0 Hypertensive heart disease with heart failure (principal); I50.43 Acute on chronic combined systolic (congestive) and diastolic (congestive) heart failure; J96.01 Acute respiratory failure with hypoxia; I42.8 Other cardiomyopathies; E11.9 Type 2 diabetes mellitus without complications; E78.00 Pure hypercholesterolemia, unspecified; E78.5 Hyperlipidemia, unspecified; E87.6 Hypokalemia; I25.10 Atherosclerotic heart disease of native coronary artery without angina pectoris; K21.9 Gastro-esophageal reflux disease without esophagitis; M19.90 Unspecified osteoarthritis, unspecified site; Z20.822 Contact with and (suspected) exposure to COVID-19; J44.9 Chronic obstructive pulmonary disease, unspecified; Z79.84 Long term (current) use of oral hypoglycemic drugs; Z79.899 Other long term (current) drug therapy; Z82.49 Family history of ischemic heart disease and other diseases of the circulatory system; Z87.891 Personal history of nicotine dependence; Z95.810 Presence of automatic (implantable) cardiac defibrillator
CPT/HCPCS: 36415; 71045; 80048; 80053; 82962; 83036; 83735; 83880; 84484; 85025; 87426; 93005; 96374; J1644; J1815; J3480; J3490; U0003; U0005; 99285-25; G0378

== ENCOUNTER 2021-09-13 04:05 | Inpatient (IN) | payer BC ==
[~2021-09-13] VITALS: Ht 175.3 cm; Wt 75.2 kg
[~2021-09-13 04:05] MED LIST changes: +METO50TA4 PO
--- NOTE | 2021-09-13 04:32 | PHYS DOC ---
Past Medical History Past Medical History: COPD, Diabetes-Type II, High Cholesterol, Hypertension Past Surgical History: Other Additional Past Surgical Histo: defib Smoking Status: Current Every Day Smoker Alcohol Use: None General Adult EDM: Chief Complaint: SHORTNESS OF BREATH HPI: HPI: Patient is a 55 year old male presents with the chief complaint of shortness of breath and leg swelling. Patient states sob sudden onset tonight- 2000hrs. Progressively worse since onset. States leg swelling on and off for several weeks but worse over the last few days. Dyspnea on exertion. Denies chest pain. Review of Systems: Review of Systems: Constitutional: Denies fever or chills. [] Eyes: Denies change in visual acuity. [] HENT: Denies nasal congestion or sore throat. [] Respiratory: positive shortness of breath. [] Cardiovascular: Denies chest pain positive leg edema. [] GI: Denies abdominal pain, nausea, vomiting, bloody stools or diarrhea. [] : Denies dysuria. [] Musculoskeletal: Denies back pain or joint pain. [] Integument: Denies rash. [] Neurologic: Denies headache, focal weakness or sensory changes. [] Endocrine: Denies polyuria or polydipsia. [] Lymphatic: Denies swollen glands. [] Psychiatric: Denies depression or anxiety. [] Heart Score: C/O Chest Pain: N/A Risk Factors: Risk Factors: DM, Current or recent (<one month) smoker, HTN, HLP, family history of CAD, obesity. Risk Scores: Score 0 - 3: 2.5% MACE over next 6 weeks - Discharge Home Score 4 - 6: 20.3% MACE over next 6 weeks - Admit for Clinical Observation Score 7 - 10: 72.7% MACE over next 6 weeks - Early Invasive Strategies Allergies: Allergies: Allergies Coded Allergies Type Severity Reaction Last Updated Verified No Known Drug Allergies 03/22/20 No Physical Exam: PE: Constitutional: Well developed, well nourished, no acute distress, non-toxic appearance. [] HENT: Normocephalic, atraumatic, bilateral external ears normal, oropharynx mo ist, no oral exudates, nose normal. [] Eyes: PERRLA, EOMI, conjunctiva normal, no discharge. [] Neck: Normal range of motion, no tenderness, supple, no stridor. [] Cardiovascular:Heart rate regular rhythm, no murmur [] Lungs & Thorax: Bilateral breath sounds clear to auscultation [] Abdomen: Bowel sounds normal, soft, no tenderness, no masses, no pulsatile masses. [] Skin: Warm, dry, no erythema, no rash. [] Back: No tenderness, no CVA tenderness. [] Extremities: No tenderness, no cyanosis, no clubbing, ROM intact, bilateral edema lower extremities [] Neurologic: Alert and oriented X 3, normal motor function, normal sensory function, no focal deficits noted. [] Psychologic: Affect normal, judgement normal, mood normal. [] Current Patient Data: Vital Signs: Vital Signs Date Time Temp Pulse Resp B/P (MAP) Pulse Ox O2 Delivery O2 Flow Rate FiO2 09/13/21 04:19 97.4 115 30 138/99 (112) 95 Room Air 97.4 EKG: EKG: [] Performed at 0437 Rate [address] elevation No ST depression No acute AL Radiology/Procedures: Radiology/Procedures: [] Course & Med Decision Making: Course & Med Decision Making Pertinent Labs and Imaging studies reviewed. (See chart for details) [] Patient treated with Lasix. Also received a dose of Tamiflu. Dragon Disclaimer: [employer] Disclaimer: This electronic medical record was generated, in whole or in part, using a voice recognition dictation system. Departure Departure Impression: Primary Impression: Dyspnea Additional Impressions: CHF (congestive heart failure) Flu Disposition: ADMITTED INPATIENT Admitting Physician: FRANDY JACOBSEN DO Sep 13, 2021 04:32
[2021-09-13 04:43] LABS: BASO # 0.1 x10^3/uL (0.0-0.2); BASO % 1 % (0-3); EOS % 0 % (0-3); HEMATOCRIT 52.8 % (39.0-53.0); HEMOGLOBIN 17.3 g/dL (13.0-17.5); LYMPH # 1.3 x10^3/uL (1.0-4.8); LYMPH % 14 % (24-48); MEAN CORPUSCULAR HEMOGLOBIN 28 pg (25-35); MEAN CORPUSCULAR HGB CONC 33 g/dL (31-37); MEAN CORPUSCULAR VOLUME 85 fL (79-100); MONO # 0.9 x10^3/uL (0.0-1.1); MONO % 9 % (0-9); NEUT # 7.2 x10^3/uL (1.8-7.7); NEUT % 76 % (31-73); PLATELET COUNT 272 x10^3/uL (140-400); RED BLOOD COUNT 6.18 x10^6/uL (4.30-5.70); RED CELL DISTRIBUTION WIDTH 18.2 % (11.5-14.5); WHITE BLOOD COUNT 9.4 x10^3/uL (4.0-11.0)
[2021-09-13 04:50] LABS: CALCIUM 9.2 mg/dL (8.5-10.1); CREATININE 1.1 mg/dL (0.7-1.3); GFR 69.8; POTASSIUM 4.7 mmol/L (3.5-5.1)
[2021-09-13 04:56] LABS: ALBUMIN 3.4 g/dL (3.4-5.0); ALBUMIN/GLOBULIN RATIO 0.9 (1.0-1.7); TOTAL BILIRUBIN 1.9 mg/dL (0.2-1.0); TOTAL PROTEIN 7.3 g/dL (6.4-8.2)
[2021-09-13 05:19] LABS: INFLUENZA A PATIENT NEGATIVE (NEGATIVE)
--- NOTE | 2021-09-13 05:20 | RAD ---
EXAM: XR CHEST 1V 09/13/2021 4:40 AM CLINICAL INDICATION: Dyspnea COMPARISON: Chest radiograph 08/10/2021 TECHNIQUE: AP upright view of the chest FINDINGS: Single lead AICD is unchanged. The heart is enlarged. A moderate left pleural effusion is unchanged. Bilateral interstitial opacities are unchanged. No pleural effusion or pneumothorax. No ac grayling osseous abnormality. IMPRESSION: 1. Unchanged moderate left pleural effusion. 2. Unchanged cardiomegaly and mild mild diffuse interstitial opacities, likely related to pulmonary e giovanna Electronically signed by: Katiuska Overton MD (09/13/2021 5:18 AM) [facility]
[2021-09-13 05:28] LABS: INFLUENZA B PATIENT POSITIVE (NEGATIVE)
[2021-09-13] MEDS ORDERED: AZITHRMYCN 500MG IVPB FOR OMNI 250 ML IV ONE (05:30)
[2021-09-13] MEDS ORDERED: cefTRIAXone IV Push 1 GM VIAL. IVP ONE (05:30)
[2021-09-13] MEDS ORDERED: MORPHINE SULFATE 2 MG/ML INJ. IVP PRN (05:30)
[2021-09-13] MEDS ORDERED: FUROSEMIDE 40 MG/4 ML VIAL. IVP ONE ×2 (05:30→08:30)
[2021-09-13] MEDS ORDERED: ONDANSETRON PF 4 MG/2 ML VIAL. IVP PRN ×2 (05:30→08:30)
--- NOTE | 2021-09-13 05:58 | EKG ---
[facility] [address] [place] [address] Test Date: 2021-09-13 Test Time: 04:37:37 Pat Name: GUY MCCRACKEN Department: Room: Gender: Polysomnographic Tech: : 1965 Requested By: FRANDY MULTANI Order Number: [id number] Reading MD: Guevara Cole MD Measurements Intervals [place] Rate: 109 P: 118 [place]: 142 QRS: 8 QRSD: 90 T: 1 QT: 336 QTc: 454 Interpretive Statements SINUS TACHYCARDIA Electronically Signed On 09-13-2021 12:31:57 CHART WRITER by Guevara Cole MD
[2021-09-13] MEDS ORDERED: ELECTROLYTE (NON-ICU) PROTOCOL. MC PRN (08:30)
[2021-09-13] MEDS ORDERED: ACETAMINOPHEN 325 MG TABLET. PO PRN (08:30)
[2021-09-13] MEDS ORDERED: ZOLPIDEM 5 MG TABLET. PO PRN (08:30)
[2021-09-13] MEDS ORDERED: CALCIUM CARBONATE 500 MG TAB.CHEW PO PRN (08:30)
--- NOTE | 2021-09-13 08:46 | PDOC1 ---
History and Physical Date of Service: DOS: DATE: 09/13/21 TIME: 08:38 Chief Complaint: Chief Complain: Shortness of breath swelling History of Present Illness: HPI: Patient is a 55-year-old male presented to the emergency room overnight with swelling and shortness of breath. Patient has a known history of severe cardiomyopathy ejection fraction 15%. On guideline directed medical therapy for heart failure. Patient reports that about 10 days ago he had to attend a and forgot his medication. He says he was without his medication for about 2 days. Said when he got home he resumed his medications as normal but noticed that his legs were notably more swollen. Initially thought just resuming medications would resolve issue but he said he felt like fluid Building up to the point where he was getting short of breath then as well. He was having a little bit of dizziness with this as well. In emergency room chest x-ray did show pulmonary edema. Was given 40 IV Lasix and admitted to the hospital. Patient also incidentally flu positive started on Tamiflu. When I evaluated patient she is resting in bed. Is reporting ongoing swelling and shortness for breath but says it is definitely improved since last night. Denying any chest pain with all of this. Past Medical/Surgical History: PMH/PSH: COPD hypertension hyperlipidemia type 2 diabetes severe cardiomyopathy 15% EF Allergies: Allergies: Coded Allergies: No Known Drug Allergies (Unverified , 03/22/20) Family History: Family History: Hypertension, hyperlipidemia Social History: Social History: Daily tobacco smoker. Occasional alcohol use denies drug use Current Medications: Current Medications Current Medications Furosemide (Lasix) 40 mg 1X ONCE IVP Last administered on 09/13/21at 05:56; Start 09/13/21 at 05:30; Stop 09/13/21 at 05:31; Status DC Ceftriaxone Sodium (Rocephin) 1 gm 1X ONCE IVP Last administered on 09/13/21at 05:58; Start 09/13/21 at 05:30; Stop 09/13/21 at 05:31; Status DC Azithromycin 250 ml @ 250 mls/hr 1X ONCE IV Last administered on 09/13/21at 06:00; Start 09/13/21 at 05:30; Stop 09/13/21 at 06:29; Status DC Ondansetron HCl (Zofran) 4 mg PRN Q8HRS PRN IVP NAUSEA/VOMITING; Start 09/13/21 at 05:30; Stop 09/14/21 at 05:29 Morphine Sulfate (Morphine Sulfate) 2 mg PRN Q2HR PRN IVP PAIN; Start 09/13/21 at 05:30; Stop 09/14/21 at 05:29 Oseltamivir Phosphate (Tamiflu) 75 mg BID PO ; Start 09/13/21 at 09:00; Stop 09/18/21 at 08:59 Furosemide (Lasix) 40 mg 1X ONCE IVP ; Start 09/13/21 at 08:30; Stop 09/13/21 at 08:31; Status DC Aspirin (Ecotrin) 81 mg DAILYWBKFT PO ; Start 09/13/21 at 09:00 Atorvastatin Calcium (Lipitor) 40 mg QHS PO ; Start 09/13/21 at 21:00 Bumetanide (Bumex) 1 mg BID PO ; Start 09/13/21 at 09:00 Metoprolol Succinate (Toprol Xl) 50 mg DAILY PO ; Start 09/13/21 at 09:00 Spironolactone (Aldactone) 25 mg DAILY PO ; Start 09/13/21 at 09:00 Non-Formulary Medication (Dapagliflozin Propanediol (Farxiga)) 10 mg BID PO ; Start 09/13/21 at 09:00; Status UNV Non-Formulary Medication (Glimepiride ) 1 tab DAILY PO ; Start 09/13/21 at 09:00; Status UNV Pantoprazole Sodium (Protonix) 40 mg DAILYAC PO ; Start 09/13/21 at 07:30 Sacubitril/ Valsartan (Entresto 24 Mg-26 Mg) 1 tab BID PO ; Start 09/13/21 at 09:00 Ondansetron HCl (Zofran) 4 mg PRN Q6HRS PRN IVP NAUSEA/VOMITING; Start 09/13/21 at 08:30 Calcium Carbonate/ Glycine (Tums) 500 mg PRN Q3HRS PRN PO UPSET STOMACH; Start 09/13/21 at 08:30 Zolpidem Tartrate (Ambien) 5 mg PRN QHS PRN PO INSOMNIA, MAY REPEAT IN 1HR; Start 09/13/21 at 08:30 Info (Non-Icu Electrolyte Protocol) 1 ea PRN DAILY PRN MC SEE COMMENTS; Start 09/13/21 at 08:30 Acetaminophen (Tylenol) 650 mg PRN Q6HRS PRN PO Headaches, Temp > 101.5F; Start 09/13/21 at 08:30; Status UNV Senna/Docusate Sodium (Senna Plus) 1 tab BID PO ; Start 09/13/21 at 09:00; Status UNV Heparin Sodium (Porcine) (Heparin Sodium) 5,000 unit Q8HRS SQ ; Start 09/13/21 at 14:00; Status UNV Active Scripts Active Toprol XL (Metoprolol Succinate) 50 Mg Tab.er.24h 50 Mg PO DAILY Klor-Con M20 (Potassium Chloride) 20 Meq Tab.er.prt 40 Meq PO DAILYWBKFT Entresto 24 mg-26 mg Tablet (Sacubitril/Valsartan) 1 Each Tablet 1 Tab PO BID Bumetanide 1 Mg Tablet 1 Tab PO BID Dok (Docusate Sodium) 100 Mg Capsule 100 Mg PO PRN DAILY PRN 30 Days Tylenol (Acetaminophen) 325 Mg Tablet 650 Mg PO PRN Q4HRS PRN 30 Days Aspirin Ec (Aspirin) 81 Mg Tablet.dr 81 Mg PO DAILYWBKFT 30 Days Aldactone (Spironolactone) 25 Mg Tablet 25 Mg PO DAILY 30 Days Proair Hfa (Albuterol Sulfate) 8.5 Gm Hfa.aer.ad 2.5 Mg NEB PRN Q4HRS PRN 30 Days Reported Vascepa (Icosapent Ethyl) 0.5 Gm Capsule 1 Cap PO BID 30 Days Farxiga (Dapagliflozin Propanediol) 10 Mg Tablet 10 Mg PO BID Omeprazole 20 Mg Tablet.dr 1 Tab PO DAILY Atorvastatin Calcium 40 Mg Tablet 1 Tab PO QHS Glimepiride 4 Mg Tablet 1 Tab PO DAILY ROS: Review of Systems Review of System Unless noted in HPI 14 point review of systems was negative Physical Exam: Vital Signs: Vital Signs Date Time Temp Pulse Resp B/P (MAP) Pulse Ox O2 Delivery O2 Flow Rate FiO2 09/13/21 06:45 114 39 100/85 (90) 96 Nasal Cannula 2.0 09/13/21 04:19 97.4 97.4 Physcial Exam: GEN: No apparent distress. Alert and oriented HEENT: Normal cephalic, atraumatic, external auditory canals are patent EYES: Extraocular muscles are intact, pupil are equally round and reactive to light and accommodation MUSCULOSKELETAL: Well developed , well nourished, good range of motion ENDOCRINE: No thyromegaly was palpated LYMPHATICS: No cervical chain or axillary nodes were noted HEMATOPOIETIC: No bruising NECK: Supple, no JVD, no thyromegaly was noted LUNGS: Crackles in bibasilar lung alvarez HEART: RRR, S1, S2 present. Peripheral pulses intact, no obvious murmurs noted. Defibrillator in place on chest ABDOMEN: Soft, nontender. Positive bowel sounds, no organomegaly, normal bowel sounds EXTREMITIES: Bilateral pitting lower extremity edema. Legs are pretty red but not painful. NEUROLOGIC: Normal speech and tone. A&O x 3, moves all extremities, no obvious focal deficits PSYCHIATRIC: Normal affect, normal mood. Stable SKIN: No ulcerations or rashes, good skin turgor, no jaundice VASCULAR: Good capillary refill, neurovascular bundle appears to be intact Labs: Labs: Laboratory Tests Test 09/13/21 04:20 09/13/21 04:51 09/13/21 05:38 White Blood Count 9.4 x10^3/uL (4.0-11.0) Red Blood Count 6.18 x10^6/uL (4.30-5.70) Hemoglobin 17.3 g/dL (13.0-17.5) Hematocrit 52.8 % (39.0-53.0) Mean Corpuscular Volume 85 fL (79-100) Mean Corpuscular Hemoglobin 28 pg (25-35) Mean Corpuscular Hemoglobin Concent 33 g/dL (31-37) Red Cell Distribution Width 18.2 % (11.5-14.5) Platelet Count 272 x10^3/uL (140-400) Neutrophils (%) (Auto) 76 % (31-73) Lymphocytes (%) (Auto) 14 % (24-48) Monocytes (%) (Auto) 9 % (0-9) Eosinophils (%) (Auto) 0 % (0-3) Basophils (%) (Auto) 1 % (0-3) Neutrophils # (Auto) 7.2 x10^3/uL (1.8-7.7) Lymphocytes # (Auto) 1.3 x10^3/uL (1.0-4.8) Monocytes # (Auto) 0.9 x10^3/uL (0.0-1.1) Eosinophils # (Auto) 0.0 x10^3/uL (0.0-0.7) Basophils # (Auto) 0.1 x10^3/uL (0.0-0.2) Sodium Level 134 mmol/L (136-145) Potassium Level 4.7 mmol/L (3.5-5.1) Chloride Level 100 mmol/L (98-107) Carbon Dioxide Level 24 mmol/L (21-32) Anion Gap 10 (6-14) Blood Urea Nitrogen 21 mg/dL (8-26) Creatinine 1.1 mg/dL (0.7-1.3) Estimated GFR (Cockcroft-Gault) 69.8 BUN/Creatinine Ratio 19 (6-20) Glucose Level 138 mg/dL (70-99) Calcium Level 9.2 mg/dL (8.5-10.1) Total Bilirubin 1.9 mg/dL (0.2-1.0) Aspartate Amino Transf (AST/SGOT) 23 U/L (15-37) Alanine Aminotransferase (ALT/SGPT) 27 U/L (16-63) Alkaline Phosphatase 161 U/L (46-116) Troponin I High Sensitivity 15 ng/L (4-75) NI-Eff-P-Type Natriuretic Peptide 7897 pg/mL (0-124) Total Protein 7.3 g/dL (6.4-8.2) Albumin 3.4 g/dL (3.4-5.0) Albumin/Globulin Ratio 0.9 (1.0-1.7) Influenza Type A Antigen Negative (NEGATIVE) Influenza Type B Antigen Positive (NEGATIVE) SARS-CoV-2 Antigen (Rapid) Negative (NEGATIVE) Lactic Acid Level 1.6 mmol/L (0.4-2.0) Laboratory Tests Test 09/13/21 04:20 09/13/21 04:51 09/13/21 05:38 White Blood Count 9.4 x10^3/uL (4.0-11.0) Red Blood Count 6.18 x10^6/uL (4.30-5.70) Hemoglobin 17.3 g/dL (13.0-17.5) Hematocrit 52.8 % (39.0-53.0) Mean Corpuscular Volume 85 fL (79-100) Mean Corpuscular Hemoglobin 28 pg (25-35) Mean Corpuscular Hemoglobin Concent 33 g/dL (31-37) Red Cell Distribution Width 18.2 % (11.5-14.5) Platelet Count 272 x10^3/uL (140-400) Neutrophils (%) (Auto) 76 % (31-73) Lymphocytes (%) (Auto) 14 % (24-48) Monocytes (%) (Auto) 9 % (0-9) Eosinophils (%) (Auto) 0 % (0-3) Basophils (%) (Auto) 1 % (0-3) Neutrophils # (Auto) 7.2 x10^3/uL (1.8-7.7) Lymphocytes # (Auto) 1.3 x10^3/uL (1.0-4.8) Monocytes # (Auto) 0.9 x10^3/uL (0.0-1.1) Eosinophils # (Auto) 0.0 x10^3/uL (0.0-0.7) Basophils # (Auto) 0.1 x10^3/uL (0.0-0.2) Sodium Level 134 mmol/L (136-145) Potassium Level 4.7 mmol/L (3.5-5.1) Chloride Level 100 mmol/L (98-107) Carbon Dioxide Level 24 mmol/L (21-32) Anion Gap 10 (6-14) Blood Urea Nitrogen 21 mg/dL (8-26) Creatinine 1.1 mg/dL (0.7-1.3) Estimated GFR (Cockcroft-Gault) 69.8 BUN/Creatinine Ratio 19 (6-20) Glucose Level 138 mg/dL (70-99) Calcium Level 9.2 mg/dL (8.5-10.1) Total Bilirubin 1.9 mg/dL (0.2-1.0) Aspartate Amino Transf (AST/SGOT) 23 U/L (15-37) Alanine Aminotransferase (ALT/SGPT) 27 U/L (16-63) Alkaline Phosphatase 161 U/L (46-116) Troponin I High Sensitivity 15 ng/L (4-75) YB-Srd-X-Type Natriuretic Peptide 7897 pg/mL (0-124) Total Protein 7.3 g/dL (6.4-8.2) Albumin 3.4 g/dL (3.4-5.0) Albumin/Globulin Ratio 0.9 (1.0-1.7) Influenza Type A Antigen Negative (NEGATIVE) Influenza Type B Antigen Positive (NEGATIVE) SARS-CoV-2 Antigen (Rapid) Negative (NEGATIVE) Lactic Acid Level 1.6 mmol/L (0.4-2.0) Assessment/Plan Assessment/Plan Acute on chronic combined systolic diastolic congestive heart failure 15% EF, history COPD hypertension hyperlipidemia type 2 diabetes -Patient presented to emergency room fluid overload. Known history of CHF -Received 40 IV Lasix in emergency room and admitted -We will give another 40 this morning as patient still pretty fluid overloaded on exam. Will resume home diuretics as well -Cardiology consult. Patient follows with Dr Esteves -We will continue other heart failure medications -Home medications resumed as indicated -DVT prophylaxis -Cardiac diet. 2 g sodium limit 2 liter fluid limit Tobacco cessation counseling provided for 12 minutes Justifications for Admission Other Justification Acute CHF exacerbation, scrotal edema MEHRDAD GUTHRIE MD Sep 13, 2021 08:46
[2021-09-13] MEDS ORDERED: BUMETANIDE 1 MG TABLET. PO SCH ×2 (09:00→16:00)
[2021-09-13] MEDS: NON FORMULARY ITEM (Dapagliflozin Propanediol (Farxiga) 10 MG) PO SCH ×2 (09:00→21:00)
[2021-09-13] MEDS: ASPIRIN ENTERIC COATED 81 MG TABLET.DR. PO SCH (10:07)
[2021-09-13] MEDS: SACUBITRIL/VALSARTAN 24/26MG TABLET. PO SCH ×2 (10:08→22:17)
[2021-09-13] MEDS: GLIMEPIRIDE 2 MG TABLET. PO SCH (10:08)
[2021-09-13] MEDS: PANTOPRAZOLE 40 MG TABLET.DR. PO SCH (10:09)
[2021-09-13] MEDS: SENNOSIDES/DOCUSATE 8.6/50MG TABLET. PO SCH ×2 (10:09→22:17)
[2021-09-13] MEDS: SPIRONOLACTONE 25 MG TABLET PO SCH (10:09)
[2021-09-13] MEDS: METOPROLOL SUCC 24HR ER 50 MG TAB.ER.24H. PO SCH (10:10)
[2021-09-13 11:00] VITALS: BP 130/98
[2021-09-13] MEDS: OSELTAMIVIR 75 MG CAPSULE PO SCH ×2 (11:28→22:17)
--- NOTE | 2021-09-13 12:29 | PDOC2 ---
DAKOTA PERAZA METAL MACHINE SETTER 09/13/21 1229: CARDIAC CONSULT DATE OF CONSULT Date of Consult DATE: 09/13/21 TIME: 12:07 REASON FOR CONSULT Reason for Consult: SOB, CHF REFERRING PHYSICIAN Referring Physician: Teresita SOURCE Source: Chart review, Patient HISTORY OF PRESENT ILLNESS HISTORY OF PRESENT ILLNESS This is a 55 yo male admitted for complains of SOA and leg swelling. Upon admission he was noted withe FLU. His SOA and leg swelling has been getting worse. Both of his legs are also red and tender. Denies any chest pain or palpitations. He has been drinking about 3-4 L fluids but he cut back on his Na intake. No recent falls or injury. He is vaccinated for covid-19. Denies fever chills of mylagia. PAST MEDICAL HISTORY Past Medical History Cardiovascular: CAD, CHF, HTN, Hyperlipidemia, Other (nicm) Pulmonary: COPD CENTRAL NERVOUS SYSTEM: Other (no pertinent history) GI: GERD Heme/Onc: No pertinent hx Hepatobiliary: No pertinent hx Psych: No pertinent hx Musculoskeletal: Osteoarthritis Rheumatologic: No pertinent hx Infectious disease: No pertinent hx ENT: No pertinent hx Renal/: No pertinent hx Endocrine: Diabetes (2) PAST SURGICAL HISTORY Past Surgical History LHC, AICD FAMILY HISTORY Family History: Hypertension SOCIAL HISTORY Smoke: No ALCOHOL: none Drugs: None Lives: with Family CURRENT MEDICATIONS CURRENT MEDICATIONS Current Medications Medications (Trade) Dose Ordered Sig/Gus Route PRN Reason Start Time Stop Time Status Last Admin Dose Admin Furosemide (Lasix) 40 mg 1X ONCE IVP 09/13/21 05:30 09/13/21 05:31 DC 09/13/21 05:56 Ceftriaxone Sodium (Rocephin) 1 gm 1X ONCE IVP 09/13/21 05:30 09/13/21 05:31 DC 09/13/21 05:58 Azithromycin 250 ml @ 250 mls/hr 1X ONCE IV 09/13/21 05:30 09/13/21 06:29 DC 09/13/21 06:00 Oseltamivir Phosphate (Tamiflu) 75 mg BID PO 09/13/21 09:00 09/18/21 08:59 09/13/21 11:28 Furosemide (Lasix) 40 mg 1X ONCE IVP 09/13/21 08:30 09/13/21 08:31 DC 09/13/21 10:11 Aspirin (Ecotrin) 81 mg DAILYWBKFT PO 09/13/21 09:00 09/13/21 10:07 Bumetanide (Bumex) 1 mg BID PO 09/13/21 09:00 09/13/21 11:17 DC 09/13/21 10:08 Metoprolol Succinate (Toprol Xl) 50 mg DAILY PO 09/13/21 09:00 09/13/21 10:10 Spironolactone (Aldactone) 25 mg DAILY PO 09/13/21 09:00 09/13/21 10:09 Glimepiride (Amaryl) 4 mg DAILY PO 09/13/21 09:00 09/13/21 10:08 Pantoprazole Sodium (Protonix) 40 mg DAILYAC PO 09/13/21 07:30 09/13/21 10:09 Sacubitril/ Valsartan (Entresto 24 Mg-26 Mg) 1 tab BID PO 09/13/21 09:00 09/13/21 10:08 Senna/Docusate Sodium (Senna Plus) 1 tab BID PO 09/13/21 09:00 09/13/21 10:09 ALLERGIES ALLERGIES: Coded Allergies: No Known Drug Allergies (Unverified , 03/22/20) ROS Review of System 14 point ROS evaluated with pertinent positives noted per HPI PHYSICAL EXAM General: Alert, Oriented X3, Cooperative, No acute distress HEENT: Atraumatic, Mucous membr. moist/pink Lungs: Other (basilar crackles) Heart: Regular rate (SR), Other (distant heart sounds) Abdomen: Soft, No tenderness Extremities: No cyanosis, Other (2-3+ bilateral LE pitting edema) Skin: Other (erythema to bilateral calf more to right) Neuro: Normal speech, Sensation intact Psych/Mental Status: Mental status NL, Mood NL MUSCULOSKELETAL: Osteoarthritic changes both hands VITALS/I&O VITALS/I&O: Vital Signs Date Time Temp Pulse Resp B/P (MAP) Pulse Ox O2 Delivery O2 Flow Rate FiO2 09/13/21 10:10 114 100/85 09/13/21 06:45 39 96 Nasal Cannula 2.0 09/13/21 04:19 97.4 97.4 LABS Lab: Laboratory Tests Test 09/13/21 04:20 09/13/21 04:51 09/13/21 05:38 White Blood Count 9.4 x10^3/uL (4.0-11.0) Red Blood Count 6.18 x10^6/uL (4.30-5.70) H Hemoglobin 17.3 g/dL (13.0-17.5) Hematocrit 52.8 % (39.0-53.0) Mean Corpuscular Volume 85 fL (79-100) Mean Corpuscular Hemoglobin 28 pg (25-35) Mean Corpuscular Hemoglobin Concent 33 g/dL (31-37) Red Cell Distribution Width 18.2 % (11.5-14.5) H Platelet Count 272 x10^3/uL (140-400) Neutrophils (%) (Auto) 76 % (31-73) H Lymphocytes (%) (Auto) 14 % (24-48) L Monocytes (%) (Auto) 9 % (0-9) Eosinophils (%) (Auto) 0 % (0-3) Basophils (%) (Auto) 1 % (0-3) Neutrophils # (Auto) 7.2 x10^3/uL (1.8-7.7) Lymphocytes # (Auto) 1.3 x10^3/uL (1.0-4.8) Monocytes # (Auto) 0.9 x10^3/uL (0.0-1.1) Eosinophils # (Auto) 0.0 x10^3/uL (0.0-0.7) Basophils # (Auto) 0.1 x10^3/uL (0.0-0.2) Sodium Level 134 mmol/L (136-145) L Potassium Level 4.7 mmol/L (3.5-5.1) Chloride Level 100 mmol/L (98-107) Carbon Dioxide Level 24 mmol/L (21-32) Anion Gap 10 (6-14) Blood Urea Nitrogen 21 mg/dL (8-26) Creatinine 1.1 mg/dL (0.7-1.3) Estimated GFR (Cockcroft-Gault) 69.8 BUN/Creatinine Ratio 19 (6-20) Glucose Level 138 mg/dL (70-99) H Calcium Level 9.2 mg/dL (8.5-10.1) Total Bilirubin 1.9 mg/dL (0.2-1.0) H Aspartate Amino Transferase (AST) 23 U/L (15-37) Alanine Aminotransferase (ALT) 27 U/L (16-63) Alkaline Phosphatase 161 U/L (46-116) H Troponin I High Sensitivity 15 ng/L (4-75) RQ-Bbl-W-Type Natriuretic Peptide 7897 pg/mL (0-124) H Total Protein 7.3 g/dL (6.4-8.2) Albumin 3.4 g/dL (3.4-5.0) Albumin/Globulin Ratio 0.9 (1.0-1.7) L Influenza Type A Antigen Negative (NEGATIVE) Influenza Type B Antigen Positive (NEGATIVE) *A SARS-CoV-2 Antigen (Rapid) Negative (NEGATIVE) Lactic Acid Level 1.6 mmol/L (0.4-2.0) Laboratory Tests 09/13/21 04:20 Laboratory Tests 09/13/21 04:20 ECHOCARDIOGRAM ECHOCARDIOGRAM <Conclusion> The Left Ventricle is mildly dilated. The ejection fraction is severely impaired. The Ejection Fraction is estimated at 15%. There is severe global hypokinesis of the left ventricle. Tissue Doppler imaging reveals severe left ventricular diastolic dysfunction. Doppler and Color Flow revealed trace aortic regurgitation. Calculated aortic valve area is 2.42 cm2 with maximum pressure gradient of 4 mmHg and mean pressure gradient of 3 mmHg. There is no significant aortic valvular stenosis. Doppler and Color-flow revealed trace mitral regurgitation. Doppler and Color Flow revealed mild to moderate tricuspid regurgitation with an estimated PAP of 58 mmHg. DATE: 01/19/[id number] 0 ASSESSMENT/PLAN ASSESSMENT/PLAN 1. Acute on chronic diastolic/systolic CHF: due to overhydration and FLU 2. Severe NICM; EF at 15% 3. CAD; cath 11/04 with small vessel disease on diagonal branch, otherwise no intervenable lesions noted. CP free. 4. AECOPD with continued tobaccoism 5. Hypertension; controlled 6. Diabetes, II 7. Hyperlipidemia; statin 8. s/p AICD (Biotronik) 9. FLU 10. PUI: vaccinated 11. LE cellulitis more to right: per PCP Recommendations Bumex therapy xtra dose this afternoon HF optimization with Entresto, Toprol (50 mg), Aldactone 2Gm Na diet. 2000cc FR, daily wt Continue antibiotic therapy MINO MELVIN MD 11/30/21 1818: CARDIAC CONSULT ASSESSMENT/PLAN ASSESSMENT/PLAN Patient seen and examined. Agree with JEWELRY POLISHER's assessment and plan. Continue diuresis for acute on chronic systolic heart failure, LVEF 15% Recent cardiac cath did not show any lesions needing intervention Continue current treatment for acute COPD exacerbation Continue antibiotics for cellulitis Thank you for your consultation DAKOTA PERAZA APRN Sep 13, 2021 12:29 MINO MELVIN MD Sep 13, 2021 18:18
[2021-09-13] MEDS ORDERED: BUMETANIDE 2.5 MG/10 ML VIAL. IV ONE (12:30)
--- NOTE | 2021-09-13 13:42 | NUR ---
SW following. Discussed with RN, pt from home, 2L (does not use oxygen at home), cardiac diet. Flu positive, Rapid COVID-19 negative. PCR still pending. RN advised no SW needs at this time. SW will continue to follow.
[2021-09-13] MEDS: BUMETANIDE 1 MG/4 ML VIAL. IV SCH (14:00)
[2021-09-13 15:00] VITALS: BP 136/81
--- NOTE | 2021-09-13 15:23 | NUR ---
Nurse's note: Non administered 1400 dose of bumex, 8 mg x1 given instead.
[2021-09-13] MEDS: HEPARIN for SUB-Q USE 5,000 UNIT/ML VIAL. SQ SCH ×2 (15:49→22:28)
[2021-09-13 19:00] VITALS: BP 105/73
[2021-09-13] MEDS: ATORVASTATIN CALCIUM 40 MG TABLET. PO SCH (22:17)
[2021-09-13 23:00] VITALS: BP 100/69
[2021-09-14 03:00] VITALS: BP 97/64
[2021-09-14] MEDS: HEPARIN for SUB-Q USE 5,000 UNIT/ML VIAL. SQ SCH ×3 (06:01→21:24)
[2021-09-14 07:00] VITALS: BP 98/66
[2021-09-14] MEDS: GLIMEPIRIDE 2 MG TABLET. PO SCH (08:33)
[2021-09-14] MEDS: OSELTAMIVIR 75 MG CAPSULE PO SCH ×2 (08:35→21:23)
[2021-09-14] MEDS: PANTOPRAZOLE 40 MG TABLET.DR. PO SCH (08:35)
[2021-09-14] MEDS: ASPIRIN ENTERIC COATED 81 MG TABLET.DR. PO SCH (08:35)
[2021-09-14] MEDS: NON FORMULARY ITEM (Dapagliflozin Propanediol (Farxiga) 10 MG) PO SCH ×2 (09:00→21:00)
[2021-09-14] MEDS: SACUBITRIL/VALSARTAN 24/26MG TABLET. PO SCH ×2 (09:55→21:23)
[2021-09-14] MEDS: BUMETANIDE 1 MG/4 ML VIAL. IV SCH ×2 (09:55→15:28)
[2021-09-14] MEDS: SPIRONOLACTONE 25 MG TABLET PO SCH (09:56)
[2021-09-14] MEDS: METOPROLOL SUCC 24HR ER 50 MG TAB.ER.24H. PO SCH (09:57)
[2021-09-14] MEDS: SENNOSIDES/DOCUSATE 8.6/50MG TABLET. PO SCH ×2 (09:57→21:23)
[2021-09-14] MEDS: CEPHALEXIN 250 MG CAPSULE. PO SCH ×3 (10:03→21:23)
--- NOTE | 2021-09-14 10:17 | PDOC ---
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 Known history of CHF -Received 40 IV Lasix in emergency room and admitted -Home diuretics resumed. Further diuresis per cardiology -Cardiology consult. Patient follows with Dr Esteves -We will continue other heart failure medications -Home medications resumed as indicated -DVT prophylaxis -Cardiac diet. 2 g sodium limit 2 liter fluid limit History of Present Illness History of Present Illness Patient is a 55-year-old male presented to the emergency room overnight with swelling and shortness of breath. Patient has a known history of severe cardiomyopathy ejection fraction 15%. On guideline directed medical therapy for heart failure. Patient reports that about 10 days ago he had to attend a and forgot his medication. He says he was without his medication for about 2 days. Said when he got home he resumed his medications as normal but noticed that his legs were notably more swollen. Initially thought just resuming medications would resolve issue but he said he felt like fluid Building up to the point where he was getting short of breath then as well. He was having a little bit of dizziness with this as well. In emergency room chest x-ray did show pulmonary edema. Was given 40 IV Lasix and admitted to the hospital. Patient also incidentally flu positive started on Tamiflu. When I evaluated patient she is resting in bed. Is reporting ongoing swelling and shortness for breath but says it is definitely improved since last night. Denying any chest pain with all of this 09/14 Patient evaluated examined at bedside. He was resting in bed without really any complaints. Said his shortness of breath actually was improving. Still pretty tense in his lower extremities with edema. Continue antibiotic for possible cellulitis. Cards following. If cleared could maybe discharged today. Plan of care discussed with bedside RN. Vitals/I&O Vitals/I&O: Vital Signs Date Time Temp Pulse Resp B/P (MAP) Pulse Ox O2 Delivery O2 Flow Rate FiO2 09/14/21 09:57 76 98/66 09/14/21 07:00 97.4 18 99 97.4 09/13/21 20:00 Nasal Cannula 2.0 I & O 09/13/21 09/13/21 09/14/21 15:00 23:00 07:00 Intake Total 200 ml 380 ml 842 ml Balance 200 ml 380 ml 842 ml Physical Exam General: Alert, Oriented X3, Cooperative, No acute distress Heart: Regular rate (SR), Normal S1, Normal S2 Lungs: Clear Abdomen: Normal bowel sounds, Soft, No tenderness Extremities: No cyanosis, Other (2-3+ bilateral LE pitting edema) Skin: Other (erythema to bilateral calf more to right) Assessment and Plan Assessmemt and Plan Problems Medical Problems: (1) CHF (congestive heart failure) Status: Acute (2) Dyspnea Status: Acute (3) Flu Status: Acute Comment Review of Relevant I have reviewed the following items gorge (where applicable) has been applied. Medications: Current Medications Medications (Trade) Dose Ordered Sig/Gus Route PRN Reason Start Time Stop Time Status Last Admin Dose Admin Atorvastatin Calcium (Lipitor) 40 mg QHS PO 09/13/21 21:00 09/13/21 22:17 Heparin Sodium (Porcine) (Heparin Sodium) 5,000 unit Q8HRS SQ 09/13/21 14:00 09/14/21 06:01 Bumetanide (Bumex) 1 mg [id number] IV 09/13/21 14:00 09/14/21 09:55 Bumetanide (Bumex) 2 mg 1X ONCE IV 09/13/21 12:30 09/13/21 12:31 DC 09/13/21 15:21 Cephalexin HCl (Keflex) 500 mg TID PO 09/14/21 09:00 09/14/21 10:03 Justifications for Admission Other Justification Acute CHF exacerbation, scrotal edema MEHRDAD GUTHRIE MD Sep 14, 2021 10:17
[2021-09-14 11:00] VITALS: BP 100/69
--- NOTE | 2021-09-14 12:22 | PDOC ---
KALPESH LAYNE APRN 09/14/21 1222: CARDIO Progress Notes Date and Time Date of Service 09/14/21 Time of Evaluation 1220 Subjective Subjective: No Chest Pain, No Palpitations, No Dizziness, Other (breathing improved ) Vitals Vitals Vital Signs Date Time Temp Pulse Resp B/P (MAP) Pulse Ox O2 Delivery O2 Flow Rate FiO2 09/14/21 09:57 76 98/66 09/14/21 07:00 97.4 18 99 97.4 09/13/21 20:00 Nasal Cannula 2.0 Weight Weight [ ] Input and Output Intake and Output Intake and Output 09/14/21 07:00 Intake Total 1422 ml Balance 1422 ml Intake Oral 1422 ml # Voids 5 Microbiology Micro Microbiology 09/13/21 Blood Culture - Preliminary, Resulted NO GROWTH AFTER 1 DAY Physical Exam HEENT: Neck Supple W Full Motion Chest: Symmetric LUNGS: Clear to Auscultation, Other (diminished bases) Heart: RRR Abdomen: Soft N/T Extremities: Other (trace bilateral LE edema, chronic LE venous stasis changes) Neurology: alert, oriented, follow commands Assessment Assessment 1. Acute on chronic diastolic/systolic CHF; improved s/p IV diuresis 2. Severe NICM; EF at 15% 3. CAD; cath 11/04 with small vessel disease on diagonal branch, otherwise no intervenable lesions noted. CP free. 4. AECOPD with continued tobaccoism 5. Hypertension; controlled 6. Diabetes, II 7. Hyperlipidemia; statin 8. s/p AICD (Biotronik). tele with few bursts of NSVT. otherwise SR 9. FLU B +, asymptomatic Recommendations HF optimization with Entresto, Toprol (50 mg), Aldactone, and Bumex therapy 2Gm Na diet. 2000cc FR, daily wt Supportive care Justicifation of Admission Dx: Justifications for Admission: Justification of Admission Dx: No Respiratory Failure: Severe Resp Distress MINO MELVIN MD 09/14/212051: CARDIO Progress Notes Assessment Assessment Agree with CQ DEVELOPER's assessment and plan. Continue diuresis for acute on chronic systolic heart failure, LVEF 15% Recent cardiac cath did not show any lesions needing intervention Continue current treatment for acute COPD exacerbation Continue antibiotics for cellulitis KALPESH LAYNE APRN Sep 14, 2021 12:22 MINO MELVIN MD Sep 14, 2021 20:52
[2021-09-14 15:00] VITALS: BP 106/77
[2021-09-14 19:00] VITALS: BP 110/68
[2021-09-14] MEDS ORDERED: DIGOXIN IV 500 MCG/2 ML AMPUL. IV ONE (20:00)
[2021-09-14] MEDS: ATORVASTATIN CALCIUM 40 MG TABLET. PO SCH (21:23)
[2021-09-14] MEDS: LACTOBACILLUS RHAMNOSUS GG 1 CAPSULE. PO SCH (21:23)
[2021-09-14 23:00] VITALS: BP 102/67
[2021-09-15] MEDS: HEPARIN for SUB-Q USE 5,000 UNIT/ML VIAL. SQ SCH (06:20)
[2021-09-15 07:00] VITALS: BP 139/68
[2021-09-15] MEDS: CEPHALEXIN 250 MG CAPSULE. PO SCH (08:48)
[2021-09-15] MEDS: ASPIRIN ENTERIC COATED 81 MG TABLET.DR. PO SCH (08:48)
[2021-09-15] MEDS: METOPROLOL SUCC 24HR ER 50 MG TAB.ER.24H. PO SCH (08:49)
[2021-09-15] MEDS: SACUBITRIL/VALSARTAN 24/26MG TABLET. PO SCH (08:49)
[2021-09-15] MEDS: OSELTAMIVIR 75 MG CAPSULE PO SCH (08:49)
[2021-09-15] MEDS: GLIMEPIRIDE 2 MG TABLET. PO SCH (08:49)
[2021-09-15] MEDS: SPIRONOLACTONE 25 MG TABLET PO SCH (08:50)
[2021-09-15] MEDS: LACTOBACILLUS RHAMNOSUS GG 1 CAPSULE. PO SCH (08:50)
[2021-09-15] MEDS: BUMETANIDE 1 MG/4 ML VIAL. IV SCH (08:50)
[2021-09-15] MEDS: PANTOPRAZOLE 40 MG TABLET.DR. PO SCH (08:50)
[2021-09-15] MEDS: SENNOSIDES/DOCUSATE 8.6/50MG TABLET. PO SCH (08:50)
[2021-09-15] MEDS: NON FORMULARY ITEM (Dapagliflozin Propanediol (Farxiga) 10 MG) PO SCH (09:00)
[2021-09-15 10:47] LABS: CALCIUM 8.4 mg/dL (8.5-10.1); CREATININE 1.1 mg/dL (0.7-1.3); GFR 69.8; POTASSIUM 3.4 mmol/L (3.5-5.1)
--- NOTE | 2021-09-15 10:59 | RAD ---
Single view of the chest. 09/15/2021 10:27 AM Indication: Reason: assess fluid status / Spl. Instructions: / History: Comparison: Chest radiograph September 13, 2021 Findings: There is a moderate to large left pleural effusion with underlying compressive atelectasis. No pneumothorax is seen. Diffuse interstitial thickening seen possibly edema. And atypical or viral infectious process is not excluded. No acute osseous changes are seen. Single lead pacemaking/ICD dev ice from a left subclavian approach noted. IMPRESSION: 1.Moderate to large left pleural effusion with underlying atelectasis 2. Diffuse interstitial thickening. Differential considerations include edema versus an atypical or v iral infectious process Electronically signed by: Evens Matos MD (09/15/2021 10:56 AM) [id number]
[2021-09-15 11:00] VITALS: BP 107/73
--- NOTE | 2021-09-15 11:08 | NUR ---
Pt SpO2 on RA is currently 93%. Pt in no distress at this time. Will continue to monitor.
[2021-09-15] MEDS ORDERED: POTASSIUM CHLORIDE 20 MEQ TABLET.ER. PO ONE (12:00)
--- NOTE | 2021-09-15 12:02 | PDOC ---
DAKOTA PERAZA LEATHER PRODUCTION WORKER 09/15/21 1202: CARDIO Progress Notes Date and Time Date of Service 09/15/2021 Time of Evaluation 1150 Subjective Subjective: No Chest Pain, No shortness of breath, No Palpitations Vitals Vitals Vital Signs Date Time Temp Pulse Resp B/P (MAP) Pulse Ox O2 Delivery O2 Flow Rate FiO2 09/15/21 08:49 78 117/42 09/15/21 08:00 Nasal Cannula 2.0 09/15/21 07:00 98.2 20 98 98.2 Weight Weight [ ] Input and Output Intake and Output Intake and Output 09/15/21 07:00 Intake Total 720 ml Output Total 1950 ml Balance -1230 ml Intake Oral 720 ml Output Urine Total 1950 ml Laboratory Labs Laboratory Tests Test 09/15/21 10:23 Sodium Level 138 mmol/L (136-145) Potassium Level 3.4 mmol/L (3.5-5.1) Chloride Level 102 mmol/L (98-107) Carbon Dioxide Level 28 mmol/L (21-32) Anion Gap 8 (6-14) Blood Urea Nitrogen 13 mg/dL (8-26) Creatinine 1.1 mg/dL (0.7-1.3) Estimated GFR (Cockcroft-Gault) 69.8 Glucose Level 156 mg/dL (70-99) Calcium Level 8.4 mg/dL (8.5-10.1) Microbiology Micro Microbiology 09/13/21 Blood Culture - Preliminary, Resulted NO GROWTH AFTER 2 DAYS Physical Exam HEENT: Neck Supple W Full Motion Chest: Symmetric LUNGS: Other (diminished bases) Heart: RRR (SR) Abdomen: Soft N/T Extremities: Other (trace to 1+ bilateral LE pitting edema, eythema better) Neurology: alert, oriented, follow commands Assessment Assessment 1. Acute on chronic diastolic/systolic CHF; clinically compensated 2. Severe NICM; EF at 15% 3. CAD; cath 11/04 with small vessel disease on diagonal branch, otherwise no intervenable lesions noted. CP free. 4. AECOPD with continued tobaccoism 5. Hypertension; controlled 6. Diabetes, II 7. Hyperlipidemia; statin 8. s/p AICD (Biotronik). tele with few bursts of NSVT. otherwise SR 9. FLU B +, asymptomatic Recommendations HF optimization with Entresto, Toprol (50 mg), Aldactone, and Bumex therapy. Replace K 2Gm Na diet. 2000cc FR, daily wt Supportive care, secondary prevention measures Smoking cessation May DC from cardiac standpoint follow up with 10/[address] Melvin Justicifation of Admission Dx: Justifications for Admission: Justification of Admission Dx: No Respiratory Failure: Severe Resp Distress MINO MELVIN MD 09/15/212031: CARDIO Progress Notes Assessment Assessment Patient seen and examined, Agree with ELECTRICAL AND INSTRUMENT TECHNICIAN's assessment and plan. Acute on chronic systolic heart failure better compensated with diuresis, LVEF 15% Recent cardiac cath did not show any lesions needing intervention Continue current treatment for acute COPD exacerbation Continue antibiotics for cellulitis DAKOTA PERAZA APRN Sep 15, 2021 12:02 MINO MELVIN MD Sep 15, 2021 20:32
--- NOTE | 2021-09-15 12:13 | NUR ---
SW following. Discussed with RN, pt from home, room air, cardiac diet. FluB positive. Okay to discharge from cardiac standpoint. Possible discharge home today per Dr. Rodriguez. RN advised no SW needs. SW will continue to follow.
--- NOTE | 2021-09-15 12:37 | PDOC3 ---
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 Known history of CHF -Received 40 IV Lasix in emergency room and admitted -Home diuretics resumed. Further diuresis per cardiology -Cardiology consult. Patient follows with Dr Esteves -We will continue other heart failure medications -Home medications resumed as indicated -DVT prophylaxis -Cardiac diet. 2 g sodium limit 2 liter fluid limit History of Present Illness History of Present Illness Patient is a 55-year-old male presented to the emergency room overnight with swelling and shortness of breath. Patient has a known history of severe cardiomyopathy ejection fraction 15%. On guideline directed medical therapy for heart failure. Patient reports that about 10 days ago he had to attend a and forgot his medication. He says he was without his medication for about 2 days. Said when he got home he resumed his medications as normal but noticed that his legs were notably more swollen. Initially thought just resuming medications would resolve issue but he said he felt like fluid Building up to the point where he was getting short of breath then as well. He was having a little bit of dizziness with this as well. In emergency room chest x-ray did show pulmonary edema. Was given 40 IV Lasix and admitted to the hospital. Patient also incidentally flu positive started on Tamiflu. When I evaluated patient she is resting in bed. Is reporting ongoing swelling and shortness for breath but says it is definitely improved since last night. Denying any chest pain with all of this 09/14 Patient evaluated examined at bedside. He was resting in bed without really any complaints. Said his shortness of breath actually was improving. Still pretty tense in his lower extremities with edema. Continue antibiotic for possible cellulitis. Cards following. If cleared could maybe discharged today. Plan of care discussed with bedside RN. 09/15 Patient evaluated examined at bedside. Resting in bed no acute complaints. He did have a documented run of SVT overnight did receive a dose of digoxin and this morning reported that he was asymptomatic throughout. Cleared by cardiology this morning. Respiratory status much improved. Okay for discharge home today. Greater than 30 minutes spent on this discharge. Disposition: Disposition/Orders: D/C to Home Activity: Activity: Resume previous activity Medications: Home Meds Active Scripts Metoprolol Succinate (Toprol XL) 50 Mg Tab.er.24h, 50 MG PO DAILY for CHF, #30 TAB.SR 3 Refills Prov:SERG HURST MD 08/12/21 Potassium Chloride (KLOR-CON M20) 20 Meq Tab.er.prt, 40 MEQ PO DAILYWBKFT for Hypokalemia, #30 TAB.SR 1 Refill Prov:SERG HURST MD 12/03/20 Sacubitril/Valsartan (Entresto 24 mg-26 mg Tablet) 1 Each Tablet, 1 TAB PO BID for CHF, #60 TAB 1 Refill Prov:SERG HURST MD 12/03/20 Bumetanide (BUMETANIDE) 1 Mg Tablet, 1 TAB PO BID for , #60 TAB 1 Refill Prov:SERG HURST MD 12/03/20 Docusate Sodium (DOK) 100 Mg Capsule, 100 MG PO PRN DAILY PRN for HARD STOOLS for 30 Days, #60 CAP Prov:TRACY WATERMAN MD 10/14/20 Acetaminophen (TYLENOL) 325 Mg Tablet, 650 MG PO PRN Q4HRS PRN for TEMP OVER 100.4F OR MILD PAIN for 30 Days, #60 TAB Prov:TRACY WATERMAN MD 10/14/20 Aspirin (ASPIRIN EC) 81 Mg Tablet.dr, 81 MG PO DAILYWBKFT for heart health for 30 Days, #30 TAB.SR Prov:TRACY WATERMAN MD 10/14/20 Spironolactone (ALDACTONE) 25 Mg Tablet, 25 MG PO DAILY for heart for 30 Days, #30 TAB Prov:TRACY WATERMAN MD 10/14/20 Albuterol Sulfate (Proair Hfa) 8.5 Gm Hfa.aer.ad, 2.5 MG NEB PRN Q4HRS PRN for SHORTNESS OF BREATH for 30 Days, #1 INHALER 1 Refill Prov:YENY MENDOZA MD 03/23/20 Reported Medications Icosapent Ethyl (Vascepa) 0.5 Gm Capsule, 1 CAP PO BID for unknown for 30 Days, #60 CAP 0 Refills 03/22/20 Dapagliflozin Propanediol (FARXIGA) 10 Mg Tablet, 10 MG PO BID for unknown, TAB 03/22/20 Omeprazole (OMEPRAZOLE) 20 Mg Tablet.dr, 1 TAB PO DAILY for stomach, #90 TAB 1 Refill 03/22/20 Atorvastatin Calcium (ATORVASTATIN CALCIUM) 40 Mg Tablet, 1 TAB PO QHS for HLD, #90 TAB 3 Refills 03/22/20 Glimepiride (GLIMEPIRIDE) 4 Mg Tablet, 1 TAB PO DAILY for DM, #30 TAB 5 Refills 03/22/20 Scheduled Aspirin (Aspirin Ec), 81 MG PO DAILYWBKFT Atorvastatin Calcium (Atorvastatin Calcium), 1 TAB PO QHS, (Reported) Bumetanide (Bumetanide), 1 TAB PO BID Dapagliflozin Propanediol (Farxiga), 10 MG PO BID, (Reported) Glimepiride (Glimepiride), 1 TAB PO DAILY, (Reported) Icosapent Ethyl (Vascepa), 1 CAP PO BID, (Reported) Metoprolol Succinate (Toprol XL), 50 MG PO DAILY Omeprazole (Omeprazole), 1 TAB PO DAILY, (Reported) Potassium Chloride (Klor-Con M20), 40 MEQ PO DAILYWBKFT Sacubitril/Valsartan (Entresto 24 mg-26 mg Tablet), 1 TAB PO BID Spironolactone (Aldactone), 25 MG PO DAILY Scheduled PRN Acetaminophen (Tylenol), 650 MG PO PRN Q4HRS PRN for TEMP OVER 100.4F OR MILD PAIN Albuterol Sulfate (Proair Hfa), 2.5 MG NEB PRN Q4HRS PRN for SHORTNESS OF BREATH Docusate Sodium (Dok), 100 MG PO PRN DAILY PRN for HARD STOOLS Justicifation of Admission Dx: Justifications for Admission: Justification of Admission Dx: No Respiratory Failure: Severe Resp Distress MEHRDAD GUTHRIE MD Sep 15, 2021 12:36
--- NOTE | 2021-09-15 13:50 | NUR ---
Discharge Note: GUY MCCRACKEN Discharge instructions and discharge home medications reviewed with Patient and a copy given. All questions have been answered and understanding verbalized. The following instructions and handouts were given:f/u with PCP within two weeks. F/U with Dr. Esteves on 10/12/21 @ 1400. Start a 2gm NA diet and 2L Fluid Restriction. Discontinued lines and drains: Peripheral IV intact. Patient discharged to Home or Self Care with Self via Wheelchair
== END 2021-09-15 13:50 | disposition home or self-care (01) | DRG 291 ==
LOC: ER 04:05 → 5 SOUTH 05:25 → ER 07:05
PROVIDERS: ADMIT Internal Medicine; ATTEND Internal Medicine
DX: I11.0 Hypertensive heart disease with heart failure (principal); I50.43 Acute on chronic combined systolic (congestive) and diastolic (congestive) heart failure; I47.1 Supraventricular tachycardia; I47.2 Ventricular tachycardia; J44.1 Chronic obstructive pulmonary disease with (acute) exacerbation; L03.119 Cellulitis of unspecified part of limb; I42.8 Other cardiomyopathies; E11.9 Type 2 diabetes mellitus without complications; E78.00 Pure hypercholesterolemia, unspecified; E78.5 Hyperlipidemia, unspecified; F17.200 Nicotine dependence, unspecified, uncomplicated; I25.10 Atherosclerotic heart disease of native coronary artery without angina pectoris; J10.1 Influenza due to other identified influenza virus with other respiratory manifestations; N50.89 Other specified disorders of the male genital organs; Z82.49 Family history of ischemic heart disease and other diseases of the circulatory system; Z95.810 Presence of automatic (implantable) cardiac defibrillator; K21.9 Gastro-esophageal reflux disease without esophagitis; M19.90 Unspecified osteoarthritis, unspecified site; Z71.6 Tobacco abuse counseling
CPT/HCPCS: 36415; 71045; 80048; 80053; 83605; 83880; 84484; 85025; 87040; 87426; 87804; 93005; 96365; 96375; J0456; J0696; J1160; J1644; J1940; J3490; 99285-25; G0378

== ENCOUNTER 2021-09-26 21:39 | Emergency (ER) | payer BC ==
[~2021-09-26] VITALS: Ht 177.8 cm; Wt 75.2 kg
--- NOTE | 2021-09-27 03:04 | PHYS DOC ---
Past Medical History Past Medical History: COPD, Diabetes-Type II, High Cholesterol, Hypertension Past Surgical History: Other Additional Past Surgical Histo: defib Smoking Status: Current Every Day Smoker Alcohol Use: Rarely General Adult EDM: Chief Complaint: OTHER COMPLAINTS HPI: HPI: Patient is a 55 year old male who presents with shortness of breath, which has been present for the last several days. He denies chest pain. He has chronic lower extremity swelling, which she reports is actually improved from baseline. He was recently admitted to the hospital here for congestive heart failure exacerbation. He reports that he "tries" to eat a healthy, low-sodium diet. He reports compliance with medications. He denies cough or hemoptysis. He denies nausea, vomiting. He does report some mild dyspnea with exertion. At rest, he has no current evidence of hypoxia, resting comfortably on room air, he denies any at rest dyspnea currently. He reports that he actually feels much better after being here in the ER for several hours. He has a scheduled appointment later this month with his title checker. Review of Systems: Review of Systems: Constitutional: Denies fever or chills. [] Eyes: Denies change in visual acuity. [] HENT: Denies nasal congestion or sore throat. [] Respiratory: Denies cough. Reports dyspnea and dyspnea on exertion. Cardiovascular: Denies chest pain. Chronic lower extremity edema. GI: Denies abdominal pain, nausea, vomiting Musculoskeletal: Denies back pain or joint pain. [] Integument: Venous stasis dermatitis bilateral lower extremities Neurologic: Denies headache, focal weakness or sensory changes. [] Psychiatric: Denies depression or anxiety. [] Heart Score: C/O Chest Pain: No Risk Factors: Risk Factors: DM, Current or recent (<one month) smoker, HTN, HLP, family history of CAD, obesity. Risk Scores: Score 0 - 3: 2.5% MACE over next 6 weeks - Discharge Home Score 4 - 6: 20.3% MACE over next 6 weeks - Admit for Clinical Observation Score 7 - 10: 72.7% MACE over next 6 weeks - Early Invasive Strategies Allergies: Allergies: Allergies Coded Allergies Type Severity Reaction Last Updated Verified No Known Drug Allergies 03/22/20 No Physical Exam: PE: Constitutional: Well developed, well nourished, no acute distress, non-toxic appearance. [] HENT: Normocephalic, atraumatic Eyes: Sclera are clear and anicteric Neck: Normal range of motion, no tenderness, supple, no stridor. Trachea midline. No JVD. Cardiovascular:Heart rate regular rhythm, +2 radial and +2 dorsalis pedis pulses bilaterally Lungs & Thorax: Slightly diminished breath sounds in the left lung base, upper and midlung alvarez are clear to auscultation bilaterally, no rhonchi or wheezes. No stridor. Equal chest rise. No retractions or tachypnea. No evidence of distress Abdomen: Abdomen soft, nondistended, nontender to palpation, no fluid wave or ascites noted. Skin: Warm, dry, bilateral lower extremity venous stasis scaly rash and venous stasis dermatitis. No tenderness. No open wounds. Back: No tenderness, no CVA tenderness. [] Extremities: No tenderness, no cyanosis, no clubbing, ROM intact, no calf tenderness. Bilateral, symmetric 1+ lower extremity pitting edema. Neurologic: Alert and oriented X 3, normal motor function, normal sensory function, no focal deficits noted. [] Psychologic: Affect normal, judgement normal, mood normal. [] Current Patient Data: Vital Signs: Vital Signs Date Time Temp Pulse Resp B/P (MAP) Pulse Ox O2 Delivery O2 Flow Rate FiO2 09/27/21 02:55 85 18 128/92 (104) 97 Room Air 09/27/21 00:28 97.4 97.4 EKG: EKG: EKG is interpreted at 0321 Rhythm is sinus Rate is 86 bpm Marked artifact Low voltage No STEMI Radiology/Procedures: Radiology/Procedures: IMAGING REPORT Signed PATIENT: GUY MCCRACKEN ACCOUNT: [id number] : 1965 LOCATION: ER AGE: 55 SEX: M EXAM STATUS: REG ER ORD. PHYSICIAN: STACY GILLIS DO REASON: dyspnea PROCEDURE: PORTABLE CHEST 1V XR CHEST 1V INDICATION: Reason: dyspnea / Spl. Instructions: / History: . COMPARISON STUDY: 09/15/2021. FINDINGS: Left pectoral pacemaker. Lungs: Normal lung volume. Stable interstitial opacities. Pleura: Stable moderate to large left pleural effusion. Heart and Mediastinum: Stable cardiomediastinal silhouette and great vessels. IMPRESSION: 1. Stable diffuse interstitial opacities. 2. Stable moderate to large left pleural effusion. Electronically signed by: Gabrielle Steele MD (09/27/2021 3:36 AM) [facility] DICTATED and SIGNED BY: GABRIELLE STEELE MD DATE: 09/27/21 [id number] 0 Course & Med Decision Making: Course & Med Decision Making Pertinent Labs and Imaging studies reviewed. (See chart for details) I discussed the findings, differential diagnosis and plan of care with the patient. He is resting comfortably. He manifests no evidence of respiratory distress or hypoxia. Vital signs are stable. He has cardiomegaly and a large left pleural effusion, which is unchanged from baseline. He is aware of the presence of the effusion. He denies any active dyspnea, continues to deny any chest pain. He was recently admitted to the hospital for congestive heart failure exacerbation, this does appear to be a stable condition at this time. He is to keep his scheduled appointment with cardiology on the of this month. He is to follow-up with a primary care physician as well. He is to continue taking his scheduled medications and adhere to a low-sodium, heart healthy diet. He feels very comfortable with the plan for discharge home, and he is anxiously awaiting discharge. Strict return precautions are given. He verbalized understanding Thomas Disclaimer: Thomas Disclaimer: This electronic medical record was generated, in whole or in part, using a voice recognition dictation system. Departure Departure Impression: Primary Impression: Congestive heart failure Additional Impression: Chronic pleural effusion Disposition: HOME / SELF CARE / HOMELESS Condition: STABLE Referrals: PAULO TRIPP APRN (PCP) Patient Instructions: Heart Failure, Pleural Effusion Additional Instructions: Return to the ER for chest pain, more severe shortness of breath, coughing up blood, temperature 100.4 or higher, weakness, dizziness, passing out, abdominal pain, vomiting or any other concerns. Continue taking your prescribed medications as directed, continue eating a low-sodium, heart healthy diet. Please follow-up with your primary care physician, also follow-up with the title checker at your scheduled appointment on the of this month. STACY GILLIS DO Sep 27, 2021 03:04
[2021-09-27 03:17] LABS: BASO # 0.1 x10^3/uL (0.0-0.2); BASO % 1 % (0-3); EOS % 0 % (0-3); HEMATOCRIT 51.3 % (39.0-53.0); HEMOGLOBIN 16.8 g/dL (13.0-17.5); LYMPH # 1.8 x10^3/uL (1.0-4.8); LYMPH % 21 % (24-48); MEAN CORPUSCULAR HEMOGLOBIN 28 pg (25-35); MEAN CORPUSCULAR HGB CONC 33 g/dL (31-37); MEAN CORPUSCULAR VOLUME 85 fL (79-100); MONO # 0.8 x10^3/uL (0.0-1.1); MONO % 10 % (0-9); NEUT # 5.8 x10^3/uL (1.8-7.7); NEUT % 68 % (31-73); PLATELET COUNT 262 x10^3/uL (140-400); RED BLOOD COUNT 6.02 x10^6/uL (4.30-5.70); RED CELL DISTRIBUTION WIDTH 17.7 % (11.5-14.5); WHITE BLOOD COUNT 8.5 x10^3/uL (4.0-11.0)
[2021-09-27 03:30] LABS: CREATININE 1.2 mg/dL (0.7-1.3); GFR 63.1; POTASSIUM 4.2 mmol/L (3.5-5.1)
[2021-09-27 03:36] LABS: ALBUMIN 3.4 g/dL (3.4-5.0); ALBUMIN/GLOBULIN RATIO 0.8 (1.0-1.7); MAGNESIUM 2.1 mg/dL (1.8-2.4); TOTAL BILIRUBIN 2.9 mg/dL (0.2-1.0); TOTAL PROTEIN 7.8 g/dL (6.4-8.2)
--- NOTE | 2021-09-27 03:38 | RAD ---
XR CHEST 1V INDICATION: Reason: dyspnea / Spl. Instructions: / History: . COMPARISON STUDY: 09/15/2021. FINDINGS: Left pectoral pacemaker. Lungs: Normal lung volume. Stable interstitial opacities. Pleura: Stable moderate to large left pleural effusion. Heart and Mediastinum: Stable cardiomediastinal silhouette and great vessels. IMPRESSION: 1. Stable diffuse interstitial opacities. 2. Stable moderate to large left pleural effusion. Electronically signed by: Cam Steele MD (09/27/2021 3:36 AM) [facility]
[2021-09-27 04:41] LABS: % EOS 1 % (0-5); % LYMPHS 20 % (24-48); % MONOS 8 % (0-10); % SEGS 71 % (35-66)
[2021-09-27 04:42] LABS: ANISOCYTOSIS SLIGHT; PLT ESTIMATE ADEQUATE (ADEQUATE)
[2021-09-27 06:00] VITALS: BP 120/86
--- NOTE | 2021-09-27 06:29 | EKG ---
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
== END 2021-09-27 06:02 | disposition home or self-care (01) ==
LOC: ER 21:39
DX: I11.0 Hypertensive heart disease with heart failure (principal); I50.9 Heart failure, unspecified; J90 Pleural effusion, not elsewhere classified; E11.9 Type 2 diabetes mellitus without complications; E78.00 Pure hypercholesterolemia, unspecified; J44.9 Chronic obstructive pulmonary disease, unspecified; F17.200 Nicotine dependence, unspecified, uncomplicated
CPT/HCPCS: 36415; 71045; 80053; 83735; 83880; 84100; 84484; 85007; 85025; 93005; 99285-25

== ENCOUNTER 2021-11-18 00:49 | Inpatient (IN) | payer BC ==
[~2021-11-18] VITALS: Ht 177.8 cm; Wt 78.0 kg
[~2021-11-18 00:49] MED LIST changes: +PRED-220 PO
--- NOTE | 2021-11-18 01:00 | PHYS DOC ---
Past Medical History Past Medical History: COPD, Diabetes-Type II, High Cholesterol, Hypertension Past Surgical History: Other Additional Past Surgical Histo: implanted defibrillator Smoking Status: Current Every Day Smoker Alcohol Use: Rarely General Adult EDM: Chief Complaint: SHORTNESS OF BREATH HPI: HPI: Patient is a 56-year-old male presenting via POV for shortness of breath. States this is an acute on chronic issue. Reports he has been at baseline health but reports this morning he developed shortness of breath without any trauma, change in home medication, increase in fluid intake or other known exacerbating factor. Symptoms were ongoing throughout the day and did not respond to outpatient medications such as rescue inhalers prompting him to come in for evaluation this morning. He is a poor historian and cannot disclose what he is being treated for in the outpatient setting. States he did smoke a couple times today which worsened his condition. Besides shortness of breath, denies any other symptoms. Review of Systems: Review of Systems: Fourteen body systems of review of systems have been reviewed. See HPI for pertinent positives and negative responses, other key all other systems are negative, non-pertinent or non-contributory Heart Score: C/O Chest Pain: No HEART Score for Chest Pain: HEART Score for Chest Pain Response (Comments) Value History Moderately Suspicious 1 ECG Nonspecific Repolarizatio 1 Age >45 - < 65 1 Risk Factors >3 Risk Factors or Hx CAD 2 Total 5 Risk Factors: Risk Factors: DM, Current or recent (<one month) smoker, HTN, HLP, family history of CAD, obesity. Risk Scores: Score 0 - 3: 2.5% MACE over next 6 weeks - Discharge Home Score 4 - 6: 20.3% MACE over next 6 weeks - Admit for Clinical Observation Score 7 - 10: 72.7% MACE over next 6 weeks - Early Invasive Strategies Allergies: Allergies: Allergies Coded Allergies Type Severity Reaction Last Updated Verified No Known Drug Allergies 03/22/20 No Physical Exam: PE: Constitutional: Appears older than stated age, moderate respiratory distress, appears ill HENT: Normocephalic, atraumatic, bilateral external ears normal, oropharynx dry, no oral exudates, nose normal. Eyes: PERRLA, EOMI, conjunctiva injected bilaterally, no discharge. Neck: Normal range of motion, no tenderness, supple, no stridor. Cardiovascular: Heart rate regular, sinus rhythm, no murmurs rubs or gallops Lungs & Thorax: Moderate respiratory distress with increased work of breathing and accessory muscle use and neck and abdomen noted. Generous rhonchi present in all lung alvarez grossly diminished in left base Abdomen: Bowel sounds normal, soft and prominent with slight fluid wave, no tenderness, no masses, no pulsatile masses. Nonsurgical abdomen, no peritoneal signs Skin: Warm, dry, bilateral lower extremities are red without palpable warmth and cracking/dry skin which patient reports " look better than usual" Back: No tenderness, no CVA tenderness. Extremities: No tenderness, no cyanosis, no clubbing, ROM intact, trace pitting edema to bilateral lower extremities Neurologic: Alert and oriented X 3, grossly normal motor & sensory function, no focal deficits noted. Psychologic: Anxious affect and mood Current Patient Data: Labs: Laboratory Tests Test 11/18/21 01:15 11/18/21 01:25 White Blood Count 8.5 x10^3/uL Red Blood Count 5.73 x10^6/uL Hemoglobin 15.8 g/dL Hematocrit 47.9 % Mean Corpuscular Volume 84 fL Mean Corpuscular Hemoglobin 28 pg Mean Corpuscular Hemoglobin Concent 33 g/dL Red Cell Distribution Width 18.8 % Platelet Count 184 x10^3/uL Neutrophils (%) (Auto) 71 % Lymphocytes (%) (Auto) 17 % Monocytes (%) (Auto) 9 % Eosinophils (%) (Auto) 2 % Basophils (%) (Auto) 1 % Neutrophils # (Auto) 6.0 x10^3/uL Lymphocytes # (Auto) 1.4 x10^3/uL Monocytes # (Auto) 0.8 x10^3/uL Eosinophils # (Auto) 0.2 x10^3/uL Basophils # (Auto) 0.1 x10^3/uL Sodium Level 138 mmol/L Potassium Level 3.7 mmol/L Chloride Level 104 mmol/L Carbon Dioxide Level 25 mmol/L Anion Gap 9 Blood Urea Nitrogen 15 mg/dL Creatinine 0.8 mg/dL Estimated GFR (Cockcroft-Gault) 100.4 BUN/Creatinine Ratio 19 Glucose Level 183 mg/dL Lactic Acid Level 2.1 mmol/L Calcium Level 8.2 mg/dL Magnesium Level 2.0 mg/dL Total Bilirubin 1.2 mg/dL Aspartate Amino Transf (AST/SGOT) 13 U/L Alanine Aminotransferase (ALT/SGPT) 23 U/L Alkaline Phosphatase 151 U/L Troponin I High Sensitivity 23 ng/L RM-Pcl-Q-Type Natriuretic Peptide 5912 pg/mL Total Protein 6.6 g/dL Albumin 2.8 g/dL Albumin/Globulin Ratio 0.7 Bedside Venous pH 7.44 Bedside Venous pCO2 38 mmHg Bedside Venous pO2 80 mmHg Venous Blood HCO3 26 mmol/L POC Venous O2 Saturation (Anastasia) 96 % Bedside FiO2 21.0 Current Medications Medications (Trade) Dose Ordered Sig/Gus Route PRN Reason Start Time Stop Time Status Last Admin Dose Admin Aspirin (Aspirin Chewable) 324 mg 1X ONCE PO 11/18/21 01:15 11/18/21 01:16 DC 11/18/21 01:43 Furosemide (Lasix) 80 mg 1X ONCE IVP 11/18/21 03:45 11/18/21 03:47 DC 11/18/21 04:07 Acetaminophen (Tylenol) 650 mg PRN Q4HRS PRN PO FEVER > 100.3'F 11/18/21 05:00 11/19/21 04:59 Nitroglycerin (Nitrostat) 0.4 mg PRN Q5MIN PRN SL CHEST PAIN 11/18/21 05:00 11/19/21 04:59 Albuterol/ Ipratropium (Duoneb) 3 ml RTQID NEB 11/18/21 08:00 11/19/21 07:59 Vital Signs: Vital Signs Date Time Temp Pulse Resp B/P (MAP) Pulse Ox O2 Delivery O2 Flow Rate FiO2 11/18/21 00:52 97.6 109 26 125/94 (104) Room Air 97.6 EKG: EKG: EKG ordered and interpreted by myself 0110 hrs. as sinus tachycardia at 103 bpm, unremarkable intervals, no axis deviation, T wave inversion noted in V5 and V6, there is significant artifact present in anterior leads but no gross STEMI appreciated Radiology/Procedures: Radiology/Procedures: EXAM: CHEST ONE VIEW. HISTORY: Shortness of breath. COMPARISON: 10/24/2021. FINDINGS: A frontal view of the chest is obtained. A left-sided pacer/defibrillator has its lead in the right ventricle. There are moderate left and small right pleural effusions. There are interstitial infiltrates in both bases. There is no pneumothorax. The heart is not enlarged. IMPRESSION: 1. Moderate left and small pleural effusions. Mild to moderate pulmonary edema. Electronically signed by: Manoj Portillo MD (11/18/2021 5:11 AM) [facility] Course & Med Decision Making: Course & Med Decision Making Airway patent, respiratory distress arrival, IV access and vitals obtained concerning for tachypnea and tachycardia on arrival HPI limited from patient, physical exam and comprehensive ER work-up obtained During this time, I reviewed patient's previous visits. Patient did not disclose he was recently positive for COVID and admitted October 2021 for acute respiratory failure due to HFrEF (EF 15%) s/p AICD (Biotronik), COVID PNA, and AECOPD with eventual PCI without intervention. Patient admits he continues to smoke cigarettes. States he " thinks" he has been compliant with sodium and fluid restrictions given history of heart failure reduced ejection fraction. Reports shortness of breath is worse with exertion Reviewed entirety of ER findings while in ER. Symptoms significantly improved after positive pressure ventilation and subsequent Lasix administration with good diuresis while in ER setting. Will require hospitalization and consideration for thoracentesis Nonetheless, patient will require admission. Hospitalist contacted and case reviewed, patient was ultimately accepted for admission. Patient notified of this discussion and need for hospitalization for which he remained amenable. All questions and concerns addressed prior to admission Thomas Disclaimer: Thomas Disclaimer: This electronic medical record was generated, in whole or in part, using a voice recognition dictation system. Departure Departure Impression: Primary Impression: Respiratory failure with hypoxia Additional Impressions: Acute on chronic HFrEF (heart failure with reduced ejection fraction) COPD (chronic obstructive pulmonary disease) Disposition: ADMITTED INPATIENT Admitting Physician: JOSE RAFAEL (DR BOWER) Condition: STABLE Referrals: PAULO TRIPP APRN (PCP) Scripts Metoprolol Succinate (Toprol XL) 50 Mg Tab.er.24h 50 MG PO DAILY for CHF for 30 Days, #30 TAB.SR 3 Refills Prov: MEHRDAD LOGAN MD 11/21/21 Potassium Chloride (KLOR-CON M20) 20 Meq Tab.er.prt 40 MEQ PO DAILYWBKFT for Hypokalemia for 30 Days, #60 TAB.SR 3 Refills Prov: MEHRDAD LOGAN MD 11/21/21 Bumetanide (BUMETANIDE) 1 Mg Tablet 1 TAB PO BID for CHF for 30 Days, #60 TAB 3 Refills Prov: MEHRDAD LOGAN MD 11/21/21 Spironolactone (ALDACTONE) 25 Mg Tablet 25 MG PO DAILY for heart for 30 Days, #30 TAB 3 Refills Prov: MEHRDAD LOGAN MD 11/21/21 Albuterol Sulfate (Proair Hfa) 8.5 Gm Hfa.aer.ad 2.5 MG NEB PRN Q4HRS PRN for SHORTNESS OF BREATH for 30 Days, #1 INHALER 3 Refills Prov: MEHRDAD LOGAN MD 11/21/21 RAY DANIELS DO Nov 18, 2021 01:00
[2021-11-18] MEDS ORDERED: ASPIRIN CHEWABLE 81 MG TABLET. PO ONE (01:15)
[2021-11-18 01:30] LABS: BASO # 0.1 x10^3/uL (0.0-0.2); BASO % 1 % (0-3); EOS # 0.2 x10^3/uL (0.0-0.7); EOS % 2 % (0-3); HEMATOCRIT 47.9 % (39.0-53.0); HEMOGLOBIN 15.8 g/dL (13.0-17.5); LYMPH # 1.4 x10^3/uL (1.0-4.8); LYMPH % 17 % (24-48); MEAN CORPUSCULAR HEMOGLOBIN 28 pg (25-35); MEAN CORPUSCULAR HGB CONC 33 g/dL (31-37); MEAN CORPUSCULAR VOLUME 84 fL (79-100); MONO # 0.8 x10^3/uL (0.0-1.1); MONO % 9 % (0-9); NEUT % 71 % (31-73); PLATELET COUNT 184 x10^3/uL (140-400); RED BLOOD COUNT 5.73 x10^6/uL (4.30-5.70); RED CELL DISTRIBUTION WIDTH 18.8 % (11.5-14.5); WHITE BLOOD COUNT 8.5 x10^3/uL (4.0-11.0)
[2021-11-18 01:37] LABS: ISTAT BE VENOUS 2 mmol/L (0-3); ISTAT HCO3 VEN 26 mmol/L (24-28); ISTAT PCO2 VEN 38 mmHg (41-51); ISTAT PH VEN 7.44 (7.32-7.42); ISTAT PO2 VEN 80 mmHg (20-40); ISTAT SAT O2 VEN 96 %; ISTAT TCO2 VEN 27 mmol/L (21-32)
[2021-11-18 01:42] LABS: CALCIUM 8.2 mg/dL (8.5-10.1); CREATININE 0.8 mg/dL (0.7-1.3); GFR 100.4; POTASSIUM 3.7 mmol/L (3.5-5.1)
[2021-11-18 01:48] LABS: ALBUMIN 2.8 g/dL (3.4-5.0); ALBUMIN/GLOBULIN RATIO 0.7 (1.0-1.7); TOTAL BILIRUBIN 1.2 mg/dL (0.2-1.0); TOTAL PROTEIN 6.6 g/dL (6.4-8.2)
[2021-11-18] MEDS ORDERED: FUROSEMIDE 100 MG/10 ML VIAL. IVP ONE (03:45)
[2021-11-18] MEDS ORDERED: ACETAMINOPHEN 325 MG TABLET. PO PRN (05:00)
[2021-11-18] MEDS ORDERED: NITROGLYCERIN SUBLINGUAL 0.4 MG BOTTLE OF 25. SL PRN (05:00)
--- NOTE | 2021-11-18 05:14 | RAD ---
EXAM: CHEST ONE VIEW. HISTORY: Shortness of breath. COMPARISON: 10/24/2021. FINDINGS: A frontal view of the chest is obtained. A left-sided pacer/defibrillator has its lead in t he right ventricle. There are moderate left and small right pleural effusions. There are interstitial infiltrates in both bases. There is no pneumothorax. The heart is not enlarged. IMPRESSION: 1. Moderate left and small pleural effusions. Mild to moderate pulmonary edema. Electronically signed by: Manoj Portillo MD (11/18/2021 5:11 AM) [facility]
[2021-11-18 06:00] VITALS: BP 123/90
[2021-11-18] MEDS ORDERED: IPRATRPIUM/ALBUTEROL 0.5/2.5MG 3 ML NEBU. NEB SCH (08:00)
[2021-11-18] MEDS: IPRATROPIUM/ALBUTEROL 20/100mcg/INH INHALER. INH SCH ×4 (08:00→21:24)
--- NOTE | 2021-11-18 09:02 | EKG ---
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
[2021-11-18 10:16] VITALS: BP 98/74
[2021-11-18] MEDS ORDERED: FUROSEMIDE 40 MG/4 ML VIAL. IVP ONE (11:30)
--- NOTE | 2021-11-18 11:34 | PDOC1 ---
History and Physical Date of Admission Date of Admission DATE: 11/18/21 TIME: 11:10 Identification/Chief Complaint Chief Complaint Shortness of breath Source Source: Patient History of Present Illness History of Present Illness Mr Glass is a 56yo male with reduced ejection fraction CHF (EF 15%) s/p biotronik AICD, HTN, smoker, HLD, DM2, COPD, CAD who comes to ED c/o progressive shortness of breath. He has been home recovering from COVID 19, diagnosed on 10/24/21 and was feeling well until 2 days prior to arrival he noted he was more short of breath with orthopnea when he was sleeping at night and started to feel heavier. He is not able to articulate his above diagnoses but sates he tried inhalers and water pills twice dosing with no improvement and doesn't recall any new dietary indiscretions, but he does note he tried to smoke more heavily to make himself less anxious and hoped this would clear up his breath, but feels the opposite happened. WBC 8.5, Hb 15.1, platelets 184, NA 138, K3.7, BUN 15, CR 0.8, glucose 23, calcium 8.2, magnesium 2, bilirubin 1.2, AST 13, ALT 23, alkaline phosphatase 151 wei.8, NT proBNP 5912, VBG U7.4 Chest radiograph with moderate left and small right pleural effusions bilateral pulmonary edema. Left-sided AICD noted. Past Medical History Cardiovascular: CAD, CHF, HTN, Hyperlipidemia, Other Pulmonary: COPD CENTRAL NERVOUS SYSTEM: Other GI: GERD Heme/Onc: No pertinent hx Hepatobiliary: No pertinent hx Psych: No pertinent hx Musculoskeletal: Osteoarthritis Rheumatologic: No pertinent hx Infectious disease: No pertinent hx Renal/: No pertinent hx Endocrine: Diabetes Past Surgical History Past Surgical History: Other Family History Family History: Hypertension Social History Smoke: 1 pack per day ALCOHOL: none Drugs: None Current Problem List Problem List Problems Medical Problems: (1) Acute on chronic HFrEF (heart failure with reduced ejection fraction) Status: Acute (2) COPD (chronic obstructive pulmonary disease) Status: Acute (3) Respiratory failure with hypoxia Status: Acute Current Medications Current Medications Current Medications Aspirin (Aspirin Chewable) 324 mg 1X ONCE PO Last administered on 11/18/21at 01:43; Start 11/18/21 at 01:15; Stop 11/18/21 at 01:16; Status DC Furosemide (Lasix) 80 mg 1X ONCE IVP Last administered on 11/18/21at 04:07; Start 11/18/21 at 03:45; Stop 11/18/21 at 03:47; Status DC Acetaminophen (Tylenol) 650 mg PRN Q4HRS PRN PO FEVER > 100.3'F; Start 11/18/21 at 05:00; Stop 11/19/21 at 04:59 Nitroglycerin (Nitrostat) 0.4 mg PRN Q5MIN PRN SL CHEST PAIN; Start 11/18/21 at 05:00; Stop 11/19/21 at 04:59 Albuterol/ Ipratropium (Duoneb) 3 ml RTQID NEB ; Start 11/18/21 at 08:00; Stop 11/18/21 at 07:01; Status DC Albuterol/ Ipratropium (Combivent Respimat 20-100 Mcg) 1 puff RTQID INH ; Start 11/18/21 at 08:00 Active Scripts Active Prednisone (Prednisone) 10 Mg Tablet 10 Mg PO UD Take 4 tablets by mouth daily for 2 days, then take 3 tablets by mouth daily for 2 days, then take 2 tablets by mouth daily for 2 days, then take 1 tablets by mouth daily for 2 days, then stop. Toprol XL (Metoprolol Succinate) 50 Mg Tab.er.24h 50 Mg PO DAILY Klor-Con M20 (Potassium Chloride) 20 Meq Tab.er.prt 40 Meq PO DAILYWBKFT Entresto 24 mg-26 mg Tablet (Sacubitril/Valsartan) 1 Each Tablet 1 Tab PO BID Bumetanide 1 Mg Tablet 1 Tab PO BID Dok (Docusate Sodium) 100 Mg Capsule 100 Mg PO PRN DAILY PRN 30 Days Tylenol (Acetaminophen) 325 Mg Tablet 650 Mg PO PRN Q4HRS PRN 30 Days Aspirin Ec (Aspirin) 81 Mg Tablet.dr 81 Mg PO DAILYWBKFT 30 Days Aldactone (Spironolactone) 25 Mg Tablet 25 Mg PO DAILY 30 Days Proair Hfa (Albuterol Sulfate) 8.5 Gm Hfa.aer.ad 2.5 Mg NEB PRN Q4HRS PRN 30 Days Reported Vascepa (Icosapent Ethyl) 0.5 Gm Capsule 1 Cap PO BID 30 Days Farxiga (Dapagliflozin Propanediol) 10 Mg Tablet 10 Mg PO BID Omeprazole 20 Mg Tablet.dr 1 Tab PO DAILY Atorvastatin Calcium 40 Mg Tablet 1 Tab PO QHS Glimepiride 4 Mg Tablet 1 Tab PO DAILY Allergies Allergies: Coded Allergies: No Known Drug Allergies (Unverified , 03/22/20) ROS General: YES: Fatigue, Malaise; No: Chills, Night Sweats, Appetite, Other PSYCHOLOGICAL ROS: YES: Anxiety; No: Behavioral Disorder, Concentration difficultie, Decreased libido, Depression, Disorientation, Hallucinations, Hostility, Irritablity, Memory difficulties, Mood Swings, Obsessive thoughts, Physical abuse, Sexual abuse, Sleep disturbances, Suicidal ideation, Other Eyes: No Blurry vision, No Decreased vision, No Double vision, No Dry eyes, No Excessive tearing, No Eye Pain, No Itchy Eyes, No Loss of vision, No Phot ophobia, No Scotomata, No Uses contacts, No Uses glasses, No Other HEENT: No: Heacaches, Visual Changes, Hearing change, Nasal congestion, Nasal discharge, Oral lesions, Sinus pain, Sore Throat, Epistaxis, Sneezing, Snoring, Tinnitus, Vertigo, Vocal changes, Other ALLERGY AND IMMUNOLOGY: No: Hives, Insect Bite Sensitivity, Itchy/Watery Eyes, Nasal Congestion, Post Nasal Drip, Seasonal Allergies, Other Hematological and Lymphatic: No: Bleeding Problems, Blood Clots, Blood Transfusions, Brusing, Night Sweats, Pallor, Swollen Lymph Nodes, Other ENDOCRINE: No: Breast Changes, Galactorrhea, Hair Pattern Changes, Hot Flashes, Malaise/lethargy, Mood Swings, Palpitations, Polydipsia/polyuria, Skin Changes, Temperature Intolerance, Unexpected Weight Changes, Other Breast: No New/Changing Breast Lumps, No Nipple changes, No Nipple discharge, No Other Respiratory: YES: Cough, Shortness of breath; No: Hemoptysis, Orthopnea, Pleuritic Pain, SOB with excertion, Sputum Changes , Stridor, Tachypnea, Wheezing, Other Cardiovascular: yes Palpitations, yes Orthopnea, yes Paroxysmal Noc. Dyspnea, yes Edema; No Chest Pain, No Lt Headedness, No Other Gastrointestinal: No Nausea, No Vomiting, No Abdominal Pain, No Diarrhea, No Constipation, No Melena, No Hematochezia, No Other Genitourinary: No Dysuria, No Frequency, No Incontinence, No Hematuria, No Retention, No Discharge, No Urgency, No Pain, No Flank Pain, No Other, No , No , No , No , No , No , No Musculoskeletal: No Gait Disturbance, No Joint Pain, No Joint Stiffness, No Joint Swelling, No Muscle Pain, No Muscular Weakness, No Pain In:, No Swelling In:, No Other Neurological: No Behavorial Changes, No Bowel/Bladder ControlChng, No Confusion, No Dizziness, No Gait Disturbance, No Headaches, No Impaired Coord/balance, No Memory Loss, No Numbness/Tingling, No Seizures, No Speech Problems, No Tremors, No Visual Changes, No Weakness, No Other Skin: No Dry Skin, No Eczema, No Hair Changes, No Lumps, No Mole Changes, No Mottling, No Nail Changes, No Pruritus, No Rash, No Skin Lesion Changes, No Other, No Acne Physical Exam General: Alert, Oriented X3, Cooperative, moderate distress HEENT: Atraumatic, PERRLA, EOMI, Mucous membr. moist/pink Lungs: Other (bibasilar crackles) Heart: S1S2, RRR, no thrills, no rubs, no gallops, no murmurs Abdomen: Normal bowel sounds, Soft, No tenderness, No hepatosplenomegaly, No masses Rectal Exam: not examined Extremities: Other (2+ edema, venous stasis dermatitis) Skin: Other (stasis dermatitis bilateral legs) Neuro: Normal gait, Normal speech, Strength at 5/5 X4 ext, Normal tone, Sensation intact, Cranial nerves 3-12 NL, Reflexes 2+ Psych/Mental Status: Mental status NL, Mood NL Vitals Vitals Vital Signs Date Time Temp Pulse Resp B/P (MAP) Pulse Ox O2 Delivery O2 Flow Rate FiO2 11/18/21 10:16 95.6 107 22 98/74 (82) 97 Nasal Cannula 2.0 95.6 Labs Labs Laboratory Tests Test 11/18/21 01:15 11/18/21 01:25 11/18/21 05:05 11/18/21 08:40 White Blood Count 8.5 x10^3/uL (4.0-11.0) Red Blood Count 5.73 x10^6/uL (4.30-5.70) Hemoglobin 15.8 g/dL (13.0-17.5) Hematocrit 47.9 % (39.0-53.0) Mean Corpuscular Volume 84 fL (79-100) Mean Corpuscular Hemoglobin 28 pg (25-35) Mean Corpuscular Hemoglobin Concent 33 g/dL (31-37) Red Cell Distribution Width 18.8 % (11.5-14.5) Platelet Count 184 x10^3/uL (140-400) Neutrophils (%) (Auto) 71 % (31-73) Lymphocytes (%) (Auto) 17 % (24-48) Monocytes (%) (Auto) 9 % (0-9) Eosinophils (%) (Auto) 2 % (0-3) Basophils (%) (Auto) 1 % (0-3) Neutrophils # (Auto) 6.0 x10^3/uL (1.8-7.7) Lymphocytes # (Auto) 1.4 x10^3/uL (1.0-4.8) Monocytes # (Auto) 0.8 x10^3/uL (0.0-1.1) Eosinophils # (Auto) 0.2 x10^3/uL (0.0-0.7) Basophils # (Auto) 0.1 x10^3/uL (0.0-0.2) Sodium Level 138 mmol/L (136-145) Potassium Level 3.7 mmol/L (3.5-5.1) Chloride Level 104 mmol/L (98-107) Carbon Dioxide Level 25 mmol/L (21-32) Anion Gap 9 (6-14) Blood Urea Nitrogen 15 mg/dL (8-26) Creatinine 0.8 mg/dL (0.7-1.3) Estimated GFR (Cockcroft-Gault) 100.4 BUN/Creatinine Ratio 19 (6-20) Glucose Level 183 mg/dL (70-99) Lactic Acid Level 2.1 mmol/L (0.4-2.0) 1.8 mmol/L (0.4-2.0) Calcium Level 8.2 mg/dL (8.5-10.1) Magnesium Level 2.0 mg/dL (1.8-2.4) Total Bilirubin 1.2 mg/dL (0.2-1.0) Aspartate Amino Transf (AST/SGOT) 13 U/L (15-37) Alanine Aminotransferase (ALT/SGPT) 23 U/L (16-63) Alkaline Phosphatase 151 U/L (46-116) Troponin I High Sensitivity 23 ng/L (4-75) 25 ng/L (4-75) 24 ng/L (4-75) LV-Kcb-O-Type Natriuretic Peptide 5912 pg/mL (0-124) Total Protein 6.6 g/dL (6.4-8.2) Albumin 2.8 g/dL (3.4-5.0) Albumin/Globulin Ratio 0.7 (1.0-1.7) Bedside Venous pH 7.44 (7.32-7.42) Bedside Venous pCO2 38 mmHg (41-51) Bedside Venous pO2 80 mmHg (20-40) Venous Blood HCO3 26 mmol/L (24-28) POC Venous O2 Saturation (Anastasia) 96 % Bedside FiO2 21.0 Laboratory Tests Test 11/18/21 01:15 11/18/21 01:25 11/18/21 05:05 11/18/21 08:40 White Blood Count 8.5 x10^3/uL (4.0-11.0) Red Blood Count 5.73 x10^6/uL (4.30-5.70) Hemoglobin 15.8 g/dL (13.0-17.5) Hematocrit 47.9 % (39.0-53.0) Mean Corpuscular Volume 84 fL (79-100) Mean Corpuscular Hemoglobin 28 pg (25-35) Mean Corpuscular Hemoglobin Concent 33 g/dL (31-37) Red Cell Distribution Width 18.8 % (11.5-14.5) Platelet Count 184 x10^3/uL (140-400) Neutrophils (%) (Auto) 71 % (31-73) Lymphocytes (%) (Auto) 17 % (24-48) Monocytes (%) (Auto) 9 % (0-9) Eosinophils (%) (Auto) 2 % (0-3) Basophils (%) (Auto) 1 % (0-3) Neutrophils # (Auto) 6.0 x10^3/uL (1.8-7.7) Lymphocytes # (Auto) 1.4 x10^3/uL (1.0-4.8) Monocytes # (Auto) 0.8 x10^3/uL (0.0-1.1) Eosinophils # (Auto) 0.2 x10^3/uL (0.0-0.7) Basophils # (Auto) 0.1 x10^3/uL (0.0-0.2) Sodium Level 138 mmol/L (136-145) Potassium Level 3.7 mmol/L (3.5-5.1) Chloride Level 104 mmol/L (98-107) Carbon Dioxide Level 25 mmol/L (21-32) Anion Gap 9 (6-14) Blood Urea Nitrogen 15 mg/dL (8-26) Creatinine 0.8 mg/dL (0.7-1.3) Estimated GFR (Cockcroft-Gault) 100.4 BUN/Creatinine Ratio 19 (6-20) Glucose Level 183 mg/dL (70-99) Lactic Acid Level 2.1 mmol/L (0.4-2.0) 1.8 mmol/L (0.4-2.0) Calcium Level 8.2 mg/dL (8.5-10.1) Magnesium Level 2.0 mg/dL (1.8-2.4) Total Bilirubin 1.2 mg/dL (0.2-1.0) Aspartate Amino Transf (AST/SGOT) 13 U/L (15-37) Alanine Aminotransferase (ALT/SGPT) 23 U/L (16-63) Alkaline Phosphatase 151 U/L (46-116) Troponin I High Sensitivity 23 ng/L (4-75) 25 ng/L (4-75) 24 ng/L (4-75) KF-Phr-Y-Type Natriuretic Peptide 5912 pg/mL (0-124) Total Protein 6.6 g/dL (6.4-8.2) Albumin 2.8 g/dL (3.4-5.0) Albumin/Globulin Ratio 0.7 (1.0-1.7) Bedside Venous pH 7.44 (7.32-7.42) Bedside Venous pCO2 38 mmHg (41-51) Bedside Venous pO2 80 mmHg (20-40) Venous Blood HCO3 26 mmol/L (24-28) POC Venous O2 Saturation (Anastasia) 96 % Bedside FiO2 21.0 Images Images Chest radiograph: A frontal view of the chest is obtained. A left-sided pacer/defibrillator has its lead in the right ventricle. There are moderate left and small right pleural effusions. There are interstitial infiltrates in both bases. There is no pneumothorax. The heart is not enlarged. IMPRESSION: 1. Moderate left and small pleural effusions. Mild to moderate pulmonary edema. VTE Prophylaxis Ordered VTE Prophylaxis Devices: Yes VTE Pharmacological Prophylaxi: Yes Assessment/Plan Assessment/Plan A/P: Shortness of breath - likely due to acute systolic and diastolic CHF. Will aggressively diurese. Also with mild bronchitis related to smoking, possibly post-COVID19 Left pleural effusion - likely would be due to CHF. Will consider thoracentesis if diuresis does not improve his symptoms Acute on chronic diastolic/systolic CHF - s/p IV furosemide, will transition to BUMEX. Cardiology consulted Acute mild exacerbation of COPD - continues to smoke. If failure to improve with CHF treatment may need RB-ILD treatment Severe nonischemic cardiomyopathy - with EF at 15% per echo 02/02. S/P AICD which is biotronik. Will interrogate device Hypertension - cont home meds DM2 - sliding scale insulin HLD - cont statin H/O covid-19 - recovered. Was diagnosed 10/24/2021 PSVT - hold dronaderone for acute CHF FEN - Cardiac PPX - lovenox FULL CODE Dispo - inpatient Justifications for Admission Other Justification Acute CHF exacerbation, scrotal edema MEHRDAD LOGAN MD Nov 18, 2021 11:34
--- NOTE | 2021-11-18 13:36 | NUR ---
SS following for discharge planning. SS reviewed pt chart and discussed with pt RN. Pt is from home and is currently requiring oxygen at four liters nasal canula. Cardiology consulted. Pt has no home oxygen. SS will continue to follow for discharge planning.
[2021-11-18 14:43] VITALS: BP 111/76
--- NOTE | 2021-11-18 15:33 | PDOC2 ---
DAKOTA PERAZA [employer] TRAINER 11/18/21 1533: CARDIAC CONSULT DATE OF CONSULT Date of Consult DATE: 11/18/21 TIME: 15:04 REASON FOR CONSULT Reason for Consult: EF 15% REFERRING PHYSICIAN Referring Physician: Jerri SOURCE Source: Chart review, Patient HISTORY OF PRESENT ILLNESS HISTORY OF PRESENT ILLNESS This is a 56 yo male admitted for complains of shortness of breath. This has gotten worse in the last 2 days. Verbalized medication compliance but continues to smoke tobacco. He is known for severe NICM. He has been compliant with is diet and FR. Denies any fever or chills or any palpitations. Denies any chest pa in. No flu like symptoms. He has been having nonproductive cough. PAST MEDICAL HISTORY Past Medical History Cardiovascular: CAD, CHF, HTN, Hyperlipidemia, Other (nicm) Pulmonary: COPD CENTRAL NERVOUS SYSTEM: Other (no pertinent history) GI: GERD Heme/Onc: No pertinent hx Hepatobiliary: No pertinent hx Psych: No pertinent hx Musculoskeletal: Osteoarthritis Rheumatologic: No pertinent hx Infectious disease: No pertinent hx ENT: No pertinent hx Renal/: No pertinent hx Endocrine: Diabetes (2) PAST SURGICAL HISTORY Past Surgical History LHC, AICD FAMILY HISTORY Family History: Hypertension SOCIAL HISTORY Smoke: No ALCOHOL: none Drugs: None Lives: with Family CURRENT MEDICATIONS CURRENT MEDICATIONS Current Medications Medications (Trade) Dose Ordered Sig/Gus Route PRN Reason Start Time Stop Time Status Last Admin Dose Admin Aspirin (Aspirin Chewable) 324 mg 1X ONCE PO 11/18/21 01:15 11/18/21 01:16 DC 11/18/21 01:43 Furosemide (Lasix) 80 mg 1X ONCE IVP 11/18/21 03:45 11/18/21 03:47 DC 11/18/21 04:07 Furosemide (Lasix) 80 mg 1X ONCE IVP 11/18/21 11:30 11/18/21 11:31 DC 11/18/21 13:29 ALLERGIES ALLERGIES: Coded Allergies: No Known Drug Allergies (Unverified , 03/22/20) ROS Review of System 14 point ROS evaluated with pertinent positives noted per HPI PHYSICAL EXAM General: Alert, Oriented X3, Cooperative, No acute distress HEENT: Atraumatic, Mucous membr. moist/pink, Other (JVD) Lungs: Other (basilar crackles) Heart: Regular rate (SR), Normal S1, Normal S2, Other (3/6 systolic murmur to LLS border) Abdomen: Soft, No tenderness Extremities: No cyanosis, Other (2+ bilateral LE pitting edema) Skin: No breakdown, No significant lesion, Other (venous dermatitis) Neuro: Normal speech, Sensation intact Psych/Mental Status: Mental status NL, Mood NL MUSCULOSKELETAL: Osteoarthritic changes both hands VITALS/I&O VITALS/I&O: Vital Signs Date Time Temp Pulse Resp B/P (MAP) Pulse Ox O2 Delivery O2 Flow Rate FiO2 11/18/21 14:43 97.8 105 24 111/76 (88) 95 Nasal Cannula 97.8 11/18/21 11:45 4.0 LABS Lab: Laboratory Tests Test 11/18/21 01:15 11/18/21 01:25 11/18/21 05:05 11/18/21 08:40 White Blood Count 8.5 x10^3/uL (4.0-11.0) Red Blood Count 5.73 x10^6/uL (4.30-5.70) H Hemoglobin 15.8 g/dL (13.0-17.5) Hematocrit 47.9 % (39.0-53.0) Mean Corpuscular Volume 84 fL (79-100) Mean Corpuscular Hemoglobin 28 pg (25-35) Mean Corpuscular Hemoglobin Concent 33 g/dL (31-37) Red Cell Distribution Width 18.8 % (11.5-14.5) H Platelet Count 184 x10^3/uL (140-400) Neutrophils (%) (Auto) 71 % (31-73) Lymphocytes (%) (Auto) 17 % (24-48) L Monocytes (%) (Auto) 9 % (0-9) Eosinophils (%) (Auto) 2 % (0-3) Basophils (%) (Auto) 1 % (0-3) Neutrophils # (Auto) 6.0 x10^3/uL (1.8-7.7) Lymphocytes # (Auto) 1.4 x10^3/uL (1.0-4.8) Monocytes # (Auto) 0.8 x10^3/uL (0.0-1.1) Eosinophils # (Auto) 0.2 x10^3/uL (0.0-0.7) Basophils # (Auto) 0.1 x10^3/uL (0.0-0.2) Sodium Level 138 mmol/L (136-145) Potassium Level 3.7 mmol/L (3.5-5.1) Chloride Level 104 mmol/L (98-107) Carbon Dioxide Level 25 mmol/L (21-32) Anion Gap 9 (6-14) Blood Urea Nitrogen 15 mg/dL (8-26) Creatinine 0.8 mg/dL (0.7-1.3) Estimated GFR (Cockcroft-Gault) 100.4 BUN/Creatinine Ratio 19 (6-20) Glucose Level 183 mg/dL (70-99) H Lactic Acid Level 2.1 mmol/L (0.4-2.0) H 1.8 mmol/L (0.4-2.0) Calcium Level 8.2 mg/dL (8.5-10.1) L Magnesium Level 2.0 mg/dL (1.8-2.4) Total Bilirubin 1.2 mg/dL (0.2-1.0) H Aspartate Amino Transferase (AST) 13 U/L (15-37) L Alanine Aminotransferase (ALT) 23 U/L (16-63) Alkaline Phosphatase 151 U/L (46-116) H Troponin I High Sensitivity 23 ng/L (4-75) 25 ng/L (4-75) 24 ng/L (4-75) XY-Utv-[id number]-Type Natriuretic Peptide 5912 pg/mL (0-124) H Total Protein 6.6 g/dL (6.4-8.2) Albumin 2.8 g/dL (3.4-5.0) L Albumin/Globulin Ratio 0.7 (1.0-1.7) L POC Venous pH 7.44 (7.32-7.42) H POC Venous pCO2 38 mmHg (41-51) L POC Venous pO2 80 mmHg (20-40) H Venous Blood HCO3 26 mmol/L (24-28) POC Venous O2 Saturation (Anastasia) 96 % POC FiO2 21.0 Laboratory Tests 11/18/21 01:15 Laboratory Tests 11/18/21 01:15 ECHOCARDIOGRAM ECHOCARDIOGRAM <Conclusion> The Left Ventricle is mildly dilated. The ejection fraction is severely impaired. The Ejection Fraction is estimated at 15%. There is severe global hypokinesis of the left ventricle. Tissue Doppler imaging reveals severe left ventricular diastolic dysfunction. Doppler and Color Flow revealed trace aortic regurgitation. Calculated aortic valve area is 2.42 cm2 with maximum pressure gradient of 4 mmHg and mean pressure gradient of 3 mmHg. There is no significant aortic valvular stenosis. Doppler and Color-flow revealed trace mitral regurgitation. Doppler and Color Flow revealed mild to moderate tricuspid regurgitation with an estimated PAP of 58 mmHg. DATE: 01/19/21 [id number] ASSESSMENT/PLAN ASSESSMENT/PLAN 1. Acute on chronic diastolic/systolic CHF; better compensated 2. 10. COPD with continued tobaccoism 3. Severe NICM; EF at 15% per echo 02/02 4. CAD; cath 11/04 with small vessel disease on diagonal branch, otherwise no intervenable lesions noted. CP free. 5. Hypertension; controlled 6. Diabetes, II 7. Hyperlipidemia; statin 8. s/p AICD (Biotronik): normal device noted 2/3 interrogation with no significant arrhythmia. Thoracic impedances denotes fluid overloaded but improving. 9. Recent covid-19: + on 10/24/2021 10. Hx of PSVT: hence on home multaq Recommendations Bumex IV. Received high dose lasix in ED. No multaq until HF is resolved Hold Entresto. Restart Toprol (50 mg), Aldactone. Secondary prevention Supportive care Smoking cessation HAKAN GOLDMAN MD 11/18/21 8383: CARDIAC CONSULT ASSESSMENT/PLAN ASSESSMENT/PLAN Patient seen and evaluated. I agree with our nurse practitioners assessment and plan. Acute on chronic diastolic/systolic CHF; the patient is feeling better on present medical treatment. We will continue. BNP significantly elevated at 5912. Troponin of 24. COPD exacerbation with continued tobaccoism. Continuing IV Bumex with metoprolol. Holding Entresto. Severe NICM; EF at 15% per echo 02/02 CAD; cath 11/04 with small vessel disease on diagonal branch, otherwise no intervenable lesions noted. CP free. Hypertension; controlled Diabetes, II Hyperlipidemia; statin s/p AICD (Biotronik): normal device noted 2/3 interrogation with no significant arrhythmia. Thoracic impedances denotes fluid overloaded but improving. Recent covid-19: + on 10/24/2021 Hx of PSVT: hence on home multaq and holding Multaq at this time. DAKOTA PERAZA APRNb 4, 2022 15:33 HAKAN GOLDMAN MD Nov 18, 2021 17:14
[2021-11-18] MEDS: BUMETANIDE 1 MG/4 ML VIAL. IV SCH (16:00)
[2021-11-18 19:34] VITALS: BP 105/75
[2021-11-18] MEDS: ATORVASTATIN CALCIUM 40 MG TABLET. PO SCH (21:25)
[2021-11-18 23:38] VITALS: BP 120/88
--- NOTE | 2021-11-19 02:49 | NUR ---
This patient, Chaz Glass, has been resting well, reports his breathing is much better..Monitoring...
[2021-11-19 02:54] LABS: CALCIUM 8.2 mg/dL (8.5-10.1); GFR 77.6; MAGNESIUM 1.9 mg/dL (1.8-2.4)
[2021-11-19 03:17] VITALS: BP 100/74
[2021-11-19 07:00] VITALS: BP 135/76
[2021-11-19] MEDS: IPRATROPIUM/ALBUTEROL 20/100mcg/INH INHALER. INH SCH ×4 (08:00→20:00)
[2021-11-19] MEDS: POTASSIUM CHLORIDE 20 MEQ TABLET.ER. PO SCH (08:18)
[2021-11-19] MEDS: METOPROLOL SUCC 24HR ER 50 MG TAB.ER.24H. PO SCH (08:18)
[2021-11-19] MEDS: BUMETANIDE 1 MG/4 ML VIAL. IV SCH ×2 (08:18→13:35)
[2021-11-19] MEDS: ASPIRIN ENTERIC COATED 81 MG TABLET.DR. PO SCH (08:18)
[2021-11-19] MEDS: SPIRONOLACTONE 25 MG TABLET PO SCH (08:18)
--- NOTE | 2021-11-19 09:46 | PDOC ---
[employer] PROGRESS NOTE Date of Service DOS: DATE: 11/19/21 TIME: 09:46 Chief Complaint Chief Complaint A/P: Shortness of breath - likely due to acute systolic and diastolic CHF. Will aggressively diurese. Also with mild bronchitis related to smoking, possibly post-COVID19 Left pleural effusion - likely would be due to CHF. Will consider thoracentesis if diuresis does not improve his symptoms Acute on chronic diastolic/systolic CHF - s/p IV furosemide, will transition to BUMEX. Cardiology consulted Acute mild exacerbation of COPD - continues to smoke. If failure to improve with CHF treatment may need RB-ILD treatment Severe nonischemic cardiomyopathy - with EF at 15% per echo 02/02. S/P AICD which is biotronik. Will interrogate device Hypertension - cont home meds DM2 - sliding scale insulin HLD - cont statin H/O covid-19 - recovered. Was diagnosed 10/24/2021 PSVT - hold dronaderone for acute CHF FEN - Cardiac PPX - lovenox FULL CODE Dispo - inpatient History of Present Illness History of Present Illness Mr Glass is a 56yo male with reduced ejection fraction CHF (EF 15%) s/p biotronik AICD, HTN, smoker, HLD, DM2, COPD, CAD who comes to ED c/o progressive shortness of breath. He has been home recovering from COVID 19, diagnosed on 10/24/21 and was feeling well until 2 days prior to arrival he noted he was more short of breath with orthopnea when he was sleeping at night and started to feel heavier. He is not able to articulate his above diagnoses but sates he tried inhalers and water pills twice dosing with no improvement and doesn't recall any new dietary indiscretions, but he does note he tried to smoke more heavily to make himself less anxious and hoped this would clear up his breath, but feels the opposite happened. WBC 8.5, Hb 15.1, platelets 184, NA 138, K3.7, BUN 15, CR 0.8, glucose 23, calcium 8.2, magnesium 2, bilirubin 1.2, AST 13, ALT 23, alkaline phosphatase 151 wei.8, NT proBNP 5912, VBG U7.4 / Chest radiograph with moderate left and small right pleural effusions bilateral pulmonary edema. Left-sided AICD noted. 11/19: 2.8 L diuresed. He feels symptomatically improved. O2 saturations 100% on 5 L/min. Turndown his O2. Shortness of breath is improved. Counseled on smoking cessation. Decreased breath sounds on the left. Feels his leg swelling is about the same as it always been. Vitals/I&O Vitals/I&O: Vital Signs Date Time Temp Pulse Resp B/P (MAP) Pulse Ox O2 Delivery O2 Flow Rate FiO2 11/19/21 08:18 98 135/76 11/19/21 08:00 Nasal Cannula 3.0 11/19/21 07:00 96.5 24 98 96.5 I & O 11/18/21 11/18/21 11/19/21 15:00 23:00 07:00 Intake Total 0 ml 1100 ml 820 ml Output Total 800 ml 1600 ml 400 ml Balance -800 ml -500 ml 420 ml Physical Exam General: Alert, Oriented X3, Cooperative, moderate distress Heart: Regular rate (SR), Normal S1, Normal S2, Other (3/6 systolic murmur to LLS border) Lungs: Clear Abdomen: Normal bowel sounds, Soft, No tenderness, No hepatosplenomegaly, No masses Extremities: Other (2+ edema, venous stasis dermatitis) Skin: Other (stasis dermatitis bilateral legs) Labs Labs: Laboratory Tests Test 11/19/21 02:00 Sodium Level 139 mmol/L (136-145) Potassium Level 4.0 mmol/L (3.5-5.1) Chloride Level 104 mmol/L (98-107) Carbon Dioxide Level 29 mmol/L (21-32) Anion Gap 6 (6-14) Blood Urea Nitrogen 20 mg/dL (8-26) Creatinine 1.0 mg/dL (0.7-1.3) Estimated GFR (Cockcroft-Gault) 77.6 Glucose Level 164 mg/dL (70-99) Calcium Level 8.2 mg/dL (8.5-10.1) Magnesium Level 1.9 mg/dL (1.8-2.4) Assessment and Plan Assessmemt and Plan Problems Medical Problems: (1) Acute on chronic HFrEF (heart failure with reduced ejection fraction) Status: Acute (2) COPD (chronic obstructive pulmonary disease) Status: Acute (3) Respiratory failure with hypoxia Status: Acute Comment Review of Relevant I have reviewed the following items gorge (where applicable) has been applied. Medications: Current Medications Medications (Trade) Dose Ordered Sig/Gus Route PRN Reason Start Time Stop Time Status Last Admin Dose Admin Furosemide (Lasix) 80 mg 1X ONCE IVP 11/18/21 11:30 11/18/21 11:31 DC 11/18/21 13:29 Aspirin (Ecotrin) 81 mg DAILYWBKFT PO 11/19/21 08:00 11/19/21 08:18 Atorvastatin Calcium (Lipitor) 40 mg QHS PO 11/18/21 21:00 11/18/21 21:25 Metoprolol Succinate (Toprol Xl) 50 mg DAILY PO 11/19/21 09:00 11/19/21 08:18 Potassium Chloride (Klor-Con) 40 meq DAILYWBKFT PO 11/19/21 08:00 11/19/21 08:18 Spironolactone (Aldactone) 25 mg DAILY PO 11/19/21 09:00 11/19/21 08:18 Bumetanide (Bumex) 1 mg [id number] IV 11/18/21 16:00 11/19/21 08:18 Justifications for Admission Other Justification Acute CHF exacerbation, scrotal edema MEHRDAD LOGAN MD Nov 19, 2021 09:46
[2021-11-19 11:00] VITALS: BP 119/86
[2021-11-19] MEDS ORDERED: DEXTROSE 50% 25 GM / 50ML DISP.SYRIN. IV PRN (12:15)
[2021-11-19] MEDS: INSULIN LISPRO 300 UNITS/3 ML VIAL. SQ SCH ×2 (12:15→17:20)
[2021-11-19] MEDS ORDERED: IV DEXTROSE 5% 250 ML BAG. IV PRN (12:15)
[2021-11-19 15:00] VITALS: BP 111/83
--- NOTE | 2021-11-19 17:07 | PDOC ---
PROGRESS NOTES Date of Service DATE: 11/19/21 TIME: 17:05 Subjective Subjective Patient seen and examined Objective Objective Vital Signs Date Time Temp Pulse Resp B/P (MAP) Pulse Ox O2 Delivery O2 Flow Rate FiO2 11/19/21 15:00 98.0 100 24 111/83 (92) 99 Nasal Cannula 3.0 98.0 Intake and Output 11/19/21 07:00 Intake Total 1920 ml Output Total 2800 ml Balance -880 ml Intake Oral 1920 ml Output Urine Total 2800 ml # Voids 1 # Bowel Movements 2 Physical Exam Abdomen: Normal bowel sounds Heart: Regular rate General: mild distress Lungs: Other (Mildly decreased breath sounds) Assessment Assessment Problems Medical Problems: (1) Acute on chronic HFrEF (heart failure with reduced ejection fraction) Status: Acute (2) COPD (chronic obstructive pulmonary disease) Status: Acute (3) Respiratory failure with hypoxia Status: Acute Acute on chronic diastolic/systolic CHF; the patient continues to feel better on present treatments. Initial BNP elevated at 5912. Troponins not significantly elevated at 24, 25 and 23. We will continue on present treatment. COPD exacerbation with continued tobaccoism. Continuing IV Bumex with metoprolol. Holding Entresto. Severe NICM; EF at 15% per echo 02/02 CAD; cath 11/04 with small vessel disease on diagonal branch, otherwise no intervenable lesions noted. CP free. Hypertension; controlled Diabetes, II Hyperlipidemia; statin s/p AICD (Biotronik): normal device noted 2/3 interrogation with no significant arrhythmia. Thoracic impedances denotes fluid overloaded but improving. Recent covid-19: + on 10/24/2021 Hx of PSVT: hence on home multaq and holding Multaq at this time. Comment Review of Relevant I have reviewed the following items gorge (where applicable) has been applied. Labs Laboratory Tests Test 11/18/21 01:15 11/18/21 01:25 11/18/21 05:05 11/18/21 08:40 White Blood Count 8.5 x10^3/uL (4.0-11.0) Red Blood Count 5.73 x10^6/uL (4.30-5.70) Hemoglobin 15.8 g/dL (13.0-17.5) Hematocrit 47.9 % (39.0-53.0) Mean Corpuscular Volume 84 fL (79-100) Mean Corpuscular Hemoglobin 28 pg (25-35) Mean Corpuscular Hemoglobin Concent 33 g/dL (31-37) Red Cell Distribution Width 18.8 % (11.5-14.5) Platelet Count 184 x10^3/uL (140-400) Neutrophils (%) (Auto) 71 % (31-73) Lymphocytes (%) (Auto) 17 % (24-48) Monocytes (%) (Auto) 9 % (0-9) Eosinophils (%) (Auto) 2 % (0-3) Basophils (%) (Auto) 1 % (0-3) Neutrophils # (Auto) 6.0 x10^3/uL (1.8-7.7) Lymphocytes # (Auto) 1.4 x10^3/uL (1.0-4.8) Monocytes # (Auto) 0.8 x10^3/uL (0.0-1.1) Eosinophils # (Auto) 0.2 x10^3/uL (0.0-0.7) Basophils # (Auto) 0.1 x10^3/uL (0.0-0.2) Sodium Level 138 mmol/L (136-145) Potassium Level 3.7 mmol/L (3.5-5.1) Chloride Level 104 mmol/L (98-107) Carbon Dioxide Level 25 mmol/L (21-32) Anion Gap 9 (6-14) Blood Urea Nitrogen 15 mg/dL (8-26) Creatinine 0.8 mg/dL (0.7-1.3) Estimated GFR (Cockcroft-Gault) 100.4 BUN/Creatinine Ratio 19 (6-20) Glucose Level 183 mg/dL (70-99) Lactic Acid Level 2.1 mmol/L (0.4-2.0) 1.8 mmol/L (0.4-2.0) Calcium Level 8.2 mg/dL (8.5-10.1) Magnesium Level 2.0 mg/dL (1.8-2.4) Total Bilirubin 1.2 mg/dL (0.2-1.0) Aspartate Amino Transf (AST/SGOT) 13 U/L (15-37) Alanine Aminotransferase (ALT/SGPT) 23 U/L (16-63) Alkaline Phosphatase 151 U/L (46-116) Troponin I High Sensitivity 23 ng/L (4-75) 25 ng/L (4-75) 24 ng/L (4-75) VL-Rzb-X-Type Natriuretic Peptide 5912 pg/mL (0-124) Total Protein 6.6 g/dL (6.4-8.2) Albumin 2.8 g/dL (3.4-5.0) Albumin/Globulin Ratio 0.7 (1.0-1.7) Bedside Venous pH 7.44 (7.32-7.42) Bedside Venous pCO2 38 mmHg (41-51) Bedside Venous pO2 80 mmHg (20-40) Venous Blood HCO3 26 mmol/L (24-28) POC Venous O2 Saturation (Anastasia) 96 % Bedside FiO2 21.0 Test 11/19/21 02:00 11/19/21 12:32 11/19/21 16:02 Sodium Level 139 mmol/L (136-145) Potassium Level 4.0 mmol/L (3.5-5.1) Chloride Level 104 mmol/L (98-107) Carbon Dioxide Level 29 mmol/L (21-32) Anion Gap 6 (6-14) Blood Urea Nitrogen 20 mg/dL (8-26) Creatinine 1.0 mg/dL (0.7-1.3) Estimated GFR (Cockcroft-Gault) 77.6 Glucose Level 164 mg/dL (70-99) Calcium Level 8.2 mg/dL (8.5-10.1) Magnesium Level 1.9 mg/dL (1.8-2.4) Glucose (Fingerstick) 157 mg/dL (70-99) 187 mg/dL (70-99) Laboratory Tests Test 11/19/21 02:00 11/19/21 12:32 11/19/21 16:02 Sodium Level 139 mmol/L (136-145) Potassium Level 4.0 mmol/L (3.5-5.1) Chloride Level 104 mmol/L (98-107) Carbon Dioxide Level 29 mmol/L (21-32) Anion Gap 6 (6-14) Blood Urea Nitrogen 20 mg/dL (8-26) Creatinine 1.0 mg/dL (0.7-1.3) Estimated GFR (Cockcroft-Gault) 77.6 Glucose Level 164 mg/dL (70-99) Calcium Level 8.2 mg/dL (8.5-10.1) Magnesium Level 1.9 mg/dL (1.8-2.4) Glucose (Fingerstick) 157 mg/dL (70-99) 187 mg/dL (70-99) Microbiology 11/18/21 Blood Culture - Preliminary, Resulted NO GROWTH AFTER 1 DAY Medications Current Medications Aspirin (Aspirin Chewable) 324 mg 1X ONCE PO Last administered on 11/18/21at 01:43; Start 11/18/21 at 01:15; Stop 11/18/21 at 01:16; Status DC Furosemide (Lasix) 80 mg 1X ONCE IVP Last administered on 11/18/21at 04:07; Start 11/18/21 at 03:45; Stop 11/18/21 at 03:47; Status DC Acetaminophen (Tylenol) 650 mg PRN Q4HRS PRN PO FEVER > 100.3'F; Start 11/18/21 at 05:00; Stop 11/19/21 at 04:59; Status DC Nitroglycerin (Nitrostat) 0.4 mg PRN Q5MIN PRN SL CHEST PAIN; Start 11/18/21 at 05:00; Stop 11/19/21 at 04:59; Status DC Albuterol/ Ipratropium (Duoneb) 3 ml RTQID NEB ; Start 11/18/21 at 08:00; Stop 11/18/21 at 07:01; Status DC Albuterol/ Ipratropium (Combivent Respimat 20-100 Mcg) 1 puff RTQID INH Last administered on 11/19/21at 16:00; Start 11/18/21 at 08:00 Furosemide (Lasix) 80 mg 1X ONCE IVP Last administered on 11/18/21at 13:29; Start 11/18/21 at 11:30; Stop 11/18/21 at 11:31; Status DC Aspirin (Ecotrin) 81 mg DAILYWBKFT PO Last administered on 11/19/21at 08:18; Start 11/19/21 at 08:00 Atorvastatin Calcium (Lipitor) 40 mg QHS PO Last administered on 11/18/21at 21:25; Start 11/18/21 at 21:00 Metoprolol Succinate (Toprol Xl) 50 mg DAILY PO Last administered on 11/19/21at 08:18; Start 11/19/21 at 09:00 Potassium Chloride (Klor-Con) 40 meq DAILYWBKFT PO Last administered on 11/19/21at 08:18; Start 11/19/21 at 08:00 Spironolactone (Aldactone) 25 mg DAILY PO Last administered on 11/19/21at 08:18; Start 11/19/21 at 09:00 Bumetanide (Bumex) 1 mg BID92 IV Last administered on 11/19/21at 13:35; Start 11/18/21 at 16:00 Insulin Human Lispro (HumaLOG) 0-7 UNITS TIDWMEALS SQ ; Start 11/19/21 at 12:15 Dextrose (Dextrose 50%-Water Syringe) 12.5 gm PRN Q15MIN PRN IV SEE COMMENTS; Start 11/19/21 at 12:15 Dextrose (Iv Dextrose 5%) 250 ml PRN Q15MIN PRN IV SEE COMMENTS; Start 11/19/21 at 12:15 Active Scripts Active Prednisone (Prednisone) 10 Mg Tablet 10 Mg PO UD Take 4 tablets by mouth daily for 2 days, then take 3 tablets by mouth daily for 2 days, then take 2 tablets by mouth daily for 2 days, then take 1 tablets by mouth daily for 2 days, then stop. Toprol XL (Metoprolol Succinate) 50 Mg Tab.er.24h 50 Mg PO DAILY Klor-Con M20 (Potassium Chloride) 20 Meq Tab.er.prt 40 Meq PO DAILYWBKFT Entresto 24 mg-26 mg Tablet (Sacubitril/Valsartan) 1 Each Tablet 1 Tab PO BID Bumetanide 1 Mg Tablet 1 Tab PO BID Dok (Docusate Sodium) 100 Mg Capsule 100 Mg PO PRN DAILY PRN 30 Days Tylenol (Acetaminophen) 325 Mg Tablet 650 Mg PO PRN Q4HRS PRN 30 Days Aspirin Ec (Aspirin) 81 Mg Tablet.dr 81 Mg PO DAILYWBKFT 30 Days Aldactone (Spironolactone) 25 Mg Tablet 25 Mg PO DAILY 30 Days Proair Hfa (Albuterol Sulfate) 8.5 Gm Hfa.aer.ad 2.5 Mg NEB PRN Q4HRS PRN 30 Days Reported Vascepa (Icosapent Ethyl) 0.5 Gm Capsule 1 Cap PO BID 30 Days Farxiga (Dapagliflozin Propanediol) 10 Mg Tablet 10 Mg PO BID Omeprazole 20 Mg Tablet.dr 1 Tab PO DAILY Atorvastatin Calcium 40 Mg Tablet 1 Tab PO QHS Glimepiride 4 Mg Tablet 1 Tab PO DAILY Vitals/I & O Vital Sign - Last 24 Hours 11/18/21 11/18/21 11/18/21 11/19/21 19:34 20:01 23:38 03:17 Temp 97.3 97.1 96.7 97.3 97.1 96.7 Pulse 95 101 80 Resp 25 26 24 B/P (MAP) 105/75 (85) 120/88 (99) 100/74 (83) Pulse Ox 95 98 100 O2 Delivery Nasal Cannula Nasal Cannula Nasal Cannula Nasal Cannula O2 Flow Rate 3.0 2.0 3.0 3.0 11/19/21 11/19/21 11/19/21 11/19/21 07:00 08:00 08:18 11:00 Temp 96.5 96.0 96.5 96.0 Pulse 98 98 102 Resp 24 24 B/P (MAP) 135/76 (95) 135/76 119/86 (97) Pulse Ox 98 99 O2 Delivery Nasal Cannula Nasal Cannula Nasal Cannula O2 Flow Rate 3.0 3.0 3.0 11/19/21 15:00 Temp 98.0 98.0 Pulse 100 Resp 24 B/P (MAP) 111/83 (92) Pulse Ox 99 O2 Delivery Nasal Cannula O2 Flow Rate 3.0 Intake and Output 11/18/21 11/18/21 11/19/21 15:00 23:00 07:00 Intake Total 0 ml 1100 ml 820 ml Output Total 800 ml 1600 ml 400 ml Balance -800 ml -500 ml 420 ml Justifications for Admission Other Justification Acute CHF exacerbation, scrotal edema HAKAN GOLDMAN MD Nov 19, 2021 17:07
[2021-11-19 19:52] VITALS: BP 104/84
[2021-11-19] MEDS: ATORVASTATIN CALCIUM 40 MG TABLET. PO SCH (21:08)
[2021-11-19 23:10] VITALS: BP 111/85
[2021-11-20 03:05] VITALS: BP 109/81
[2021-11-20 07:00] VITALS: BP 109/83
--- NOTE | 2021-11-20 07:33 | PDOC ---
[employer] PROGRESS NOTE Date of Service DOS: DATE: 11/20/21 TIME: 07:33 Chief Complaint Chief Complaint A/P: Shortness of breath - likely due to acute systolic and diastolic CHF. Will aggressively diurese. Also with mild bronchitis related to smoking, possibly post-COVID19 Left pleural effusion - likely would be due to CHF. Will consider thoracentesis if diuresis does not improve his symptoms Acute on chronic diastolic/systolic CHF - s/p IV furosemide, will transition to BUMEX. Cardiology consulted Acute mild exacerbation of COPD - continues to smoke. If failure to improve with CHF treatment may need RB-ILD treatment Acute respiratory failure with hypoxia - with CHF and mild bronchitis, also pleural effusion. Will CT chest and likely 6 min walk Severe nonischemic cardiomyopathy - with EF at 15% per echo 02/02. S/P AICD which is biotronik. Will interrogate device Hypertension - cont home meds DM2 - sliding scale insulin HLD - cont statin H/O covid-19 - recovered. Was diagnosed 10/24/2021 PSVT - hold dronaderone for acute CHF FEN - Cardiac PPX - lovenox FULL CODE Dispo - inpatient History of Present Illness History of Present Illness Mr Glass is a 56yo male with reduced ejection fraction CHF (EF 15%) s/p biotronik AICD, HTN, smoker, HLD, DM2, COPD, CAD who comes to ED c/o progressive shortness of breath. He has been home recovering from COVID 19, diagnosed on 10/24/21 and was feeling well until 2 days prior to arrival he noted he was more short of breath with orthopnea when he was sleeping at night and started to feel heavier. He is not able to articulate his above diagnoses but sates he tried inhalers and water pills twice dosing with no improvement and doesn't recall any new dietary indiscretions, but he does note he tried to smoke more heavily to make himself less anxious and hoped this would clear up his breath, but feels the opposite happened. WBC 8.5, Hb 15.1, platelets 184, NA 138, K3.7, BUN 15, CR 0.8, glucose 23, calcium 8.2, magnesium 2, bilirubin 1.2, AST 13, ALT 23, alkaline phosphatase 151 wei.8, NT proBNP 5912, VBG U7.4 Chest radiograph with moderate left and small right pleural effusions bilateral pulmonary edema. Left-sided AICD noted. 11/19: 2.8 L diuresed. He feels symptomatically improved. O2 saturations 100% on 5 L/min. Turndown his O2. Shortness of breath is improved. Counseled on smoking cessation. Decreased breath sounds on the left. Feels his leg swelling is about the same as it always been. 11/20: Still diuresing well. He is able to lay at 30 degrees in bed still has 4 L a minute nasal cannula O2 O2 saturations 94%. Swelling improved. Decreased basilar breath sounds on right and left. CT chest and likely 6 min walk Vitals/I&O Vitals/I&O: Vital Signs Date Time Temp Pulse Resp B/P (MAP) Pulse Ox O2 Delivery O2 Flow Rate FiO2 11/20/21 03:05 97.7 81 22 109/81 (90) 95 Room Air 97.7 11/19/21 23:10 2.0 I & O 11/19/21 11/19/21 11/20/21 15:00 23:00 07:00 Intake Total 400 ml 220 ml 120 ml Output Total 700 ml 200 ml 400 ml Balance -300 ml 20 ml -280 ml Physical Exam General: mild distress Heart: Regular rate Lungs: Clear Abdomen: Normal bowel sounds Extremities: Other (2+ edema, venous stasis dermatitis) Skin: Other (stasis dermatitis bilateral legs) Labs Labs: Laboratory Tests Test 11/19/21 12:32 11/19/21 16:02 11/19/21 20:41 Glucose (Fingerstick) 157 mg/dL (70-99) 187 mg/dL (70-99) 89 mg/dL (70-99) Assessment and Plan Assessmemt and Plan Problems Medical Problems: (1) Acute on chronic HFrEF (heart failure with reduced ejection fraction) Status: Acute (2) COPD (chronic obstructive pulmonary disease) Status: Acute (3) Respiratory failure with hypoxia Status: Acute Comment Review of Relevant I have reviewed the following items gorge (where applicable) has been applied. Medications: Current Medications Medications (Trade) Dose Ordered Sig/Gus Route PRN Reason Start Time Stop Time Status Last Admin Dose Admin Aspirin (Ecotrin) 81 mg DAILYWBKFT PO 11/19/21 08:00 11/19/21 08:18 Metoprolol Succinate (Toprol Xl) 50 mg DAILY PO 11/19/21 09:00 11/19/21 08:18 Potassium Chloride (Klor-Con) 40 meq DAILYWBKFT PO 11/19/21 08:00 11/19/21 08:18 Spironolactone (Aldactone) 25 mg DAILY PO 11/19/21 09:00 11/19/21 08:18 Insulin Human Lispro (HumaLOG) 0-7 UNITS TIDWMEALS SQ 11/19/21 12:15 11/19/21 17:20 Justifications for Admission Other Justification Acute CHF exacerbation, scrotal edema MEHRDAD LOGAN MD Nov 20, 2021 07:33
[2021-11-20] MEDS ORDERED: ONDANSETRON PF 4 MG/2 ML VIAL. IVP PRN (07:45)
[2021-11-20] MEDS ORDERED: ACETAMINOPHEN 325 MG TABLET. PO PRN (07:45)
[2021-11-20] MEDS: INSULIN LISPRO 300 UNITS/3 ML VIAL. SQ SCH ×3 (08:00→17:00)
[2021-11-20] MEDS: IPRATROPIUM/ALBUTEROL 20/100mcg/INH INHALER. INH SCH ×4 (08:00→19:53)
[2021-11-20] MEDS: BUMETANIDE 1 MG/4 ML VIAL. IV SCH ×2 (08:35→13:22)
[2021-11-20] MEDS: POTASSIUM CHLORIDE 20 MEQ TABLET.ER. PO SCH (08:35)
[2021-11-20] MEDS: ASPIRIN ENTERIC COATED 81 MG TABLET.DR. PO SCH (08:37)
[2021-11-20] MEDS: METOPROLOL SUCC 24HR ER 50 MG TAB.ER.24H. PO SCH (08:37)
[2021-11-20] MEDS: SPIRONOLACTONE 25 MG TABLET PO SCH (08:37)
[2021-11-20 11:30] VITALS: BP 122/89
[2021-11-20] MEDS: NICOTINE 21MG PATCH. TD SCH (13:22)
[2021-11-20 15:00] VITALS: BP 127/94
--- NOTE | 2021-11-20 15:33 | RAD ---
CT chest without contrast dated 11/20/2021. COMPARISON: 12/01/2020. INDICATION: Follow-up pleural effusion. TECHNIQUE: Continues axial imaging the chest performed without the administration of IV or oral contrast. One or more of the following individualized dose reduction techniques were utilized for this examinat ion: 1. Automated exposure control 2. Adjustment of the mA and/or kV according to patient size 3. Use of iterative reconstruction technique FINDINGS: Heart size is mildly enlarged. No segment pericardial effusion. There are coronary artery calcificati ons. There are enlarged right paratracheal, pretracheal and left paratracheal lymph nodes measuring u p to 1.3 cm short axis, unchanged. There are also borderline enlarged subcarinal and bilateral hilar lymph nodes. No axillary or supraclavicular lymphadenopathy. Thyroid gland is unremarkable. Central airways are patent. Mild diffuse bronchial wall thickening. There is mild emphysema. Subtotal collapse of the left lower lobe and lingula with moderate size left pleural effusion. There is also moderate size pleural effusion on the right with patchy increased density in the right lower lobe and right middle lobe. No pneumothorax. Images of the upper abdomen are unremarkable. No significant bony abnormality. Multilevel spondylosis . IMPRESSION: 1. Moderate to large bilateral pleural effusions, left greater than right, similar to prior study. 2. Patchy areas of consolidation at both lung bases, likely passive atelectasis. 3. Mild mediastinal lymphadenopathy, nonspecific but unchanged. 4. Coronary artery calcifications. Electronically signed by: Estiven Santiago MD (11/20/2021 3:30 PM) [id number]
--- NOTE | 2021-11-20 16:16 | PDOC ---
PROGRESS NOTES Date of Service DATE: 11/20/21 TIME: 16:15 Subjective Subjective Patient seen and examined Objective Objective Vital Signs Date Time Temp Pulse Resp B/P (MAP) Pulse Ox O2 Delivery O2 Flow Rate FiO2 11/20/21 11:30 98.0 102 21 122/89 (100) 98 Room Air 98.0 11/20/21 08:00 3.0 Intake and Output 11/20/21 07:00 Intake Total 740 ml Output Total 1300 ml Balance -560 ml Intake Oral 740 ml Output Urine Total 1300 ml # Voids 1 Physical Exam Abdomen: Normal bowel sounds Heart: Regular rate General: mild distress Lungs: Other (Decreased breath sounds) Assessment Assessment Problems Medical Problems: (1) Acute on chronic HFrEF (heart failure with reduced ejection fraction) Status: Acute (2) COPD (chronic obstructive pulmonary disease) Status: Acute (3) Respiratory failure with hypoxia Status: Acute Acute on chronic diastolic/systolic CHF; the patient continues to feel better on present treatments. Initial BNP elevated at 5912. Troponins not significantly elevated at 24, 25 and 23. We will continue on present treatment. COPD exacerbation with continued tobaccoism. Continuing IV Bumex with metoprolol. Holding Entresto. Severe NICM; EF at 15% per echo 02/02 CAD; cath 11/04 with small vessel disease on diagonal branch, otherwise no intervenable lesions noted. CP free. Hypertension; controlled Diabetes, II Hyperlipidemia; statin s/p AICD (Biotronik): normal device noted 2/3 interrogation with no significant arrhythmia. Thoracic impedances denotes fluid overloaded but improving. Recent covid-19: + on 10/24/2021 Hx of PSVT: on home multaq but holding Multaq at this time. Comment Review of Relevant I have reviewed the following items gorge (where applicable) has been applied. Labs Laboratory Tests Test 11/19/21 02:00 11/19/21 12:32 11/19/21 16:02 11/19/21 20:41 Sodium Level 139 mmol/L (136-145) Potassium Level 4.0 mmol/L (3.5-5.1) Chloride Level 104 mmol/L (98-107) Carbon Dioxide Level 29 mmol/L (21-32) Anion Gap 6 (6-14) Blood Urea Nitrogen 20 mg/dL (8-26) Creatinine 1.0 mg/dL (0.7-1.3) Estimated GFR (Cockcroft-Gault) 77.6 Glucose Level 164 mg/dL (70-99) Calcium Level 8.2 mg/dL (8.5-10.1) Magnesium Level 1.9 mg/dL (1.8-2.4) Glucose (Fingerstick) 157 mg/dL (70-99) 187 mg/dL (70-99) 89 mg/dL (70-99) Test 11/20/21 07:50 11/20/21 11:22 Glucose (Fingerstick) 109 mg/dL (70-99) 163 mg/dL (70-99) Laboratory Tests Test 11/19/21 20:41 11/20/21 07:50 11/20/21 11:22 Glucose (Fingerstick) 89 mg/dL (70-99) 109 mg/dL (70-99) 163 mg/dL (70-99) Microbiology 11/18/21 Blood Culture - Preliminary, Resulted NO GROWTH AFTER 2 DAYS Medications Current Medications Aspirin (Aspirin Chewable) 324 mg 1X ONCE PO Last administered on 11/18/21at 01:43; Start 11/18/21 at 01:15; Stop 11/18/21 at 01:16; Status DC Furosemide (Lasix) 80 mg 1X ONCE IVP Last administered on 11/18/21at 04:07; Start 11/18/21 at 03:45; Stop 11/18/21 at 03:47; Status DC Acetaminophen (Tylenol) 650 mg PRN Q4HRS PRN PO FEVER > 100.3'F; Start 11/18/21 at 05:00; Stop 11/19/21 at 04:59; Status DC Nitroglycerin (Nitrostat) 0.4 mg PRN Q5MIN PRN SL CHEST PAIN; Start 11/18/21 at 05:00; Stop 11/19/21 at 04:59; Status DC Albuterol/ Ipratropium (Duoneb) 3 ml RTQID NEB ; Start 11/18/21 at 08:00; Stop 11/18/21 at 07:01; Status DC Albuterol/ Ipratropium (Combivent Respimat 20-100 Mcg) 1 puff RTQID INH Last administered on 11/20/21at 12:00; Start 11/18/21 at 08:00 Furosemide (Lasix) 80 mg 1X ONCE IVP Last administered on 11/18/21 13:29; Start 11/18/21 at 11:30; Stop 11/18/21 at 11:31; Status DC Aspirin (Ecotrin) 81 mg DAILYWBKFT PO Last administered on 11/20/21at 08:37; Start 11/19/21 at 08:00 Atorvastatin Calcium (Lipitor) 40 mg QHS PO Last administered on 11/19/21at 21:08; Start 11/18/21 at 21:00 Metoprolol Succinate (Toprol Xl) 50 mg DAILY PO Last administered on 11/20/21 08:37; Start 11/19/21 at 09:00 Potassium Chloride (Klor-Con) 40 meq DAILYWBKFT PO Last administered on 11/20/21at 08:35; Start 11/19/21 at 08:00 Spironolactone (Aldactone) 25 mg DAILY PO Last administered on 11/20/21at 08:37; Start 11/19/21 at 09:00 Bumetanide (Bumex) 1 mg BID92 IV Last administered on 11/20/21at 13:22; Start 11/18/21 at 16:00 Insulin Human Lispro (HumaLOG) 0-7 UNITS TIDWMEALS SQ Last administered on 11/19/21at 17:20; Start 11/19/21 at 12:15 Dextrose (Dextrose 50%-Water Syringe) 12.5 gm PRN Q15MIN PRN IV SEE COMMENTS; Start 11/19/21 at 12:15 Dextrose (Iv Dextrose 5%) 250 ml PRN Q15MIN PRN IV SEE COMMENTS; Start 11/19/21 at 12:15 Acetaminophen (Tylenol) 650 mg PRN Q6HRS PRN PO MILD PAIN / TEMP > 100.3'F; Start 11/20/21 at 07:45 Ondansetron HCl (Zofran) 4 mg PRN Q4HRS PRN IVP NAUSEA/VOMITING; Start 11/20/21 at 07:45 Enoxaparin Sodium (Lovenox 40mg Syringe) 40 mg Q24H SQ ; Start 11/21/21 at 13:00 Nicotine (Nicoderm Cq 21mg) 1 patch DAILY TD Last administered on 11/20/21at 13:22; Start 11/20/21 at 13:15 Active Scripts Active Prednisone (Prednisone) 10 Mg Tablet 10 Mg PO UD Take 4 tablets by mouth daily for 2 days, then take 3 tablets by mouth daily for 2 days, then take 2 tablets by mouth daily for 2 days, then take 1 tablets by mouth daily for 2 days, then stop. Toprol XL (Metoprolol Succinate) 50 Mg Tab.er.24h 50 Mg PO DAILY Klor-Con M20 (Potassium Chloride) 20 Meq Tab.er.prt 40 Meq PO DAILYWBKFT Entresto 24 mg-26 mg Tablet (Sacubitril/Valsartan) 1 Each Tablet 1 Tab PO BID Bumetanide 1 Mg Tablet 1 Tab PO BID Dok (Docusate Sodium) 100 Mg Capsule 100 Mg PO PRN DAILY PRN 30 Days Tylenol (Acetaminophen) 325 Mg Tablet 650 Mg PO PRN Q4HRS PRN 30 Days Aspirin Ec (Aspirin) 81 Mg Tablet.dr 81 Mg PO DAILYWBKFT 30 Days Aldactone (Spironolactone) 25 Mg Tablet 25 Mg PO DAILY 30 Days Proair Hfa (Albuterol Sulfate) 8.5 Gm Hfa.aer.ad 2.5 Mg NEB PRN Q4HRS PRN 30 Days Reported Vascepa (Icosapent Ethyl) 0.5 Gm Capsule 1 Cap PO BID 30 Days Farxiga (Dapagliflozin Propanediol) 10 Mg Tablet 10 Mg PO BID Omeprazole 20 Mg Tablet.dr 1 Tab PO DAILY Atorvastatin Calcium 40 Mg Tablet 1 Tab PO QHS Glimepiride 4 Mg Tablet 1 Tab PO DAILY Vitals/I & O Vital Sign - Last 24 Hours 11/19/21 11/19/21 11/19/21 11/20/21 19:52 19:53 23:10 03:05 Temp 97.0 97.1 97.7 97.0 97.1 97.7 Pulse 100 95 81 Resp B/P (MAP) 104/84 (91) 111/85 (94) 109/81 (90) Pulse Ox 94 94 95 O2 Delivery Room Air Nasal Cannula Nasal Cannula Room Air O2 Flow Rate 3.0 2.0 11/20/21 11/20/21 11/20/21 11/20/21 07:00 08:00 08:37 11:30 Temp 97.0 98.0 97.0 98.0 Pulse 93 81 102 Resp 22 21 B/P (MAP) 109/83 (92) 109/81 122/89 (100) Pulse Ox 98 98 O2 Delivery Room Air Nasal Cannula Room Air O2 Flow Rate 3.0 Intake and Output 11/19/21 11/19/21 11/20/21 15:00 23:00 07:00 Intake Total 400 ml 220 ml 120 ml Output Total 700 ml 200 ml 400 ml Balance -300 ml 20 ml -280 ml Justifications for Admission Other Justification Acute CHF exacerbation, scrotal edema HAKAN GOLDMAN MD Nov 20, 2021 16:16
[2021-11-20 19:47] VITALS: BP 113/83
[2021-11-20] MEDS: ATORVASTATIN CALCIUM 40 MG TABLET. PO SCH (19:53)
[2021-11-20 22:37] VITALS: BP 114/79
[2021-11-21 03:46] VITALS: BP 107/80
[2021-11-21 07:00] VITALS: BP 119/92
--- NOTE | 2021-11-21 07:25 | PDOC ---
[employer] PROGRESS NOTE Date of Service DOS: DATE: 11/21/21 TIME: 07:25 Chief Complaint Chief Complaint A/P: Shortness of breath - likely due to acute systolic and diastolic CHF. Will aggressively diurese. Also with mild bronchitis related to smoking, possibly post-COVID19 Left pleural effusion - likely would be due to CHF. Will consider thoracentesis if diuresis does not improve his symptoms Acute on chronic diastolic/systolic CHF - s/p IV furosemide, will transition to BUMEX. Cardiology consulted Acute mild exacerbation of COPD - continues to smoke. If failure to improve with CHF treatment may need RB-ILD treatment Acute respiratory failure with hypoxia - with CHF and mild bronchitis, also pleural effusion. Will CT chest and likely 6 min walk Severe nonischemic cardiomyopathy - with EF at 15% per echo 02/02. S/P AICD which is biotronik. Will interrogate device Hypertension - cont home meds DM2 - sliding scale insulin HLD - cont statin H/O covid-19 - recovered. Was diagnosed 10/24/2021 PSVT - hold dronaderone for acute CHF FEN - Cardiac PPX - lovenox FULL CODE Dispo - inpatient History of Present Illness History of Present Illness Mr Glass is a 56yo male with reduced ejection fraction CHF (EF 15%) s/p biotronik AICD, HTN, smoker, HLD, DM2, COPD, CAD who comes to ED c/o progressive shortness of breath. He has been home recovering from COVID 19, diagnosed on 10/24/21 and was feeling well until 2 days prior to arrival he noted he was more short of breath with orthopnea when he was sleeping at night and started to feel heavier. He is not able to articulate his above diagnoses but sates he tried inhalers and water pills twice dosing with no improvement and doesn't recall any new dietary indiscretions, but he does note he tried to smoke more heavily to make himself less anxious and hoped this would clear up his breath, but feels the opposite happened. WBC 8.5, Hb 15.1, platelets 184, NA 138, K3.7, BUN 15, CR 0.8, glucose 23, calcium 8.2, magnesium 2, bilirubin 1.2, AST 13, ALT 23, alkaline phosphatase 151 wei.8, NT proBNP 5912, VBG U7.4 Chest radiograph with moderate left and small right pleural effusions bilateral pulmonary edema. Left-sided AICD noted. 11/19: 2.8 L diuresed. He feels symptomatically improved. O2 saturations 100% on 5 L/min. Turndown his O2. Shortness of breath is improved. Counseled on smoking cessation. Decreased breath sounds on the left. Feels his leg swelling is about the same as it always been. 11/20: Still diuresing well. He is able to lay at 30 degrees in bed still has 4 L a minute nasal cannula O2 O2 saturations 94%. Swelling improved. Decreased basilar breath sounds on right and left. CT chest and likely 6 min walk 11/21: Still in good with diuresis. Still requiring 4 L/min nasal cannula O2 with saturations 84%. He is little anxious about thoracentesis today requesting something for anxiety prior to procedure. Plan for 6-minute walk after procedure if he gets good reexpansion. Vitals/I&O Vitals/I&O: Vital Signs Date Time Temp Pulse Resp B/P (MAP) Pulse Ox O2 Delivery O2 Flow Rate FiO2 11/21/21 03:46 98.5 95 22 107/80 (89) 95 Room Air 98.5 11/20/21 19:47 2.0 I & O 11/20/21 11/20/21 11/21/21 15:00 23:00 07:00 Intake Total 360 ml 360 ml 240 ml Output Total 400 ml 200 ml 575 ml Balance -40 ml 160 ml -335 ml Physical Exam General: mild distress Heart: Regular rate Lungs: Clear Abdomen: Normal bowel sounds Extremities: Other (2+ edema, venous stasis dermatitis) Skin: Other (stasis dermatitis bilateral legs) Labs Labs: Laboratory Tests Test 11/20/21 07:50 11/20/21 11:22 11/20/21 16:40 11/20/21 20:39 Glucose (Fingerstick) 109 mg/dL (70-99) 163 mg/dL (70-99) 145 mg/dL (70-99) 163 mg/dL (70-99) Assessment and Plan Assessmemt and Plan Problems Medical Problems: (1) Acute on chronic HFrEF (heart failure with reduced ejection fraction) Status: Acute (2) COPD (chronic obstructive pulmonary disease) Status: Acute (3) Respiratory failure with hypoxia Status: Acute Comment Review of Relevant I have reviewed the following items gorge (where applicable) has been applied. Medications: Current Medications Medications (Trade) Dose Ordered Sig/Gus Route PRN Reason Start Time Stop Time Status Last Admin Dose Admin Nicotine (Nicoderm Cq 21mg) 1 patch DAILY TD 11/20/21 13:15 11/20/21 13:22 Justifications for Admission Other Justification Acute CHF exacerbation, scrotal edema MEHRDAD LOGAN MD Nov 21, 2021 07:25
[2021-11-21] MEDS: INSULIN LISPRO 300 UNITS/3 ML VIAL. SQ SCH ×2 (07:49→11:37)
[2021-11-21] MEDS: POTASSIUM CHLORIDE 20 MEQ TABLET.ER. PO SCH (08:00)
[2021-11-21] MEDS: IPRATROPIUM/ALBUTEROL 20/100mcg/INH INHALER. INH SCH ×2 (08:00→12:00)
[2021-11-21] MEDS: NICOTINE 21MG PATCH. TD SCH (08:00)
[2021-11-21] MEDS: ASPIRIN ENTERIC COATED 81 MG TABLET.DR. PO SCH (08:00)
[2021-11-21] MEDS: BUMETANIDE 1 MG/4 ML VIAL. IV SCH ×3 (08:01→13:54)
[2021-11-21] MEDS: METOPROLOL SUCC 24HR ER 50 MG TAB.ER.24H. PO SCH ×2 (08:02→15:03)
[2021-11-21] MEDS: SPIRONOLACTONE 25 MG TABLET PO SCH (08:02)
[2021-11-21 08:54] LABS: CREATININE 0.9 mg/dL (0.7-1.3); GFR 87.6; POTASSIUM 4.2 mmol/L (3.5-5.1)
[2021-11-21 11:04] VITALS: BP 132/99
--- NOTE | 2021-11-21 12:18 | NUR ---
SS following up with discharge planning. SS reviewed pt chart and discussed with pt RN. Pt is currently requiring oxygen at 3-4 liters nasal canula. Cardiology following. Pt on IV Bumex. Thoracentesis today. Pt has no home oxygen. Six minute walk prior to discharge. SS will continue to follow for discharge planning.
--- NOTE | 2021-11-21 12:35 | PDOC ---
KALPESH LAYNE PLODDER OPERATOR 11/21/21 1235: CARDIO Progress Notes Date and Time Date of Service 11/21/21 Time of Evaluation 1150 Subjective Subjective: No Chest Pain, No Palpitations, No Dizziness, Other (breathing improved s/p thoracentesis ) Vitals Vitals Vital Signs Date Time Temp Pulse Resp B/P (MAP) Pulse Ox O2 Delivery O2 Flow Rate FiO2 11/21/21 11:04 96.8 112 18 132/99 (110) 95 Nasal Cannula 3.0 96.8 Weight Weight [ ] Input and Output Intake and Output Intake and Output 11/21/21 07:00 Intake Total 960 ml Output Total 1175 ml Balance -215 ml Intake Oral 960 ml Output Urine Total 1175 ml # Voids 2 Laboratory Labs Laboratory Tests Test 11/20/21 16:40 11/20/21 20:39 11/21/21 06:55 11/21/21 07:46 Glucose (Fingerstick) 145 mg/dL (70-99) 163 mg/dL (70-99) 121 mg/dL (70-99) Sodium Level 138 mmol/L (136-145) Potassium Level 4.2 mmol/L (3.5-5.1) Chloride Level 100 mmol/L (98-107) Carbon Dioxide Level 26 mmol/L (21-32) Anion Gap 12 (6-14) Blood Urea Nitrogen 18 mg/dL (8-26) Creatinine 0.9 mg/dL (0.7-1.3) Estimated GFR (Cockcroft-Gault) 87.6 Glucose Level 119 mg/dL (70-99) Calcium Level 9.0 mg/dL (8.5-10.1) Test 11/21/21 11:23 Glucose (Fingerstick) 130 mg/dL (70-99) Microbiology Micro Microbiology 11/18/21 Blood Culture - Preliminary, Resulted NO GROWTH AFTER 3 DAYS Physical Exam HEENT: Neck Supple W Full Motion Chest: Symmetric LUNGS: Other (diminished) Heart: S1S2, RRR Abdomen: Soft N/T Extremities: Other (trace pedal edema ) Neurology: alert, oriented, follow commands Assessment Assessment 1. Acute on chronic respiratory failure; multifactorial with CHF, COPD, and pleural effusion. s/p thoracentesis with 1.7L off 2. Acute on chronic diastolic/systolic CHF; better compensated 3. Severe NICM; EF at 15% per echo 02/02 4. CAD; cath 11/04 with small vessel disease on diagonal branch, otherwise no intervenable lesions noted. CP free. 5. Hypertension; controlled 6. Diabetes, II 7. Hyperlipidemia; statin 8. s/p AICD (Biotronik): normal device noted 2/3 interrogation with no significant arrhythmia. Thoracic impedances denotes fluid overloaded but improving. 9. Recent covid-19: + on 10/24/2021 10. Hx of PSVT: hence on home Multaq 11. Tobaccoism Recommendations Bumex therapy Continue HF optimization therapy Resume Multaq upon discharge Secondary prevention Supportive care Smoking cessation Justicifation of Admission Dx: Justifications for Admission: Justification of Admission Dx: No Respiratory Failure: Severe Resp Distress MINO MELVIN MD 11/21/21 1609: CARDIO Progress Notes Assessment Assessment Patient seen and examined. Agree with AUT[employer]IVE HE[employer]Y MECH[employer]IC's assessment and plan. Acute on chronic systolic heart failure better compensated. AICD interrogation showed normal function. PSVT maintaining sinus rhythm. Resume Multaq and follow-up as scheduled KALPESH LAYNE APRN Nov 21, 2021 12:35 MINO MELVIN MD Nov 21, 2021 16:09
[2021-11-21] MEDS ORDERED: ENOXAPARIN 40 MG/0.4 ML SYRINGE. SQ SCH (13:00)
[2021-11-21 13:31] LABS: BF CLARITY HAZY; BF COLOR YELLOW; BF MON % 47 %; BF PMN % 6 %; BF RBC COUNT 3117 /cmm (Not Established); BF SOURCE PLEURAL; BF WBC COUNT 183 /cmm (Not Established)
[2021-11-21 13:32] LABS: BF OTHER % 47 %
--- NOTE | 2021-11-21 14:20 | RAD ---
Left Thoracentesis 11/21/2021 10:50 AM Clinical History: Left pleural effusion. Technique: Relative benefits risks and alternatives were discussed with the patient and/or their rep resentative. Written informed consent was obtained. The patient was placed in seated position. A nader eout procedure was performed. Sonographic assessment demonstrates a large pleural effusion. A site for skin entry was selected, and subsequently prepped and draped using sterile barrier technique. 1% lidocaine without epinepherine was administered for local anesthesia to the skin and subcutaenous tissues. A 5 Swedish sheathed needle was passed into the pleural space. Clear yellow fluid was aspirated and t he catheter was connected to a vacuum. Approximately 1.7 liters of fluid were drained. The catheter w as removed and adequate hemostasis was obtained. A sterile dressing was applied. The patient tolerat ed the procedure well, without complications. Impression: Successful ultrasound guided thoracentesis with removal 1.7 liters of fluid. Electronically signed by: Evens Matos MD (11/21/2021 2:18 PM) [id number]
[2021-11-21] MEDS ORDERED: METO50TA4 PO (14:54)
[2021-11-21] MEDS ORDERED: SPIR25TA PO (14:54)
[2021-11-21] MEDS ORDERED: ALBU2.5V8 NEB (14:54)
[2021-11-21] MEDS ORDERED: BUME1TAB3 PO (14:54)
[2021-11-21] MEDS ORDERED: POTA-121 PO (14:54)
[2021-11-21 15:03] VITALS: BP 132/99
--- NOTE | 2021-11-21 15:14 | PDOC3 ---
Discharge Summary Visit Information Date of Admission: Nov 18, 2021 Date of Discharge: Nov 21, 2021 Admitting Diagnosis: Acute CHF Final Diagnosis Problems Medical Problems: (1) Acute on chronic HFrEF (heart failure with reduced ejection fraction) Status: Acute (2) COPD (chronic obstructive pulmonary disease) Status: Acute (3) Respiratory failure with hypoxia Status: Acute Brief Hospital Course Allergies Allergies Coded Allergies Type Severity Reaction Last Updated Verified No Known Drug Allergies 03/22/20 No Vital Signs Vital Signs Date Time Temp Pulse Resp B/P (MAP) Pulse Ox O2 Delivery O2 Flow Rate FiO2 11/21/21 11:04 96.8 112 18 132/99 (110) 95 Nasal Cannula 3.0 96.8 Lab Results Laboratory Tests Test 11/19/21 16:02 11/19/21 20:41 11/20/21 07:50 11/20/21 11:22 Glucose (Fingerstick) 187 mg/dL (70-99) 89 mg/dL (70-99) 109 mg/dL (70-99) 163 mg/dL (70-99) Test 11/20/21 16:40 11/20/21 20:39 11/21/21 06:55 11/21/21 07:46 Glucose (Fingerstick) 145 mg/dL (70-99) 163 mg/dL (70-99) 121 mg/dL (70-99) Sodium Level 138 mmol/L (136-145) Potassium Level 4.2 mmol/L (3.5-5.1) Chloride Level 100 mmol/L (98-107) Carbon Dioxide Level 26 mmol/L (21-32) Anion Gap 12 (6-14) Blood Urea Nitrogen 18 mg/dL (8-26) Creatinine 0.9 mg/dL (0.7-1.3) Estimated GFR (Cockcroft-Gault) 87.6 Glucose Level 119 mg/dL (70-99) Calcium Level 9.0 mg/dL (8.5-10.1) Test 11/21/21 11:00 11/21/21 11:23 Body Fluid Source Pleural Body Fluid Color Yellow Body Fluid Clarity Hazy Body Fluid pH 7.42 Body Fluid Nucleated Cells 183 /cmm (Not Established) Body Fluid Mononuclear WBCs (%) 47 % Body Fluid Polymorphonuclear Cells 6 % Body Fluid Total RBCs Counted 3117 /cmm (Not Established) Body Fluid Other Cells (%) 47 % Glucose (Fingerstick) 130 mg/dL (70-99) Laboratory Tests Test 11/20/21 16:40 11/20/21 20:39 11/21/21 06:55 11/21/21 07:46 Glucose (Fingerstick) 145 mg/dL (70-99) 163 mg/dL (70-99) 121 mg/dL (70-99) Sodium Level 138 mmol/L (136-145) Potassium Level 4.2 mmol/L (3.5-5.1) Chloride Level 100 mmol/L (98-107) Carbon Dioxide Level 26 mmol/L (21-32) Anion Gap 12 (6-14) Blood Urea Nitrogen 18 mg/dL (8-26) Creatinine 0.9 mg/dL (0.7-1.3) Estimated GFR (Cockcroft-Gault) 87.6 Glucose Level 119 mg/dL (70-99) Calcium Level 9.0 mg/dL (8.5-10.1) Test 11/21/21 11:00 11/21/21 11:23 Body Fluid Source Pleural Body Fluid Color Yellow Body Fluid Clarity Hazy Body Fluid pH 7.42 Body Fluid Nucleated Cells 183 /cmm (Not Established) Body Fluid Mononuclear WBCs (%) 47 % Body Fluid Polymorphonuclear Cells 6 % Body Fluid Total RBCs Counted 3117 /cmm (Not Established) Body Fluid Other Cells (%) 47 % Glucose (Fingerstick) 130 mg/dL (70-99) Brief Hospital Course Mr Glass is a 56yo male with reduced ejection fraction CHF (EF 15%) s/p biotronik AICD, HTN, smoker, HLD, DM2, COPD, CAD who comes to ED c/o progressive shortness of breath. He has been home recovering from COVID 19, diagnosed on 10/24/21 and was feeling well until 2 days prior to arrival he noted he was more short of breath with orthopnea when he was sleeping at night and started to feel heavier. He is not able to articulate his above diagnoses but sates he tried inhalers and water pills twice dosing with no improvement and doesn't recall any new dietary indiscretions, but he does note he tried to smoke more heavily to make himself less anxious and hoped this would clear up his breath, but feels the opposite happened. WBC 8.5, Hb 15.1, platelets 184, NA 138, K3.7, BUN 15, CR 0.8, glucose 23, calcium 8.2, magnesium 2, bilirubin 1.2, AST 13, ALT 23, alkaline phosphatase 151 wei.8, NT proBNP 5912, VBG U7.4 Chest radiograph with moderate left and small right pleural effusions bilateral pulmonary edema. Left-sided AICD noted. 11/19: 2.8 L diuresed. He feels symptomatically improved. O2 saturations 100% on 5 L/min. Turndown his O2. Shortness of breath is improved. Counseled on smoking cessation. Decreased breath sounds on the left. Feels his leg swelling is about the same as it always been. 11/20: Still diuresing well. He is able to lay at 30 degrees in bed still has 4 L a minute nasal cannula O2 O2 saturations 94%. Swelling improved. Decreased basilar breath sounds on right and left. CT chest and likely 6 min walk 11/21: Still in good with diuresis. Still requiring 4 L/min nasal cannula O2 with saturations 84%. He is little anxious about thoracentesis today requesting something for anxiety prior to procedure. Status post thoracentesis with 1.7 L fluid removed with good reexpansion and O2 saturations 94% on room air able to ambulate without significant dyspnea. Counseled on importance of his cardiology follow-up with diuretics and to contact interventional radiology for thoracentesis on the right if symptoms worsen potential chest x-ray in 30 days upon discharge. Counseled for more than 6 minutes on smoking cessation which is one of the most important things he could comply with. He has stopped taking Entresto because he thinks it tastes like "chalk". On 6-minute walk he needed no oxygen therapy and tolerated to walk well heart rate did go above 130 bpm Consults: Cardiology Problem list: Shortness of breath - likely due to acute systolic and diastolic CHF. Will aggressively diurese. Also with mild bronchitis related to smoking, possibly post-COVID19 Left pleural effusion - likely would be due to CHF. S/p 1.7L thoracentesis on 11/21/2021 Acute on chronic diastolic/systolic CHF - s/p IV furosemide, will transition to BUMEX. Cardiology consulted Acute mild exacerbation of COPD - continues to smoke. If failure to improve with CHF treatment may need RB-ILD treatment Acute respiratory failure with hypoxia - with CHF and mild bronchitis, also pleural effusion. Will CT chest and likely 6 min walk Severe nonischemic cardiomyopathy - with EF at 15% per echo 02/02. S/P AICD which is biotronik. Will interrogate device Hypertension - cont home meds DM2 - sliding scale insulin HLD - cont statin H/O covid-19 - recovered. Was diagnosed 10/24/2021 PSVT - hold dronaderone for acute CHF Greater than 30 minutes spent on d/c home with self care, cardiology f/u. Discharge Information Condition at Discharge: Improved Follow Up: Weeks (1) Disposition/Orders: D/C to Home Scheduled Aspirin (Aspirin Ec) 81 Mg Tablet., 81 MG PO DAILYWBK for heart health for 30 Days, #30 Prescribed by: TRACY WATERMAN MD on 10/14/20 0953 Last Action: Continued on 11/18/211518 by DAKOTA PERAZA Atorvastatin Calcium (Atorvastatin Calcium) 40 Mg Tablet, 1 TAB PO QHS for HLD, #90 Ref 3 (Reported) Entered as Reported by: ALAYNA GOODMAN RN on 03/22/20 1127 Last Action: Continued on 11/18/211518 by DAKOTA PERAZA Bumetanide (Bumetanide) 1 Mg Tablet, 1 TAB PO BID for CHF for 30 Days, #60 Ref 3 Prescribed by: MEHRDAD LOGAN MD on 11/21/21 1454 Dapagliflozin Propanediol (Farxiga) 10 Mg Tablet, 10 MG PO BID for unknown, (R eported) Entered as Reported by: ALAYNA GOODMAN RN on 03/22/20 1127 Glimepiride (Glimepiride) 4 Mg Tablet, 1 TAB PO DAILY for DM, #30 Ref 5 (Reported) Entered as Reported by: ALAYNA GOODMAN RN on 03/22/201126 Icosapent Ethyl (Vascepa) 0.5 Gm Capsule, 1 CAP PO BID for unknown for 30 Days, #60 Ref 0 (Reported) Entered as Reported by: ALAYNA GOODMAN RN on 03/22/201126 Metoprolol Succinate (Toprol XL) 50 Mg Tab.er.24h, 50 MG PO DAILY for CHF for 30 Days, #30 Ref 3 Prescribed by: MEHRDAD LOGAN MD on 11/21/21 1454 Omeprazole (Omeprazole) 20 Mg Tablet.dr, 1 TAB PO DAILY for stomach, #90 Ref 1 (Reported) Entered as Reported by: ALAYNA GOODMAN RN on 03/22/20 1127 Potassium Chloride (Klor-Con M20) 20 Meq Tab.er.prt, 40 MEQ PO DAILYWBKFT for Hypokalemia for 30 Days, #60 Ref 3 Prescribed by: MEHRDAD LOGAN MD on 11/21/21 1454 Sacubitril/Valsartan (Entresto 24 mg-26 mg Tablet) 1 Each Tablet, 1 TAB PO BID for CHF, #60 Ref 1 Prescribed by: SERG HURST MD on 12/03/20 1659 Spironolactone (Aldactone) 25 Mg Tablet, 25 MG PO DAILY for heart for 30 Days, #30 Ref 3 Prescribed by: MEHRDAD LOGAN MD on 11/21/21 1454 Scheduled PRN Acetaminophen (Tylenol) 325 Mg Tablet, 650 MG PO PRN Q4HRS PRN for TEMP OVER 100.4F OR MILD PAIN for 30 Days, #60 Prescribed by: TRACY WATERMAN MD on 10/14/20 0953 Albuterol Sulfate (Proair Hfa) 8.5 Gm Hfa.aer.ad, 2.5 MG NEB PRN Q4HRS PRN for SHORTNESS OF BREATH for 30 Days, #1 Ref 3 Prescribed by: MEHRDAD LOGAN MD on 11/21/21 1454 Docusate Sodium (Dok) 100 Mg Capsule, 100 MG PO PRN DAILY PRN for HARD STOOLS for 30 Days, #60 Prescribed by: TRACY WATERMAN MD on 10/14/20 0953 Discontinued Medications Prednisone (Prednisone ) 10 Mg Tablet, 10 MG PO UD for covid, #20 Ref 0 Take 4 tablets by mouth daily for 2 days, then take 3 tablets by mouth daily for 2 days, then take 2 tablets by mouth daily for 2 days, then take 1 tablets by mouth daily for 2 days, then stop. Prescribed by: MARIANGEL HILL on 10/27/21 1141 Justicifation of Admission Dx: Justifications for Admission: Justification of Admission Dx: No Respiratory Failure: Severe Resp Distress MEHRDAD LOGAN MD Nov 21, 2021 15:14
--- NOTE | 2021-11-21 15:31 | NUR ---
Pt was provided with discharge instructions and was taken by wheelchair to his vehicle in the Emergency Room parking lot
== END 2021-11-21 15:35 | disposition home or self-care (01) | DRG 291 ==
LOC: ER 00:49 → 6 SOUTH 04:30 → ER 05:21
PROVIDERS: ADMIT Internal Medicine; ATTEND Internal Medicine
PROC: 5A09357 Assistance with Respiratory Ventilation, Less than 24 Consecutive Hours, Continuous Positive Airway Pressure (ICD-10-PCS; principal; 2021-11-18)
PROC: 4B02XTZ Measurement of Cardiac Defibrillator, External Approach (ICD-10-PCS; 2021-11-18)
PROC: 0W9B3ZZ Drainage of Left Pleural Cavity, Percutaneous Approach (ICD-10-PCS; 2021-11-21)
DX: I11.0 Hypertensive heart disease with heart failure (principal); I50.43 Acute on chronic combined systolic (congestive) and diastolic (congestive) heart failure; J96.21 Acute and chronic respiratory failure with hypoxia; J44.1 Chronic obstructive pulmonary disease with (acute) exacerbation; J90 Pleural effusion, not elsewhere classified; I47.1 Supraventricular tachycardia; I42.8 Other cardiomyopathies; E11.9 Type 2 diabetes mellitus without complications; E78.00 Pure hypercholesterolemia, unspecified; E78.5 Hyperlipidemia, unspecified; F17.210 Nicotine dependence, cigarettes, uncomplicated; F41.9 Anxiety disorder, unspecified; I25.10 Atherosclerotic heart disease of native coronary artery without angina pectoris; N50.89 Other specified disorders of the male genital organs; Z82.49 Family history of ischemic heart disease and other diseases of the circulatory system; Z86.16 Personal history of COVID-19; Z95.810 Presence of automatic (implantable) cardiac defibrillator; K21.9 Gastro-esophageal reflux disease without esophagitis; M19.90 Unspecified osteoarthritis, unspecified site; E87.6 Hypokalemia; Z20.822 Contact with and (suspected) exposure to COVID-19; J40 Bronchitis, not specified as acute or chronic
CPT/HCPCS: 32555; 36415; 71045; 71250; 80048; 80053; 82803; 82945; 82962; 83605; 83615; 83735; 83880; 83986; 84157; 84484; 85025; 87040; 87075; 89050; 93005; 94618; 94660; 96374; J1815; J1940; J2060; J3490; 99285-25; G0378

== ENCOUNTER 2021-12-14 00:04 | Inpatient (IN) | payer BC ==
[~2021-12-14] VITALS: Ht 177.8 cm; Wt 77.0 kg
[2021-12-14 01:10] LABS: BASO # 0.1 x10^3/uL (0.0-0.2); BASO % 1 % (0-3); EOS # 0.1 x10^3/uL (0.0-0.7); EOS % 1 % (0-3); HEMATOCRIT 51.5 % (39.0-53.0); HEMOGLOBIN 16.3 g/dL (13.0-17.5); LYMPH # 1.1 x10^3/uL (1.0-4.8); LYMPH % 15 % (24-48); MEAN CORPUSCULAR HEMOGLOBIN 27 pg (25-35); MEAN CORPUSCULAR HGB CONC 32 g/dL (31-37); MEAN CORPUSCULAR VOLUME 86 fL (79-100); MONO # 0.9 x10^3/uL (0.0-1.1); MONO % 11 % (0-9); NEUT # 5.6 x10^3/uL (1.8-7.7); NEUT % 72 % (31-73); PLATELET COUNT 276 x10^3/uL (140-400); RED BLOOD COUNT 5.99 x10^6/uL (4.30-5.70); RED CELL DISTRIBUTION WIDTH 19.9 % (11.5-14.5); WHITE BLOOD COUNT 7.8 x10^3/uL (4.0-11.0)
[2021-12-14 01:18] LABS: CALCIUM 8.4 mg/dL (8.5-10.1); CREATININE 1.1 mg/dL (0.7-1.3); GFR 69.5; POTASSIUM 3.2 mmol/L (3.5-5.1)
[2021-12-14 01:24] LABS: ALBUMIN 3.2 g/dL (3.4-5.0); ALBUMIN/GLOBULIN RATIO 0.8 (1.0-1.7); MAGNESIUM 1.9 mg/dL (1.8-2.4); TOTAL BILIRUBIN 1.6 mg/dL (0.2-1.0); TOTAL PROTEIN 7.3 g/dL (6.4-8.2)
--- NOTE | 2021-12-14 01:31 | RAD ---
EXAM: XR CHEST 1V 12/14/2021 12:55 AM CLINICAL INDICATION: Shortness of air COMPARISON: Chest radiograph 11/18/2021. CT chest 11/20/2021 TECHNIQUE: AP upright view of the chest FINDINGS: A single lead AICD is unchanged. The cardiac silhouette is partially obscured. Moderate le ft and small right pleural effusions have not significantly changed. Bilateral perihilar and basilar predominant opacities are unchanged. No pneumothorax. IMPRESSION: Unchanged left greater than right pleural effusions and bilateral opacities, which could be due to pulmonary edema or pneumonia. Electronically signed by: Katiuska Overton MD (12/14/2021 1:28 AM) [facility]
--- NOTE | 2021-12-14 01:51 | PHYS DOC ---
Past Medical History Past Medical History: COPD, Diabetes-Type II, High Cholesterol, Hypertension Past Surgical History: Other Additional Past Surgical Histo: implanted defibrillator Smoking Status: Current Every Day Smoker Alcohol Use: None General Adult EDM: Chief Complaint: SHORTNESS OF BREATH HPI: HPI: 56-year-old male past medical history of CHF with Biotronik AICD (15% per echo 02/02), diabetes, covid 19 10/2021, GERD, hypertension and hyperlipidemia, presents to the ED with concern for shortness of breath stating he was here 2 weeks ago for similar complaints. At that time had fluid drained off his right lung (emr reviewed-thoracentsis 11/21/21). EMR was reviewed and patient was recently admitted to the hospital for acute systolic and diastolic congestive heart failure with mild exacerbation of COPD and hypoxia. Review of Systems: Review of Systems: Constitutional: Denies fever or chills. [] Eyes: Denies change in visual acuity. [] HENT: Denies nasal congestion or sore throat. [] Respiratory: Denies cough or hemoptysis Cardiovascular: Denies syncope or edema. [] GI: Denies abdominal pain, nausea, vomiting, bloody stools or diarrhea. [] : Denies dysuria or hematuria Musculoskeletal: Denies back pain or joint pain. [] Integument: Denies rash or diaphoresis Neurologic: Denies headache, focal weakness or sensory changes. [] Endocrine: Denies polyuria or polydipsia. [] Lymphatic: Denies swollen glands. [] Psychiatric: Denies depression or anxiety. [] Heart Score: C/O Chest Pain: No Risk Factors: Risk Factors: DM, Current or recent (<one month) smoker, HTN, HLP, family history of CAD, obesity. Risk Scores: Score 0 - 3: 2.5% MACE over next 6 weeks - Discharge Home Score 4 - 6: 20.3% MACE over next 6 weeks - Admit for Clinical Observation Score 7 - 10: 72.7% MACE over next 6 weeks - Early Invasive Strategies Allergies: Allergies: Allergies Coded Allergies Type Severity Reaction Last Updated Verified No Known Drug Allergies 03/22/20 No Physical Exam: PE: Constitutional: Afebrile, with increased work of breathing HENT: Normocephalic, atraumatic, Eyes: EOMI, conjunctiva normal, no discharge. Neck: Normal range of motion, supple, JVD present Cardiovascular: S1/2 present, tachycardic Lungs & Thorax: Speaking in 1-2 word sentences with significant tachy pnea/sternal subcostal retractions, 94% RA Abdomen: soft, no tenderness, Skin: Warm, dry, no erythema, no rash. [] Extremities: No tenderness, no cyanosis, equal lower extremity edema Neurologic: Alert and oriented X 3, no focal deficits noted. [] Psychologic: Affect normal, judgement normal, mood normal. [] Current Patient Data: Labs: Laboratory Tests Test 12/14/21 00:18 White Blood Count 7.8 x10^3/uL (4.0-11.0) Red Blood Count 5.99 x10^6/uL (4.30-5.70) H Hemoglobin 16.3 g/dL (13.0-17.5) Hematocrit 51.5 % (39.0-53.0) Mean Corpuscular Volume 86 fL (79-100) Mean Corpuscular Hemoglobin 27 pg (25-35) Mean Corpuscular Hemoglobin Concent 32 g/dL (31-37) Red Cell Distribution Width 19.9 % (11.5-14.5) H Platelet Count 276 x10^3/uL (140-400) Neutrophils (%) (Auto) 72 % (31-73) Lymphocytes (%) (Auto) 15 % (24-48) L Monocytes (%) (Auto) 11 % (0-9) H Eosinophils (%) (Auto) 1 % (0-3) Basophils (%) (Auto) 1 % (0-3) Neutrophils # (Auto) 5.6 x10^3/uL (1.8-7.7) Lymphocytes # (Auto) 1.1 x10^3/uL (1.0-4.8) Monocytes # (Auto) 0.9 x10^3/uL (0.0-1.1) Eosinophils # (Auto) 0.1 x10^3/uL (0.0-0.7) Basophils # (Auto) 0.1 x10^3/uL (0.0-0.2) Sodium Level 141 mmol/L (136-145) Potassium Level 3.2 mmol/L (3.5-5.1) L Chloride Level 101 mmol/L (98-107) Carbon Dioxide Level 25 mmol/L (21-32) Anion Gap 15 (6-14) H Blood Urea Nitrogen 12 mg/dL (8-26) Creatinine 1.1 mg/dL (0.7-1.3) Estimated GFR (Cockcroft-Gault) 69.5 BUN/Creatinine Ratio 11 (6-20) Glucose Level 164 mg/dL (70-99) H Calcium Level 8.4 mg/dL (8.5-10.1) L Magnesium Level 1.9 mg/dL (1.8-2.4) Total Bilirubin 1.6 mg/dL (0.2-1.0) H Aspartate Amino Transferase (AST) 17 U/L (15-37) Alanine Aminotransferase (ALT) 17 U/L (16-63) Alkaline Phosphatase 146 U/L (46-116) H Troponin I High Sensitivity 40 ng/L (4-75) JG-Ngt-O-Type Natriuretic Peptide 7394 pg/mL (0-124) H Total Protein 7.3 g/dL (6.4-8.2) Albumin 3.2 g/dL (3.4-5.0) L Albumin/Globulin Ratio 0.8 (1.0-1.7) L Laboratory Tests 12/14/21 00:18 Laboratory Tests 12/14/21 00:18 Vital Signs: Vital Signs Date Time Temp Pulse Resp B/P (MAP) Pulse Ox O2 Delivery O2 Flow Rate FiO2 12/14/21 01:05 100 12/14/21 00:07 97.9 116 38 152/97 (115) Room Air 97.9 EKG: EKG: Sinus tachycardia 114 bpm, no axis deviation, normal intervals, no T wave inversion, no ST elevation or ST depression Radiology/Procedures: Radiology/Procedures: IMAGING REPORT Signed PATIENT: GUY MCCRACKEN ACCOUNT: [id number] : 1965 LOCATION: ER AGE: 56 SEX: M EXAM STATUS: PRE ER ORD. PHYSICIAN: KEAGAN POTTER DO REASON: soa PROCEDURE: PORTABLE CHEST 1V EXAM: XR CHEST 1V 12/14/2021 12:55 AM CLINICAL INDICATION: Shortness of air COMPARISON: Chest radiograph 11/18/2021. CT chest 11/20/2021 TECHNIQUE: AP upright view of the chest FINDINGS: A single lead AICD is unchanged. The cardiac silhouette is partially obscured. Moderate left and small right pleural effusions have not significantly changed. Bilateral perihilar and basilar predominant opacities are unchanged. No pneumothorax. IMPRESSION: Unchanged left greater than right pleural effusions and bilateral opacities, which could be due to pulmonary edema or pneumonia. Electronically signed by: Katiuska Overton MD (12/14/2021 1:28 AM) [facility] DICTATED and SIGNED BY: KATIUSKA OVERTON MD DATE: 12/14/21 [id number] 0 Course & Med Decision Making: Course & Med Decision Making Pertinent Labs and Imaging studies reviewed. (See chart for details) Concern for respiratory failure (w/ tachypnea/unable to speak in full sentences), treated for COPD exacerbation and placed on BiPAP to treat preload and afterload reduction for congestive heart failure. Patient with persistent pleural effusions, cannot exclude pneumonia. Patient was treated with broad- spectrum antibiotics, Lasix, steroids and breathing treatments. Will admit for further medical management. I have spoken with the patient and/or caregivers. I have explained the patient's condition, diagnosis and treatment plan based on the information available to me at this time. I have answered the patient's and/or caregivers questions and answered any concerns. The patient and/or caregivers have as good an understanding of the patient's diagnosis, condition and treatment plan as can be expected at this point. The patient has been stabilized within the capability of the emergency department. The patient will be transported for further care and management or will be moved to an observation or inpatient service. I have communicated with the staff or medical practitioner taking over this patient's care. Thomas Disclaimer: Thomas Disclaimer: This electronic medical record was generated, in whole or in part, using a voice recognition dictation system. Departure Departure Impression: Primary Impression: Respiratory failure, unspecified, unspecified whether with hypoxia or hypercapnia Additional Impression: COPD exacerbation Disposition: ADMITTED INPATIENT Admitting Physician: JOSE RAFAEL (Dr. Guthrie) Condition: GUARDED Referrals: PAULO TRIPP APRN (PCP) KEAGAN POTTER DO Dec 14, 2021 01:51
[2021-12-14] MEDS ORDERED: DEXAMETHASONE SOD PHOS 20 MG/5 ML VIAL. IV ONE (02:30)
[2021-12-14] MEDS ORDERED: FUROSEMIDE 100 MG/10 ML VIAL. IVP ONE (02:30)
[2021-12-14] MEDS ORDERED: IPRATRPIUM/ALBUTEROL 0.5/2.5MG 3 ML NEBU. NEB ONE (02:30)
--- NOTE | 2021-12-14 03:47 | EKG ---
[facility] [address] [place] [address] Test Date: 2021-12-14 Test Time: 00:10:18 Pat Name: GYU MCCRACKEN Department: Room: Gender: [employer]: : 1965 Requested By: KEAGAN POTTER Order Number: [id number] Reading MD: Guevara Cole MD Measurements Intervals [place] Rate: 114 P: -51 AR: 98 QRS: 31 QRSD: 94 T: 56 QT: 320 QTc: 444 Interpretive Statements SINUS TACHYCARDIA Electronically Signed On 12-19-2021 11:27:08 [employer] by Guevara Cole MD
[2021-12-14] MEDS ORDERED: PIPERACILLIN/TAZOBACTAM 4.5 GM in IV NORMAL SALINE 100ML 100 ML IV ONE (05:00)
[2021-12-14] MEDS ORDERED: PIPERACILLIN/TAZOBACTAM 4.5 GM in IV DEXTROSE 5% 100ML 100 ML IV ONE (05:00)
[2021-12-14] MEDS ORDERED: VANCOMYCIN 2 GM in IV NORMAL SALINE 500ML BAG 500 ML IV ONE (05:15)
[2021-12-14] MEDS: VANCOMYCIN PER PHARMACY MC PRN (06:01)
--- NOTE | 2021-12-14 06:02 | NUR ---
Pharmacy Vancomycin Dosing Note S:Consulted to monitor and dose vancomycin started 12/14/21. O:GUY MCCRACKEN is a 56 year old M with Pneumonia . Height: 5 feet, 10 inches Weight: 77.2 kg [place] Body Weight: 73.00 Adjusted Body Weight: 74.68 Dosing Weight: Actual Other Antibiotics: ZOSYN X1 LABS: Last BUN: 12 Last Creatinine: 1.1 Creatinine Clearance: 80 mL/min Last WBC: 7.8 Last Procalcitonin: Tmax (past 24 hours): Microbiology: I/O: Drug Levels: Last level: on at Last dose given 12/14/21 at 0600 Vancomycin Dosing: Loading Dose: 2000 mg x1 Dosing Weight: Actual Target Trough: 15-20 A: Based on: WT AND CRCL P: 1. Begin Vancomycin 1250 mg IV q12h 2. Follow up Trough level on 12/15/21 at 1730 3. Pharmacy will continue to monitor, follow and adjust therapy as needed. SABRINA BRITO RPH, 12/14/21 06 Signed: 12/14/21 at 0603 by SABRINA BRITO RPH PHA
[2021-12-14 06:37] LABS: BARBITURATES NEG (NEG); BENZODIAZEPINES NEG (NEG); CANNABINOIDS NEG (NEG); COCAINE NEG (NEG); METHADONE NEG (NEG); OPIATES NEG (NEG); PHENCYCLIDINE NEG (NEG)
[2021-12-14 06:43] LABS: AMPHETAMINE/METHAMPHETAMINE NEG (NEG)
[2021-12-14 07:48] VITALS: BP 112/87
[2021-12-14] MEDS ORDERED: PIP/TAZO PER PHARMACY MC PRN (10:30)
[2021-12-14 10:41] VITALS: BP 101/74
--- NOTE | 2021-12-14 10:49 | HP ---
DATE OF SERVICE: 12/14/2021 ADMIT DATE: 12/14/2021 CHIEF COMPLAINT: Shortness of breath. HISTORY OF PRESENT ILLNESS: The patient is a pleasant middle-aged male who has known COPD and CHF, who presents with shortness of breath. He has a chest x-ray in the ER showed some unchanged pleural effusions. He was noted to be hypokalemic. He had to be placed on BiPAP because of hypoxia. He is now currently on 6 liters. I discussed the case with ER physician. We have admitted the patient. PAST MEDICAL HISTORY: COPD, diabetes, hypertension, defibrillator, continued tobacco abuse. ALLERGIES: None. FAMILY HISTORY: Coronary artery disease. SOCIAL HISTORY: He continues to smoke. No drink or drugs. MEDICATIONS: Reviewed, please refer to the MRAD. REVIEW OF SYSTEMS: GENERAL: No history of weight change, weakness or fevers. SKIN: No bruising, hair changes or rashes. EYES: No blurred, double or loss of vision. NOSE AND THROAT: No history of nosebleeds, hoarseness or sore throat. HEART: No history of palpitations, chest pain or shortness of breath on exertion. LUNGS: He complains of shortness of breath. GASTROINTESTINAL: Denies changes in appetite, nausea, vomiting, diarrhea or constipation. GENITOURINARY: No history of frequency, urgency, hesitancy or nocturia. NEUROLOGIC: Denies history of numbness, tingling, tremor or weakness. PSYCHIATRIC: No history of panic, anxiety or depression. ENDOCRINE: No history of heat or cold intolerance, polyuria or polydipsia. EXTREMITIES: Denies muscle weakness, joint pain, pain on walking or stiffness. PHYSICAL EXAMINATION: VITALS: Within normal limits and are stable. GENERAL: No apparent distress. Alert and oriented. HEENT: Normal cephalic atraumatic, external auditory canals are patent. EYES: Extraocular muscles are intact, pupils are equally round and reactive to light and accommodation. MUSCULOSKELETAL: Well developed, well nourished, good range of motion. ENDOCRINE: No thyromegaly was palpated. LYMPHATICS: No cervical chain or axillary nodes were noted. HEMATOPOIETIC: No bruising. NECK: Supple, no JVD, no thyromegaly was noted. LUNGS: He has some slight crackles with decreased breath sounds. HEART: RRR, S1, S2 present. Peripheral pulses intact, no obvious murmurs were noted. ABDOMEN: Soft, nontender. Positive bowel sounds no organomegaly, normal bowel sounds. EXTREMITIES: Without any cyanosis, clubbing, or edema. Pedal pulses intact, Homans sign is negative. NEUROLOGIC: Normal speech, normal tone. A and O x 3, moves all extremities, no obvious focal deficits. PSYCHIATRIC: Normal affect, normal mood. Stable. SKIN: No ulcerations or rashes, good skin turgor, no jaundice. VASCULAR: Good capillary refill, neurovascular bundle appears to be intact. LABORATORY DATA: White count 7.8, hemoglobin 16.3, platelets 276. Electrolytes: Sodium 141, potassium 3.2, chloride 111, bicarbonate 25, BUN 12, creatinine 1.1, glucose 164, total bilirubin a little high at 1.6, alkaline phosphatase a little high at 146. BNP a little high at 7394. Albumin low at 3.2. Drug screen negative. Chest x-ray shows bilateral pleural effusions. ASSESSMENT AND PLAN: Acute on chronic respiratory failure, suspect secondary to chronic obstructive pulmonary disease exacerbation. The patient has been admitted. We will start steroids, breathing treatments, oxygen, empiric IV antibiotics, home meds. Deep venous thrombosis prophylaxis. Full code. VARUN DR: Taylor TID: [id number]
[2021-12-14] MEDS: IPRATRPIUM/ALBUTEROL 0.5/2.5MG 3 ML NEBU. NEB SCH ×3 (11:49→20:28)
[2021-12-14] MEDS ORDERED: PIPERACILLIN/TAZOBACTAM 4.5 GM in IV DEXTROSE 5% 100ML 100 ML IV SCH (12:00)
--- NOTE | 2021-12-14 12:58 | NUR ---
SS following for discharge planning. SS reviewed pt chart and discussed with pt RN. Pt is from home and is currently requiring oxygen at six liters nasal canula. Pt has no home oxygen. Pt on IV Solu-Medrol, IV Vancomycin, and IV Zosyn. PT/OT ordered. SS will continue to follow for discharge planning.
[2021-12-14] MEDS: NICOTINE 14MG PATCH. TD SCH (14:59)
[2021-12-14 15:00] VITALS: BP 108/85
[2021-12-14] MEDS: PIPERACILLIN/TAZOBACTAM 3.375 GM in IV NORMAL SALINE 50ML 50 ML IV SCH ×2 (17:41→23:12)
[2021-12-14] MEDS: VANCOMYCIN 1.25 GM in IV NORMAL SALINE 250ML 250 ML IV SCH (18:32)
[2021-12-14 19:06] VITALS: BP 113/81
[2021-12-14] MEDS: LACTOBACILLUS RHAMNOSUS GG 1 CAPSULE. PO SCH (20:06)
[2021-12-14] MEDS: methylPREDNISolone SOD SUCC PF 40 MG/ML VIAL. IV SCH (20:07)
[2021-12-14 22:24] VITALS: BP 103/80
[2021-12-15 02:13] VITALS: BP 107/83
[2021-12-15 05:18] LABS: GFR 77.6
[2021-12-15] MEDS: PIPERACILLIN/TAZOBACTAM 3.375 GM in IV NORMAL SALINE 50ML 50 ML IV SCH ×3 (05:33→17:43)
[2021-12-15] MEDS: VANCOMYCIN 1.25 GM in IV NORMAL SALINE 250ML 250 ML IV SCH ×2 (06:27→18:40)
[2021-12-15 07:00] VITALS: BP 119/85
[2021-12-15] MEDS: IPRATRPIUM/ALBUTEROL 0.5/2.5MG 3 ML NEBU. NEB SCH ×4 (08:00→20:09)
[2021-12-15] MEDS: LACTOBACILLUS RHAMNOSUS GG 1 CAPSULE. PO SCH ×2 (08:57→20:20)
[2021-12-15] MEDS: methylPREDNISolone SOD SUCC PF 40 MG/ML VIAL. IV SCH ×2 (08:57→20:20)
[2021-12-15] MEDS: NICOTINE 14MG PATCH. TD SCH (08:58)
--- NOTE | 2021-12-15 09:51 | PDOC ---
[employer] PROGRESS NOTE Date of Service DOS: DATE: 12/15/21 TIME: 09:46 Chief Complaint Chief Complaint Acute on chronic respiratory failure Suspect secondary to chronic obstructive pulmonary disease exacerbation AICD in place History of Present Illness History of Present Illness 12/15/21 Patient seen and examined Was sitting up in bed and appears more energetic than yesterday Have decreased from 6L to 3L and has strong cough Chart reviewed Discussed with RN Vitals/I&O Vitals/I&O: Vital Signs Date Time Temp Pulse Resp B/P (MAP) Pulse Ox O2 Delivery O2 Flow Rate FiO2 12/15/21 07:00 94.5 81 22 119/85 (96) 96 Nasal Cannula 4.0 94.5 I & O 12/14/21 12/14/21 12/15/21 15:00 23:00 07:00 Intake Total 360 ml 810 ml 450 ml Output Total 500 ml 425 ml Balance 360 ml 310 ml 25 ml Physical Exam General: Alert, Oriented X3, Cooperative Heart: Regular rate Lungs: Wheezing, Crackles Abdomen: Soft Extremities: No edema, Normal pulses Skin: No rashes, No significant lesion Labs Labs: Laboratory Tests Test 12/15/21 04:20 Creatinine 1.0 mg/dL (0.7-1.3) Estimated GFR (Cockcroft-Gault) 77.6 Assessment and Plan Assessmemt and Plan Problems Medical Problems: (1) COPD exacerbation Status: Acute (2) Respiratory failure, unspecified, unspecified whether with hypoxia or hypercapnia Status: Acute Assessment COPD exacerbation Acute on chronic respiratory failure Plan Steroids Breathing treatments Nasal canula O2 BiPAP PRN Empiric IV antibiotics Home meds Deep venous thrombosis prophylaxis Full code Comment Review of Relevant I have reviewed the following items gorge (where applicable) has been applied. Medications: Current Medications Medications (Trade) Dose Ordered Sig/Gus Route PRN Reason Start Time Stop Time Status Last Admin Dose Admin Vancomycin HCl 1.25 gm/Sodium Chloride 250 ml @ 167 mls/hr Q12H IV 12/14/21 18:00 12/15/21 06:27 Albuterol/ Ipratropium (Duoneb) 3 ml RTQID NEB 12/14/21 12:00 12/14/21 20:28 Methylprednisolone Sodium Succinate (SOLU-Medrol 40MG VIAL) 40 mg BID IV 12/14/21 21:00 12/15/21 08:57 Piperacillin Sod/ Tazobactam Sod 4.5 gm/Dextrose 100 ml @ 200 mls/hr Q6HRS IV 12/14/21 12:00 12/14/21 15:40 DC 12/14/21 13:39 Nicotine (Nicoderm Cq 14mg) 1 patch DAILY TD 12/14/21 15:00 12/15/21 08:58 Piperacillin Sod/ Tazobactam Sod 3.375 gm/Sodium Chloride 50 ml @ 100 mls/hr Q6HRS IV 12/14/21 18:00 12/15/21 05:33 Lactobacillus Rhamnosus (Culturelle) 1 cap BID PO 12/14/21 21:00 12/15/21 08:57 Justifications for Admission Other Justification Acute CHF exacerbation, scrotal edema TANYA LLOYD III DO Dec 15, 2021 09:51
[2021-12-15 10:50] VITALS: BP 130/94
[2021-12-15] MEDS: VANCOMYCIN PER PHARMACY MC PRN ×2 (13:08→18:44)
[2021-12-15] MEDS ORDERED: IV DEXTROSE 5% 250 ML BAG. IV PRN (13:30)
[2021-12-15] MEDS ORDERED: DEXTROSE 50% 25 GM / 50ML DISP.SYRIN. IV PRN (13:30)
--- NOTE | 2021-12-15 14:02 | NUR ---
SS following up with discharge planning. SS reviewed pt chart and discussed with pt RN. Pt is currently requiring oxygen at four liters nasal canula. Pt has no home oxygen. Pt on IV Solu-Medrol, IV Zosyn, and IV Vancomycin. PT/OT ordered. OT recommended home with home healthcare. SS will continue to follow for discharge planning.
[2021-12-15 15:00] VITALS: BP 119/88
[2021-12-15] MEDS: INSULIN LISPRO 300 UNITS/3 ML VIAL. SQ SCH (17:49)
[2021-12-15 18:29] LABS: VANC TR 15.8 mcg/mL (10.0-20.0)
--- NOTE | 2021-12-15 18:47 | NUR ---
Pharmacy Vancomycin Dosing Note S: Consulted to monitor and dose vancomycin started 12/14/21. O: GUY MCCRACKEN is a 56 year old M with Pneumonia Other Antibiotics: ZOSYN X1 LABS: Last BUN: 12 Last Creatinine: 1.0 Creatinine Clearance: 80 mL/min Last WBC: 7.8 Last Procalcitonin: Tmax (past 24 hours): 97.5 Microbiology: I/O: 1620/925 Drug Levels: Last Trough level: 15.8 on 12/15/21 at 1730 Last dose given 12/15/21 at 0627 Vancomycin Dosing: Dosing Weight: Actual Target Trough: 15-20 A: Based on: trough P: 1. Continue Vancomycin 1250 mg IV q12h 2. Follow up Trough level to be ordered as needed 3. Pharmacy will continue to monitor, follow and adjust therapy as needed. Susana Perez RPH, 12/15/21 [id number]
[2021-12-15 19:07] VITALS: BP 140/94
[2021-12-15 22:38] VITALS: BP 128/88
[2021-12-16] MEDS: PIPERACILLIN/TAZOBACTAM 3.375 GM in IV NORMAL SALINE 50ML 50 ML IV SCH ×5 (01:00→22:59)
[2021-12-16 02:27] VITALS: BP 141/102
[2021-12-16] MEDS: VANCOMYCIN 1.25 GM in IV NORMAL SALINE 250ML 250 ML IV SCH ×2 (05:52→16:23)
[2021-12-16 07:00] VITALS: BP 137/103
[2021-12-16] MEDS: IPRATRPIUM/ALBUTEROL 0.5/2.5MG 3 ML NEBU. NEB SCH ×4 (07:25→20:51)
[2021-12-16] MEDS: NICOTINE 14MG PATCH. TD SCH (09:16)
[2021-12-16] MEDS: LACTOBACILLUS RHAMNOSUS GG 1 CAPSULE. PO SCH ×2 (09:16→20:31)
[2021-12-16] MEDS: methylPREDNISolone SOD SUCC PF 40 MG/ML VIAL. IV SCH ×2 (09:17→20:30)
[2021-12-16] MEDS: INSULIN LISPRO 300 UNITS/3 ML VIAL. SQ SCH ×3 (09:17→16:20)
[2021-12-16 11:00] VITALS: BP 150/103
--- NOTE | 2021-12-16 11:05 | PDOC ---
[employer] PROGRESS NOTE Date of Service DOS: DATE: 12/16/21 TIME: 11:04 Chief Complaint Chief Complaint Acute on chronic respiratory failure Suspect secondary to chronic obstructive pulmonary disease exacerbation Continued tobacco abuse AICD in place Diabetes Hypertension Hyperlipidemia History of Present Illness History of Present Illness 12/16/2021 Patient seen and examined Chart reviewed Discussed with RN He states he feels better However, when I auscultate his lungs he is wheezing a lot!! 12/15/21 Patient seen and examined Was sitting up in bed and appears more energetic than yesterday Have decreased from 6L to 3L and has strong cough Chart reviewed Discussed with RN Vitals/I&O Vitals/I&O: Vital Signs Date Time Temp Pulse Resp B/P (MAP) Pulse Ox O2 Delivery O2 Flow Rate FiO2 12/16/21 08:00 Nasal Cannula 3.0 12/16/21 07:25 99 12/16/21 07:00 92.7 165 22 137/103 (114) 92.7 I & O 12/15/21 12/15/21 12/16/21 14:59 22:59 06:59 Intake Total 790 ml 100 ml Output Total 500 ml 350 ml Balance 290 ml -250 ml Physical Exam General: Alert, Oriented X3, Cooperative Heart: Regular rate Lungs: Wheezing, Crackles Abdomen: Soft Extremities: No edema, Normal pulses Skin: No rashes, No significant lesion Labs Labs: Laboratory Tests Test 12/15/21 12:07 12/15/21 17:20 12/15/21 17:30 12/15/21 20:47 Glucose (Fingerstick) 277 mg/dL (70-99) 217 mg/dL (70-99) 272 mg/dL (70-99) Vancomycin Level Trough 15.8 mcg/mL (10.0-20.0) Vancomycin Last Dose Date 12/15/2021 Vancomycin Last Dose Time 0600 Test 12/16/21 07:43 Glucose (Fingerstick) 290 mg/dL (70-99) Assessment and Plan Assessmemt and Plan Problems Medical Problems: (1) COPD exacerbation Status: Acute (2) Respiratory failure, unspecified, unspecified whether with hypoxia or hypercapnia Status: Acute Acute on chronic respiratory failure Suspect secondary to chronic obstructive pulmonary disease exacerbation Continued tobacco abuse AICD in place Diabetes Hypertension Hyperlipidemia Plan IV steroids IV antibiotics Breathing treatments O2 Encourage p.o. intake Trend labs PT OT DVT prophylaxis Full code Long-term prognosis guarded if he does not quit smoking Comment Review of Relevant I have reviewed the following items gorge (where applicable) has been applied. Medications: Current Medications Medications (Trade) Dose Ordered Sig/Gus Route PRN Reason Start Time Stop Time Status Last Admin Dose Admin Vancomycin HCl (Vancomycin Trough Level) 1 each 1X ONCE MC 12/15/21 17:30 12/15/21 17:31 DC 12/15/21 17:30 Insulin Human Lispro (HumaLOG) 0-7 UNITS TIDWMEALS SQ 12/15/21 17:00 12/16/21 09:17 Justifications for Admission Other Justification Acute CHF exacerbation, scrotal edema TANYA LLOYD III DO Dec 16, 2021 11:05
--- NOTE | 2021-12-16 13:39 | NUR ---
SS following up with discharge planning. SS reviewed pt chart and discussed with pt RN. Pt is currently requiring oxygen at three liters nasal canula. No home oxygen. Pt on IV Solu-Medrol, IV Zosyn, and IV Vancomycin. PT/OT recommended home with home healthcare. SS met with pt and discussed discharge planning and home healthcare. Pt agreeable to home healthcare with no preference of company. Referral sent to [facility], ; fax [phone]. SS will continue to follow for discharge planning.
[2021-12-16 15:00] VITALS: BP 137/107
[2021-12-16] MEDS: VANCOMYCIN PER PHARMACY MC PRN (15:48)
[2021-12-16] MEDS ORDERED: ACETAMINOPHEN 325 MG TABLET. PO PRN (16:30)
[2021-12-16] MEDS ORDERED: ALBUTEROL SULFATE 2.5 MG/3 ML NEBU. NEB PRN (16:30)
[2021-12-16] MEDS ORDERED: DOCUSATE SODIUM 100 MG CAPSULE. PO PRN (16:30)
[2021-12-16] MEDS: GLIMEPIRIDE 2 MG TABLET. PO SCH (17:04)
[2021-12-16] MEDS: METOPROLOL SUCC 24HR ER 50 MG TAB.ER.24H. PO SCH (17:05)
[2021-12-16] MEDS: BUMETANIDE 1 MG TABLET. PO SCH (17:05)
[2021-12-16 19:20] VITALS: BP 142/97
[2021-12-16] MEDS: SACUBITRIL/VALSARTAN 24/26MG TABLET. PO SCH (20:30)
[2021-12-16] MEDS ORDERED: ATORVASTATIN CALCIUM 40 MG TABLET. PO SCH (21:00)
[2021-12-16] MEDS ORDERED: METOPROLOL IV PUSH 5 MG/5 ML VIAL. IVP PRN (22:45)
[2021-12-16] MEDS ORDERED: ENOXAPARIN 40 MG/0.4 ML SYRINGE. SQ SCH (23:00)
[2021-12-16 23:10] VITALS: BP 135/86
[2021-12-17 03:16] VITALS: BP 115/88
[2021-12-17] MEDS: PIPERACILLIN/TAZOBACTAM 3.375 GM in IV NORMAL SALINE 50ML 50 ML IV SCH ×2 (05:57→12:09)
[2021-12-17 06:08] LABS: CALCIUM 9.4 mg/dL (8.5-10.1); CREATININE 0.9 mg/dL (0.7-1.3); GFR 87.6; POTASSIUM 3.5 mmol/L (3.5-5.1)
[2021-12-17] MEDS: VANCOMYCIN 1.25 GM in IV NORMAL SALINE 250ML 250 ML IV SCH (06:29)
[2021-12-17 07:00] VITALS: BP 122/89
[2021-12-17] MEDS ORDERED: PANTOPRAZOLE 40 MG TABLET.DR. PO SCH (07:30)
[2021-12-17] MEDS ORDERED: ASPIRIN ENTERIC COATED 81 MG TABLET.DR. PO SCH (08:00)
[2021-12-17] MEDS ORDERED: POTASSIUM CHLORIDE 20 MEQ TABLET.ER. PO SCH (08:00)
[2021-12-17] MEDS: GLIMEPIRIDE 2 MG TABLET. PO SCH (08:21)
[2021-12-17] MEDS: SACUBITRIL/VALSARTAN 24/26MG TABLET. PO SCH (08:21)
[2021-12-17] MEDS: methylPREDNISolone SOD SUCC PF 40 MG/ML VIAL. IV SCH (08:21)
[2021-12-17] MEDS: BUMETANIDE 1 MG TABLET. PO SCH ×2 (08:22→14:21)
[2021-12-17] MEDS: LACTOBACILLUS RHAMNOSUS GG 1 CAPSULE. PO SCH (08:23)
[2021-12-17] MEDS: NICOTINE 14MG PATCH. TD SCH (08:23)
[2021-12-17] MEDS: METOPROLOL SUCC 24HR ER 50 MG TAB.ER.24H. PO SCH (08:29)
[2021-12-17] MEDS: INSULIN LISPRO 300 UNITS/3 ML VIAL. SQ SCH ×2 (08:41→12:19)
[2021-12-17] MEDS: IPRATRPIUM/ALBUTEROL 0.5/2.5MG 3 ML NEBU. NEB SCH ×2 (08:48→12:58)
[2021-12-17] MEDS ORDERED: SPIRONOLACTONE 25 MG TABLET PO SCH (09:00)
[2021-12-17] MEDS ORDERED: EMPAGLIFLOZIN 25 MG TABLET. PO SCH (09:00)
[2021-12-17 11:00] VITALS: BP 113/88
[2021-12-17] MEDS ORDERED: AMOX1TAB10 PO (12:12)
[2021-12-17] MEDS ORDERED: ALBU2.5V8 IH (12:12)
[2021-12-17] MEDS ORDERED: METH4TAB2 PO (12:13)
--- NOTE | 2021-12-17 12:14 | SNU/HH DC ---
DISCHARGE WITH HOME HEALTH DISCHARGE INFORMATION: Final Diagnosis: Problems Medical Problems: (1) COPD exacerbation Status: Acute (2) Respiratory failure, unspecified, unspecified whether with hypoxia or hypercapnia Status: Acute Condition on Discharge: Stable CODE STATUS: Code Status: Full HOME HEALTH: Face to Face: I certify this patient is under my care and that I, or a nurse practitioner or physician's certified pathology assistant working with me, had a face to face encounter that meets the physician face to face encounter requirements with this patient on []. Medical Complications: COPD Longterm For: Assess Cardiopulm Status RN For Eval/Treatment: Yes Physical Therapy For: Evalulation/Treatment Occupational Therapy For: Evaluation/Treatment Home Health Aide For: Self-care TAP AND DIE MAKER TECHNICIAN For: Community Resources Pt Meets Homebound Status: Unsteady balance w/ amb, POST DISCHARGE ORDERS: Activity Instructions for Disc: Resume previous activity, Activity as tolerated Weight Bearing Status after Di: As tolerated Bathing Instructions: Shower-keep dressing dry DIET AFTER DISCHARGE: Cardiac Wound/Incision Care: Ice to area for comfort CHECKS AFTER DISCHARGE: Checks after discharge: Check blood press - daily, Check your Temp as needed, Weigh Yourself Daily TREATMENT/EQUIPMENT ORDERS: Adaptive Equipment Issued: None CERTIFICATION STATEMENT: Certification Statement: Certification Statement: Based on the above finding, I certify that this patient is confined to the home and needs intermittent long-term care, physical therapy and/or speech therapy, or continues to need occupational therapy.~ This patient is under my care, and I have initiated the establishment of the plan of care.~ This patient will be followed by myself or a community physician who will periodically review the plan of care. Home Meds Active Scripts Methylprednisolone (MEDROL) 4 Mg Tab.ds.pk, 1 PKG PO UD for ., #1 PKG Prov:CASTLE,NIAL K III DO 12/17/21 Albuterol Sulfate (PROAIR HFA INHALER) 8.5 Gm Hfa.aer.ad, 2 PUFF IH PRN Q4-6HRS PRN for wheezing for 21 Days, #1 INHALER 0 Refills Prov:CASTLE,NIAL K III DO 12/17/21 Amoxicillin/Potassium Clav (AMOX TR-K CLV 500-125 MG TAB) 1 Each Tablet, 1 TAB PO BID for ., #14 TAB Prov:CASTLE,NIAL K III DO 12/17/21 Metoprolol Succinate (Toprol XL) 50 Mg Tab.er.24h, 50 MG PO DAILY for CHF for 30 Days, #30 TAB.SR 3 Refills Prov:MEHRDAD LOGAN MD 11/21/21 Potassium Chloride (KLOR-CON M20) 20 Meq Tab.er.prt, 40 MEQ PO DAILYWBKFT for Hypokalemia for 30 Days, #60 TAB.SR 3 Refills Prov:MEHRDAD LOGAN MD 11/21/21 Bumetanide (BUMETANIDE) 1 Mg Tablet, 1 TAB PO BID for CHF for 30 Days, #60 TAB 3 Refills Prov:MEHRDAD LOGAN MD 11/21/21 Spironolactone (ALDACTONE) 25 Mg Tablet, 25 MG PO DAILY for heart for 30 Days, #30 TAB 3 Refills Prov:MEHRDAD LOGAN MD 11/21/21 Albuterol Sulfate (Proair Hfa) 8.5 Gm Hfa.aer.ad, 2.5 MG NEB PRN Q4HRS PRN for SHORTNESS OF BREATH for 30 Days, #1 INHALER 3 Refills Prov:MEHRDAD LOGAN MD 11/21/21 Sacubitril/Valsartan (Entresto 24 mg-26 mg Tablet) 1 Each Tablet, 1 TAB PO BID for CHF, #60 TAB 1 Refill Prov:SERG HURST MD 12/03/20 Docusate Sodium (DOK) 100 Mg Capsule, 100 MG PO PRN DAILY PRN for HARD STOOLS for 30 Days, #60 CAP Prov:TRACY WATERMAN MD 10/14/20 Acetaminophen (TYLENOL) 325 Mg Tablet, 650 MG PO PRN Q4HRS PRN for TEMP OVER 100.4F OR MILD PAIN for 30 Days, #60 TAB Prov:TRACY WATERMAN MD 10/14/20 Aspirin (ASPIRIN EC) 81 Mg Tablet.dr, 81 MG PO DAILYWBKFT for heart health for 30 Days, #30 TAB.SR Prov:TRACY WATERMAN MD 10/14/20 Reported Medications Icosapent Ethyl (Vascepa) 0.5 Gm Capsule, 1 CAP PO BID for unknown for 30 Days, #60 CAP 0 Refills 03/22/20 Dapagliflozin Propanediol (FARXIGA) 10 Mg Tablet, 10 MG PO DAILY for unknown, TAB 03/22/20 Omeprazole (OMEPRAZOLE) 20 Mg Tablet.dr, 1 TAB PO DAILY for stomach, #90 TAB 1 Refill 03/22/20 Atorvastatin Calcium (ATORVASTATIN CALCIUM) 40 Mg Tablet, 1 TAB PO QHS for HLD, #90 TAB 3 Refills 03/22/20 Glimepiride (GLIMEPIRIDE) 4 Mg Tablet, 1 TAB PO DAILY for DM, #30 TAB 5 Refills 03/22/20 TANYA LLOYD III DO Dec 17, 2021 12:14
--- NOTE | 2021-12-17 13:34 | DS ---
DATE OF DISCHARGE: 12/17/2021 ADMISSION DIAGNOSIS: Respiratory failure secondary to chronic obstructive pulmonary disease. DISCHARGE DIAGNOSES: Resolving chronic obstructive pulmonary disease, respiratory failure, automatic implantable cardioverter-defibrillator, diabetes, hypertension, hyperlipidemia. HOSPITAL COURSE: The patient is a pleasant middle-aged male who presented with respiratory failure secondary to chronic obstructive pulmonary disease. I gave him empiric IV antibiotics, breathing treatments, IV steroids, oxygen, physical therapy, occupational therapy and trended his labs. Today, he finally is feeling better. His lungs are pretty clear. This is about as good as he gets. We plan to discharge. DISPOSITION: Home. ACTIVITY: As tolerated. DIET: Low sodium. DISCHARGE MEDICATIONS: Please see the MRAD. ProAir, Augmentin 500 b.i.d., steroid taper with Medrol Dosepak, p.r.n. Tylenol, aspirin 81 a day, atorvastatin 40 a day, Farxiga 10 a day, bumetanide 1 mg b.i.d., docusate, glimepiride 4 a day, Vascepa 0.5 b.i.d., metoprolol 50 daily, omeprazole 20 a day, potassium 40 a day, Entresto 24/26 one b.i.d., and Aldactone 25 a day. TOTAL TIME: 34 minutes. RALPH/BRIONNA DR: Taylor TID: [id number]
[2021-12-17 14:19] VITALS: BP 119/78
--- NOTE | 2021-12-17 14:40 | NUR ---
Discharge Note: GUY MCCRACKEN [address] [facility] Discharge instructions and discharge home medications reviewed with Patient and a copy given. All questions have been answered and understanding verbalized. The following instructions and handouts were given: discharge instructions, follow ups, new med info, med list, COPD/resp failure education, smoking cessation education. Discontinued lines and drains: Peripheral IV intact. Patient discharged to Home w/services with Self via Wheelchair at 1440. Addendum: 12/17/21 at 1539 by TORREY PETTY RN Patient had HH set up & O2.
--- NOTE | 2021-12-17 15:24 | NUR ---
I have read the assessment and documentation by SN Katia and concur. Adriana Cash RN [facility]
== END 2021-12-17 14:40 | disposition home health service (06) | DRG 189 ==
LOC: ER 00:04 → 6 SOUTH 06:23
PROVIDERS: ADMIT Internal Medicine; ATTEND Internal Medicine
PROC: 5A09357 Assistance with Respiratory Ventilation, Less than 24 Consecutive Hours, Continuous Positive Airway Pressure (ICD-10-PCS; principal; 2021-12-14)
DX: J96.21 Acute and chronic respiratory failure with hypoxia (principal); J44.1 Chronic obstructive pulmonary disease with (acute) exacerbation; E11.9 Type 2 diabetes mellitus without complications; E78.00 Pure hypercholesterolemia, unspecified; E78.5 Hyperlipidemia, unspecified; E87.6 Hypokalemia; F17.200 Nicotine dependence, unspecified, uncomplicated; I11.0 Hypertensive heart disease with heart failure; Z95.810 Presence of automatic (implantable) cardiac defibrillator; I50.9 Heart failure, unspecified; Z82.49 Family history of ischemic heart disease and other diseases of the circulatory system; K21.9 Gastro-esophageal reflux disease without esophagitis
CPT/HCPCS: 36415; 71045; 80048; 80053; 80202; 80307; 82565; 82962; 83735; 83880; 84484; 85025; 93005; 94618; 94640; 94660; 94760; 96365; 96366; 96368; 96375; 99406; J1100; J1650; J1815; J1940; J2543; J2920; J3370; J3490; J7040; J7050; J7060; 97110-GO; 97116-GP; 99285-25; G0378; J7030

== ENCOUNTER 2021-12-19 18:34 | Emergency (ER) | payer BC ==
[~2021-12-19] VITALS: Ht 177.8 cm; Wt 77.0 kg
[~2021-12-19 18:34] MED LIST changes: +ALBU2.5V8 IH; +AMOX1TAB10 PO; +METH4TAB2 PO
[2021-12-19 21:25] LABS: BASO # 0.1 x10^3/uL (0.0-0.2); BASO % 1 % (0-3); EOS # 0.1 x10^3/uL (0.0-0.7); EOS % 1 % (0-3); HEMATOCRIT 52.8 % (39.0-53.0); HEMOGLOBIN 16.9 g/dL (13.0-17.5); LYMPH # 1.1 x10^3/uL (1.0-4.8); LYMPH % 11 % (24-48); MEAN CORPUSCULAR HEMOGLOBIN 27 pg (25-35); MEAN CORPUSCULAR HGB CONC 32 g/dL (31-37); MEAN CORPUSCULAR VOLUME 84 fL (79-100); MONO # 0.9 x10^3/uL (0.0-1.1); MONO % 9 % (0-9); NEUT % 78 % (31-73); PLATELET COUNT 236 x10^3/uL (140-400); RED BLOOD COUNT 6.31 x10^6/uL (4.30-5.70); RED CELL DISTRIBUTION WIDTH 19.9 % (11.5-14.5); WHITE BLOOD COUNT 10.2 x10^3/uL (4.0-11.0)
--- NOTE | 2021-12-19 21:31 | PHYS DOC ---
Past Medical History Past Medical History: COPD, Diabetes-Type II, High Cholesterol, Hypertension Past Surgical History: Other Additional Past Surgical Histo: implanted defibrillator Smoking Status: Former Smoker Alcohol Use: None General Adult EDM: Chief Complaint: SHORTNESS OF BREATH HPI: HPI: Patient is a 56 year old male past medical history of COPD (on 2L NC at baseline), diabetes, hyperlipidemia, hypertension, coronary artery disease with defibrillator presents for evaluation of scrotal swelling. Patient states this afternoon was normal state of health took a nap and woke up with his scrotum swollen. Patient denies any associated pain. While in the waiting room patient nursing believed patient was having difficulty breathing. Patient was states he has a little more than normal SOB. SOB started while in the waiting room. Patient states he has had some increased lower extremity swelling. Patient states the only reason he is here is because of his scrotal swelling. Review of Systems: Review of Systems: Constitutional: Denies fever or chills. [] Eyes: Denies change in visual acuity. [] HENT: Denies nasal congestion or sore throat. [] Respiratory: Denies cough positive shortness of breath. [] Cardiovascular: Denies chest pain or edema. [] GI: Denies abdominal pain, nausea, vomiting, bloody stools or diarrhea. [] : Denies dysuria. []positive scrotal swelling Musculoskeletal: Denies back pain or joint pain. [positive leg swelling] Integument: Denies rash. [] Neurologic: Denies headache, focal weakness or sensory changes. [] Endocrine: Denies polyuria or polydipsia. [] Lymphatic: Denies swollen glands. [] Psychiatric: Denies depression or anxiety. [] Heart Score: C/O Chest Pain: N/A Risk Factors: Risk Factors: DM, Current or recent (<one month) smoker, HTN, HLP, family history of CAD, obesity. Risk Scores: Score 0 - 3: 2.5% MACE over next 6 weeks - Discharge Home Score 4 - 6: 20.3% MACE over next 6 weeks - Admit for Clinical Observation Score 7 - 10: 72.7% MACE over next 6 weeks - Early Invasive Strategies Allergies: Allergies: Allergies Coded Allergies Type Severity Reaction Last Updated Verified No Known Drug Allergies 12/14/21 No Physical Exam: PE: Constitutional: Well developed, well nourished, no acute distress, non-toxic appearance. [] HENT: Normocephalic, atraumatic, bilateral external ears normal, oropharynx moist, no oral exudates, nose normal. [] Eyes: PERRLA, EOMI, conjunctiva normal, no discharge. [] Neck: Normal range of motion, no tenderness, supple, no stridor. [] Cardiovascular:Heart rate regular rhythm, no murmur [] Lungs & Thorax: Bilateral breath sounds clear to auscultation [] Abdomen: Bowel sounds normal, soft, no tenderness, no masses, no pulsatile phoenix s. [] Skin: Warm, dry, no erythema, no rash. [] Back: No tenderness, no CVA tenderness. [] Extremities: No tenderness, no cyanosis, no clubbing, ROM intact, no edema. [] Neurologic: Alert and oriented X 3, normal motor function, normal sensory function, no focal deficits noted. [] Psychologic: Affect normal, judgement normal, mood normal. [] Current Patient Data: Labs: Laboratory Tests Test 12/19/21 21:10 White Blood Count 10.2 x10^3/uL (4.0-11.0) Red Blood Count 6.31 x10^6/uL (4.30-5.70) H Hemoglobin 16.9 g/dL (13.0-17.5) Hematocrit 52.8 % (39.0-53.0) Mean Corpuscular Volume 84 fL (79-100) Mean Corpuscular Hemoglobin 27 pg (25-35) Mean Corpuscular Hemoglobin Concent 32 g/dL (31-37) Red Cell Distribution Width 19.9 % (11.5-14.5) H Platelet Count 236 x10^3/uL (140-400) Neutrophils (%) (Auto) 78 % (31-73) H Lymphocytes (%) (Auto) 11 % (24-48) L Monocytes (%) (Auto) 9 % (0-9) Eosinophils (%) (Auto) 1 % (0-3) Basophils (%) (Auto) 1 % (0-3) Neutrophils # (Auto) 8.0 x10^3/uL (1.8-7.7) H Lymphocytes # (Auto) 1.1 x10^3/uL (1.0-4.8) Monocytes # (Auto) 0.9 x10^3/uL (0.0-1.1) Eosinophils # (Auto) 0.1 x10^3/uL (0.0-0.7) Basophils # (Auto) 0.1 x10^3/uL (0.0-0.2) Laboratory Tests 12/19/21 21:10 Vital Signs: Vital Signs Date Time Temp Pulse Resp B/P (MAP) Pulse Ox O2 Delivery O2 Flow Rate FiO2 12/19/21 21:07 98.4 93 30 87 Room Air 98.4 EKG: EKG: [] Radiology/Procedures: Radiology/Procedures: [] Course & Med Decision Making: Course & Med Decision Making Pertinent Labs and Imaging studies reviewed. (See chart for details) [] follow up with PCP. Treatment with lasix 40mg IV. I think patient is stable and could be discharged home with instructions to increase lasix for the next several days. Discussed hospitalization but patient preferred outpatient trial. Increase lasix dose x 2 for seven days. Advised to follow up with PCP. Thomas Disclaimer: Thomas Disclaimer: This electronic medical record was generated, in whole or in part, using a voice recognition dictation system. Departure Departure Impression: Primary Impression: Pleural effusion Additional Impression: Scrotal edema Disposition: HOME / SELF CARE / HOMELESS Condition: STABLE Referrals: PAULO TRIPP APRN (PCP) Patient Instructions: Pleural Effusion, Scrotal Swelling Scripts Furosemide (LASIX) 40 Mg Tablet 1 TAB PO BID for 7 Days, #14 TAB 0 Refills Prov: FRANDY MULTANI DO 12/20/21 FRANDY MULTANI DO Dec 19, 2021 21:31
[2021-12-19 21:38] LABS: CALCIUM 9.3 mg/dL (8.5-10.1); GFR 77.6; POTASSIUM 3.8 mmol/L (3.5-5.1)
[2021-12-19 21:44] LABS: ALBUMIN 3.4 g/dL (3.4-5.0); TOTAL BILIRUBIN 1.6 mg/dL (0.2-1.0); TOTAL PROTEIN 6.8 g/dL (6.4-8.2)
[2021-12-19 22:11] LABS: INFLUENZA A PATIENT NEGATIVE (NEGATIVE); INFLUENZA B PATIENT NEGATIVE (NEGATIVE)
--- NOTE | 2021-12-19 23:01 | RAD ---
XR CHEST 1V History: Reason: sob / Spl. Instructions: / History: Comparison: December 14, 2021 Findings: Moderate left pleural effusion, unchanged. Increased diffuse interstitial thickening with ill-defined opacities. Small right pleural effusion, increased compared to prior. Left-sided ICD, unchanged. Unc hanged heart size. Impression: 1. Increased interstitial thickening with ill-defined opacities, may represent pulmonary edema. 2. Moderate left and small right pleural effusion. Electronically signed by: Iam Gaona DO (12/19/2021 10:58 PM) [facility]
[2021-12-19] MEDS ORDERED: methylPREDNISolone SOD SUCC PF 125 MG/2 ML VIAL. IV ONE (23:15)
[2021-12-20 00:12] VITALS: BP 126/98
[2021-12-20] MEDS ORDERED: FURO-68 PO (00:55)
[2021-12-20] MEDS ORDERED: FUROSEMIDE 40 MG/4 ML VIAL. IVP ONE (01:00)
--- NOTE | 2021-12-20 05:00 | EKG ---
[facility] [address] [place] [address] Test Date: 2021-12-19 Test Time: 21:39:25 Pat Name: GUY MCCRACKEN Department: Room: Gender: Winch Stripper: : 1965 Requested By: FRANDY MULTANI Order Number: [id number] Reading MD: Mendez Esteves Measurements Intervals [place] Rate: 101 P: 28 TN: 128 QRS: 26 QRSD: 94 T: 84 QT: 350 QTc: 455 Interpretive Statements SINUS TACHYCARDIA LEFT ATRIAL ABNORMALITY LOW LIMB LEAD VOLTAGE Electronically Signed On 12-22-2021 8:46:00 CORE MACHINE TENDER by Mendez Esteves
== END 2021-12-20 01:17 | disposition home or self-care (01) ==
LOC: ER 18:34
DX: N50.89 Other specified disorders of the male genital organs (principal); J90 Pleural effusion, not elsewhere classified; J44.9 Chronic obstructive pulmonary disease, unspecified; Z20.822 Contact with and (suspected) exposure to COVID-19; E11.9 Type 2 diabetes mellitus without complications; E78.00 Pure hypercholesterolemia, unspecified; I10 Essential (primary) hypertension; Z87.891 Personal history of nicotine dependence; I25.10 Atherosclerotic heart disease of native coronary artery without angina pectoris
CPT/HCPCS: 36415; 71045; 80053; 83880; 84484; 85025; 87428; 93005; 96374; 96375; 99285; J1940; J2930

== ENCOUNTER 2022-01-23 10:01 | Emergency (ER) | payer SELFPAY ==
[~2022-01-23] VITALS: Ht 177.8 cm; Wt 83.2 kg
[~2022-01-23 10:01] MED LIST changes: -OMEP20TA8 PO; +OMEP20TA91 PO
[2022-01-23 10:06] VITALS: BP 138/89
[2022-01-23] MEDS ORDERED: DIPHTH,PERTUSS(ACELL),TET TOX 0.5 ML DISP.SYRIN. VAX IM ONE (10:30)
--- NOTE | 2022-01-23 11:41 | EKG ---
[facility] [address] [place] [address] Test Date: 2022-01-23 Test Time: 10:17:23 Pat Name: GUY MCCRACKEN Department: Room: Gender: Palliative Care Physician: : 1965 Requested By: ADELINA COLEMAN Order Number: [id number] Reading MD: Mendez Esteves Measurements Intervals [place] Rate: 112 P: 0 NE: 126 QRS: -11 QRSD: 92 T: 161 QT: 334 QTc: 458 Interpretive Statements SINUS TACHYCARDIA LEFT ATRIAL ABNORMALITY Electronically Signed On 01-27-2022 13:50:39 CDT by Mendez Esteves
--- NOTE | 2022-01-23 11:46 | RAD ---
CT HEAD AND C-SPINE WO History: Fall. Occipital contusion. Pain. Comparison: None. Technique: Noncontrast CT of the head and cervical spine. Findings: CT HEAD: There is no evidence for intracranial mass or hemorrhage. There is no hydrocephalus or midline shift. No abnormal extra-axial fluid collections are present. No evidence of acute territorial infarction. Opacification and volume loss of the left maxillary sinus consistent with chronic obstruction. The skull and scalp are within normal limits. CT CERVICAL SPINE: There is no evidence for fracture in the cervical spine. There are unfused spinous processes at C5 and C6. 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 Accessory os at the T1 spinous process. Alignment is normal. Large circumferential disc osteophyte complex at C3-C4 narrows the canal to approximately 5 mm AP. Sm all circumferential disc osteophyte complex at C6-C7. No destructive osseous lesions are seen. Bilateral carotid calcification. Large bilateral pleural effusions. Thickening of the pulmonary interlobular septa at the lung apices. Impression: 1. No acute intracranial findings. 2. No acute osseous abnormality in the cervical spine. 3. Large circumferential disc osteophyte complex at C3-C4 causes spinal canal stenosis to approximat octavia 5 mm AP. 4. Large bilateral pleural effusions with pulmonary interstitial edema at the lung apices. ------- Exposure: One or more of the following individualized dose reduction techniques were utilized for thi s examination: 1. Automated exposure control 2. Adjustment of the mA and/or kV according to patient size 3. Use of iterative reconstruction technique. Electronically signed by: Robert Serrano MD (01/23/2022 11:44 AM) [id number]
--- NOTE | 2022-01-23 11:58 | RAD ---
CT THORACIC SPINE WO History: Contusion with midline tenderness. Comparison: CT chest 11/20/2021 Technique: Noncontrast CT of the thoracic spine. Findings: There are 12 thoracic vertebral segments. Normal alignment. No fracture. Incidental accessory os of t he T1 spinous process. Multilevel minimal degenerative endplate changes. No significant spinal canal or foraminal stenosis. Large bilateral pleural effusions. Partially visualized lungs demonstrate volume loss and prominence of the pulmonary interstitial markings with groundglass opacity likely representing interstitial janay a and atelectasis. Visualized portions of the upper abdomen are unremarkable. There are calcification s of the aortic arch. Calcified subcarinal and right hilar lymph nodes. Impression: 1. No acute osseous abnormality in the thoracic spine. 2. Large bilateral pleural effusions with pulmonary edema and lung hypoinflation. ------ Exposure: One or more of the following individualized dose reduction techniques were utilized for thi s examination: 1. Automated exposure control 2. Adjustment of the mA and/or kV according to patient size 3. Use of iterative reconstruction technique. Electronically signed by: Robert Serrano MD (01/23/2022 11:55 AM) [id number]
[2022-01-23] MEDS ORDERED: LIDOCAINE 2% JELLY 6ML IN APPLICATOR. TP ONE (12:00)
--- NOTE | 2022-01-23 12:09 | PHYS DOC ---
Past Medical History Past Medical History: COPD, Diabetes-Type II, High Cholesterol, Hypertension (ADELINA COLEMAN) Past Surgical History: Other Additional Past Surgical Histo: implanted defibrillator (ADELINA COLEMAN) Smoking Status: Current Every Day Smoker Alcohol Use: None (ADELINA COLEMAN) General Adult EDM: Chief Complaint: MECHANICAL FALL HPI: HPI: Patient is a 56 year old male who presents with posterior head laceration and thoracic back bruising status post fall on stairs at home. Patient rates his pain as mild. He states he was walking down the stairs, missed stepped and fell backwards. Patient reports he hit the back of his head on a step and then slid down the rest of the staircase. He denies any lightheadedness, dizziness, weakness or precipitating symptoms prior to his fall. Patient has past medical history that includes diabetes type 2, COPD, hypertension, high cholesterol. He reports medication compliance with all. He is unsure when the last time his tetanus vaccination was updated. Patient has no other complaints at this time. (ADELINA COLEMAN) Review of Systems: Review of Systems: ROS negative or noncontributory except as mentioned in HPI. (ADELINA COLEMAN) Heart Score: C/O Chest Pain: No (ADELINA COLEMAN) Current Medications: Current Medications Medications (Trade) Dose Ordered Sig/Gus Route PRN Reason Start Time Stop Time Status Last Admin Dose Admin Diphtheria/ Tetanus/Acell Pertussis (Boostrix) 0.5 ml ONCE ONCE VAX IM 01/23/22 10:30 01/23/22 10:31 DC 01/23/22 10:42 Lidocaine HCl (Glydo (Lidocaine) Jelly) 1 susannah 1X ONCE TP 01/23/22 12:00 01/23/22 12:01 DC 01/23/22 12:09 Bacitracin (Bacitracin Zinc Oint Pkt) 1 pkt 1X ONCE TP 01/23/22 12:45 01/23/22 12:46 DC 01/23/22 12:54 (ADELINA COLEMAN) Allergies: Allergies: Allergies Coded Allergies Type Severity Reaction Last Updated Verified No Known Drug Allergies 12/14/21 No (ADELINA COLEMAN) Physical Exam: PE: Constitutional: Well developed, well nourished, no acute distress, appears older than stated age. HENT: Normocephalic, superficial abrasion as well as horizontal laceration noted at the superior occipital region, bilateral external ears normal, nose normal. Eyes: PERRL, EOMI, conjunctiva normal, no discharge. Neck: Normal range of motion, no step-off, no midline bony tenderness, no edwin alicia tenderness, supple, no stridor. Skin: Skin tear noted to the right forearm. Skin otherwise warm, dry, no erythema, no rash. Back: No step-off, mid thoracic midline bony tenderness, right-sided paraspinal tenderness appreciated. Extremities: No tenderness, no cyanosis, no clubbing, ROM intact, no edema. Neurologic: Alert and oriented x4, normal motor function, normal sensory function, steady and symmetrical upright gait, no focal deficits noted. (ADELINA COLEMAN) Current Patient Data: Vital Signs: Vital Signs Date Time Temp Pulse Resp B/P (MAP) Pulse Ox O2 Delivery O2 Flow Rate FiO2 01/23/22 10:06 97.6 121 24 138/89 (105) 90 Room Air 97.6 HR below 100 prior to discharge per monitor. (ADELINA COLEMAN) EKG: EKG: EKG Interpreted by Dr. Varghese at 1018: Sinus tachycardia 112 bpm with no ectopic beats. NV 126 ms/QT 334 ms. No STEMI. (ADELINA COLEMAN) Radiology/Procedures: Radiology/Procedures: PROCEDURE: CT HEAD AND CERVICAL SPINE WO CT HEAD AND C-SPINE WO History: Fall. Occipital contusion. Pain. Comparison: None. Technique: Noncontrast CT of the head and cervical spine. Findings: CT HEAD: There is no evidence for intracranial mass or hemorrhage. There is no hydrocephalus or midline shift. No abnormal extra-axial fluid collections are present. No evidence of acute territorial infarction. Opacification and volume loss of the left maxillary sinus consistent with chronic obstruction. The skull and scalp are within normal limits. CT CERVICAL SPINE: There is no evidence for fracture in the cervical spine. There are unfused spinous processes at C5 and C6. 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 Accessory os at the T1 spinous process. Alignment is normal. Large circumferential disc osteophyte complex at C3-C4 narrows the canal to approximately 5 mm AP. Small circumferential disc osteophyte complex at C6-C7. No destructive osseous lesions are seen. Bilateral carotid calcification. Large bilateral pleural effusions. Thickening of the pulmonary interlobular septa at the lung apices. Impression: 1. No acute intracranial findings. 2. No acute osseous abnormality in the cervical spine. 3. Large circumferential disc osteophyte complex at C3-C4 causes spinal canal stenosis to approximately 5 mm AP. 4. Large bilateral pleural effusions with pulmonary interstitial edema at the lung apices. ------- Exposure: One or more of the following individualized dose reduction techniques were utilized for this examination: 1. Automated exposure control 2. Adjustment of the mA and/or kV according to patient size 3. Use of iterative reconstruction technique. Electronically signed by: Robert Serrano MD (01/23/2022 11:44 AM) [id number] PROCEDURE: CT THORACIC SPINE WO CONTRAST CT THORACIC SPINE WO History: Contusion with midline tenderness. Comparison: CT chest 11/20/2021 Technique: Noncontrast CT of the thoracic spine. Findings: There are 12 thoracic vertebral segments. Normal alignment. No fracture. Incidental accessory os of the T1 spinous process. Multilevel minimal degenerative endplate changes. No significant spinal canal or foraminal stenosis. Large bilateral pleural effusions. Partially visualized lungs demonstrate volume loss and prominence of the pulmonary interstitial markings with groundglass opacity likely representing interstitial edema and atelectasis. Visualized portions of the upper abdomen are unremarkable. There are calcifications of the aortic arch. Calcified subcarinal and right hilar lymph nodes. Impression: 1. No acute osseous abnormality in the thoracic spine. 2. Large bilateral pleural effusions with pulmonary edema and lung hypoinflation. ------ Exposure: One or more of the following individualized dose reduction techniques were utilized for this examination: 1. Automated exposure control 2. Adjustment of the mA and/or kV according to patient size 3. Use of iterative reconstruction technique. Electronically signed by: Robert Serrano MD (01/23/2022 11:55 AM) [id number] (ADELINA COLEMAN) Course & Med Decision Making: Course & Med Decision Making Pertinent Labs and Imaging studies reviewed. (See chart for details) Patient is a 56-year-old male who presents with a mechanical fall at home. CT head, C-spine, T-spine ordered to evaluate for acute abnormalities. Patient's tetanus shot will be updated today. Patient denies significant pain and does not require any analgesics at this time. CT images negative for acute findings. Scalp laceration repaired with mine. Patient advised to follow with pulmonology regarding his chronic bilateral effusions. Patient's questions were answered. Return precautions were provided. Patient understands and is agreeable to discharge plan. (ADELINA COLEMAN) Course & Med Decision Making Reviewed the patient's chart patient has a large bilateral pleural effusion. Patient called patient to check on patient status. Attempted call with no answer (MORELIA VARGHESE DO) Dragon Disclaimer: Dragon Disclaimer: This electronic medical record was generated, in whole or in part, using a voice recognition dictation system. (ADELINA COLEMAN) Laceration Repair Lac Repair Indication: Occipital scalp laceration Procedure: The patient was placed in the appropriate position and anesthesia around the laceration was 2% lidocaine jelly. The area was then irrigated with sterile saline and cleansed with chlorhexidine swab. The laceration was closed with 3 mine. The wound area was then dressed with bacitracin ointment. Total repaired wound length: 3 cm. Other Items: The patient tolerated the procedure very well. Complications: No complications. (ADELINA COLEMAN) Departure Departure Impression: Primary Impression: Occipital scalp laceration Qualified Codes: S01.01XA - Laceration without foreign body of scalp, initial encounter Additional Impressions: Contusion of occipital region of scalp Qualified Codes: S00.03XA - Contusion of scalp, initial encounter Contusion of thoracic wall Qualified Codes: S20.224A - Contusion of middle back wall of thorax, initial encounter Pleural effusion, bilateral History of COPD Disposition: 01 HOME / SELF CARE / HOMELESS Condition: IMPROVED Referrals: PAULO TRIPP APRN (PCP) MELISSA LOGAN MD Patient Instructions: Contusion, [id number], Pleural Effusion, Staple Wound Closure, [id number] Additional Instructions: EMERGENCY DEPARTMENT GENERAL DISCHARGE INSTRUCTIONS Thank you for coming to [facility] Emergency Department (ED) today and trusting us with you care. We trust that you had a positive experience in our Emergency Department. If you wish to speak to the department management, you may call the director at . YOUR FOLLOW UP INSTRUCTIONS ARE FOLLOWS: 1. Follow up with your primary care doctor. If you do not have a primary doctor, please ask for a resource list of physicians or clinics that may be able to assist you with follow up care. 2. The emergency provider has interpreted your imaging studies, if any were ordered. The radiology electronic publications specialist also reviewed them. If there is a change in the findings, you will be notified in 48 hours when at all possible. 3. If a lab test or culture has been done, your results will be reviewed and you will be notified if you need a change in treatment. 4. Mine may be removed in 7-10 days. Follow instructions verbalized to you and refer to the printouts if needed. ADDITIONAL INSTRUCTIONS AND INFORMATION: 1. Your care today has been supervised by a physician who is specially trained in emergency care. Many problems require more than one evaluation for a complete diagnosis and treatment. We recommend that you schedule your follow up appointment as recommended to ensure complete treatment of you illness or injury. If you are unable to obtain follow up care and continue to have a problem, or if your condition worsens, we recommend that you return to the ED. 2. We are not able to safely determine your condition over the phone nor are we able to give sound medical advice over the phone. For these safety reasons, if you call for medical advice we will ask you to come to the ED for further evaluation. 3. If you have any questions regarding these discharge instructions please call the ED at . SAFETY INFORMATION: In the interest of safety, wellness, and injury prevention; we encourage you to wear your seat belt, if you smoke; quite smoking, and we encourage family to use a protective helmet for bicycling and other sporting events that present an increased risk for head injury. IF YOUR SYMPTOMS WORSEN OR NEW SYMPTOMS DEVELOP, OR YOU HAVE CONCERNS ABOUT YOUR CONDITION; OR IF YOUR CONDITION WORSENS WHILE YOU ARE WAITING FOR YOUR FOLLOW UP APPOINTMENT; EITHER CONTACT YOUR PRIMARY CARE DOCTOR, THE PHYSICIAN WHOSE NAME AND NUMBER YOU WERE GIVEN, OR RETURN TO THE ED IMMEDIATELY. ADELINA COLEMAN Jan 23, 2022 12:09 MORELIA VARGHESE DO Jan 24, 2022 17:52
[2022-01-23] MEDS ORDERED: BACITRACIN TOPICAL OINT PACKET. TP ONE (12:45)
== END 2022-01-23 12:55 | disposition home or self-care (01) ==
LOC: ER 10:01
DX: S01.01XA Laceration without foreign body of scalp, initial encounter (principal); S20.224A Contusion of middle back wall of thorax, initial encounter; J44.9 Chronic obstructive pulmonary disease, unspecified; J90 Pleural effusion, not elsewhere classified; E11.9 Type 2 diabetes mellitus without complications; I10 Essential (primary) hypertension; F17.200 Nicotine dependence, unspecified, uncomplicated; E78.00 Pure hypercholesterolemia, unspecified; W18.39XA Other fall on same level, initial encounter; Y93.01 Activity, walking, marching and hiking; Y92.89 Other specified places as the place of occurrence of the external cause; Y99.8 Other external cause status
CPT/HCPCS: 12002; 70450; 72125; 72128; 90471; 90715; 93005; 99284

== ENCOUNTER 2022-01-24 22:18 | Inpatient (IN) | payer SELFPAY ==
[~2022-01-24] VITALS: Ht 177.8 cm; Wt 78.8 kg
[2022-01-24] MEDS ORDERED: ADENOSINE 6 MG/2 ML VIAL. IV ONE ×3 (23:29→23:45)
[2022-01-24 23:39] LABS: BASO # 0.1 x10^3/uL (0.0-0.2); BASO % 1 % (0-3); EOS % 0 % (0-3); HEMATOCRIT 47.6 % (39.0-53.0); HEMOGLOBIN 15.8 g/dL (13.0-17.5); LYMPH # 0.9 x10^3/uL (1.0-4.8); LYMPH % 9 % (24-48); MEAN CORPUSCULAR HEMOGLOBIN 28 pg (25-35); MEAN CORPUSCULAR HGB CONC 33 g/dL (31-37); MEAN CORPUSCULAR VOLUME 84 fL (79-100); MONO # 0.9 x10^3/uL (0.0-1.1); MONO % 9 % (0-9); NEUT # 8.1 x10^3/uL (1.8-7.7); NEUT % 80 % (31-73); PLATELET COUNT 272 x10^3/uL (140-400); RED BLOOD COUNT 5.64 x10^6/uL (4.30-5.70); RED CELL DISTRIBUTION WIDTH 19.2 % (11.5-14.5); WHITE BLOOD COUNT 10.1 x10^3/uL (4.0-11.0)
[2022-01-24] MEDS ORDERED: KETAMINE HCL 500 MG/10 ML VIAL. ONE (23:40)
[2022-01-24 23:48] LABS: PROTHROMBIN TIME PATIENT 15.4 SEC (11.7-14.0)
[2022-01-25] VITALS (22 sets, daily range): BP systolic 94–118; BP diastolic 74–93
[2022-01-25 00:33] LABS: INFLUENZA A PATIENT NEGATIVE (NEGATIVE); INFLUENZA B PATIENT NEGATIVE (NEGATIVE)
[2022-01-25 00:38] LABS: CALCIUM 9.1 mg/dL (8.5-10.1); CREATININE 1.1 mg/dL (0.7-1.3); GFR 69.5
--- NOTE | 2022-01-25 00:38 | RAD ---
EXAM: AP View of the chest DATE: 01/24/2022 11:40 PM INDICATION: Shortness of air COMPARISON: 12/19/2021 12/14/2021 FINDINGS: Moderate cardiomegaly. Cardiac generator pack obscures a portion of the left chest with leads in stab le position. There is a moderate to large left pleural effusion and small right pleural effusion. Bilateral parenc hymal airspace opacities likely consolidative process as pneumonia. No pneumothorax. IMPRESSION: Cardiomegaly with bilateral pleural effusions and parenchymal airspace opacities may represent pulmon maday edema, progressed compared to 12/19/2021. Multifocal consolidative process could also have this susannah earance. Electronically signed by: Abebe Starkey MD (01/25/2022 12:35 AM) [email or web address]
[2022-01-25 00:43] LABS: ALBUMIN 3.4 g/dL (3.4-5.0); ALBUMIN/GLOBULIN RATIO 0.9 (1.0-1.7); TOTAL BILIRUBIN 1.8 mg/dL (0.2-1.0); TOTAL PROTEIN 7.2 g/dL (6.4-8.2)
[2022-01-25] MEDS ORDERED: FUROSEMIDE 20 MG/2 ML VIAL. IVP ONE (01:00)
[2022-01-25] MEDS ORDERED: dilTIAZem HCL 125 MG in IV DEXTROSE 5% 100ML 100 ML IV ONE (01:00)
[2022-01-25] MEDS ORDERED: ADENOSINE 6 MG/2 ML VIAL. IV ONE ×2 (01:30)
[2022-01-25] MEDS ORDERED: KETAMINE HCL IN NACL, ISO-OSM 50 MG/5 ML SYRINGE IV ONE (01:30)
[2022-01-25 01:31] LABS: BASE EXCESS ABG 1 mmol/L (-3-3); HCO3 ABG 24 mmol/L (21-28); PCO2 ABG 36 mmHg (35-46); PO2 ABG 135 mmHg (75-108); SAT O2 ABG 98 % (92-99)
[2022-01-25 01:35] LABS: FIO2 ABG 55
[2022-01-25] MEDS ORDERED: MAGNESIUM SULFATE 1GM 100 ML IV ONE (02:30)
--- NOTE | 2022-01-25 02:59 | PHYS DOC ---
Past Medical History Past Medical History: COPD, Diabetes-Type II, High Cholesterol, Hypertension Past Surgical History: Other Additional Past Surgical Histo: implanted defibrillator Smoking Status: Current Every Day Smoker Alcohol Use: Occasionally Adult General Chief Complaint Chief Complaint: SHORTNESS OF BREATH HPI HPI The patient is a 56-year-old comorbid male with a history of hypertension, hyperlipidemia, coronary artery disease without intervene of the lesions on catheterization in October 2020, severe nonischemic cardiomyopathy with an EF of 15% per last echo 02/02, status post ICD placement, history of paroxysmal SVT, diabetes, COPD, continued active tobacco abuse. Mr. Glass was seen here a couple of days ago for a fall; significantly sized pleural effusions were noted incidentally on CT thoracic spine and patient's oxygen level was noted to be a little marginal on room air. He was discharged home per his request by the midlevel practitioner who saw him, but when contacted to see how he was doing he verbalized that he was more short of breath even at rest over the past day so he was instructed to return to the emergency department. On arrival, heart rate noted to be in the 160s with a narrow complex regular rhythm appearing to be PSVT. Requiring about 2 L by nasal cannula to maintain saturations. Blood pressure appropriate. Patient denying any chest pain or other discomfort, alert and oriented x4. Vagal maneuvers tried without resolution of SVT. Adenosine 6, 12 and 12 given without resolution of SVT. Synchronized DC cardioversion x2 under procedural sedation with ketamine next attempted without resolution of SVT. Push dose of diltiazem then given with immediate resolution of SVT. Cardizem drip then initiated at a low rate. Patient escalated to BiPAP during his ED stay not because of hypoxia but due to increased work of breathing with significant pulmonary volume overload noted on CXR. Breathing much more comfortably afterwards. Review of Systems Review of Systems A 12 point review of systems was completed and was negative except where noted in HPI above. Current Medications Current Medications Current Medications Medications (Trade) Dose Ordered Sig/Gus Start Time Stop Time Status Last Admin Dose Admin Adenosine (Adenocard) 6 mg STK-MED ONCE 01/24/22 23:33 01/24/22 23:34 DC Diltiazem HCl (Cardizem Iv Push) 25 mg STK-MED ONCE 01/25/22 00:25 01/25/22 00:26 DC Ketamine HCl (Ketamine) 500 mg STK-MED ONCE 01/24/22 23:40 01/24/22 23:40 DC Allergies Allergies Allergies Coded Allergies Type Severity Reaction Last Updated Verified No Known Drug Allergies 12/14/21 No Physical Exam Physical Exam Chronically ill-appearing 56-year-old male appearing nontoxic and in no acute distress. Head is normocephalic and atraumatic. Neck is supple and nontender. Oropharynx is moist. Lungs with diminished breath sounds to all alvarez and soft crackles noted to the bilateral bases. There is a normal S1 and S2 without rubs or gallops and capillary refill is appropriate, less than 2 seconds globally. There is a tachycardic, regular rhythm. Abdomen is soft, nontender and nondistended. No pulsatile mass. Skin is warm and dry without cyanosis, clubbing or edema. Psychiatrically, the patient demonstrates appropriate mood and affect and is alert. Evaluation of the extremities reveals BUEs and BLEs neurovascularly intact distally strength out of 5, sensation intact light touch in all nerve distributions, radial, DP and PT pulses 2+ and equal bilaterally, capillary refill less than 2 seconds, hands and feet warm and well-perfused. 2+ pitting edema of the bilateral lower extremities below the level of the mid shins, patient states baseline for him. No calf tenderness or swelling bilaterally. Homans test is negative bilaterally. Current Patient Data Vital Signs Vital Signs Date Time Temp Pulse Resp B/P (MAP) Pulse Ox O2 Delivery O2 Flow Rate FiO2 01/25/22 00:29 172 138/98 01/25/22 00:20 98.2 24 5.0 98.2 26 5.0 5.0 01/25/22 00:05 98 BiPAP/CPAP Lab Values Laboratory Tests Test 01/24/22 23:00 01/25/22 00:08 01/25/22 00:40 White Blood Count 10.1 x10^3/uL (4.0-11.0) Red Blood Count 5.64 x10^6/uL (4.30-5.70) Hemoglobin 15.8 g/dL (13.0-17.5) Hematocrit 47.6 % (39.0-53.0) Mean Corpuscular Volume 84 fL (79-100) Mean Corpuscular Hemoglobin 28 pg (25-35) Mean Corpuscular Hemoglobin Concent 33 g/dL (31-37) Red Cell Distribution Width 19.2 % (11.5-14.5) H Platelet Count 272 x10^3/uL (140-400) Neutrophils (%) (Auto) 80 % (31-73) H Lymphocytes (%) (Auto) 9 % (24-48) L Monocytes (%) (Auto) 9 % (0-9) Eosinophils (%) (Auto) 0 % (0-3) Basophils (%) (Auto) 1 % (0-3) Neutrophils # (Auto) 8.1 x10^3/uL (1.8-7.7) H Lymphocytes # (Auto) 0.9 x10^3/uL (1.0-4.8) L Monocytes # (Auto) 0.9 x10^3/uL (0.0-1.1) Eosinophils # (Auto) 0.0 x10^3/uL (0.0-0.7) Basophils # (Auto) 0.1 x10^3/uL (0.0-0.2) Prothrombin Time 15.4 SEC (11.7-14.0) H Prothrombin Time INR 1.3 (0.8-1.1) H Activated Partial Thromboplast Time 35 SEC (24-38) Sodium Level 135 mmol/L (136-145) L Potassium Level 3.0 mmol/L (3.5-5.1) L Chloride Level 98 mmol/L (98-107) Carbon Dioxide Level 20 mmol/L (21-32) L Anion Gap 17 (6-14) H Blood Urea Nitrogen 13 mg/dL (8-26) Creatinine 1.1 mg/dL (0.7-1.3) Estimated GFR (Cockcroft-Gault) 69.5 BUN/Creatinine Ratio 12 (6-20) Glucose Level 199 mg/dL (70-99) H Calcium Level 9.1 mg/dL (8.5-10.1) Magnesium Level 1.9 mg/dL (1.8-2.4) Total Bilirubin 1.8 mg/dL (0.2-1.0) H Aspartate Amino Transferase (AST) 18 U/L (15-37) Alanine Aminotransferase (ALT) 14 U/L (16-63) L Alkaline Phosphatase 135 U/L (46-116) H Troponin I High Sensitivity 28 ng/L (4-75) ZE-Qvl-M-Type Natriuretic Peptide 6526 pg/mL (0-124) H Total Protein 7.2 g/dL (6.4-8.2) Albumin 3.4 g/dL (3.4-5.0) Albumin/Globulin Ratio 0.9 (1.0-1.7) L Thyroid Stimulating Hormone (TSH) 2.782 uIU/mL (0.358-3.74) Ethyl Alcohol Level < 10 mg/dL (0-10) Influenza Type A Antigen Negative (NEGATIVE) Influenza Type B Antigen Negative (NEGATIVE) O2 Saturation 98 % (92-99) Arterial Blood pH 7.45 (7.35-7.45) Arterial Blood pCO2 at Patient Temp 36 mmHg (35-46) Arterial Blood pO2 at Patient Temp 135 mmHg (75-108) H Arterial Blood HCO3 24 mmol/L (21-28) Arterial Blood Base Excess 1 mmol/L (-3-3) FiO2 55 Laboratory Tests 01/24/22 23:00 Laboratory Tests 01/24/22 23:00 EKG EKG Paroxysmal SVT, rate 159, no acute ST elevation or depression, EP interpretation. Repeat EKG after AV stevie blockade with Cardizem reveals sinus rhythm, rate 87, no acute ST elevation or depression, WA 146, QRS 100, QTc 448, EP int erpretation. Radiology/Procedures Radiology/Procedures EXAM: AP View of the chest DATE: 01/24/2022 11:40 PM INDICATION: Shortness of air COMPARISON: 12/19/2021 12/14/2021 FINDINGS: Moderate cardiomegaly. Cardiac generator pack obscures a portion of the left chest with leads in stable position. There is a moderate to large left pleural effusion and small right pleural effusion. Bilateral parenchymal airspace opacities likely consolidative process as pneumonia. No pneumothorax. IMPRESSION: Cardiomegaly with bilateral pleural effusions and parenchymal airspace opacities may represent pulmonary edema, progressed compared to 12/19/2021. Multifocal consolidative process could also have this appearance. Electronically signed by: Abebe Seaman MD (01/25/2022 12:35 AM) [facility] DICTATED and SIGNED BY: ABEBE SEAMAN MD DATE: 01/25/22 0033 Indication: cardioversion Consent: I have discussed with the patient and/or the patient pharmaceutical sales representative the indication, alternatives, and the possible risks and /or complications of the planned procedure and the anesthesia methods. The patient and/or patient pharmaceutical sales representative appear to understand and agree to proceed. Pre-Sedation Documentation and Exam: as per physical exam above Airway Assessment: normal. Prior History of Anesthesia Complications: none. ASA Classification: 2 Sedation/ Anesthesia Plan: ketamine IV Medications Used: see nursing notes. Monitoring and Safety: The patient was placed on a monitor tech and vital signs, pulse oximetry and level of consciousness were continuously evaluated throughout the procedure. The patient was closely monitored until recovery from the medications was complete and the patient had returned to baseline status. Respiratory therapy was on standby at all times during the procedure. (The following sections must be completed) Post-Sedation Vital Signs: WNL Post-Sedation Exam: no change from pre-sedation exam Complications: none. Indication: refractory PSVT Consent: The patient provided verbal consent for this procedure. Procedure: The patient was placed in the supine position and the chest area was exposed. The cardioversion pads were applied in the standard manner and configuration. Settings 200J biphasic synchronized shock. A charge was then delivered which resulted in transient sinus rhythm, then recurrence of SVT. Repeated same procedure x1. The patient tolerated the procedure well. Complications: none. Course & Med Decision Making Course & Med Decision Making Patient stabilized as per narrative above. Dose IV Lasix given. To the ICU for close monitoring, cardiology consultation and further care. Dr. Guthrie graciously accepts. Critical care time today was 75 minutes, independent of separately billed procedure time. Dragon Disclaimer Dragon Disclaimer This electronic medical record was generated, in whole or in part, using a voice recognition dictation system. Departure Departure Impression: Primary Impression: Acute exacerbation of congestive heart failure Additional Impressions: Volume overload Pleural effusion, bilateral Paroxysmal SVT (supraventricular tachycardia) Acute hypoxemic respiratory failure Condition: GUARDED Referrals: PAULO TRIPP APRN (PCP) Problem Qualifiers Primary Impression: Acute exacerbation of congestive heart failure Heart failure type: unspecified Qualified Codes: I50.9 - Heart failure, unspecified Additional Impressions: Volume overload Hypervolemia type: other Qualified Codes: E87.79 - Other fluid overload BIBI LUIS MD Jan 25, 2022 02:59
[2022-01-25] MEDS ORDERED: ONDANSETRON PF 4 MG/2 ML VIAL. IVP PRN ×2 (03:00→10:15)
[2022-01-25] MEDS ORDERED: ACETAMINOPHEN 325 MG TABLET. PO PRN ×2 (03:00→10:15)
[2022-01-25] MEDS: POTASSIUM CHLORIDE 10MEQ 100 ML IV SCH ×4 (03:29→05:30)
[2022-01-25] MEDS ORDERED: POTASSIUM CHLORIDE 20 MEQ TABLET.ER. PO ONE ×2 (06:00→10:00)
--- NOTE | 2022-01-25 08:27 | EKG ---
[facility] [address] [place] [address] Test Date: 2022-01-25 Test Time: 00:47:41 Pat Name: GUY MCCRACKEN Department: Room: 111 1 Gender: M [employer]: : 1965 Requested By: BIBI LUIS Order Number: [id number] Reading MD: Mendez Esteves Measurements Intervals Trimble Rate: 87 P: 19 MS: 146 QRS: -1 QRSD: 100 T: 51 QT: 372 QTc: 448 Interpretive Statements SINUS RHYTHM LEFT ATRIAL ABNORMALITY LEFTWARD AXIS LOW LIMB LEAD VOLTAGE ABNORMAL ECG Electronically Signed On 01-27-2022 13:36:22 CDT by Mendez Esteves
--- NOTE | 2022-01-25 10:12 | PDOC2 ---
DAKOTA PERAZA VAULT KEEPER 01/25/22 1012: CARDIAC CONSULT DATE OF CONSULT Date of Consult DATE: 01/25/22 TIME: 09:55 REASON FOR CONSULT Reason for Consult: CHF, SVT REFERRING PHYSICIAN Referring Physician: Emeli SOURCE Source: Chart review, Patient HISTORY OF PRESENT ILLNESS HISTORY OF PRESENT ILLNESS This is a 56 yo male admitted for complains of shortness of breath. No chest pain. He has been having SOA more in the last 5 days. Positive for orthopnea. No fever or chills. Upon admission he was noted with SVT and would not respond to adenosine and cardioversion and eventually responded to cardizem. Presently he is on bipap. He has been taking his medications but has ran out of [employer] for about a week. PAST MEDICAL HISTORY Past Medical History Cardiovascular: CAD, CHF, HTN, Hyperlipidemia, Other (nicm) Pulmonary: COPD CENTRAL NERVOUS SYSTEM: Other (no pertinent history) GI: GERD Heme/Onc: No pertinent hx Hepatobiliary: No pertinent hx Psych: No pertinent hx Musculoskeletal: Osteoarthritis Rheumatologic: No pertinent hx Infectious disease: No pertinent hx ENT: No pertinent hx Renal/: No pertinent hx Endocrine: Diabetes (2) PAST SURGICAL HISTORY Past Surgical History LHC, AICD FAMILY HISTORY Family History: Hypertension SOCIAL HISTORY Smoke: <1 pack per day ALCOHOL: none Drugs: None Lives: with Family CURRENT MEDICATIONS CURRENT MEDICATIONS Current Medications Medications (Trade) Dose Ordered Sig/Gus Route PRN Reason Start Time Stop Time Status Last Admin Dose Admin Adenosine (Adenocard) 6 mg 1X ONCE IV 01/24/22 23:45 01/24/22 23:46 DC 01/25/22 00:29 Diltiazem HCl 125 mg/Dextrose 125 ml @ 5 mls/hr 1X ONCE IV 01/25/22 01:00 01/26/22 01:59 01/25/22 00:29 Diltiazem HCl (Cardizem Iv Push) 10 mg 1X ONCE IVP 01/25/22 01:00 01/25/22 01:01 DC 01/25/22 00:29 Furosemide (Lasix) 20 mg 1X ONCE IVP 01/25/22 01:00 01/25/22 01:01 DC 01/25/22 01:00 Adenosine (Adenocard) 12 mg 1X ONCE IV 01/25/22 01:30 01/25/22 01:31 DC 01/25/22 00:00 Adenosine (Adenocard) 12 mg 1X ONCE IV 01/25/22 01:30 01/25/22 01:31 DC 01/25/22 00:05 Ketamine HCl (Ketamine) 80 mg 1X ONCE IV 01/25/22 01:30 01/25/22 01:31 DC 01/25/22 00:25 Magnesium Sulfate/ Dextrose 100 ml @ 100 mls/hr 1X ONCE IV 01/25/22 02:30 01/25/22 03:29 DC 01/25/22 03:30 Potassium Chloride/Water 100 ml @ 100 mls/hr Q1H IV 01/25/22 02:30 01/25/22 06:29 DC 01/25/22 04:46 Potassium Chloride (Klor-Con) 40 meq 1X ONCE PO 01/25/22 06:00 01/25/22 06:02 DC 01/25/22 06:18 ALLERGIES ALLERGIES: Coded Allergies: No Known Drug Allergies (Unverified , 12/14/21) ROS Review of System limited, presently on bipap PHYSICAL EXAM General: Alert, Oriented X3, Cooperative, No acute distress HEENT: Atraumatic, Mucous membr. moist/pink Lungs: Other (basilar crackles; bipap ) Heart: Regular rate (SR), Other (distant heart sounds) Abdomen: Soft, No tenderness Extremities: No cyanosis, Other (2+ bilateral LE pitting edema) Skin: No breakdown, No significant lesion Neuro: Normal speech, Sensation intact Psych/Mental Status: Mental status NL, Mood NL MUSCULOSKELETAL: Osteoarthritic changes both hands VITALS/I&O VITALS/I&O: Vital Signs Date Time Temp Pulse Resp B/P (MAP) Pulse Ox O2 Delivery O2 Flow Rate FiO2 01/25/22 09:15 99 BiPAP/CPAP 01/25/22 06:00 102/76 01/25/22 03:00 95.9 95.9 01/25/22 02:45 85 01/25/22 00:20 24 5.0 26 5.0 5.0 LABS Lab: Laboratory Tests Test 01/24/22 23:00 01/25/22 00:08 01/25/22 00:40 White Blood Count 10.1 x10^3/uL (4.0-11.0) Red Blood Count 5.64 x10^6/uL (4.30-5.70) Hemoglobin 15.8 g/dL (13.0-17.5) Hematocrit 47.6 % (39.0-53.0) Mean Corpuscular Volume 84 fL (79-100) Mean Corpuscular Hemoglobin 28 pg (25-35) Mean Corpuscular Hemoglobin Concent 33 g/dL (31-37) Red Cell Distribution Width 19.2 % (11.5-14.5) H Platelet Count 272 x10^3/uL (140-400) Neutrophils (%) (Auto) 80 % (31-73) H Lymphocytes (%) (Auto) 9 % (24-48) L Monocytes (%) (Auto) 9 % (0-9) Eosinophils (%) (Auto) 0 % (0-3) Basophils (%) (Auto) 1 % (0-3) Neutrophils # (Auto) 8.1 x10^3/uL (1.8-7.7) H Lymphocytes # (Auto) 0.9 x10^3/uL (1.0-4.8) L Monocytes # (Auto) 0.9 x10^3/uL (0.0-1.1) Eosinophils # (Auto) 0.0 x10^3/uL (0.0-0.7) Basophils # (Auto) 0.1 x10^3/uL (0.0-0.2) Prothrombin Time 15.4 SEC (11.7-14.0) H Prothrombin Time INR 1.3 (0.8-1.1) H Activated Partial Thromboplast Time 35 SEC (24-38) Sodium Level 135 mmol/L (136-145) L Potassium Level 3.0 mmol/L (3.5-5.1) L Chloride Level 98 mmol/L (98-107) Carbon Dioxide Level 20 mmol/L (21-32) L Anion Gap 17 (6-14) H Blood Urea Nitrogen 13 mg/dL (8-26) Creatinine 1.1 mg/dL (0.7-1.3) Estimated GFR (Cockcroft-Gault) 69.5 BUN/Creatinine Ratio 12 (6-20) Glucose Level 199 mg/dL (70-99) H Calcium Level 9.1 mg/dL (8.5-10.1) Magnesium Level 1.9 mg/dL (1.8-2.4) Total Bilirubin 1.8 mg/dL (0.2-1.0) H Aspartate Amino Transferase (AST) 18 U/L (15-37) Alanine Aminotransferase (ALT) 14 U/L (16-63) L Alkaline Phosphatase 135 U/L (46-116) H Troponin I High Sensitivity 28 ng/L (4-75) HY-Vfc-Q-Type Natriuretic Peptide 6526 pg/mL (0-124) H Total Protein 7.2 g/dL (6.4-8.2) Albumin 3.4 g/dL (3.4-5.0) Albumin/Globulin Ratio 0.9 (1.0-1.7) L Thyroid Stimulating Hormone (TSH) 2.782 uIU/mL (0.358-3.74) Ethyl Alcohol Level < 10 mg/dL (0-10) Influenza Type A Antigen Negative (NEGATIVE) Influenza Type B Antigen Negative (NEGATIVE) O2 Saturation 98 % (92-99) Arterial Blood pH 7.45 (7.35-7.45) Arterial Blood pCO2 at Patient Temp 36 mmHg (35-46) Arterial Blood pO2 at Patient Temp 135 mmHg (75-108) H Arterial Blood HCO3 24 mmol/L (21-28) Arterial Blood Base Excess 1 mmol/L (-3-3) FiO2 55 Laboratory Tests 01/24/22 23:00 Laboratory Tests 01/24/22 23:00 ECHOCARDIOGRAM ECHOCARDIOGRAM <Conclusion> The Left Ventricle is mildly dilated. The ejection fraction is severely impaired. The Ejection Fraction is estimated at 15%. There is severe global hypokinesis of the left ventricle. Tissue Doppler imaging reveals severe left ventricular diastolic dysfunction. Doppler and Color Flow revealed trace aortic regurgitation. Calculated aortic valve area is 2.42 cm2 with maximum pressure gradient of 4 mmHg and mean pressure gradient of 3 mmHg. There is no significant aortic valvular stenosis. Doppler and Color-flow revealed trace mitral regurgitation. Doppler and Color Flow revealed mild to moderate tricuspid regurgitation with an estimated PAP of 58 mmHg. DATE: 01/19/21 [id number] 0 ASSESSMENT/PLAN ASSESSMENT/PLAN 1. Acute on chronic respiratory failure; multifactorial with CHF, COPD 2. Acute on chronic diastolic/systolic CHF; better compensated 3. Severe NICM; EF at 15% per echo 02/02 4. CAD; cath 11/04 with small vessel disease on diagonal branch, otherwise no intervenable lesions noted. CP free. 5. Hypertension; controlled 6. Diabetes, II 7. Hyperlipidemia; statin 8. S/P AICD (Biotronik) 9. Recent covid-19: + on 10/24/2021 10. PSVT: no strips in chart and was cardioverted x2 and eventaully converted to SR with cardizem. Maintaining SR 11. AECOPD with continued tobaccoism Recommendations He ran out of [employer] for a week, will restart Lasix therapy, Bipap Continue HF optimization therapy. DC cardizem drip, restart toprol, will hold off other meds pending BP trend Secondary prevention Supportive care, Will check recent device interrogation Smoking cessation MINO MELVIN MD 01/25/222120: CARDIAC CONSULT ASSESSMENT/PLAN ASSESSMENT/PLAN Patient seen and examined. Agree with ROBOTIC MACHINE OPERATOR's assessment and plan PSVT - back in SR - Stop CZM gtt and change antiarrhythmic therapy to amiodarone Start milrinone gtt for ac on chr systolic HF s/p AICD without any shock therapies Thank you for your consultation DAKOTA PERAZA VAULT KEEPER Jan 25, 2022 10:12 MINO MELVIN MD Jan 25, 2022 21:21
[2022-01-25] MEDS ORDERED: MAG HYDROX/ALUMINUM HYD/SIMETH 30 ML ORAL.SUSP PO PRN (10:15)
[2022-01-25] MEDS ORDERED: ZOLPIDEM 5 MG TABLET. PO PRN (10:15)
[2022-01-25] MEDS ORDERED: 0.9 % SODIUM CHLORIDE 10 ML DISP.SYRIN. IV PRN (10:15)
[2022-01-25] MEDS ORDERED: DEXTROSE 50% 25 GM / 50ML DISP.SYRIN. IV PRN (10:15)
[2022-01-25] MEDS ORDERED: HYDROcodone/APAP 5/325MG 1 TAB TABLET PO PRN (10:15)
[2022-01-25] MEDS ORDERED: CALCIUM CARBONATE 500 MG TAB.CHEW PO PRN (10:15)
[2022-01-25] MEDS ORDERED: IV DEXTROSE 5% 250 ML BAG. IV PRN (10:15)
--- NOTE | 2022-01-25 10:27 | PDOC1 ---
History and Physical Date of Admission Date of Admission DATE: 01/25/22 TIME: 10:13 Identification/Chief Complaint Chief Complaint Shortness of breath Source Source: Chart review, Patient History of Present Illness History of Present Illness Patient is a 56-year-old male with past medical history HTN, HLD, systolic CHF, with EF 15%, paroxysmal SVT, DM2, COPD, who presents to the ED with complaints of shortness of breath. Patient was noted to have a heart rate of 160s in the ED, consistent with PSVT. He was given adenosine 6 mg, 12 mg, then 12 mg, without resolution. He was then cardioverted in the ED with resolution of PSVT. When he was noted to still be in SVT he was given diltiazem bolus, then placed on diltiazem infusion. Was later placed on BiPAP due to respiratory distress. Labs on admission showed sodium 135, potassium 3.0, CBG 199, proBNP 6526. Chest x-ray showed cardiomegaly with bilateral pleural effusions. Upon my evaluation ICU he is still on Cardizem drip and BiPAP. Patient will be admitted for further medical management. Past Medical History Cardiovascular: CAD, CHF, HTN, Hyperlipidemia, Other Pulmonary: COPD CENTRAL NERVOUS SYSTEM: Other GI: GERD Heme/Onc: No pertinent hx Hepatobiliary: No pertinent hx Psych: No pertinent hx Musculoskeletal: Osteoarthritis Rheumatologic: No pertinent hx Infectious disease: No pertinent hx Renal/: No pertinent hx Endocrine: Diabetes Past Surgical History Past Surgical History: Other Family History Family History: Hypertension Social History Smoke: No ALCOHOL: none Drugs: None Current Problem List Problem List Problems Medical Problems: (1) Acute exacerbation of congestive heart failure Status: Acute (2) Acute hypoxemic respiratory failure Status: Acute (3) Paroxysmal SVT (supraventricular tachycardia) Status: Acute (4) Pleural effusion, bilateral Status: Acute (5) Volume overload Status: Acute Current Medications Current Medications Current Medications Adenosine (Adenocard) 6 mg STK-MED ONCE IV ; Start 01/24/22 at 23:29; Stop 01/24/22 at 23:29; Status DC Adenosine (Adenocard) 6 mg 1X ONCE IV Last administered on 01/25/22at 00:29; Start 01/24/22 at 23:45; Stop 01/24/22 at 23:46; Status DC Adenosine (Adenocard) 6 mg STK-MED ONCE IV ; Start 01/24/22 at 23:33; Stop 01/24/22 at 23:34; Status DC Ketamine HCl (Ketamine) 500 mg STK-MED ONCE .ROUTE ; Start 01/24/22 at 23:40; Stop 01/24/22 at 23:40; Status DC Diltiazem HCl 125 mg/Dextrose 125 ml @ 5 mls/hr 1X ONCE IV Last administered on 01/25/22at 00:29; Start 01/25/22 at 01:00; Stop 01/25/22 at 10:07; Status DC Diltiazem HCl (Cardizem Iv Push) 10 mg 1X ONCE IVP Last administered on 01/25/22at 00:29; Start 01/25/22 at 01:00; Stop 01/25/22 at 01:01; Status DC Diltiazem HCl (Cardizem Iv Push) 25 mg STK-MED ONCE .ROUTE ; Start 01/25/22 at 00:25; Stop 01/25/22 at 00:26; Status DC Furosemide (Lasix) 20 mg 1X ONCE IVP Last administered on 01/25/22at 01:00; Start 01/25/22 at 01:00; Stop 01/25/22 at 01:01; Status DC Adenosine (Adenocard) 12 mg 1X ONCE IV Last administered on 01/25/22at 00:00; Start 01/25/22 at 01:30; Stop 01/25/22 at 01:31; Status DC Adenosine (Adenocard) 12 mg 1X ONCE IV Last administered on 01/25/22at 00:05; Start 01/25/22 at 01:30; Stop 01/25/22 at 01:31; Status DC Ketamine HCl (Ketamine) 80 mg 1X ONCE IV Last administered on 01/25/22at 00:25; Start 01/25/22 at 01:30; Stop 01/25/22 at 01:31; Status DC Magnesium Sulfate/ Dextrose 100 ml @ 100 mls/hr 1X ONCE IV Last administered on 01/25/22at 03:30; Start 01/25/22 at 02:30; Stop 01/25/22 at 03:29; Status DC Potassium Chloride/Water 100 ml @ 100 mls/hr Q1H IV Last administered on 01/25/22at 04:46; Start 01/25/22 at 02:30; Stop 01/25/22 at 06:29; Status DC Ondansetron HCl (Zofran) 4 mg PRN Q8HRS PRN IVP NAUSEA/VOMITING 1ST CHOICE; Start 01/25/22 at 03:00; Stop 01/26/22 at 02:59 Acetaminophen (Tylenol) 650 mg PRN Q4HRS PRN PO FEVER > 100.3'F; Start 01/25/22 at 03:00; Stop 01/26/22 at 02:59 Potassium Chloride (Klor-Con) 40 meq 1X ONCE PO Last administered on 01/25/22at 06:18; Start 01/25/22 at 06:00; Stop 01/25/22 at 06:02; Status DC Potassium Chloride (Klor-Con) 40 meq 1X ONCE PO ; Start 01/25/22 at 10:00; Stop 01/25/22 at 10:01; Status DC Aspirin (Ecotrin) 81 mg DAILYWBKFT PO ; Start 01/26/22 at 08:00 Atorvastatin Calcium (Lipitor) 40 mg QHS PO ; Start 01/25/22 at 21:00 Bumetanide (Bumex) 1 mg BID PO ; Start 01/25/22 at 21:00 Metoprolol Succinate (Toprol Xl) 50 mg DAILY PO ; Start 01/26/22 at 09:00 Sacubitril/ Valsartan (Entresto 24 Mg-26 Mg) 1 tab BID PO ; Start 01/25/22 at 21:00 Spironolactone (Aldactone) 25 mg DAILY PO ; Start 01/25/22 at 10:30 Non-Formulary Medication (Icosapent Ethyl (Vascepa)) 1 cap BID PO ; Start 01/25/22 at 21:00; Status UNV Insulin Glargine (Lantus Syringe) 15 unit QHS SQ ; Start 01/25/22 at 21:00; Status UNV Insulin Human Lispro (HumaLOG) 5 units TIDWMEALS SQ ; Start 01/25/22 at 12:00; Status UNV Dextrose (Dextrose 50%-Water Syringe) 12.5 gm PRN Q15MIN PRN IV SEE COMMENTS; Start 01/25/22 at 10:15; Status UNV Dextrose (Iv Dextrose 5%) 250 ml PRN Q15MIN PRN IV SEE COMMENTS; Start 01/25/22 at 10:15; Status UNV Dronedarone (Multaq) 400 mg BIDWMEALS PO ; Start 01/25/22 at 10:15; Status UNV Furosemide (Lasix) 40 mg DAILY IVP ; Start 01/26/22 at 09:00; Status UNV Active Scripts Active Lasix (Furosemide) 40 Mg Tablet 1 Tab PO BID 7 Days Medrol (Methylprednisolone) 4 Mg Tab.ds.pk 1 Pkg PO UD Proair Hfa Inhaler (Albuterol Sulfate) 8.5 Gm Hfa.aer.ad 2 Puff IH PRN Q4-6HRS PRN 21 Days Amox Tr-K Clv 500-125 Mg Tab (Amoxicillin/Potassium Clav) 1 Each Tablet 1 Tab PO BID Toprol XL (Metoprolol Succinate) 50 Mg Tab.er.24h 50 Mg PO DAILY 30 Days Klor-Con M20 (Potassium Chloride) 20 Meq Tab.er.prt 40 Meq PO DAILYWBKFT 30 Days Bumetanide 1 Mg Tablet 1 Tab PO BID 30 Days Aldactone (Spironolactone) 25 Mg Tablet 25 Mg PO DAILY 30 Days Proair Hfa (Albuterol Sulfate) 8.5 Gm Hfa.aer.ad 2.5 Mg NEB PRN Q4HRS PRN 30 Days Entresto 24 mg-26 mg Tablet (Sacubitril/Valsartan) 1 Each Tablet 1 Tab PO BID Dok (Docusate Sodium) 100 Mg Capsule 100 Mg PO PRN DAILY PRN 30 Days Tylenol (Acetaminophen) 325 Mg Tablet 650 Mg PO PRN Q4HRS PRN 30 Days Aspirin Ec (Aspirin) 81 Mg Tablet.dr 81 Mg PO DAILYWBKFT 30 Days Reported Vascepa (Icosapent Ethyl) 0.5 Gm Capsule 1 Cap PO BID 30 Days Farxiga (Dapagliflozin Propanediol) 10 Mg Tablet 10 Mg PO DAILY Omeprazole 20 Mg Tablet.dr 1 Tab PO DAILY Atorvastatin Calcium 40 Mg Tablet 1 Tab PO QHS Glimepiride 4 Mg Tablet 1 Tab PO DAILY Allergies Allergies: Coded Allergies: No Known Drug Allergies (Unverified , 12/14/21) ROS Review of System Unable to obtain due to patient condition Physical Exam Physical Exam General: Cooperative, mild distress HEENT: Atraumatic, EOMI Lungs: Bibasilar rales Heart: RRR, no rubs Cardiovascular: AICD to left chest wall. S1, S2 Abdomen: Normal bowel sounds, Soft, No tenderness Extremities: +1 bilateral leg edema Skin: Chronic trophic changes and hemosiderin stains to bilateral lower extremities. No breakdown, No significant lesion. Neuro: Lethargic, Sensation intact Psych/Mental Status: Somnolent but arousable Vitals Vitals Vital Signs Date Time Temp Pulse Resp B/P (MAP) Pulse Ox O2 Delivery O2 Flow Rate FiO2 01/25/22 09:15 99 BiPAP/CPAP 01/25/22 06:00 102/76 01/25/22 03:00 95.9 95.9 01/25/22 02:45 85 01/25/22 00:20 24 5.0 26 5.0 5.0 Labs Labs Laboratory Tests Test 01/24/22 23:00 01/25/22 00:08 01/25/22 00:40 White Blood Count 10.1 x10^3/uL (4.0-11.0) Red Blood Count 5.64 x10^6/uL (4.30-5.70) Hemoglobin 15.8 g/dL (13.0-17.5) Hematocrit 47.6 % (39.0-53.0) Mean Corpuscular Volume 84 fL (79-100) Mean Corpuscular Hemoglobin 28 pg (25-35) Mean Corpuscular Hemoglobin Concent 33 g/dL (31-37) Red Cell Distribution Width 19.2 % (11.5-14.5) Platelet Count 272 x10^3/uL (140-400) Neutrophils (%) (Auto) 80 % (31-73) Lymphocytes (%) (Auto) 9 % (24-48) Monocytes (%) (Auto) 9 % (0-9) Eosinophils (%) (Auto) 0 % (0-3) Basophils (%) (Auto) 1 % (0-3) Neutrophils # (Auto) 8.1 x10^3/uL (1.8-7.7) Lymphocytes # (Auto) 0.9 x10^3/uL (1.0-4.8) Monocytes # (Auto) 0.9 x10^3/uL (0.0-1.1) Eosinophils # (Auto) 0.0 x10^3/uL (0.0-0.7) Basophils # (Auto) 0.1 x10^3/uL (0.0-0.2) Prothrombin Time 15.4 SEC (11.7-14.0) Prothromb Time International Ratio 1.3 (0.8-1.1) Activated Partial Thromboplast Time 35 SEC (24-38) Sodium Level 135 mmol/L (136-145) Potassium Level 3.0 mmol/L (3.5-5.1) Chloride Level 98 mmol/L (98-107) Carbon Dioxide Level 20 mmol/L (21-32) Anion Gap 17 (6-14) Blood Urea Nitrogen 13 mg/dL (8-26) Creatinine 1.1 mg/dL (0.7-1.3) Estimated GFR (Cockcroft-Gault) 69.5 BUN/Creatinine Ratio 12 (6-20) Glucose Level 199 mg/dL (70-99) Calcium Level 9.1 mg/dL (8.5-10.1) Magnesium Level 1.9 mg/dL (1.8-2.4) Total Bilirubin 1.8 mg/dL (0.2-1.0) Aspartate Amino Transf (AST/SGOT) 18 U/L (15-37) Alanine Aminotransferase (ALT/SGPT) 14 U/L (16-63) Alkaline Phosphatase 135 U/L (46-116) Troponin I High Sensitivity 28 ng/L (4-75) WS-Jot-O-Type Natriuretic Peptide 6526 pg/mL (0-124) Total Protein 7.2 g/dL (6.4-8.2) Albumin 3.4 g/dL (3.4-5.0) Albumin/Globulin Ratio 0.9 (1.0-1.7) Thyroid Stimulating Hormone (TSH) 2.782 uIU/mL (0.358-3.74) Ethyl Alcohol Level < 10 mg/dL (0-10) Influenza Type A Antigen Negative (NEGATIVE) Influenza Type B Antigen Negative (NEGATIVE) O2 Saturation 98 % (92-99) Arterial Blood pH 7.45 (7.35-7.45) Arterial Blood pCO2 at Patient Temp 36 mmHg (35-46) Arterial Blood pO2 at Patient Temp 135 mmHg (75-108) Arterial Blood HCO3 24 mmol/L (21-28) Arterial Blood Base Excess 1 mmol/L (-3-3) FiO2 55 Laboratory Tests Test 01/24/22 23:00 01/25/22 00:08 01/25/22 00:40 White Blood Count 10.1 x10^3/uL (4.0-11.0) Red Blood Count 5.64 x10^6/uL (4.30-5.70) Hemoglobin 15.8 g/dL (13.0-17.5) Hematocrit 47.6 % (39.0-53.0) Mean Corpuscular Volume 84 fL (79-100) Mean Corpuscular Hemoglobin 28 pg (25-35) Mean Corpuscular Hemoglobin Concent 33 g/dL (31-37) Red Cell Distribution Width 19.2 % (11.5-14.5) Platelet Count 272 x10^3/uL (140-400) Neutrophils (%) (Auto) 80 % (31-73) Lymphocytes (%) (Auto) 9 % (24-48) Monocytes (%) (Auto) 9 % (0-9) Eosinophils (%) (Auto) 0 % (0-3) Basophils (%) (Auto) 1 % (0-3) Neutrophils # (Auto) 8.1 x10^3/uL (1.8-7.7) Lymphocytes # (Auto) 0.9 x10^3/uL (1.0-4.8) Monocytes # (Auto) 0.9 x10^3/uL (0.0-1.1) Eosinophils # (Auto) 0.0 x10^3/uL (0.0-0.7) Basophils # (Auto) 0.1 x10^3/uL (0.0-0.2) Prothrombin Time 15.4 SEC (11.7-14.0) Prothromb Time International Ratio 1.3 (0.8-1.1) Activated Partial Thromboplast Time 35 SEC (24-38) Sodium Level 135 mmol/L (136-145) Potassium Level 3.0 mmol/L (3.5-5.1) Chloride Level 98 mmol/L (98-107) Carbon Dioxide Level 20 mmol/L (21-32) Anion Gap 17 (6-14) Blood Urea Nitrogen 13 mg/dL (8-26) Creatinine 1.1 mg/dL (0.7-1.3) Estimated GFR (Cockcroft-Gault) 69.5 BUN/Creatinine Ratio 12 (6-20) Glucose Level 199 mg/dL (70-99) Calcium Level 9.1 mg/dL (8.5-10.1) Magnesium Level 1.9 mg/dL (1.8-2.4) Total Bilirubin 1.8 mg/dL (0.2-1.0) Aspartate Amino Transf (AST/SGOT) 18 U/L (15-37) Alanine Aminotransferase (ALT/SGPT) 14 U/L (16-63) Alkaline Phosphatase 135 U/L (46-116) Troponin I High Sensitivity 28 ng/L (4-75) HZ-Ico-G-Type Natriuretic Peptide 6526 pg/mL (0-124) Total Protein 7.2 g/dL (6.4-8.2) Albumin 3.4 g/dL (3.4-5.0) Albumin/Globulin Ratio 0.9 (1.0-1.7) Thyroid Stimulating Hormone (TSH) 2.782 uIU/mL (0.358-3.74) Ethyl Alcohol Level < 10 mg/dL (0-10) Influenza Type A Antigen Negative (NEGATIVE) Influenza Type B Antigen Negative (NEGATIVE) O2 Saturation 98 % (92-99) Arterial Blood pH 7.45 (7.35-7.45) Arterial Blood pCO2 at Patient Temp 36 mmHg (35-46) Arterial Blood pO2 at Patient Temp 135 mmHg (75-108) Arterial Blood HCO3 24 mmol/L (21-28) Arterial Blood Base Excess 1 mmol/L (-3-3) FiO2 55 Images Images PATIENT: GUY MCCRACKEN ACCOUNT: [id number] : 1965 LOCATION: ER AGE: 56 SEX: M EXAM STATUS: REG ER ORD. PHYSICIAN: BIBI LUIS MD REASON: SOA PROCEDURE: CHEST AP ONLY EXAM: AP View of the chest DATE: 01/24/2022 11:40 PM INDICATION: Shortness of air COMPARISON: 12/19/2021 12/14/2021 FINDINGS: Moderate cardiomegaly. Cardiac generator pack obscures a portion of the left ch est with leads in stable position. There is a moderate to large left pleural effusion and small right pleural effusion. Bilateral parenchymal airspace opacities likely consolidative process as pneumonia. No pneumothorax. IMPRESSION: Cardiomegaly with bilateral pleural effusions and parenchymal airspace opacities may represent pulmonary edema, progressed compared to 12/19/2021. Multifocal consolidative process could also have this appearance. VTE Prophylaxis Ordered VTE Prophylaxis Devices: No VTE Pharmacological Prophylaxi: Yes Assessment/Plan Assessment/Plan Acute respiratory failure with hypoxia Paroxysmal SVT Systolic CHF exacerbation HTN HLD DM2 History COPD Plan: We will attempt to transition patient off BiPAP Discussed with cardiology; diltiazem inappropriate given his current ejection fr action. Will consider amiodarone for rhythm control. Basal/prandial insulin Resume home medications; closely monitor electrolytes. FEN - Cardiac diet PPX - Heparin FULL CODE Dispo - inpatient for above Critical care time 33 minutes reviewing charts, reviewing labs, reviewing imaging, discussion with cardiology, discussion with RN. Justifications for Admission Other Justification Acute CHF exacerbation, scrotal edema SERG HURST MD Jan 25, 2022 10:27
[2022-01-25] MEDS ORDERED: DRONEDARONE HCL 400 MG TABLET PO SCH (11:00)
[2022-01-25 11:08] LABS: CREATININE 0.9 mg/dL (0.7-1.3); GFR 87.6; MAGNESIUM 2.2 mg/dL (1.8-2.4); POTASSIUM 4.4 mmol/L (3.5-5.1)
[2022-01-25] MEDS: SPIRONOLACTONE 25 MG TABLET PO SCH (11:09)
[2022-01-25] MEDS ORDERED: INSULIN LISPRO 300 UNITS/3 ML VIAL. SQ SCH (12:00)
[2022-01-25] MEDS ORDERED: ICOSAPENT ETHYL PO SCH (12:00)
[2022-01-25] MEDS: FUROSEMIDE 40 MG/4 ML VIAL. IVP SCH (12:18)
[2022-01-25] MEDS: INSULIN LISPRO 300 UNITS/3 ML VIAL. SQ SCH ×2 (14:09→18:33)
[2022-01-25] MEDS: HEPARIN for SUB-Q USE 5,000 UNIT/ML VIAL. SQ SCH ×2 (14:18→22:50)
[2022-01-25] MEDS ORDERED: STERILE WATER for RESP 2,000 ML BAG. INH PRN (15:30)
[2022-01-25] MEDS ORDERED: ATROPINE 0.5 MG/5 ML DISP.SYRINGE. IV PRN (15:30)
[2022-01-25] MEDS ORDERED: IV NORMAL SALINE 500ML BAG 500 ML IV PRN (15:30)
[2022-01-25] MEDS ORDERED: DEXMEDETOMIDINE 400 MCG in IV NORMAL SALINE 100ML 96 ML IV PRN (15:30)
--- NOTE | 2022-01-25 16:19 | CONS ---
DATE OF CONSULTATION: 01/25/2022 PULMONARY CONSULTATION ATTENDING PHYSICIAN: Dr. Guthrie. REASON FOR CONSULTATION: Respiratory failure, pleural effusion, CHF. HISTORY OF PRESENT ILLNESS: The patient is a 56-year-old male who has severe cardiomyopathy with an EF of 15-20%. This is based on an echocardiogram from 01/2021. The patient also had severe diastolic dysfunction. His pulmonary artery systolic pressure was 58. The patient was brought into the hospital with increasing dyspnea and hypoxia. Normally he is on home oxygen 2 liters. He has 35 years of tobaccoism and he continues to smoke cigarettes. Upon admission, he was noted to be in SVT. He did not respond to adenosine and cardioversion, but responded eventually to Cardizem. I have been asked to see him for further evaluation of his dyspnea and respiratory failure. He was placed on BiPAP, but he could not tolerate it. Currently, he is on Vapotherm at 35% FiO2. His ABG showed a pH of 7.45, pCO2 of 36 and a pO2 of 135 on 55% FiO2. The patient's chest x-ray revealed diffuse pulmonary edema as well as a left moderate pleural effusion. He denies any fever or chills. Denies any chest pain. He does have a cough. No nausea, vomiting, no diarrhea. PAST MEDICAL HISTORY: History of severe cardiomyopathy with an EF of 15%, history of severe diastolic dysfunction, hypertension, COPD with ongoing tobaccoism. History of chronic hypoxic respiratory failure, osteoarthritis, and diabetes type 2. PAST SURGICAL HISTORY: AICD and left heart catheterization. FAMILY HISTORY: Hypertension. SOCIAL HISTORY: Smoker, less than 1 pack per day for 35 years, still continues to smoke cigarettes. REVIEW OF SYSTEMS: Twelve-point review of system obtained. Pertinent positives discussed in my present illness, otherwise noncontributory. All systems that were negative were reviewed as well. PHYSICAL EXAMINATION: VITAL SIGNS: Reviewed. Pulse ox is in the mid to high 90s on Vapotherm at 35% FiO2. Appears mildly tachypneic. Blood pressure 103/79. NECK: Supple. LUNGS: With anterior rhonchi. CARDIOVASCULAR: With a regular rate and tachycardia. ABDOMEN: Soft. EXTREMITIES: With 2+ pitting edema and signs of venous stasis. LABORATORY DATA: Labs are reviewed. COVID negative. Influenza negative. BUN is 14, creatinine 0.9. Troponin 28. TSH 2.7. INR is 1.3. White cell count 10.1, hemoglobin 15.8 and platelets are 272. IMPRESSION: 1. Acute on chronic hypoxic respiratory failure secondary to worsening acute on chronic systolic congestive heart failure in the setting of severe cardiomyopathy and also increasing left pleural effusion. 2. Severe cardiomyopathy with an EF of 15-20% and also severe diastolic dysfunction. 3. Supraventricular tachycardia, currently controlled with Cardizem. 4. Underlying chronic obstructive pulmonary disease with ongoing tobaccoism for 30+ years. The patient is on home oxygen at 2 liters. RECOMMENDATIONS: 1. Discussed with the patient and Interventional Radiology. We will proceed with thoracentesis to help dyspnea. 2. The patient would benefit from inotropic agent. 3. Continue diuresis. 4. Monitor renal function. 5. Continue Vapotherm. 6. Follow Cardiology recommendations. 7. DVT prophylaxis with subcutaneous heparin. 8. Prognosis is grim from a cardiac standpoint. Further recommendations to follow. [place] DR: Paula TID: [id number]
[2022-01-25] MEDS: MILRINONE 20MG/100ML PREMIX 100 ML IV PRN (16:25)
[2022-01-25] MEDS ORDERED: AMIODARONE 150 MG in IV DEXTROSE 5% 100ML 100 ML IV ONE (17:45)
[2022-01-25] MEDS: AMIODARONE 450 MG in IV DEXTROSE 5% 250 ML IV PRN (18:09)
[2022-01-25] MEDS: INSULIN GLARGINE SYRINGE. SQ SCH (21:00)
[2022-01-25] MEDS ORDERED: SACUBITRIL/VALSARTAN 24/26MG TABLET. PO SCH (21:00)
[2022-01-25] MEDS ORDERED: BUMETANIDE 1 MG TABLET. PO SCH (21:00)
[2022-01-25] MEDS: ATORVASTATIN CALCIUM 40 MG TABLET. PO SCH (21:53)
[2022-01-26] VITALS (24 sets, daily range): BP systolic 87–121; BP diastolic 69–96
[2022-01-26 01:36] LABS: AMPHETAMINE/METHAMPHETAMINE NEG (NEG); BARBITURATES NEG (NEG); BENZODIAZEPINES NEG (NEG); CANNABINOIDS NEG (NEG); COCAINE NEG (NEG); METHADONE NEG (NEG); OPIATES NEG (NEG); PHENCYCLIDINE NEG (NEG)
[2022-01-26 01:38] LABS: BACTERIA,URINE 0 /HPF (0-FEW); HYALINE CASTS, URINE MANY /HPF; RBC,URINE 0 /HPF (0-2); WBC,URINE RARE /HPF (0-4)
[2022-01-26] MEDS: AMIODARONE 450 MG in IV DEXTROSE 5% 250 ML IV PRN ×2 (02:44→16:00)
[2022-01-26 05:28] LABS: BASO # 0.1 x10^3/uL (0.0-0.2); BASO % 1 % (0-3); EOS % 0 % (0-3); HEMATOCRIT 51.8 % (39.0-53.0); HEMOGLOBIN 16.7 g/dL (13.0-17.5); LYMPH # 0.8 x10^3/uL (1.0-4.8); LYMPH % 9 % (24-48); MEAN CORPUSCULAR HEMOGLOBIN 28 pg (25-35); MEAN CORPUSCULAR HGB CONC 32 g/dL (31-37); MEAN CORPUSCULAR VOLUME 86 fL (79-100); MONO # 1.1 x10^3/uL (0.0-1.1); MONO % 12 % (0-9); NEUT # 6.9 x10^3/uL (1.8-7.7); NEUT % 78 % (31-73); PLATELET COUNT 258 x10^3/uL (140-400); RED CELL DISTRIBUTION WIDTH 19.1 % (11.5-14.5); WHITE BLOOD COUNT 8.8 x10^3/uL (4.0-11.0)
[2022-01-26 06:28] LABS: ALBUMIN 3.1 g/dL (3.4-5.0); ALBUMIN/GLOBULIN RATIO 0.9 (1.0-1.7); CALCIUM 9.2 mg/dL (8.5-10.1); CREATININE 1.2 mg/dL (0.7-1.3); GFR 62.9; POTASSIUM 4.2 mmol/L (3.5-5.1); TOTAL BILIRUBIN 2.6 mg/dL (0.2-1.0); TOTAL PROTEIN 6.6 g/dL (6.4-8.2)
[2022-01-26] MEDS: HEPARIN for SUB-Q USE 5,000 UNIT/ML VIAL. SQ SCH ×3 (06:29→22:45)
--- NOTE | 2022-01-26 07:55 | PDOC ---
[facility] [employer] TRA[employer] PROGRAM STORES 01/26/22 0755: CARDIO Progress Notes Date and Time Date of Service 01/26/2022 Time of Evaluation 0850 Subjective Subjective: No Chest Pain, No Palpitations, Other (SOA better) Vitals Vitals Vital Signs Date Time Temp Pulse Resp B/P (MAP) Pulse Ox O2 Delivery O2 Flow Rate FiO2 01/26/22 07:00 80 12 109/82 99 High Flow Nasal Cannula 25.0 01/26/22 06:00 98.0 98.0 Weight Weight [ ] Input and Output Intake and Output Intake and Output 01/26/22 07:00 Intake Total 1550 ml Output Total 1105 ml Balance 445 ml Intake Oral 1500 ml IV Total 50 ml Output Urine Total 1105 ml Laboratory Labs Laboratory Tests Test 01/25/22 10:24 01/25/22 12:22 01/25/22 18:16 01/25/22 21:51 Sodium Level 134 mmol/L (136-145) Potassium Level 4.4 mmol/L (3.5-5.1) Chloride Level 100 mmol/L (98-107) Carbon Dioxide Level 22 mmol/L (21-32) Anion Gap 12 (6-14) Blood Urea Nitrogen 14 mg/dL (8-26) Creatinine 0.9 mg/dL (0.7-1.3) Estimated GFR (Cockcroft-Gault) 87.6 Glucose Level 147 mg/dL (70-99) Calcium Level 9.0 mg/dL (8.5-10.1) Magnesium Level 2.2 mg/dL (1.8-2.4) Glucose (Fingerstick) 166 mg/dL (70-99) 160 mg/dL (70-99) 98 mg/dL (70-99) Test 01/26/22 01:15 01/26/22 04:45 Urine Collection Type Unknown Urine Color (Auto) Yellow Urine Turbidity Clear Urine pH (Auto) 5.0 (<5.0-8.0) Urine Specific [place] 1.017 (1.000-1.030) Urine Protein (Auto) 30 mg/dL (Negative) Urine Glucose (Auto)(UA) Negative mg/dL (Negative) Urine Ketones (Auto) Negative mg/dL (Negative) Urine Blood (Auto) Negative (Negative) Urine Nitrite Negative (Negative) Urine Bilirubin (Auto) Negative (Negative) Urine Urobilinogen (Auto) 6 mg/dL (Normal) Urine Leukocyte Esterase (Auto) Negative (Negative) Urine RBC 0 /HPF (0-2) Urine WBC Rare /HPF (0-4) Urine Squamous Epithelial Cells Occ /LPF Urine Bacteria 0 /HPF (0-FEW) Urine Hyaline Casts Many /HPF Urine Mucus Marked /LPF Urine Opiates Screen Neg (NEG) Urine Methadone Screen Neg (NEG) Urine Barbiturates Neg (NEG) Urine Phencyclidine Screen Neg (NEG) Urine Amphetamine/Methamphetamine Neg (NEG) Urine Benzodiazepines Screen Neg (NEG) Urine Cocaine Screen Neg (NEG) Urine Cannabinoids Screen Neg (NEG) Urine Ethyl Alcohol Neg (NEG) White Blood Count 8.8 x10^3/uL (4.0-11.0) Red Blood Count 6.00 x10^6/uL (4.30-5.70) Hemoglobin 16.7 g/dL (13.0-17.5) Hematocrit 51.8 % (39.0-53.0) Mean Corpuscular Volume 86 fL (79-100) Mean Corpuscular Hemoglobin 28 pg (25-35) Mean Corpuscular Hemoglobin Concent 32 g/dL (31-37) Red Cell Distribution Width 19.1 % (11.5-14.5) Platelet Count 258 x10^3/uL (140-400) Neutrophils (%) (Auto) 78 % (31-73) Lymphocytes (%) (Auto) 9 % (24-48) Monocytes (%) (Auto) 12 % (0-9) Eosinophils (%) (Auto) 0 % (0-3) Basophils (%) (Auto) 1 % (0-3) Neutrophils # (Auto) 6.9 x10^3/uL (1.8-7.7) Lymphocytes # (Auto) 0.8 x10^3/uL (1.0-4.8) Monocytes # (Auto) 1.1 x10^3/uL (0.0-1.1) Eosinophils # (Auto) 0.0 x10^3/uL (0.0-0.7) Basophils # (Auto) 0.1 x10^3/uL (0.0-0.2) Sodium Level 135 mmol/L (136-145) Potassium Level 4.2 mmol/L (3.5-5.1) Chloride Level 100 mmol/L (98-107) Carbon Dioxide Level 21 mmol/L (21-32) Anion Gap 14 (6-14) Blood Urea Nitrogen 25 mg/dL (8-26) Creatinine 1.2 mg/dL (0.7-1.3) Estimated GFR (Cockcroft-Gault) 62.9 BUN/Creatinine Ratio 21 (6-20) Glucose Level 107 mg/dL (70-99) Calcium Level 9.2 mg/dL (8.5-10.1) Total Bilirubin 2.6 mg/dL (0.2-1.0) Aspartate Amino Transf (AST/SGOT) 24 U/L (15-37) Alanine Aminotransferase (ALT/SGPT) 16 U/L (16-63) Alkaline Phosphatase 127 U/L (46-116) Total Protein 6.6 g/dL (6.4-8.2) Albumin 3.1 g/dL (3.4-5.0) Albumin/Globulin Ratio 0.9 (1.0-1.7) Physical Exam HEENT: Neck Supple W Full Motion Chest: Symmetric LUNGS: Other (diminished, vapotherm in place) Heart: RRR (SR) Abdomen: Soft N/T Extremities: No Calf Tenderness, Other (1+ bilateral LE pitting edema) Neurology: alert, oriented, follow commands Assessment Assessment 1. Acute on chronic respiratory failure; multifactorial with CHF, COPD. S/P thoracentesis 2. Acute on chronic diastolic/systolic CHF: likely precipitated by SVTs 3. Severe NICM; EF at 15% per echo 02/02 4. CAD; cath 11/04 with small vessel disease on diagonal branch, otherwise no intervenable lesions noted. CP free. 5. Hypertension; controlled 6. Diabetes, II 7. Hyperlipidemia; statin 8. S/P AICD (Biotronik): interrogation revealed normal function but multiple episodes of PSVTs starting December as he ran out of Portfolium 9. Recent covid-19: + on 10/24/2021 10. PSVT: no strips in chart and was cardioverted x2 and eventually converted to SR with cardizem. Maintaining SR 11. AECOPD with continued tobaccoism Recommendations Hold Portfolium for now with current CHF exacerbation. Start on amiodarone and milrinone Lasix therapy, Bipap PRN Presently on vapotherm Continue HF optimization therapy. Continue toprol, will hold off other meds including entresto pending BP trend Secondary prevention Discussed treatment compliance Smoking cessation Justicifation of Admission Dx: Justifications for Admission: Justification of Admission Dx: No Respiratory Failure: Severe Resp Distress MINO MELVIN MD 01/26/22 1903: CARDIO Progress Notes Assessment Assessment Patient seen and examined. Agree with BUSINESS INTELLIGENCE ADMINISTRATOR's assessment and plan PSVT - back in SR - Tele showed brief NSVT Continue amiodarone for antiarrhythmic therapy Continue diuresis with inotropic support with milrinone gtt for ac on chr systolic HF s/p AICD without any shock therapies [facility] [employer] PRO[employer] STORES Jan 26, 2022 07:55 MINO MELVIN MD Jan 26, 2022 19:03
[2022-01-26] MEDS: INSULIN LISPRO 300 UNITS/3 ML VIAL. SQ SCH ×3 (08:00→17:00)
--- NOTE | 2022-01-26 08:04 | RAD ---
XR CHEST 1V INDICATION: CHF/EFFUSION 111 / Spl. Instructions: / History: . COMPARISON STUDY: 01/24/2022. FINDINGS: Life Support Devices: Left pectoral ICD/pacemaker. Lungs: Normal lung volume. Stable bilateral perihilar and basilar opacities. Pleura: Stable small right and moderate to large left pleural effusions. Heart and Mediastinum: Stable cardiomediastinal silhouette and great vessels. IMPRESSION: 1. Stable bilateral perihilar and basilar opacities. 2. Stable small left and moderate to large right pleural effusions. Electronically signed by: Cam Steele MD (01/26/2022 8:01 AM) [email or web address]
[2022-01-26] MEDS: ASPIRIN ENTERIC COATED 81 MG TABLET.DR. PO SCH (08:08)
[2022-01-26] MEDS: METOPROLOL SUCC 24HR ER 50 MG TAB.ER.24H. PO SCH (08:09)
[2022-01-26] MEDS: FUROSEMIDE 40 MG/4 ML VIAL. IVP SCH (08:11)
[2022-01-26] MEDS: SPIRONOLACTONE 25 MG TABLET PO SCH (08:11)
--- NOTE | 2022-01-26 10:26 | EKG ---
[facility] [address] [place] [address] Test Date: 2022-01-24 Test Time: 23:21:05 Pat Name: GUY MCCRACKEN Department: Room: 111 1 Gender: M Sales Marketing Coordinator: : 1965 Requested By: BIBI LUIS Order Number: [id number] Reading MD: Mendez Esteves Measurements Intervals Maxwell Rate: 159 P: AL: QRS: 69 QRSD: 132 T: 98 QT: 310 QTc: 508 Interpretive Statements SINUS TACHYCARDIA LOW LIMB LEAD VOLTAGE NON SPECIFIC INTRAVENTRICULAR BLOCK QRS(T) CONTOUR ABNORMALITY CONSIDER HIGH LATERAL INFARCT ABNORMAL ECG Electronically Signed On 01-27-2022 13:37:26 CDT by Mendez Esteves
--- NOTE | 2022-01-26 11:42 | PDOC ---
PULMONARY PROGRESS NOTES DATE: 01/26/22 TIME: 11:39 Subjective Status post left thoracentesis 01/25/2022. Clinically feels much better. Off the Vapotherm and BiPAP. Currently on milrinone and amiodarone drip Vitals Vital Signs Date Time Temp Pulse Resp B/P (MAP) Pulse Ox O2 Delivery O2 Flow Rate FiO2 01/26/22 11:00 89 26 105/79 99 Nasal Cannula 4.0 01/26/22 08:00 98.7 98.7 General: Alert, No acute distress Lungs: Other (Diminished breath sounds left lung) Cardiovascular: S1 Abdomen: Soft Neuro Exam: Alert Extremities: Other (Trace pitting edema) Labs Laboratory Tests Test 01/24/22 23:00 01/25/22 00:08 01/25/22 00:40 01/25/22 10:24 White Blood Count 10.1 x10^3/uL (4.0-11.0) Red Blood Count 5.64 x10^6/uL (4.30-5.70) Hemoglobin 15.8 g/dL (13.0-17.5) Hematocrit 47.6 % (39.0-53.0) Mean Corpuscular Volume 84 fL (79-100) Mean Corpuscular Hemoglobin 28 pg (25-35) Mean Corpuscular Hemoglobin Concent 33 g/dL (31-37) Red Cell Distribution Width 19.2 % (11.5-14.5) Platelet Count 272 x10^3/uL (140-400) Neutrophils (%) (Auto) 80 % (31-73) Lymphocytes (%) (Auto) 9 % (24-48) Monocytes (%) (Auto) 9 % (0-9) Eosinophils (%) (Auto) 0 % (0-3) Basophils (%) (Auto) 1 % (0-3) Neutrophils # (Auto) 8.1 x10^3/uL (1.8-7.7) Lymphocytes # (Auto) 0.9 x10^3/uL (1.0-4.8) Monocytes # (Auto) 0.9 x10^3/uL (0.0-1.1) Eosinophils # (Auto) 0.0 x10^3/uL (0.0-0.7) Basophils # (Auto) 0.1 x10^3/uL (0.0-0.2) Prothrombin Time 15.4 SEC (11.7-14.0) Prothromb Time International Ratio 1.3 (0.8-1.1) Activated Partial Thromboplast Time 35 SEC (24-38) Sodium Level 135 mmol/L (136-145) 134 mmol/L (136-145) Potassium Level 3.0 mmol/L (3.5-5.1) 4.4 mmol/L (3.5-5.1) Chloride Level 98 mmol/L (98-107) 100 mmol/L (98-107) Carbon Dioxide Level 20 mmol/L (21-32) 22 mmol/L (21-32) Anion Gap 17 (6-14) 12 (6-14) Blood Urea Nitrogen 13 mg/dL (8-26) 14 mg/dL (8-26) Creatinine 1.1 mg/dL (0.7-1.3) 0.9 mg/dL (0.7-1.3) Estimated GFR (Cockcroft-Gault) 69.5 87.6 BUN/Creatinine Ratio 12 (6-20) Glucose Level 199 mg/dL (70-99) 147 mg/dL (70-99) Calcium Level 9.1 mg/dL (8.5-10.1) 9.0 mg/dL (8.5-10.1) Magnesium Level 1.9 mg/dL (1.8-2.4) 2.2 mg/dL (1.8-2.4) Total Bilirubin 1.8 mg/dL (0.2-1.0) Aspartate Amino Transf (AST/SGOT) 18 U/L (15-37) Alanine Aminotransferase (ALT/SGPT) 14 U/L (16-63) Alkaline Phosphatase 135 U/L (46-116) Troponin I High Sensitivity 28 ng/L (4-75) BD-Evx-P-Type Natriuretic Peptide 6526 pg/mL (0-124) Total Protein 7.2 g/dL (6.4-8.2) Albumin 3.4 g/dL (3.4-5.0) Albumin/Globulin Ratio 0.9 (1.0-1.7) Thyroid Stimulating Hormone (TSH) 2.782 uIU/mL (0.358-3.74) Ethyl Alcohol Level < 10 mg/dL (0-10) Coronavirus (COVID-19)(PCR) Not detected (NOT DETECTD) Influenza Type A Antigen Negative (NEGATIVE) Influenza Type B Antigen Negative (NEGATIVE) O2 Saturation 98 % (92-99) Arterial Blood pH 7.45 (7.35-7.45) Arterial Blood pCO2 at Patient Temp 36 mmHg (35-46) Arterial Blood pO2 at Patient Temp 135 mmHg (75-108) Arterial Blood HCO3 24 mmol/L (21-28) Arterial Blood Base Excess 1 mmol/L (-3-3) FiO2 55 Test 01/25/22 12:22 01/25/22 18:16 01/25/22 21:51 01/26/22 01:15 Glucose (Fingerstick) 166 mg/dL (70-99) 160 mg/dL (70-99) 98 mg/dL (70-99) Urine Collection Type Unknown Urine Color (Auto) Yellow Urine Turbidity Clear Urine pH (Auto) 5.0 (<5.0-8.0) Urine Specific [place] 1.017 (1.000-1.030) Urine Protein (Auto) 30 mg/dL (Negative) Urine Glucose (Auto)(UA) Negative mg/dL (Negative) Urine Ketones (Auto) Negative mg/dL (Negative) Urine Blood (Auto) Negative (Negative) Urine Nitrite Negative (Negative) Urine Bilirubin (Auto) Negative (Negative) Urine Urobilinogen (Auto) 6 mg/dL (Normal) Urine Leukocyte Esterase (Auto) Negative (Negative) Urine RBC 0 /HPF (0-2) Urine WBC Rare /HPF (0-4) Urine Squamous Epithelial Cells Occ /LPF Urine Bacteria 0 /HPF (0-FEW) Urine Hyaline Casts Many /HPF Urine Mucus Marked /LPF Urine Opiates Screen Neg (NEG) Urine Methadone Screen Neg (NEG) Urine Barbiturates Neg (NEG) Urine Phencyclidine Screen Neg (NEG) Urine Amphetamine/Methamphetamine Neg (NEG) Urine Benzodiazepines Screen Neg (NEG) Urine Cocaine Screen Neg (NEG) Urine Cannabinoids Screen Neg (NEG) Urine Ethyl Alcohol Neg (NEG) Test 01/26/22 04:45 01/26/22 08:06 White Blood Count 8.8 x10^3/uL (4.0-11.0) Red Blood Count 6.00 x10^6/uL (4.30-5.70) Hemoglobin 16.7 g/dL (13.0-17.5) Hematocrit 51.8 % (39.0-53.0) Mean Corpuscular Volume 86 fL (79-100) Mean Corpuscular Hemoglobin 28 pg (25-35) Mean Corpuscular Hemoglobin Concent 32 g/dL (31-37) Red Cell Distribution Width 19.1 % (11.5-14.5) Platelet Count 258 x10^3/uL (140-400) Neutrophils (%) (Auto) 78 % (31-73) Lymphocytes (%) (Auto) 9 % (24-48) Monocytes (%) (Auto) 12 % (0-9) Eosinophils (%) (Auto) 0 % (0-3) Basophils (%) (Auto) 1 % (0-3) Neutrophils # (Auto) 6.9 x10^3/uL (1.8-7.7) Lymphocytes # (Auto) 0.8 x10^3/uL (1.0-4.8) Monocytes # (Auto) 1.1 x10^3/uL (0.0-1.1) Eosinophils # (Auto) 0.0 x10^3/uL (0.0-0.7) Basophils # (Auto) 0.1 x10^3/uL (0.0-0.2) Sodium Level 135 mmol/L (136-145) Potassium Level 4.2 mmol/L (3.5-5.1) Chloride Level 100 mmol/L (98-107) Carbon Dioxide Level 21 mmol/L (21-32) Anion Gap 14 (6-14) Blood Urea Nitrogen 25 mg/dL (8-26) Creatinine 1.2 mg/dL (0.7-1.3) Estimated GFR (Cockcroft-Gault) 62.9 BUN/Creatinine Ratio 21 (6-20) Glucose Level 107 mg/dL (70-99) Calcium Level 9.2 mg/dL (8.5-10.1) Total Bilirubin 2.6 mg/dL (0.2-1.0) Aspartate Amino Transf (AST/SGOT) 24 U/L (15-37) Alanine Aminotransferase (ALT/SGPT) 16 U/L (16-63) Alkaline Phosphatase 127 U/L (46-116) Total Protein 6.6 g/dL (6.4-8.2) Albumin 3.1 g/dL (3.4-5.0) Albumin/Globulin Ratio 0.9 (1.0-1.7) Glucose (Fingerstick) 111 mg/dL (70-99) Laboratory Tests Test 01/25/22 12:22 01/25/22 18:16 01/25/22 21:51 01/26/22 01:15 Glucose (Fingerstick) 166 mg/dL (70-99) 160 mg/dL (70-99) 98 mg/dL (70-99) Urine Collection Type Unknown Urine Color (Auto) Yellow Urine Turbidity Clear Urine pH (Auto) 5.0 (<5.0-8.0) Urine Specific [place] 1.017 (1.000-1.030) Urine Protein (Auto) 30 mg/dL (Negative) Urine Glucose (Auto)(UA) Negative mg/dL (Negative) Urine Ketones (Auto) Negative mg/dL (Negative) Urine Blood (Auto) Negative (Negative) Urine Nitrite Negative (Negative) Urine Bilirubin (Auto) Negative (Negative) Urine Urobilinogen (Auto) 6 mg/dL (Normal) Urine Leukocyte Esterase (Auto) Negative (Negative) Urine RBC 0 /HPF (0-2) Urine WBC Rare /HPF (0-4) Urine Squamous Epithelial Cells Occ /LPF Urine Bacteria 0 /HPF (0-FEW) Urine Hyaline Casts Many /HPF Urine Mucus Marked /LPF Urine Opiates Screen Neg (NEG) Urine Methadone Screen Neg (NEG) Urine Barbiturates Neg (NEG) Urine Phencyclidine Screen Neg (NEG) Urine Amphetamine/Methamphetamine Neg (NEG) Urine Benzodiazepines Screen Neg (NEG) Urine Cocaine Screen Neg (NEG) Urine Cannabinoids Screen Neg (NEG) Urine Ethyl Alcohol Neg (NEG) Test 01/26/22 04:45 01/26/22 08:06 White Blood Count 8.8 x10^3/uL (4.0-11.0) Red Blood Count 6.00 x10^6/uL (4.30-5.70) Hemoglobin 16.7 g/dL (13.0-17.5) Hematocrit 51.8 % (39.0-53.0) Mean Corpuscular Volume 86 fL (79-100) Mean Corpuscular Hemoglobin 28 pg (25-35) Mean Corpuscular Hemoglobin Concent 32 g/dL (31-37) Red Cell Distribution Width 19.1 % (11.5-14.5) Platelet Count 258 x10^3/uL (140-400) Neutrophils (%) (Auto) 78 % (31-73) Lymphocytes (%) (Auto) 9 % (24-48) Monocytes (%) (Auto) 12 % (0-9) Eosinophils (%) (Auto) 0 % (0-3) Basophils (%) (Auto) 1 % (0-3) Neutrophils # (Auto) 6.9 x10^3/uL (1.8-7.7) Lymphocytes # (Auto) 0.8 x10^3/uL (1.0-4.8) Monocytes # (Auto) 1.1 x10^3/uL (0.0-1.1) Eosinophils # (Auto) 0.0 x10^3/uL (0.0-0.7) Basophils # (Auto) 0.1 x10^3/uL (0.0-0.2) Sodium Level 135 mmol/L (136-145) Potassium Level 4.2 mmol/L (3.5-5.1) Chloride Level 100 mmol/L (98-107) Carbon Dioxide Level 21 mmol/L (21-32) Anion Gap 14 (6-14) Blood Urea Nitrogen 25 mg/dL (8-26) Creatinine 1.2 mg/dL (0.7-1.3) Estimated GFR (Cockcroft-Gault) 62.9 BUN/Creatinine Ratio 21 (6-20) Glucose Level 107 mg/dL (70-99) Calcium Level 9.2 mg/dL (8.5-10.1) Total Bilirubin 2.6 mg/dL (0.2-1.0) Aspartate Amino Transf (AST/SGOT) 24 U/L (15-37) Alanine Aminotransferase (ALT/SGPT) 16 U/L (16-63) Alkaline Phosphatase 127 U/L (46-116) Total Protein 6.6 g/dL (6.4-8.2) Albumin 3.1 g/dL (3.4-5.0) Albumin/Globulin Ratio 0.9 (1.0-1.7) Glucose (Fingerstick) 111 mg/dL (70-99) Medications Active Scripts Medications Dose Route/Sig Max Daily Dose Days Date Category Lasix (Furosemide) 40 Mg Tablet 1 Tab PO BID 7 12/20/21 Rx Medrol (Methylprednisolone) 4 Mg Tab.ds.pk 1 Pkg PO UD 12/17/21 Rx Proair Hfa Inhaler (Albuterol Sulfate) 8.5 Gm Hfa.aer.ad 2 Puff IH PRN Q4-6HRS PRN 21 12/17/21 Rx Amox Tr-K Clv 500-125 Mg Tab (Amoxicillin/Potassium Clav) 1 Each Tablet 1 Tab PO BID 12/17/21 Rx Toprol XL (Metoprolol Succinate) 50 Mg Tab.er.24h 50 Mg PO DAILY 30 11/21/21 Rx Klor-Con M20 (Potassium Chloride) 20 Meq Tab.er.prt 40 Meq PO DAILYWBKFT 30 11/21/21 Rx Bumetanide 1 Mg Tablet 1 Tab PO BID 30 11/21/21 Rx Aldactone (Spironolactone) 25 Mg Tablet 25 Mg PO DAILY 30 11/21/21 Rx Proair Hfa (Albuterol Sulfate) 8.5 Gm Hfa.aer.ad 2.5 Mg NEB PRN Q4HRS PRN 30 11/21/21 Rx Entresto 24 mg-26 mg Tablet (Sacubitril/Valsartan) 1 Each Tablet 1 Tab PO BID 12/03/20 Rx Dok (Docusate Sodium) 100 Mg Capsule 100 Mg PO PRN DAILY PRN 30 10/14/20 Rx Tylenol (Acetaminophen) 325 Mg Tablet 650 Mg PO PRN Q4HRS PRN 30 10/14/20 Rx Aspirin Ec (Aspirin) 81 Mg Tablet.dr 81 Mg PO DAILYWBKFT 30 10/14/20 Rx Vascepa (Icosapent Ethyl) 0.5 Gm Capsule 1 Cap PO BID 30 03/22/20 Reported Farxiga (Dapagliflozin Propanediol) 10 Mg Tablet 10 Mg PO DAILY 03/22/20 Reported Omeprazole 20 Mg Tablet.dr 1 Tab PO DAILY 03/22/20 Reported Atorvastatin Calcium 40 Mg Tablet 1 Tab PO QHS 03/22/20 Reported Glimepiride 4 Mg Tablet 1 Tab PO DAILY 03/22/20 Reported Comments Chest x-ray reviewed 01/26/2022. Bilateral CHF. Some reaccumulation of left pleural effusion Impression . 1. Acute on chronic hypoxic respiratory failure secondary to worsening acute on chronic systolic congestive heart failure in the setting of severe cardiomyopathy and also increasing left pleural effusion. Status post left thoracentesis. Clinically better 2. Severe cardiomyopathy with an EF of 15-20% and also severe diastolic dysfunction. 3. Supraventricular tachycardia, currently controlled with Cardizem. 4. Underlying chronic obstructive pulmonary disease with ongoing tobaccoism for 30+ years. The patient is on home oxygen at 2 liters. Plan . Updated 01/26/2022 1. Status post left thoracentesis. 1200 cc of fluid removed. Clinically better. Chest x-ray still shows reaccumulation of left effusion 2. Patient initiated on inotropic agent milrinone and amiodarone. 3. Continue diuresis. 4. Monitor renal function. 5. Continue nasal cannula. Off Vapotherm. 6. Follow Cardiology recommendations. 7. DVT prophylaxis with subcutaneous heparin. 8. Prognosis is grim from a cardiac standpoint. Further recommendations to follow. SONG CARLSON MD Jan 26, 2022 11:42
--- NOTE | 2022-01-26 13:04 | PDOC ---
[employer] [facility] PROGRESS NOTE Date of Service DOS: DATE: 01/26/22 TIME: 13:00 Chief Complaint Chief Complaint Acute respiratory failure with hypoxia Paroxysmal SVT Systolic CHF exacerbation HTN HLD DM2 History COPD History of Present Illness History of Present Illness 01/26: Patient seen and evaluated in ICU. He looks much further than yesterday; breathing on 5 L nasal cannula. Patient apparently ran out of his multaq for several days, which prompted his presentation in the ED and CHF exacerbation. He has been started on amiodarone and milrinone infusions. Patient concerned about missing his daughter's wedding and notes that he has a flight on Sunday morning he would like very much to catch. Told him I will discuss with cardiology about early discharge. Continue amiodarone, milrinone, and Lasix IV push. Critical care time 30 minutes spent reviewing charts, reviewing labs, reviewing imaging, discussion with RN. Vitals/I&O Vitals/I&O: Vital Signs Date Time Temp Pulse Resp B/P (MAP) Pulse Ox O2 Delivery O2 Flow Rate FiO2 01/26/22 12:15 98 Nasal Cannula 5.0 01/26/22 12:00 97.7 90 40 108/76 97.7 I & O 01/25/22 01/25/22 01/26/22 15:00 23:00 07:00 Intake Total 750 ml 550 ml 250 ml Output Total 1950 ml 205 ml 150 ml Balance -1200 ml 345 ml 100 ml Physical Exam General: Alert, Oriented X3, Cooperative, No acute distress Heart: Regular rate (SR), Other (distant heart sounds) Lungs: Other (Diminished breath sounds left lung) Abdomen: Soft, No tenderness Extremities: No cyanosis, Other (2+ bilateral LE pitting edema) Skin: No breakdown, No significant lesion Labs Labs: Laboratory Tests Test 01/25/22 18:16 01/25/22 21:51 01/26/22 01:15 01/26/22 04:45 Glucose (Fingerstick) 160 mg/dL (70-99) 98 mg/dL (70-99) Urine Collection Type Unknown Urine Color (Auto) Yellow Urine Turbidity Clear Urine pH (Auto) 5.0 (<5.0-8.0) Urine Specific [place] 1.017 (1.000-1.030) Urine Protein (Auto) 30 mg/dL (Negative) Urine Glucose (Auto)(UA) Negative mg/dL (Negative) Urine Ketones (Auto) Negative mg/dL (Negative) Urine Blood (Auto) Negative (Negative) Urine Nitrite Negative (Negative) Urine Bilirubin (Auto) Negative (Negative) Urine Urobilinogen (Auto) 6 mg/dL (Normal) Urine Leukocyte Esterase (Auto) Negative (Negative) Urine RBC 0 /HPF (0-2) Urine WBC Rare /HPF (0-4) Urine Squamous Epithelial Cells Occ /LPF Urine Bacteria 0 /HPF (0-FEW) Urine Hyaline Casts Many /HPF Urine Mucus Marked /LPF Urine Opiates Screen Neg (NEG) Urine Methadone Screen Neg (NEG) Urine Barbiturates Neg (NEG) Urine Phencyclidine Screen Neg (NEG) Urine Amphetamine/Methamphetamine Neg (NEG) Urine Benzodiazepines Screen Neg (NEG) Urine Cocaine Screen Neg (NEG) Urine Cannabinoids Screen Neg (NEG) Urine Ethyl Alcohol Neg (NEG) White Blood Count 8.8 x10^3/uL (4.0-11.0) Red Blood Count 6.00 x10^6/uL (4.30-5.70) Hemoglobin 16.7 g/dL (13.0-17.5) Hematocrit 51.8 % (39.0-53.0) Mean Corpuscular Volume 86 fL (79-100) Mean Corpuscular Hemoglobin 28 pg (25-35) Mean Corpuscular Hemoglobin Concent 32 g/dL (31-37) Red Cell Distribution Width 19.1 % (11.5-14.5) Platelet Count 258 x10^3/uL (140-400) Neutrophils (%) (Auto) 78 % (31-73) Lymphocytes (%) (Auto) 9 % (24-48) Monocytes (%) (Auto) 12 % (0-9) Eosinophils (%) (Auto) 0 % (0-3) Basophils (%) (Auto) 1 % (0-3) Neutrophils # (Auto) 6.9 x10^3/uL (1.8-7.7) Lymphocytes # (Auto) 0.8 x10^3/uL (1.0-4.8) Monocytes # (Auto) 1.1 x10^3/uL (0.0-1.1) Eosinophils # (Auto) 0.0 x10^3/uL (0.0-0.7) Basophils # (Auto) 0.1 x10^3/uL (0.0-0.2) Sodium Level 135 mmol/L (136-145) Potassium Level 4.2 mmol/L (3.5-5.1) Chloride Level 100 mmol/L (98-107) Carbon Dioxide Level 21 mmol/L (21-32) Anion Gap 14 (6-14) Blood Urea Nitrogen 25 mg/dL (8-26) Creatinine 1.2 mg/dL (0.7-1.3) Estimated GFR (Cockcroft-Gault) 62.9 BUN/Creatinine Ratio 21 (6-20) Glucose Level 107 mg/dL (70-99) Calcium Level 9.2 mg/dL (8.5-10.1) Total Bilirubin 2.6 mg/dL (0.2-1.0) Aspartate Amino Transf (AST/SGOT) 24 U/L (15-37) Alanine Aminotransferase (ALT/SGPT) 16 U/L (16-63) Alkaline Phosphatase 127 U/L (46-116) Total Protein 6.6 g/dL (6.4-8.2) Albumin 3.1 g/dL (3.4-5.0) Albumin/Globulin Ratio 0.9 (1.0-1.7) Test 01/26/22 08:06 01/26/22 12:27 Glucose (Fingerstick) 111 mg/dL (70-99) 201 mg/dL (70-99) Assessment and Plan Assessmemt and Plan Problems Medical Problems: (1) Acute exacerbation of congestive heart failure Status: Acute (2) Acute hypoxemic respiratory failure Status: Acute (3) Paroxysmal SVT (supraventricular tachycardia) Status: Acute (4) Pleural effusion, bilateral Status: Acute (5) Volume overload Status: Acute Comment Review of Relevant I have reviewed the following items gorge (where applicable) has been applied. Medications: Current Medications Medications (Trade) Dose Ordered Sig/Gus Route PRN Reason Start Time Stop Time Status Last Admin Dose Admin Aspirin (Ecotrin) 81 mg DAILYWBKFT PO 01/26/22 08:00 01/26/22 08:08 Atorvastatin Calcium (Lipitor) 40 mg QHS PO 01/25/22 21:00 01/25/22 21:53 Metoprolol Succinate (Toprol Xl) 50 mg DAILY PO 01/26/22 09:00 01/26/22 08:09 Heparin Sodium (Porcine) (Heparin Sodium) 5,000 unit Q8HRS SQ 01/25/22 14:00 01/26/22 06:29 Sterile Water (WATER for RESP) 2,000 ml CONT PRN INH VIA VAPOTHERM DEVICE 01/25/22 15:30 01/25/22 17:10 Dexmedetomidine HCl 400 mcg/ Sodium Chloride 100 ml @ 3.925 mls/ hr CONT PRN IV PER PROTOCOL 01/25/22 15:30 01/25/22 19:37 Milrinone Lactate/ Dextrose 100 ml @ 2.944 mls/ hr CONT PRN IV SEE I/O RECORD 01/25/22 16:00 01/25/22 16:25 Amiodarone HCl 150 mg/Dextrose 103 ml @ 618 mls/hr 1X ONCE IV 01/25/22 17:45 01/25/22 17:54 DC 01/25/22 18:09 Amiodarone HCl 450 mg/Dextrose 259 ml @ 33 mls/hr CONT PRN IV SEE I/O RECORD 01/25/22 17:45 01/26/22 17:31 01/26/22 02:44 Justifications for Admission Other Justification Acute CHF exacerbation, scrotal edema SERG HURST MD Jan 26, 2022 13:04
--- NOTE | 2022-01-26 16:35 | NUR ---
SS following for discharge planning. SS reviewed pt chart and discussed with pt RN. Pt is from home and is currently requiring oxygen at four liters nasal canula. COVID19 negative. Cardiology and Pulmonology following. Pt on IV Lasix. Pt on Amiodarone and Milrinone. PT recommended home independent. SS will continue to follow for discharge planning.
[2022-01-26] MEDS: AMIODARONE HCL 200 MG TABLET. PO SCH (18:48)
[2022-01-26] MEDS: MILRINONE 20MG/100ML PREMIX 100 ML IV PRN (19:44)
[2022-01-26] MEDS: ATORVASTATIN CALCIUM 40 MG TABLET. PO SCH (20:38)
[2022-01-26] MEDS: INSULIN GLARGINE SYRINGE. SQ SCH (20:49)
[2022-01-27] VITALS (17 sets, daily range): BP systolic 100–125; BP diastolic 69–89
[2022-01-27] MEDS: HEPARIN for SUB-Q USE 5,000 UNIT/ML VIAL. SQ SCH ×2 (05:46→14:00)
--- NOTE | 2022-01-27 07:33 | PDOC ---
PULMONARY PROGRESS NOTES DATE: 01/27/22 TIME: 07:31 Subjective Status post left thoracentesis 01/25/2022. Clinically feels much better. Off the Vapotherm and BiPAP. Currently on milrinone ,of amiodarone drip Vitals Vital Signs Date Time Temp Pulse Resp B/P (MAP) Pulse Ox O2 Delivery O2 Flow Rate FiO2 01/27/22 06:00 92 26 125/89 97 Nasal Cannula 4.0 01/27/22 04:00 97.6 97.6 General: Alert, No acute distress Lungs: Other (Diminished breath sounds left lung) Cardiovascular: S1 Abdomen: Soft Neuro Exam: Alert Extremities: Other (Trace pitting edema) Labs Laboratory Tests Test 01/25/22 10:24 01/25/22 12:22 01/25/22 18:16 01/25/22 21:51 Sodium Level 134 mmol/L (136-145) Potassium Level 4.4 mmol/L (3.5-5.1) Chloride Level 100 mmol/L (98-107) Carbon Dioxide Level 22 mmol/L (21-32) Anion Gap 12 (6-14) Blood Urea Nitrogen 14 mg/dL (8-26) Creatinine 0.9 mg/dL (0.7-1.3) Estimated GFR (Cockcroft-Gault) 87.6 Glucose Level 147 mg/dL (70-99) Calcium Level 9.0 mg/dL (8.5-10.1) Magnesium Level 2.2 mg/dL (1.8-2.4) Glucose (Fingerstick) 166 mg/dL (70-99) 160 mg/dL (70-99) 98 mg/dL (70-99) Test 01/26/22 01:15 01/26/22 04:45 01/26/22 08:06 01/26/22 12:27 Urine Collection Type Unknown Urine Color (Auto) Yellow Urine Turbidity Clear Urine pH (Auto) 5.0 (<5.0-8.0) Urine Specific [place] 1.017 (1.000-1.030) Urine Protein (Auto) 30 mg/dL (Negative) Urine Glucose (Auto)(UA) Negative mg/dL (Negative) Urine Ketones (Auto) Negative mg/dL (Negative) Urine Blood (Auto) Negative (Negative) Urine Nitrite Negative (Negative) Urine Bilirubin (Auto) Negative (Negative) Urine Urobilinogen (Auto) 6 mg/dL (Normal) Urine Leukocyte Esterase (Auto) Negative (Negative) Urine RBC 0 /HPF (0-2) Urine WBC Rare /HPF (0-4) Urine Squamous Epithelial Cells Occ /LPF Urine Bacteria 0 /HPF (0-FEW) Urine Hyaline Casts Many /HPF Urine Mucus Marked /LPF Urine Opiates Screen Neg (NEG) Urine Methadone Screen Neg (NEG) Urine Barbiturates Neg (NEG) Urine Phencyclidine Screen Neg (NEG) Urine Amphetamine/Methamphetamine Neg (NEG) Urine Benzodiazepines Screen Neg (NEG) Urine Cocaine Screen Neg (NEG) Urine Cannabinoids Screen Neg (NEG) Urine Ethyl Alcohol Neg (NEG) White Blood Count 8.8 x10^3/uL (4.0-11.0) Red Blood Count 6.00 x10^6/uL (4.30-5.70) Hemoglobin 16.7 g/dL (13.0-17.5) Hematocrit 51.8 % (39.0-53.0) Mean Corpuscular Volume 86 fL (79-100) Mean Corpuscular Hemoglobin 28 pg (25-35) Mean Corpuscular Hemoglobin Concent 32 g/dL (31-37) Red Cell Distribution Width 19.1 % (11.5-14.5) Platelet Count 258 x10^3/uL (140-400) Neutrophils (%) (Auto) 78 % (31-73) Lymphocytes (%) (Auto) 9 % (24-48) Monocytes (%) (Auto) 12 % (0-9) Eosinophils (%) (Auto) 0 % (0-3) Basophils (%) (Auto) 1 % (0-3) Neutrophils # (Auto) 6.9 x10^3/uL (1.8-7.7) Lymphocytes # (Auto) 0.8 x10^3/uL (1.0-4.8) Monocytes # (Auto) 1.1 x10^3/uL (0.0-1.1) Eosinophils # (Auto) 0.0 x10^3/uL (0.0-0.7) Basophils # (Auto) 0.1 x10^3/uL (0.0-0.2) Sodium Level 135 mmol/L (136-145) Potassium Level 4.2 mmol/L (3.5-5.1) Chloride Level 100 mmol/L (98-107) Carbon Dioxide Level 21 mmol/L (21-32) Anion Gap 14 (6-14) Blood Urea Nitrogen 25 mg/dL (8-26) Creatinine 1.2 mg/dL (0.7-1.3) Estimated GFR (Cockcroft-Gault) 62.9 BUN/Creatinine Ratio 21 (6-20) Glucose Level 107 mg/dL (70-99) Calcium Level 9.2 mg/dL (8.5-10.1) Total Bilirubin 2.6 mg/dL (0.2-1.0) Aspartate Amino Transf (AST/SGOT) 24 U/L (15-37) Alanine Aminotransferase (ALT/SGPT) 16 U/L (16-63) Alkaline Phosphatase 127 U/L (46-116) Total Protein 6.6 g/dL (6.4-8.2) Albumin 3.1 g/dL (3.4-5.0) Albumin/Globulin Ratio 0.9 (1.0-1.7) Glucose (Fingerstick) 111 mg/dL (70-99) 201 mg/dL (70-99) Test 01/26/22 16:42 01/26/22 20:40 Glucose (Fingerstick) 113 mg/dL (70-99) 104 mg/dL (70-99) Laboratory Tests Test 01/26/22 08:06 01/26/22 12:27 01/26/22 16:42 01/26/22 20:40 Glucose (Fingerstick) 111 mg/dL (70-99) 201 mg/dL (70-99) 113 mg/dL (70-99) 104 mg/dL (70-99) Medications Active Scripts Medications Dose Route/Sig Max Daily Dose Days Date Category Lasix (Furosemide) 40 Mg Tablet 1 Tab PO BID 7 12/20/21 Rx Medrol (Methylprednisolone) 4 Mg Tab.ds.pk 1 Pkg PO UD 12/17/21 Rx Proair Hfa Inhaler (Albuterol Sulfate) 8.5 Gm Hfa.aer.ad 2 Puff IH PRN Q4-6HRS PRN 21 12/17/21 Rx Amox Tr-K Clv 500-125 Mg Tab (Amoxicillin/Potassium Clav) 1 Each Tablet 1 Tab PO BID 12/17/21 Rx Toprol XL (Metoprolol Succinate) 50 Mg Tab.er.24h 50 Mg PO DAILY 30 11/21/21 Rx Klor-Con M20 (Potassium Chloride) 20 Meq Tab.er.prt 40 Meq PO DAILYWBKFT 30 11/21/21 Rx Bumetanide 1 Mg Tablet 1 Tab PO BID 30 11/21/21 Rx Aldactone (Spironolactone) 25 Mg Tablet 25 Mg PO DAILY 30 11/21/21 Rx Proair Hfa (Albuterol Sulfate) 8.5 Gm Hfa.aer.ad 2.5 Mg NEB PRN Q4HRS PRN 30 11/21/21 Rx Entresto 24 mg-26 mg Tablet (Sacubitril/Valsartan) 1 Each Tablet 1 Tab PO BID 12/03/20 Rx Dok (Docusate Sodium) 100 Mg Capsule 100 Mg PO PRN DAILY PRN 30 10/14/20 Rx Tylenol (Acetaminophen) 325 Mg Tablet 650 Mg PO PRN Q4HRS PRN 30 10/14/20 Rx Aspirin Ec (Aspirin) 81 Mg Tablet.dr 81 Mg PO DAILYWBKFT 30 10/14/20 Rx Vascepa (Icosapent Ethyl) 0.5 Gm Capsule 1 Cap PO BID 30 03/22/20 Reported Farxiga (Dapagliflozin Propanediol) 10 Mg Tablet 10 Mg PO DAILY 03/22/20 Reported Omeprazole 20 Mg Tablet.dr 1 Tab PO DAILY 03/22/20 Reported Atorvastatin Calcium 40 Mg Tablet 1 Tab PO QHS 03/22/20 Reported Glimepiride 4 Mg Tablet 1 Tab PO DAILY 03/22/20 Reported Comments Chest x-ray reviewed 01/26/2022. Bilateral CHF. Some reaccumulation of left pleural effusion Impression . 1. Acute on chronic hypoxic respiratory failure secondary to worsening acute on chronic systolic congestive heart failure in the setting of severe cardiomyopathy and also increasing left pleural effusion. Status post left thoracentesis. Clinically better 2. Severe cardiomyopathy with an EF of 15-20% and also severe diastolic dysfunction. 3. Supraventricular tachycardia, currently controlled with Cardizem. 4. Underlying chronic obstructive pulmonary disease with ongoing tobaccoism for 30+ years. The patient is on home oxygen at 2 liters. Plan . Updated 01/27/2022 1. Status post left thoracentesis. 1200 cc of fluid removed. Clinically better. Chest x-ray still shows reaccumulation of left effusion 2. Patient initiated on inotropic agent milrinone and amiodarone. Now off amiodarone. 3. Continue diuresis. 4. Monitor renal function. 5. Continue nasal cannula. Off Vapotherm. 6. Follow Cardiology recommendations. 7. DVT prophylaxis with subcutaneous heparin. 8. Prognosis is grim from a cardiac standpoint. Further recommendations to follow. 9. We will watch clinically. Repeat chest x-ray next 48 to 72 hours. Hold off any further thoracentesis at present since he is clinically improved Updated 01/26/2022 1. Status post left thoracentesis. 1200 cc of fluid removed. Clinically better. Chest x-ray still shows reaccumulation of left effusion 2. Patient initiated on inotropic agent milrinone and amiodarone. 3. Continue diuresis. 4. Monitor renal function. 5. Continue nasal cannula. Off Vapotherm. 6. Follow Cardiology recommendations. 7. DVT prophylaxis with subcutaneous heparin. 8. Prognosis is grim from a cardiac standpoint. Further recommendations to follow. SONG CARLSON MD Jan 27, 2022 07:33
[2022-01-27] MEDS: INSULIN LISPRO 300 UNITS/3 ML VIAL. SQ SCH ×2 (08:00→12:00)
[2022-01-27] MEDS: SPIRONOLACTONE 25 MG TABLET PO SCH (09:00)
[2022-01-27] MEDS: FUROSEMIDE 40 MG/4 ML VIAL. IVP SCH (09:00)
[2022-01-27] MEDS: ASPIRIN ENTERIC COATED 81 MG TABLET.DR. PO SCH (11:12)
[2022-01-27] MEDS: AMIODARONE HCL 200 MG TABLET. PO SCH (11:14)
[2022-01-27] MEDS: METOPROLOL SUCC 24HR ER 50 MG TAB.ER.24H. PO SCH (11:15)
--- NOTE | 2022-01-27 11:57 | PDOC ---
[employer] PROGRESS NOTE Date of Service DOS: DATE: 01/27/22 TIME: 11:52 Chief Complaint Chief Complaint Acute respiratory failure with hypoxia Paroxysmal SVT Systolic CHF exacerbation HTN HLD DM2 History COPD History of Present Illness History of Present Illness 01/27: Patient seen in ICU. Off amiodarone infusion, now on oral amiodarone 200 mg daily. He is off milrinone drip. Continue Lasix. S/P left thoracentesis with removal of 1200 cc of fluid (01/25). Will ambulate patient and see how he does with oxygen requirement. Per cardiology note, he may discharge if he does well with ambulation. Discussed with RN. Will arrange discharge accordingly. Greater than 30 minutes spent managing the discharge of this patient. 01/26: Patient seen and evaluated in ICU. He looks much further than yesterday; breathing on 5 L nasal cannula. Patient apparently ran out of his multaq for several days, which prompted his presentation in the ED and CHF exacerbation. He has been started on amiodarone and milrinone infusions. Patient concerned about missing his daughter's wedding and notes that he has a flight on Sunday morning he would like very much to catch. Told him I will discuss with cardiology about early discharge. Continue amiodarone, milrinone, and Lasix IV push. Critical care time 30 minutes spent reviewing charts, reviewing labs, reviewing imaging, discussion with RN. Vitals/I&O Vitals/I&O: Vital Signs Date Time Temp Pulse Resp B/P (MAP) Pulse Ox O2 Delivery O2 Flow Rate FiO2 01/27/22 11:15 92 125/89 01/27/22 08:22 96 Nasal Cannula 4.0 01/27/22 06:00 26 01/27/22 04:00 97.6 97.6 I & O 01/26/22 01/26/22 01/27/22 15:00 23:00 07:00 Intake Total 0 ml 450 ml 338.2 ml Output Total 660 ml 400 ml 475 ml Balance -660 ml 50 ml -136.8 ml Physical Exam General: Alert, Oriented X3, Cooperative, No acute distress Heart: Regular rate (SR), Other (distant heart sounds) Lungs: Other (Diminished breath sounds left lung) Abdomen: Soft, No tenderness Extremities: No cyanosis, Other (2+ bilateral LE pitting edema) Skin: No breakdown, No significant lesion Labs Labs: Laboratory Tests Test 01/26/22 12:27 01/26/22 16:42 01/26/22 20:40 01/27/22 08:33 Glucose (Fingerstick) 201 mg/dL (70-99) 113 mg/dL (70-99) 104 mg/dL (70-99) 87 mg/dL (70-99) Assessment and Plan Assessmemt and Plan Problems Medical Problems: (1) Acute exacerbation of congestive heart failure Status: Acute (2) Acute hypoxemic respiratory failure Status: Acute (3) Paroxysmal SVT (supraventricular tachycardia) Status: Acute (4) Pleural effusion, bilateral Status: Acute (5) Volume overload Status: Acute Comment Review of Relevant I have reviewed the following items [place] (where applicable) has been applied. Medications: Current Medications Medications (Trade) Dose Ordered Sig/Gus Route PRN Reason Start Time Stop Time Status Last Admin Dose Admin Amiodarone HCl (Cordarone) 200 mg DAILY PO 01/26/22 18:00 01/27/22 11:14 Justifications for Admission Other Justification Acute CHF exacerbation, scrotal edema SERG HURST MD Jan 27, 2022 11:57
--- NOTE | 2022-01-27 12:20 | PDOC ---
CARDIOLOGY PROGRESS NOTE SUBJECTIVE: No acute events overnight. Patient denies any chest pain or dyspnea. Feels that he is doing well. OBJECTIVE: Vital Signs/I&O: Vital Signs Date Time Temp Pulse Resp B/P (MAP) Pulse Ox O2 Delivery O2 Flow Rate FiO2 01/27/22 11:15 92 125/89 01/27/22 08:22 96 Nasal Cannula 4.0 01/27/22 06:00 26 01/27/22 04:00 97.6 97.6 I & O 01/26/22 01/26/22 01/27/22 15:00 23:00 07:00 Intake Total 0 ml 450 ml 338.2 ml Output Total 660 ml 400 ml 475 ml Balance -660 ml 50 ml -136.8 ml Objective: GEN.: No apparent distress. Alert and oriented. HEENT: Head is normocephalic, atraumatic NECK: Supple. LUNGS: Clear to auscultation. HEART: RRR, S1, S2 present. Peripheral pulses intact ABDOMEN: Soft, nontender. Positive bowel sounds. EXTREMITIES: Without any cyanosis. NEUROLOGIC: Normal speech, normal tone PSYCHIATRIC: Normal affect, normal mood. SKIN: No ulcerations CURRENT MEDICATIONS: Amiodarone 200mg daily Metoprolol 50mg XL Milrinone gtt Lasix 40mg IVP Spironolactone 25mg daily DIAGNOSTIC TESTING: Cr 1.2 Labs: Laboratory Tests Test 01/26/22 12:27 01/26/22 16:42 01/26/22 20:40 01/27/22 08:33 Glucose (Fingerstick) 201 mg/dL (70-99) H 113 mg/dL (70-99) H 104 mg/dL (70-99) H 87 mg/dL (70-99) ASSESSMENT: 1. NICM 2. PSVT 3. Chronic resp failure. PLAN: 1. Stop Milrinone 2. Ambulate and see if patient has any symptoms. 3. If patient does well with ambulation, follow up in the office in 1 month. Patient does not want to stay in the hospital as he needs to go to his daughters wedding. I do not think clinically he is stable yet but he does not want to stay in the hospital. Continue toprol XL, Spiron, lasix 40mg, amiodarone. Start Lisinopril on an outpt basis. Needs repeat labs in 1 week. Keziafation of Admission Dx: Justifications for Admission: Justification of Admission Dx: No Respiratory Failure: Severe Resp Distress AILYN ZUÑIGA MD Jan 27, 2022 12:20
--- NOTE | 2022-01-27 12:41 | RAD ---
Left Thoracentesis 01/25/2022 3:23 PM Clinical History: Left pleural effusion. Technique: Relative benefits risks and alternatives were discussed with the patient and/or their rep resentative. Written informed consent was obtained. The patient was placed in seated position. A nader eout procedure was performed. Sonographic assessment demonstrates a large pleural effusion. A site for skin entry was selected, and subsequently prepped and draped using sterile barrier technique. 1% lidocaine without epinepherine was administered for local anesthesia to the skin and subcutaenous tissues. A 5 [place] sheathed needle was passed into the pleural space. Clear yellow fluid was aspirated and t he catheter was connected to a vacuum The catheter was removed and adequate hemostasis was obtained. A sterile dressing was applied. The patient tolerated the procedure well, without complications. Impression: Successful ultrasound guided left thoracentesis Electronically signed by: Evens Matos MD (01/27/2022 12:38 PM) [id number]
--- NOTE | 2022-01-27 14:45 | PDOC3 ---
Discharge Summary Visit Information Date of Admission: Jan 25, 2022 Date of Discharge: Jan 27, 2022 Final Diagnosis Problems Medical Problems: (1) Acute exacerbation of congestive heart failure Status: Acute (2) Acute hypoxemic respiratory failure Status: Acute (3) Paroxysmal SVT (supraventricular tachycardia) Status: Acute (4) Pleural effusion, bilateral Status: Acute (5) Volume overload Status: Acute Brief Hospital Course Allergies Allergies Coded Allergies Type Severity Reaction Last Updated Verified No Known Drug Allergies 12/14/21 No Vital Signs Vital Signs Date Time Temp Pulse Resp B/P (MAP) Pulse Ox O2 Delivery O2 Flow Rate FiO2 01/27/22 12:09 Nasal Cannula 4.0 01/27/22 11:15 92 125/89 01/27/22 08:22 96 01/27/22 06:00 26 01/27/22 04:00 97.6 97.6 Lab Results Laboratory Tests Test 01/25/22 18:16 01/25/22 21:51 01/26/22 01:15 01/26/22 04:45 Glucose (Fingerstick) 160 mg/dL (70-99) 98 mg/dL (70-99) Urine Collection Type Unknown Urine Color (Auto) Yellow Urine Turbidity Clear Urine pH (Auto) 5.0 (<5.0-8.0) Urine Specific [place] 1.017 (1.000-1.030) Urine Protein (Auto) 30 mg/dL (Negative) Urine Glucose (Auto)(UA) Negative mg/dL (Negative) Urine Ketones (Auto) Negative mg/dL (Negative) Urine Blood (Auto) Negative (Negative) Urine Nitrite Negative (Negative) Urine Bilirubin (Auto) Negative (Negative) Urine Urobilinogen (Auto) 6 mg/dL (Normal) Urine Leukocyte Esterase (Auto) Negative (Negative) Urine RBC 0 /HPF (0-2) Urine WBC Rare /HPF (0-4) Urine Squamous Epithelial Cells Occ /LPF Urine Bacteria 0 /HPF (0-FEW) Urine Hyaline Casts Many /HPF Urine Mucus Marked /LPF Urine Opiates Screen Neg (NEG) Urine Methadone Screen Neg (NEG) Urine Barbiturates Neg (NEG) Urine Phencyclidine Screen Neg (NEG) Urine Amphetamine/Methamphetamine Neg (NEG) Urine Benzodiazepines Screen Neg (NEG) Urine Cocaine Screen Neg (NEG) Urine Cannabinoids Screen Neg (NEG) Urine Ethyl Alcohol Neg (NEG) White Blood Count 8.8 x10^3/uL (4.0-11.0) Red Blood Count 6.00 x10^6/uL (4.30-5.70) Hemoglobin 16.7 g/dL (13.0-17.5) Hematocrit 51.8 % (39.0-53.0) Mean Corpuscular Volume 86 fL (79-100) Mean Corpuscular Hemoglobin 28 pg (25-35) Mean Corpuscular Hemoglobin Concent 32 g/dL (31-37) Red Cell Distribution Width 19.1 % (11.5-14.5) Platelet Count 258 x10^3/uL (140-400) Neutrophils (%) (Auto) 78 % (31-73) Lymphocytes (%) (Auto) 9 % (24-48) Monocytes (%) (Auto) 12 % (0-9) Eosinophils (%) (Auto) 0 % (0-3) Basophils (%) (Auto) 1 % (0-3) Neutrophils # (Auto) 6.9 x10^3/uL (1.8-7.7) Lymphocytes # (Auto) 0.8 x10^3/uL (1.0-4.8) Monocytes # (Auto) 1.1 x10^3/uL (0.0-1.1) Eosinophils # (Auto) 0.0 x10^3/uL (0.0-0.7) Basophils # (Auto) 0.1 x10^3/uL (0.0-0.2) Sodium Level 135 mmol/L (136-145) Potassium Level 4.2 mmol/L (3.5-5.1) Chloride Level 100 mmol/L (98-107) Carbon Dioxide Level 21 mmol/L (21-32) Anion Gap 14 (6-14) Blood Urea Nitrogen 25 mg/dL (8-26) Creatinine 1.2 mg/dL (0.7-1.3) Estimated GFR (Cockcroft-Gault) 62.9 BUN/Creatinine Ratio 21 (6-20) Glucose Level 107 mg/dL (70-99) Calcium Level 9.2 mg/dL (8.5-10.1) Total Bilirubin 2.6 mg/dL (0.2-1.0) Aspartate Amino Transf (AST/SGOT) 24 U/L (15-37) Alanine Aminotransferase (ALT/SGPT) 16 U/L (16-63) Alkaline Phosphatase 127 U/L (46-116) Total Protein 6.6 g/dL (6.4-8.2) Albumin 3.1 g/dL (3.4-5.0) Albumin/Globulin Ratio 0.9 (1.0-1.7) Test 01/26/22 08:06 01/26/22 12:27 01/26/22 16:42 01/26/22 20:40 Glucose (Fingerstick) 111 mg/dL (70-99) 201 mg/dL (70-99) 113 mg/dL (70-99) 104 mg/dL (70-99) Test 01/27/22 08:33 01/27/22 12:25 Glucose (Fingerstick) 87 mg/dL (70-99) 70 mg/dL (70-99) Laboratory Tests Test 01/26/22 16:42 01/26/22 20:40 01/27/22 08:33 01/27/22 12:25 Glucose (Fingerstick) 113 mg/dL (70-99) 104 mg/dL (70-99) 87 mg/dL (70-99) 70 mg/dL (70-99) Brief Hospital Course Mr. Glass is a 56 old male who presented with acute respiratory failure with hypoxia, acute on chronic combined heart failure, paroxysmal SVT. Consultation was placed to cardiology. Patient was noted to have a heart rate of 160s in the ED, consistent with PSVT. He was given adenosine 6 mg, 12 mg, then 12 mg, without resolution. He was then cardioverted in the ED with resolution of PSVT. When he was noted to still be in SVT he was given diltiazem bolus, then placed on diltiazem infusion. Was later placed on BiPAP due to respiratory distress. Chest x-ray on admission showed bilateral pleural effusion. Consultation was placed to pulmonology. He had ultrasound-guided left thoracentesis on 01/25/22. In the ICU he was later transition to amiodarone drip, and also placed on milrinone drip and IV Lasix to continue diuresis. EF at 15% per echo 01/19/21. Patient was adamant about discharging from hospital to attend his daughter's wedding, so we ambulated patient to ascertain his O2 requirements at rest and with exertion. He was stable to discharge with outpatient cardiology follow-up. Discharge Information Condition at Discharge: Stable Disposition/Orders: D/C to Home Scheduled Amoxicillin/Potassium Clav (Amox Tr-K Clv 500-125 Mg Tab) 1 Each Tablet, 1 TAB PO BID for ., #14 Prescribed by: TANYA LLOYD on 12/17/21 1212 Aspirin (Aspirin Ec) 81 Mg Tablet.dr, 81 MG PO DAILYWBK for heart health for 30 Days, #30 Prescribed by: TRACY WATERMAN MD on 10/14/20 0953 Last Action: Continued on 01/25/221002 by SERG HURST MD Atorvastatin Calcium (Atorvastatin Calcium) 40 Mg Tablet, 1 TAB PO QHS for HLD, #90 Ref 3 (Reported) Entered as Reported by: ALAYNA GOODMAN RN on 03/22/201126 Last Action: Continued on 01/25/221002 by SERG HURST MD Bumetanide (Bumetanide) 1 Mg Tablet, 1 TAB PO BID for CHF for 30 Days, #60 Ref 3 Prescribed by: MEHRDAD LOGAN MD on 11/21/21 1454 Last Action: Continued on 01/25/221002 by SERG HURST MD Dapagliflozin Propanediol (Farxiga) 10 Mg Tablet, 10 MG PO DAILY for unknown, (Reported) Entered as Reported by: ALAYNA GOODMAN RN on 03/22/201126 Furosemide (Lasix) 40 Mg Tablet, 1 TAB PO BID for 7 Days, #14 Ref 0 Prescribed by: FRANDY MULTANI D.O. on 12/20/21 0055 Glimepiride (Glimepiride) 4 Mg Tablet, 1 TAB PO DAILY for DM, #30 Ref 5 (Reported) Entered as Reported by: ALAYNA GOODMAN RN on 03/22/201126 Icosapent Ethyl (Vascepa) 0.5 Gm Capsule, 1 CAP PO BID for unknown for 30 Days, #60 Ref 0 (Reported) Entered as Reported by: ALAYNA GOODMAN RN on 03/22/201126 Last Action: Converted on 01/25/221002 by SERG HURST MD Methylprednisolone (Medrol) 4 Mg Tab.ds.pk, 1 PKG PO UD for ., #1 Prescribed by: TANYA LLOYD on 12/17/21 1213 Metoprolol Succinate (Toprol XL) 50 Mg Tab.er.24h, 50 MG PO DAILY for CHF for 30 Days, #30 Ref 3 Prescribed by: MEHRDAD LOGAN MD on 11/21/21 1454 Last Action: Continued on 01/25/22 100 by SERG HURST MD Omeprazole (Omeprazole) 20 Mg Tablet.dr, 1 TAB PO DAILY for stomach, #90 Ref 1 (Reported) Entered as Reported by: ALAYNA GOODMAN RN on 03/22/20 1127 Potassium Chloride (Klor-Con M20) 20 Meq Tab.er.prt, 40 MEQ PO DAILYWBKFT for Hypokalemia for 30 Days, #60 Ref 3 Prescribed by: MEHRDAD LOGAN MD on 11/21/21 1454 Sacubitril/Valsartan (Entresto 24 mg-26 mg Tablet) 1 Each Tablet, 1 TAB PO BID for CHF, #60 Ref 1 Prescribed by: SERG HURST MD on 12/03/20 1659 Last Action: Continued on 01/25/22 100 by SERG HURST MD Spironolactone (Aldactone) 25 Mg Tablet, 25 MG PO DAILY for heart for 30 Days, #30 Ref 3 Prescribed by: MEHRDAD LOGAN MD on 11/21/214 Last Action: Continued on 01/25/22 100 by SERG HURST MD Scheduled PRN Acetaminophen (Tylenol) 325 Mg Tablet, 650 MG PO PRN Q4HRS PRN for TEMP OVER 100.4F OR MILD PAIN for 30 Days, #60 Prescribed by: TRACY WATERMAN MD on 10/14/20 0953 Albuterol Sulfate (Proair Hfa) 8.5 Gm Hfa.aer.ad, 2.5 MG NEB PRN Q4HRS PRN for SHORTNESS OF BREATH for 30 Days, #1 Ref 3 Prescribed by: MEHRDAD LOGAN MD on 11/21/21 1454 Albuterol Sulfate (Proair Hfa Inhaler) 8.5 Gm Hfa.aer.ad, 2 PUFF IH PRN Q4-6HRS PRN for wheezing for 21 Days, #1 Ref 0 Prescribed by: TANYA LLOYD on 12/17/21 1212 Docusate Sodium (Dok) 100 Mg Capsule, 100 MG PO PRN DAILY PRN for HARD STOOLS for 30 Days, #60 Prescribed by: TRACY WATERMAN MD on 10/14/20 0953 Justicifation of Admission Dx: Justifications for Admission: Justification of Admission Dx: No Respiratory Failure: Severe Resp Distress SERG HURST MD Jan 27, 2022 14:45
[2022-01-27] MEDS ORDERED: FURO80TA72 PO (14:54)
[2022-01-27] MEDS ORDERED: LISI5TAB15 PO (14:54)
[2022-01-27] MEDS ORDERED: AMIO200T53 PO (14:54)
--- NOTE | 2022-01-27 17:35 | NUR ---
Discharged per w/c ,able to dress self w minimal overt SOA. Recovers after 3-5 min period rest. Tolerated amb independent w good balance and strength prior to discharge. Able to ambulate to end of good before taking a break to rest .One stop only w O2 at 4LNC. Printed discharge papers w questions answered as arose. Reinforced need to seek medical attention as needed.
== END 2022-01-27 17:17 | disposition home or self-care (01) | DRG 291 ==
LOC: ER 22:18 → 1 WEST ICU 01-25 00:43
PROVIDERS: ADMIT Internal Medicine; ATTEND Internal Medicine
PROC: 5A0935A Assistance with Respiratory Ventilation, Less than 24 Consecutive Hours, High Flow/Velocity Cannula (ICD-10-PCS; 2022-01-25)
PROC: 5A09357 Assistance with Respiratory Ventilation, Less than 24 Consecutive Hours, Continuous Positive Airway Pressure (ICD-10-PCS; principal; 2022-01-26)
PROC: 5A0935A Assistance with Respiratory Ventilation, Less than 24 Consecutive Hours, High Flow/Velocity Cannula (ICD-10-PCS; 2022-01-26)
PROC: 0W9B3ZZ Drainage of Left Pleural Cavity, Percutaneous Approach (ICD-10-PCS; 2022-01-27)
DX: I11.0 Hypertensive heart disease with heart failure (principal); J96.21 Acute and chronic respiratory failure with hypoxia; I50.43 Acute on chronic combined systolic (congestive) and diastolic (congestive) heart failure; I47.1 Supraventricular tachycardia; J44.1 Chronic obstructive pulmonary disease with (acute) exacerbation; I42.8 Other cardiomyopathies; E11.9 Type 2 diabetes mellitus without complications; E78.00 Pure hypercholesterolemia, unspecified; E78.5 Hyperlipidemia, unspecified; E87.6 Hypokalemia; F17.210 Nicotine dependence, cigarettes, uncomplicated; I25.10 Atherosclerotic heart disease of native coronary artery without angina pectoris; Z79.84 Long term (current) use of oral hypoglycemic drugs; Z79.899 Other long term (current) drug therapy; Z82.49 Family history of ischemic heart disease and other diseases of the circulatory system; Z86.16 Personal history of COVID-19; Z95.810 Presence of automatic (implantable) cardiac defibrillator; K21.9 Gastro-esophageal reflux disease without esophagitis; M19.90 Unspecified osteoarthritis, unspecified site; Z71.6 Tobacco abuse counseling
CPT/HCPCS: 32555; 36415; 36600; 71045; 80048; 80053; 80307; 81001; 82805; 82962; 83735; 83880; 84443; 84484; 85025; 85610; 85730; 87428; 93005; 94660; 94760; 96365; 96366; 96375; 96376; 99292; G0480; J0153; J0282; J1644; J1815; J1940; J2060; J2260; J3475; J3480; J3490; J7060; U0003; 97110-GP; 99291-25; G0378